=== PATIENT | female | born 1990 | race Caucasian/White ===

== ENCOUNTER 2020-09-14 06:03 | Emergency (ER) | payer OTHER, SELFPAY ==
[2020-09-14 07:29] VITALS: BP 128/70; PULSE 77; RESP 16; TEMP 37; O2SAT 98; BMI 32.9
[2020-09-14] MEDS: Lidocaine HCl 1 % MPF 5 ML VIAL 10 ML INFILTRATI (08:36)
[2020-09-14 08:41] VITALS: BP 114/69; PULSE 84; RESP 18
--- NOTE | 2020-09-14 09:07 | ED_ITS ---
HPI - General Adult General Chief complaint: General Medical Stated complaint: multiple complaints Time Seen by Provider: 09/14/20 08:13 Source: patient Mode of arrival: ambulatory Limitations: no limitations History of Present Illness HPI narrative: 30-year-old female who presents emergency department for evaluation of an abscess and cellulitis to her left lateral thigh. The patient states that she has a history of injection heroin use. She states she was sober for about 1 year. She states that her aunt about 1 month prior and this caused her to relapse. She states she has been injecting heroin daily. She states that she injected into her left thigh area 1 week prior. She states that several days after injecting in this area she developed redness and an abscess. She states that she was trying to drain the abscess at home with an insulin syringe. She states that she was able to withdraw 1 cc of pus for 5 times. She states however the abscess is gotten larger and the area of erythema has also increased. She denies systemic symptoms such as fever, chills, weakness, myalgias or arthralgias. The patient states that she is following up with a Suboxone clinic tomorrow. She does have intranasal Narcan at home. Related Data Previous Rx's Medication Instructions Recorded doxycycline hyclate 100 mg PO Q12H 7 Days #14 tab 09/14/20 furosemide 20 mg PO DAILY 14 Days #14 tab 09/14/20 metronidazole [Flagyl] 500 mg PO BID 10 Days #20 tab 09/14/20 Allergies Allergy/AdvReac Type Severity Reaction Status Date / Time acetaminophen [From TYLENOL] Allergy Mild ITCHY AND Verified 09/14/20 07:35 HIVES red dye [RED DYE] Allergy Mild ITCHY HIVES Verified 09/14/20 07:36 tioconazole Allergy Mild HIVES Verified 09/14/20 07:36 [From MONISTAT 1 (TIOCONAZOLE)] Review of Systems Review of Systems: Yes all other systems are reviewed and are negative PMFSH Past Medical History Medical History Anxiety Endocarditis Opiate addiction Social History Social History Alcohol intake: never Patient Tobacco Use Status: Current everyday Tobacco user Substance Use Type: Heroin Substance Use Frequency: Chronic Longstanding Last Used Substance: Hours (ago) Any prior treatment program specific to substance use: Yes Advance Directives: No Advance Directives Information Provided: No Patient : No Physical Exam Vital Signs: Vital Signs: Last Vital Signs Temp 98.6 F 09/14/20 07:29 Pulse 84 09/14/20 08:41 Resp 18 09/14/20 08:41 BP 114/69 09/14/20 08:41 Pulse Ox 98 09/14/20 07:29 Body Mass Index 32.9 Const: General: cooperative Nutritional Appearance: overweight Orientation/consciousness: oriented to person and oriented to place Limitations: no limitations HENMT: Head: Yes normal to inspection, Yes normocephalic and Yes atraumatic Ears: external ears normal General nose exam: Normal external nose present Face and sinus: Yes normal facial exam Mouth: Normal oral and palatal mucosa present Throat: Yes posterior oropharynx normal Eyes: Periorbital: periorbital findings normal Eyelids: Yes eyelids normal Conjunctivae: conjunctivae normal Sclerae: sclerae normal Corneas: corneas normal Pupils: Equal, round and reactive pupils present Direct Ophthalmoscopy: normal light reflex Neck: Neck: Yes full ROM, Yes no lymphadenopathy, Yes no meningeal signs, Yes trachea midline and Yes supple Chest: Chest palpation & inspection: normal inspection of the chest and normal palpation of entire chest wall Resp: Effort & Inspection: normal respiratory effort and able to speak in complete sentences Auscultation: clear to auscultation bilaterally Cardio: Rate: regular rate Rhythm: regular rhythm Heart sounds: S1 normal heart sound present, S2 normal heart sound present and no murmurs GI: Inspection: Yes normal to inspection Palpation (GI): Soft to palpation, nontender, no guarding, not rigid and No hepatosplenomegaly present : General: Yes no CVA tenderness Back/Spine/Pelvis: Back: no CVA tenderness Cervical Spine: normal cervical lordosis Thoracic/Lumbar Spine: thoracic and lumbar spine normal to inspection Skin: Lesions: no lesions Rashes: no rashes Wounds: no wounds Neuro: General: oriented to person, oriented to place and no meningeal signs Cranial nerves: Yes CN's II-XII intact bilaterally and Yes Equal, round and reactive pupils present Cognition (Neuro): normal cognition Motor exam (neuro): 5/5 motor strength present throughout Extrem: Other: Left lateral thigh: 2 x 2 central area flocculence with 11 x 13 cm area of erythema which is indurated. Erythema is warm to the touch and blanches with pressure. 1+ lower extremity edema, symmetric. General: Yes full ROM Psych: Appearance: well kempt Mental Status: mental status grossly normal Speech and movement: Normal speech and movement present Affect: normal affect Attitude: cooperative Thought process: Normal thought process present Thought content: Normal thought content present Course Course Course Narrative: 30-year-old female who presents emergency department for evaluation of abscess and cellulitis to the left lateral thigh after injecting heroin in this area 1 week prior. The patient does have a history of injection heroin use and uses daily. She states she is going to get into a Suboxone clinic tomorrow and does not want crisis counseling. She states that she has multiple doses of intranasal old Narcan at home and does carry a dose with her. The patient's abscess was incised and drained approximately 10 cc of purulent material was expressed from the incision. I did pack the wound with quarter- inch gauze. The patient will be discharged home with prescriptions for doxycycline 100 mg twice a day for 7 days and cephalexin 500 mg 4 times a day for 7 days. The patient also has peripheral edema and was started on Lasix 20 mg once a day for 2 weeks. Procedures Abscess I/D Site: lower extremity Side (if applicable): left Local Anesthetic: lidocaine 1% Amount of anesthesia used (mL): 10 Technique: incised with blade and other (Adhesions within the abscess cavity were broken up using a hemostat) Amount of fluid expressed (mL): 10 Sent for culture/gram staining?: Yes Irrigation: No Packing used?: iodoform (Quarter-inch) Discharge Plan Discharge Clinical Impression: Heroin use disorder, moderate, Abscess of left lower extremity, Encounter for incision and drainage procedure Patient Disposition: Home, Self-Care Instructions: Cellulitis (ED), Abscess Incision and Drainage (DC), Edema (ED) Additional Instructions: I incised and drained approximately 10 mL of pus out of your abscess. I put approximately 6 in packing in the wound. The packing needs to stay in for 4 days. After 4 days you can remove this packing by pulling on the and and removing it from the wound. Use a heating pad on low to moderate heat for 15-20 minutes 4 to 6 times a day. This will increase the blood flow to your skin and help the healing process. Take Keflex (cephalexin) 500 mg pills, 1 pill 4 times a day for 7 days. Also take doxycycline 100 mg pills, 1 pill twice a day for 7 days. These 2 antibiotic should help with the cellulitis. Take ibuprofen 200 mg pills, 3 pills every 6 hours as needed for pain. Take Tylenol (acetaminophen) 500 mg pills, 2 pills every 4 to 6 hours as needed for pain. For the swelling in your legs I am prescribing Lasix (furosemide) 20 mg, take 1 pill in the morning. This medication will make you pee frequently for approximately 6 hours. While you are taking furosemide you need to restrict the amount of fluid that you drink so that you can lose more fluid than you take in. Follow-up with your doctor in 2 days. Please return to the emergency department if your symptoms get worse or if you develop any symptoms that are concerning to you. Prescriptions: New metronidazole [Flagyl] 500 mg tablet 500 mg PO BID 10 Days Qty: 20 RF: 0 doxycycline hyclate 100 mg tablet 100 mg PO Q12H 7 Days Qty: 14 RF: 0 furosemide 20 mg tablet 20 mg PO DAILY 14 Days Qty: 14 RF: 0
== END 2020-09-14 09:39 | disposition home or self-care (01) ==
PROVIDERS: Emergency Provider Emergency Medicine Emergency Medical Services
DX: L02.416 Cutaneous abscess of left lower limb (principal); L03.116 Cellulitis of left lower limb; R60.0 Localized edema; F11.20 Opioid dependence, uncomplicated
CPT/HCPCS: 10060; 87071; 87077; 87186; 87205; 99284

== ENCOUNTER 2021-01-13 17:45 | Emergency (ER) | payer OTHER, SELFPAY ==
[2021-01-13 18:18] VITALS: BP 111/71; PULSE 99; RESP 18; TEMP 37.2; O2SAT 98; BMI 29.9
--- NOTE | 2021-01-13 20:29 | ED_ITS ---
HPI - Skin/Abscess/Foreign Bdy General Chief complaint: Skin/Abscess/Foreign Body Stated complaint: cellulitis Time Seen by Provider: 01/13/21 20:26 Source: patient Mode of arrival: ambulatory Limitations: no limitations History of Present Illness HPI narrative: 30-year-old IV heroin user presents for rash on her left and right lower extremities. Patient injects in her legs. Patient was seen at [facility] 3 days ago and prescribed doxycycline. Patient has been taking doxycycline for 3 days, states the pain in her left lower extremity is better but now she has a rash and pain in her right lower extremity. Denies fevers, chills, weakness, arthralgias, myalgias, dyspnea, chest pain. Patient has a past medical history of endocarditis, she has had endocarditis in 2016 and 2017. MD complaint: rash Onset (ago): day(s) (3) Tetanus up to date: unsure Location: LLE and RLE Severity: moderate Severity scale (1-10): 5 Quality: aching Pain Consistency: constant Relieving factors: medication Context: IVDA Associated symptoms: denies other symptoms Treatments prior to arrival: antibiotic Related Data Previous Rx's Medication Instructions Recorded doxycycline hyclate 100 mg tablet 100 mg PO Q12H 7 Days #14 tab 09/14/20 furosemide 20 mg tablet 20 mg PO DAILY 14 Days #14 tab 09/14/20 metronidazole 500 mg tablet 500 mg PO BID 10 Days #20 tab 09/14/20 (Flagyl) cephalexin 500 mg capsule 500 mg PO QID 10 Days #40 cap 01/13/21 doxycycline hyclate 100 mg tablet 100 mg PO DAILY 3 Days #3 tab 01/13/21 ibuprofen 800 mg tablet 800 mg PO Q8H 5 Days #15 tab 01/13/21 Allergies Allergy/AdvReac Type Severity Reaction Status Date / Time acetaminophen [From TYLENOL] Allergy Mild ITCHY AND Verified 09/14/20 07:35 HIVES red dye [RED DYE] Allergy Mild ITCHY HIVES Verified 09/14/20 07:36 tioconazole Allergy Mild HIVES Verified 09/14/20 07:36 [From MONISTAT 1 (TIOCONAZOLE)] Review of Systems Constitutional: Constitutional: Denies body ache(s), Denies chills, Denies fatigue, Denies fever(s), Denies headache(s), Denies malaise and Denies weakness Eyes: Eyes: Denies diplopia ENT: Denies vertigo, Denies dizziness, Denies otalgia, Denies headache(s), Denies mouth pain, Denies post nasal drip, Denies sinus pain, Denies sinus pressure, Denies sore throat and Denies throat swelling Cardiovascular: Cardiovascular: Denies chest pain, Denies syncope, Denies leg edema, Denies lightheadedness, Denies Loss of Consciousness, Denies palpitations and Denies dyspnea Respiratory: Respiratory: Denies chest congestion, Denies cough and Denies dyspnea Gastrointestinal: Gastrointestinal: Denies abdominal pain, Denies hematochezia, Denies constipation, Denies diarrhea and Denies vomiting Musculoskeletal: Musculoskeletal: Reports no additional musculoskeletal complaints Integumentary/Breasts: Skin/Breast: Reports new lesions, Reports erythema, Reports rash, Reports skin pain, Reports skin swelling, Reports skin ulcer and Reports sores Comments: warmth of LE Neurologic: Denies confusion, Denies vertigo, Denies dizziness, Denies syncope, Denies headache(s) and Denies weakness Psychiatric: Psychiatric: Reports anxiety, Denies confusion and Denies depression Endocrine: Endocrine: Denies fatigue and Denies palpitations Allergic/Immunologic: Allergic/Immunologic: Denies throat swelling PMFSH Past Medical History Medical History Anxiety Endocarditis Opiate addiction Social History Social History Alcohol intake: never Patient Tobacco Use Status: Current everyday Tobacco user Substance Use Type: Heroin Advance Directives: No Advance Directives Information Provided: Yes Patient : No Physical Exam Vital Signs: Vital Signs: Last Vital Signs Temp 98.8 F 01/13/21 22:00 Pulse 91 01/13/21 22:00 Resp 16 01/13/21 22:00 BP 116/86 01/13/21 22:00 Pulse Ox 98 01/13/21 22:00 Body Mass Index 29.9 Const: General: no acute distress, alert, awake and poor hygiene; No confusion Nutritional Appearance: well nourished Orientation/consciousness: patient oriented x3 and No confusion Limitations: no limitations Eyes: Conjunctivae: conjunctivae normal Pupils: Equal, round and reactive pupils present EOM: EOMs intact bilaterally Neck: Neck: Yes full ROM, Yes no lymphadenopathy and Yes supple Resp: Effort & Inspection: normal respiratory effort and able to speak in complete sentences Auscultation: clear to auscultation bilaterally, no crackles, no rales, no rhonchi and no wheezes Cardio: Rate: regular rate Rhythm: regular rhythm Heart sounds: S1 normal heart sound present and S2 normal heart sound present GI: Inspection: Yes normal to inspection Palpation (GI): Soft to palpation, nontender, no guarding and not rigid Percussion: Yes normal to percussion Auscultation: normal bowel sounds Skin: Other: local infection to bilateral lower extremity injection sites, now with spreading cellulitis. There are blisters over laying non-blanching red rash on left lower extremity, multiple ulcers with necrotic area. Petechiae on right lower extremity with sandip red, warm, skin swelling surrounding. Neuro: General: patient oriented x3 and No confusion Cranial nerves: Yes Equal, round and reactive pupils present Extrem: Right lower extremity: normal capillary refill, edema Details: non- pitting and lower leg Details: localized swelling, non-pitting edema and warmth Left lower extremity: normal capillary refill, edema Details: non-pitting and lower leg Details: non-pitting edema and warmth Psych: Appearance: disheveled Mental Status: mental status grossly normal Speech and movement: Clear speech present Affect: Sad affect present and Anxious affect present Attitude: cooperative Thought process: Normal thought process present Course Course Course Narrative: 30-year-old IV drug user presents with local infection to bilateral lower extremity injection sites, now with spreading cellulitis. There are blisters over laying non-blanching red rash on left lower extremity, multiple ulcers with necrotic area. Petechiae on right lower extremity with sandip red, warm, skin swelling surrounding. Will get blood cultures, labs, EKG, troponin, start IV antibiotics, expect admission Reevaluation(s) Reevaluation #1: Patient has no IV access. Dr. Ruba Mathis was able to get an IJ, however this site was lost shortly thereafter Patient is now stating that she will not stay in the hospital. 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 She is concerned that if she has to be hospitalized she will lose her apartment Extended doxycycline prescription so that it will be 10 days, prescribed 10 days of Keflex. Give strict return precautions of worsening rash, fever, nausea or vomiting, chest pain, shortness of breath. Patient left against medical advice. MDM - Skin/Abscess/Foreign Bdy ECG Data Interpretation: Sinus arrhythmia with a rate of 77. ME interval 172. QRS 94. QTC 475. Normal axis. No ST depressions or elevations. Discharge Plan Discharge Clinical Impression: Cellulitis Qualifiers: Site of cellulitis: extremity Site of cellulitis of extremity: lower extremity Laterality: unspecified laterality Qualified Code(s): L03.119 - Cellulitis of unspecified part of limb Patient Disposition: Left Against Medical Advice Instructions: Cellulitis (ED) Additional Instructions: Continue taking her doxycycline morning and night. I have prescribed 3 more days of doxycycline so your total course of this antibiotic will be 10 days. Please start taking cephalexin tonight. You must take it every 6 hours for the next 10 days. I have advised you to be admitted to the hospital today. You have left against medical advice. If you have fevers, worsening rash, chest pain, shortness of breath, or any other new or concerning symptoms you must return to the emergency room. Prescriptions: New doxycycline hyclate 100 mg tablet 100 mg PO DAILY 3 Days Qty: 3 RF: 0 cephalexin 500 mg capsule 500 mg PO QID 10 Days Qty: 40 RF: 0 ibuprofen 800 mg tablet 800 mg PO Q8H 5 Days Qty: 15 RF: 0 No Action metronidazole [Flagyl] 500 mg tablet 500 mg PO BID 10 Days Qty: 20 RF: 0 doxycycline hyclate 100 mg tablet 100 mg PO Q12H 7 Days Qty: 14 RF: 0 furosemide 20 mg tablet 20 mg PO DAILY 14 Days Qty: 14 RF: 0 Interventions: ED Discharge Assessment Last Done: 01/13/21 23:07 Discharge Date/Time: 01/13/21 23:08
--- NOTE | 2021-01-13 21:23 | ECG_ITS ---
Test Reason : ? ENDOCRITIS Blood Pressure : / mmHG Vent. Rate : 077 BPM Atrial Rate : 077 BPM P-R Int : 172 ms QRS Dur : 094 ms QT Int : 420 ms P-R-T Axes : 069 057 040 degrees QTc Int : 475 ms Normal sinus rhythm with sinus arrhythmia RSR' or QR pattern in V1 suggests right ventricular conduction delay T-wave inversion in Anterior leads Abnormal ECG When compared with ECG of 23-FEB-2017 12:21, No significant change was found Referred By: Ann Blair Electronically Signed By:MONTY AVINA MD
--- NOTE | 2021-01-13 21:39 | PC.NURSE ---
20g L internal jugular placed by Dr Mathis
--- NOTE | 2021-01-13 21:45 | PC.NURSE ---
Able to obtain first set of BC. IV no longer able to draw back, no additional blood able to be obtained. Dr Mathis is aware. Pt without IV access at this time. Pt reports she does not want to stay at hospital.
[2021-01-13 22:00] VITALS: BP 116/86; PULSE 91; RESP 16; TEMP 37.1; O2SAT 98
--- NOTE | 2021-01-13 23:00 | PC.NURSE ---
Pt was encouraged to be admitted to hospital for appropriate treatment of her presenting sx. 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 Pt repeatedly refusing recommendations by this RN for admission. Pt left AMA from [facility] provider. Pt ambulates with steady gait with cane.
== END 2021-01-13 23:08 | disposition left against medical advice (07) ==
PROVIDERS: Emergency Provider Emergency Medicine; PCP Internal Medicine
DX: L03.119 Cellulitis of unspecified part of limb (principal); F17.210 Nicotine dependence, cigarettes, uncomplicated; F11.10 Opioid abuse, uncomplicated; Z71.6 Tobacco abuse counseling; Z79.899 Other long term (current) drug therapy; Z71.51 Drug abuse counseling and surveillance of drug abuser
CPT/HCPCS: 87040; 93005; 99284

== ENCOUNTER 2021-02-18 01:54 | Emergency (ER) | payer OTHER, SELFPAY ==
[2021-02-18 02:08] VITALS: BP 124/84; PULSE 82; RESP 18; TEMP 36.6; O2SAT 99; BMI 28.3
--- NOTE | 2021-02-18 03:57 | ED_ITS ---
HPI - Wound/Laceration General Chief Complaint: Wound/Laceration Stated Complaint: Wound infection Time Seen by Provider: 02/18/21 02:45 Source: patient Mode of arrival: ambulatory History of Present Illness HPI narrative: 30-year-old female presents with request for rechecking the ulcerations on her right ankle and inner aspect of left lower extremity. She denies any fevers or chills and states that she thinks that the wounds are much improved but would like antibiotic coverage. Related Data Previous Rx's Medication Instructions Recorded doxycycline hyclate 100 mg tablet 100 mg PO Q12H 7 Days #14 tab 09/14/20 furosemide 20 mg tablet 20 mg PO DAILY 14 Days #14 tab 09/14/20 metronidazole 500 mg tablet 500 mg PO BID 10 Days #20 tab 09/14/20 (Flagyl) cephalexin 500 mg capsule 500 mg PO QID 10 Days #40 cap 01/13/21 doxycycline hyclate 100 mg tablet 100 mg PO DAILY 3 Days #3 tab 01/13/21 ibuprofen 800 mg tablet 800 mg PO Q8H 5 Days #15 tab 01/13/21 cephalexin 500 mg capsule 500 mg PO Q12H 5 Days #10 cap 02/18/21 doxycycline hyclate 100 mg tablet 100 mg PO BID 5 Days #10 tab 02/18/21 Allergies Allergy/AdvReac Type Severity Reaction Status Date / Time acetaminophen [From TYLENOL] Allergy Mild ITCHY AND Verified 09/14/20 07:35 HIVES red dye [RED DYE] Allergy Mild ITCHY HIVES Verified 09/14/20 07:36 tioconazole Allergy Mild HIVES Verified 09/14/20 07:36 [From MONISTAT 1 (TIOCONAZOLE)] Review of Systems Review of Systems: Pertinent positives and negatives as stated HPI 10 point review of systems is otherwise negative. [facility] Past Medical History Source: nursing notes reviewed Medical History Anxiety Endocarditis Opiate addiction Social History Social History Alcohol intake: never Patient Tobacco Use Status: Current everyday Tobacco user Substance Use Type: Heroin Advance Directives: No Patient : No Physical Exam Vital Signs: Vital Signs: Last Vital Signs Temp 97.8 F 02/18/21 02:08 Pulse 82 02/18/21 02:08 Resp 18 02/18/21 02:08 BP 124/84 02/18/21 02:08 Pulse Ox 99 02/18/21 02:08 Body Mass Index 28.3 VITAL SIGNS: Reviewed. GENERAL: Well developed, well nourished, in no acute distress. HEAD: Normocephalic/atraumatic EYES: PERRLA, EOMI OROPHARYNX: no oral lesions noted, posterior pharynx clear LUNGS: Normal breath sounds. No adventitious sounds or accessory muscle use. SpO2<99> CARDIOVASCULAR: Regular rate and rhythm without noted murmurs ABDOMEN: Soft, non-tender, non-distended with bowel sounds. RIGHT ANKLE: Obvious signs of healing with minimal surrounding erythema and no purulence drainage, this is in comparison to images that patient has on her phone. LEFT LOWER EXTREMITY: There are 2 well-circumscribed ulcerations to the medial aspect of the left lower extremity without purulence drainage and good granulation tissue. The ulceration at the superior aspect is noted to have a piece of necrotic tissue, however there is no significant crepitus/erythema surrounding this area and there is no foul odor. SKIN: Inspection of the skin reveals no rashes NEUROLOGIC: Alert and oriented x 4. Strength and sensation to light touch were grossly intact x 4. Course Course Course Narrative: This is a 30-year-old female with history and clinical presentation consistent with healing ulcerations to bilateral lower extremities, will provide a course of antibiotics and give her referral to see the wound care clinic here at [facility]. Discharge Plan Discharge Clinical Impression: Leg ulcer, left Patient Disposition: Home, Self-Care Instructions: Chronic Wounds (ED) Additional Instructions: 1. Use [id number] Tylenol/ibuprofen as needed for pain control. 2. Complete the entire course of antibiotics. 3. You have been provided with a wound care center referral below. 4. Please follow-up with your primary care provider on Friday morning to set up an appointment for re-evaluation. Return to the ER for acute worsening symptoms. Prescriptions: New cephalexin 500 mg capsule 500 mg PO Q12H 5 Days Qty: 10 RF: 0 doxycycline hyclate 100 mg tablet 100 mg PO BID 5 Days Qty: 10 RF: 0 No Action metronidazole [Flagyl] 500 mg tablet 500 mg PO BID 10 Days Qty: 20 RF: 0 doxycycline hyclate 100 mg tablet 100 mg PO Q12H 7 Days Qty: 14 RF: 0 furosemide 20 mg tablet 20 mg PO DAILY 14 Days Qty: 14 RF: 0 doxycycline hyclate 100 mg tablet 100 mg PO DAILY 3 Days Qty: 3 RF: 0 cephalexin 500 mg capsule 500 mg PO QID 10 Days Qty: 40 RF: 0 ibuprofen 800 mg tablet 800 mg PO Q8H 5 Days Qty: 15 RF: 0 Referrals: Wound Care [facility] [Outside] - 2 days
[2021-02-18] MEDS: cephALEXin 500 MG CAPSULE PO (04:10)
== END 2021-02-18 04:13 | disposition home or self-care (01) ==
PROVIDERS: Emergency Provider Student in an Organized Health Care Education/Training Program
DX: L97.929 Non-pressure chronic ulcer of unspecified part of left lower leg with unspecified severity (principal); L97.919 Non-pressure chronic ulcer of unspecified part of right lower leg with unspecified severity
CPT/HCPCS: 99283

== ENCOUNTER 2021-03-03 02:52 | Emergency (ER) | payer OTHER, SELFPAY ==
[2021-03-03 03:19] VITALS: BP 111/70; PULSE 87; RESP 18; TEMP 36.8; O2SAT 100; BMI 29.1
--- NOTE | 2021-03-03 03:34 | ED_ITS ---
HPI - General Adult General Chief complaint: General Medical Stated complaint: cellulitis Time Seen by Provider: 03/03/21 03:34 Source: patient Mode of arrival: ambulatory History of Present Illness HPI narrative: 30-year-old female known IVDA presents with erythema and warmth to the right lower extremity without any fever, chills, shortness of breath and upcoming appointment with the wound care clinic. Related Data Previous Rx's Medication Instructions Recorded doxycycline hyclate 100 mg tablet 100 mg PO Q12H 7 Days #14 tab 09/14/20 furosemide 20 mg tablet 20 mg PO DAILY 14 Days #14 tab 09/14/20 metronidazole 500 mg tablet 500 mg PO BID 10 Days #20 tab 09/14/20 (Flagyl) cephalexin 500 mg capsule 500 mg PO QID 10 Days #40 cap 01/13/21 doxycycline hyclate 100 mg tablet 100 mg PO DAILY 3 Days #3 tab 01/13/21 ibuprofen 800 mg tablet 800 mg PO Q8H 5 Days #15 tab 01/13/21 cephalexin 500 mg capsule 500 mg PO Q12H 5 Days #10 cap 02/18/21 doxycycline hyclate 100 mg tablet 100 mg PO BID 5 Days #10 tab 02/18/21 cephalexin 500 mg capsule 500 mg PO Q12H 7 Days #14 cap 03/03/21 doxycycline hyclate 100 mg tablet 100 mg PO BID 7 Days #14 tab 03/03/21 ibuprofen 800 mg tablet 800 mg PO Q8H PRN #30 tab 03/03/21 Allergies Allergy/AdvReac Type Severity Reaction Status Date / Time acetaminophen [From TYLENOL] Allergy Mild ITCHY AND Verified 09/14/20 07:35 HIVES red dye [RED DYE] Allergy Mild ITCHY HIVES Verified 09/14/20 07:36 tioconazole Allergy Mild HIVES Verified 09/14/20 07:36 [From MONISTAT 1 (TIOCONAZOLE)] Review of Systems Review of Systems: Pertinent positives and negatives as stated in HPI 10 point review of systems is otherwise negative. [facility] Past Medical History Source: nursing notes reviewed Medical History Anxiety Endocarditis Opiate addiction Social History Social History Alcohol intake: never Patient Tobacco Use Status: Current everyday Tobacco user Substance Use Type: Heroin Advance Directives: No Advance Directives Information Provided: Yes Physical Exam Vital Signs: Vital Signs: Last Vital Signs Temp 98.2 F 03/03/21 03:19 Pulse 87 03/03/21 03:19 Resp 18 03/03/21 03:19 BP 111/70 03/03/21 03:19 Pulse Ox 100 03/03/21 03:19 Body Mass Index 29.1 VITAL SIGNS: Reviewed. GENERAL: Well developed, well nourished, in no acute distress. HEAD: Normocephalic/atraumatic EYES: PERRLA, EOMI LUNGS: Normal breath sounds. No adventitious sounds or accessory muscle use. SpO2<100> CARDIOVASCULAR: Regular rate and rhythm without noted murmurs ABDOMEN: Soft, non-tender, non-distended with bowel sounds. RIGHT LOWER EXTREMITY: Some mild swelling with overlying warmth and erythema NEUROLOGIC: Alert and oriented x 4. Course Course Course Narrative: 30-year-old female with history and clinical presentation consistent with localized cellulitis secondary to obvious injection site. There are no systemic symptoms and patient has responded well to the combination of doxycycline and cephalexin previously. She will receive initial antibiotics here and then be discharged with remaining prescription. Discharge Plan Discharge Clinical Impression: Cellulitis Patient Disposition: Home, Self-Care Instructions: Cellulitis (ED) Additional Instructions: 1. Stop doing drugs 2. Complete the entire course of antibiotics. 3. Follow-up with your primary care provider and keep the scheduled appointment with the wound care clinic. Return to the ER for worsening symptoms. Prescriptions: New cephalexin 500 mg capsule 500 mg PO Q12H 7 Days Qty: 14 RF: 0 doxycycline hyclate 100 mg tablet 100 mg PO BID 7 Days Qty: 14 RF: 0 ibuprofen 800 mg tablet 800 mg PO Q8H PRN (Reason: pain) Qty: 30 RF: 0 No Action metronidazole [Flagyl] 500 mg tablet 500 mg PO BID 10 Days Qty: 20 RF: 0 doxycycline hyclate 100 mg tablet 100 mg PO Q12H 7 Days Qty: 14 RF: 0 furosemide 20 mg tablet 20 mg PO DAILY 14 Days Qty: 14 RF: 0 doxycycline hyclate 100 mg tablet 100 mg PO DAILY 3 Days Qty: 3 RF: 0 cephalexin 500 mg capsule 500 mg PO QID 10 Days Qty: 40 RF: 0 ibuprofen 800 mg tablet 800 mg PO Q8H 5 Days Qty: 15 RF: 0 cephalexin 500 mg capsule 500 mg PO Q12H 5 Days Qty: 10 RF: 0 doxycycline hyclate 100 mg tablet 100 mg PO BID 5 Days Qty: 10 RF: 0 Referrals: Ama Adams MD [Primary Care Provider] - 2 days
[2021-03-03] MEDS: cephALEXin 500 MG CAPSULE PO (03:53)
[2021-03-03] MEDS: Ibuprofen 800 MG TABLET PO (03:53)
--- NOTE | 2021-03-03 03:59 | PC.NURSE ---
Pt remains alert and oriented x4, calm and cooperative. Pt states right lower leg pain. Pt ambulating steady on her feet. Pt received PO meds and tolerated well. Vitals stable, no IV in place. Pt educated on dc and stated an understanding.
== END 2021-03-03 04:01 | disposition home or self-care (01) ==
PROVIDERS: Emergency Provider Student in an Organized Health Care Education/Training Program; PCP Internal Medicine
DX: L03.115 Cellulitis of right lower limb (principal); F11.20 Opioid dependence, uncomplicated
CPT/HCPCS: 99283; 99284

== ENCOUNTER 2021-03-06 08:18 | Outpatient (RCR) | payer OTHER, SELFPAY | END 2021-06-07 09:02 | disposition home or self-care (01) | LOC: HO.WCC 08:18 | PROVIDERS: PCP Internal Medicine; Visit Provider Physician Assistant | DX: I87.312 Chronic venous hypertension (idiopathic) with ulcer of left lower extremity (principal); L97.822 Non-pressure chronic ulcer of other part of left lower leg with fat layer exposed; L03.116 Cellulitis of left lower limb; F17.210 Nicotine dependence, cigarettes, uncomplicated; F11.20 Opioid dependence, uncomplicated | CPT/HCPCS: 11042; 87071; 87077; 87186; 87205; 97597 ==

== ENCOUNTER 2021-05-18 22:43 | Emergency (ER) | payer OTHER, SELFPAY ==
--- NOTE | ~2021-05-18 | XR_ITS ---
EXAMINATION: XR ABDOMEN KUB CLINICAL INDICATION: Constipation COMPARISON: CT 02/28/2014 TECHNIQUE: AP view of the abdomen. FINDINGS: The bowel gas pattern is nonobstructive. Large amount of stool is present. Calcifications in the lower pelvis are favored to reflect phleboliths when compared to prior CT. There is an additional calcification overlying the lateral right upper quadrant which could reflect bowel contents in the ascending colon or potentially a gallstone. No acute osseous findings are seen. XR/XR KUB IMPRESSION: Large volume of stool throughout the colon. Right upper quadrant calcification may lie within the colon or could potentially represent a gallstone.
[2021-05-18 23:33] VITALS: BP 141/86; PULSE 95; RESP 16; TEMP 37; O2SAT 100; BMI 29.9
--- NOTE | 2021-05-19 05:06 | PC.NURSE ---
PT TO ED WITH C/O LOWER ABD DISCOMFORT ABOUT BEING CONSTIPATED X 1 WEEK. PT USE AN ENEMA W/O RELIEF. PT CHG INTO GOWN AND AWAITING MD'S EVAL.
--- NOTE | 2021-05-19 05:14 | ED_ITS ---
HPI - Abdominal Pain General Chief Complaint: General Medical Stated Complaint: bowel obstruction Time Seen by Provider: 05/18/21 22:50 Source: patient Mode of arrival: ambulatory Limitations: no limitations History of Present Illness HPI narrative: tried stool softener, suppository, mineral oil enema - produced one small hard stool no n/v, + flatus MD elicited complaint: abdominal pain (constipation) Pertinent past history: constipation Onset (ago): week(s) (1 (had one small stool)) Location: none Severity: mild Quality: fullness Radiation: none Migration to: no migration Exacerbating factors: nothing Relieving factors: nothing Context: other (uses heroin has not had abdominal surgery ) Associated symptoms: denies other symptoms Related Data Previous Rx's Medication Instructions Recorded doxycycline hyclate 100 mg tablet 100 mg PO Q12H 7 Days #14 tab 09/14/20 furosemide 20 mg tablet 20 mg PO DAILY 14 Days #14 tab 09/14/20 metronidazole 500 mg tablet 500 mg PO BID 10 Days #20 tab 09/14/20 (Flagyl) cephalexin 500 mg capsule 500 mg PO QID 10 Days #40 cap 01/13/21 doxycycline hyclate 100 mg tablet 100 mg PO DAILY 3 Days #3 tab 01/13/21 ibuprofen 800 mg tablet 800 mg PO Q8H 5 Days #15 tab 01/13/21 cephalexin 500 mg capsule 500 mg PO Q12H 5 Days #10 cap 02/18/21 doxycycline hyclate 100 mg tablet 100 mg PO BID 5 Days #10 tab 02/18/21 cephalexin 500 mg capsule 500 mg PO Q12H 7 Days #14 cap 03/03/21 doxycycline hyclate 100 mg tablet 100 mg PO BID 7 Days #14 tab 03/03/21 ibuprofen 800 mg tablet 800 mg PO Q8H PRN #30 tab 03/03/21 lactulose 20 gram/30 mL oral 20 g (30 mL) PO DAILY PRN #1200 ml 05/19/21 solution sennosides 8.6 mg tablet (senna) 8.6 mg PO BEDTIME PRN #30 tab 05/19/21 Allergies Allergy/AdvReac Type Severity Reaction Status Date / Time acetaminophen [From TYLENOL] Allergy Mild ITCHY AND Verified 09/14/20 07:35 HIVES red dye [RED DYE] Allergy Mild ITCHY HIVES Verified 09/14/20 07:36 tioconazole Allergy Mild HIVES Verified 09/14/20 07:36 [From MONISTAT 1 (TIOCONAZOLE)] Review of Systems Review of Systems Constitutional : No Weight loss, No Fever, No Chills ENT/Mouth : No sore throat, No Rhinorrhea Eyes: No Swelling, No Redness Cardiovascular : No Chest Pain, No SOB, NoEdema Respiratory : No Cough, No Sputum, No Wheezing Gastrointestinal : no Nausea, noVomiting, noDiarrhea, no abdominal Pain, No Hematochezia, No Melena, pos constipation Genitourinary : No Dysuria, No Urinary Frequency, No Hematuria, No Urgency Musculoskeletal : No joint pain, No Myalgias, No Joint Swelling Skin : No Skin Lesions, No rash Neuro : No Weakness, No Numbness, No Dizziness, No Headache Psych : No Anxiety/Panic, No Depression Heme/Lymph: No Bruising, No Lymphadenopathy Endocrine : No Polyuria, No Polydipsia All other systems reviewed and are negative. Physical Exam Vital Signs: Vital Signs: Last Vital Signs Temp 98.6 F 05/18/21 23:33 Pulse 95 05/18/21 23:33 Resp 16 05/18/21 23:33 BP 141/86 H 05/18/21 23:33 Pulse Ox 100 05/18/21 23:33 BMI result Body Mass Index 29.9 Appearance: Alert. Oriented X3. No acute distress. Eyes: Pupils equal, round and reactive to light. ENT: Pharynx normal. Neck: Normal inspection. Neck supple. CVS: Normal heart rate and rhythm. Pulses normal. Respiratory: No respiratory distress. Breath sounds normal. Abdomen: Soft and nontender. Skin: Skin warm and dry. Normal skin color. Normal skin turgor. track kaur noted on UE Extremities: No lower extremity edema. No calf ttp Neuro: Oriented X 3. No motor deficit. No sensory deficit. Course Course Course Narrative: no SBO on xray MDM - Abdominal Pain MDM Narrative Medical decision making narrative: 30 yo female with hx of IV heroin abuse comes in with constipation - she has a benign abdominal exam no n/v she is passing gas and has had a small stool. No prior abdominal surgeries - doubt SBO - at this time will order KUB. She does not want medications here she wants to take them at home. Lab Data Labs: Lab Results 05/19/21 Range/Units 05:29 Urine Color YELLOW Urine Appearance CLOUDY Urine pH 5.5 (5.0-8.0) Ur Specific [place] >= 1.030 H (1.005-1.025) Urine Protein NEG (NEG-TRACE) MG/DL Urine Glucose (UA) NEG (NEG) MG/DL Urine Ketones NEG (NEG) MG/DL Urine Blood NEG (NEG) Urine Nitrite NEG (NEG) Ur Leukocyte Esterase NEG (NEG) Discharge Plan Discharge Clinical Impression: Constipation Qualifiers: Constipation type: unspecified constipation type Qualified Code(s): K59.00 - Constipation, unspecified Patient Disposition: Home, Self-Care Instructions: Constipation (ED) Additional Instructions: return to ED for any worsening symptoms or concerns take 1/2 of bottle if no BM achieved repeat in 2 hours - drink at least 64 ounces of fluid with medication Prescriptions: New lactulose 20 gram/30 mL solution 20 g PO DAILY PRN (Reason: constipation) Qty: 1200 0RF sennosides [senna] 8.6 mg tablet 8.6 mg PO BEDTIME PRN (Reason: constipation) Qty: 30 0RF No Action metronidazole [Flagyl] 500 mg tablet 500 mg PO BID 10 Days Qty: 20 0RF doxycycline hyclate 100 mg tablet 100 mg PO Q12H 7 Days Qty: 14 0RF furosemide 20 mg tablet 20 mg PO DAILY 14 Days Qty: 14 0RF cephalexin 500 mg capsule 500 mg PO Q12H 7 Days Qty: 14 0RF doxycycline hyclate 100 mg tablet 100 mg PO BID 7 Days Qty: 14 0RF ibuprofen 800 mg tablet 800 mg PO Q8H PRN (Reason: pain) Qty: 30 0RF doxycycline hyclate 100 mg tablet 100 mg PO DAILY 3 Days Qty: 3 0RF cephalexin 500 mg capsule 500 mg PO QID 10 Days Qty: 40 0RF ibuprofen 800 mg tablet 800 mg PO Q8H 5 Days Qty: 15 0RF cephalexin 500 mg capsule 500 mg PO Q12H 5 Days Qty: 10 0RF doxycycline hyclate 100 mg tablet 100 mg PO BID 5 Days Qty: 10 0RF PMFSH Past Medical History Attestation statement: The following information was validated with the patient. Medical History (Updated 05/19/21 @ 05:34 by Ruba Mathis DO) Anxiety Endocarditis Opiate addiction Surgical History (Updated 05/19/21 @ 05:32 by Ruba Mathis DO) No pertinent past surgical history Social History Social History Alcohol intake: never Patient Tobacco Use Status: Current everyday Tobacco user Substance Use Type: Heroin Advance Directives: No Advance Directives Information Provided: Yes Patient : No
[2021-05-19] MEDS: Magnesium Citrate 300 ML SOLUTION PO (05:32)
[2021-05-19 05:34] LABS: Appearance Urine CLOUDY; Color Urine YELLOW; Glucose Urine UA NEG (NEG); Leukocyte Esterase Urine NEG (NEG); Nitrite Urine NEG (NEG); PH 5.5 (5.0-8.0); Specific Gravity - Urine >= 1.030 (1.005-1.025); Urine Blood NEG (NEG); Urine Ketones NEG (NEG); Urine Protein NEG (NEG-TRACE)
== END 2021-05-19 05:47 | disposition home or self-care (01) ==
PROVIDERS: Emergency Provider Emergency Medicine
DX: K59.00 Constipation, unspecified (principal)
CPT/HCPCS: 74018; 81003; 99283

== ENCOUNTER 2021-09-17 14:46 | Outpatient (RCR) | payer OTHER, SELFPAY | END 2021-12-14 09:17 | disposition home or self-care (01) | LOC: HO.WCC 14:46 | PROVIDERS: Visit Provider Physician Assistant | DX: L97.822 Non-pressure chronic ulcer of other part of left lower leg with fat layer exposed (principal); F11.288 Opioid dependence with other opioid-induced disorder; F17.210 Nicotine dependence, cigarettes, uncomplicated; Z86.19 Personal history of other infectious and parasitic diseases | CPT/HCPCS: 11042; 11043; 11045; 11046 ==

== ENCOUNTER 2022-05-19 16:14 | Emergency (ER) | payer OTHER, SELFPAY ==
[2022-05-19 16:21] VITALS: BP 123/77; PULSE 112; RESP 18; TEMP 37.3; BMI 25.0
--- NOTE | 2022-05-19 16:34 | ED_ITS ---
HPI - Extremity Problem General Chief complaint: Extremity Injury, Upper Stated complaint: L shoulder pain Time Seen by Provider: 05/19/22 16:43 Source: patient Mode of arrival: ambulatory Limitations: no limitations History of Present Illness HPI Narrative: 31-year-old female with a past medical history of IV drug use who reports has a chronic wound to her left lower extremity was presenting to the ER with compl aints of left shoulder pain that started yesterday worse today. Reports that she might have slept wrong. Reports she last used IV drug use yesterday. Reports she was being followed by the wound clinic to her left lower extremity and does not want a show me the wound at this time. She reports she is only worried about her left shoulder. She denies any dizziness, chest pain or shortness of breath, paresthesias, extremity edema, recent falls or trauma, abdominal pain, lower extremity more calf tenderness or any fevers or chills or any other symptoms complaints or concerns at this time. MD Complaint: joint pain (Left shoulder pain) Onset (ago): day(s) (Since yesterday) Pain Consistency: constant Location: left and upper extremity (Shoulder) Quality: aching Radiation: none Relieving factors: nothing Exacerbating factors: range of motion and palpation Associated symptoms: denies other symptoms Context: other (History of IV drug use) Related Data Previous Rx's Medication Instructions Recorded doxycycline hyclate 100 mg tablet 100 mg PO Q12H 7 days #14 tabs 09/14/20 furosemide 20 mg tablet 20 mg PO DAILY 2 weeks #14 tabs 09/14/20 metronidazole 500 mg tablet 500 mg PO BID 10 days #20 tabs 09/14/20 (Flagyl) cephalexin 500 mg capsule 500 mg PO QID 10 days #40 caps 01/13/21 doxycycline hyclate 100 mg tablet 100 mg PO DAILY 3 days #3 tabs 01/13/21 ibuprofen 800 mg tablet 800 mg PO Q8H 5 days #15 tabs 01/13/21 cephalexin 500 mg capsule 500 mg PO Q12H 5 days #10 caps 02/18/21 doxycycline hyclate 100 mg tablet 100 mg PO BID 5 days #10 tabs 02/18/21 cephalexin 500 mg capsule 500 mg PO Q12H 7 days #14 caps 03/03/21 doxycycline hyclate 100 mg tablet 100 mg PO BID 7 days #14 tabs 03/03/21 ibuprofen 800 mg tablet 800 mg PO Q8H PRN pain #30 tabs 03/03/21 lactulose 20 gram/30 mL oral 20 g (30 mL) PO DAILY PRN 05/19/21 solution constipation #1,200 mL sennosides 8.6 mg tablet (senna) 8.6 mg PO BEDTIME PRN constipation 05/19/21 #30 tabs Allergies Allergy/AdvReac Type Severity Reaction Status Date / Time acetaminophen [From TYLENOL] Allergy Mild ITCHY AND Verified 09/14/20 07:35 HIVES red dye [RED DYE] Allergy Mild ITCHY HIVES Verified 09/14/20 07:36 tioconazole Allergy Mild HIVES Verified 09/14/20 07:36 [From MONISTAT 1 (TIOCONAZOLE)] Review of Systems Review of Systems: Constitutional : No Weight loss, No Fever, No Chills, No Night Sweats, No Fatigue, No Malaise ENT/Mouth : No Hearing loss, No Ear Pain, No Nasal Congestion, No Sinus Pain, No Hoarseness, No sore throat, No Rhinorrhea, No Swallowing Difficulty Eyes: No Eye Pain, No Swelling, No Redness, No Foreign Body, No Discharge, No Vision Changes Cardiovascular : No Chest Pain, No SOB, No Dyspnea on Exertion, No Orthopnea, No Edema, No Palpitations Respiratory : No Cough, No Sputum, No Wheezing, No Smoke Exposure, No Dyspnea Gastrointestinal : No Nausea, No Vomiting, No Diarrhea, No Constipation, No abdominal Pain, No Hematochezia, No Melena Genitourinary : no irregular bleeding, No Dysuria, No Urinary Frequency, No Hematuria, No Urinary Incontinence, No Urgency, No Flank Pain, No Urinary Flow Changes, No Hesitancy Musculoskeletal : + joint pain, No Myalgias, No Joint Swelling Skin : No Skin Lesions, No rash Neuro : No Weakness, No Numbness, No Paresthesias, No Loss of Consciousness, No Dizziness, No Headache Psych : No Anxiety/Panic, No Depression, No SI/HI/AH/VH, No Social Issues, Heme/Lymph: No Bruising, No Bleeding,No Lymphadenopathy Endocrine : No Polyuria, No Polydipsia, No Temperature Intolerance Yes all other systems are reviewed and are negative PMFSH Past Medical History Attestation statement: The following information was validated with the patient. Source: old records reviewed and nursing notes reviewed Medical History Anxiety Endocarditis Opiate addiction Surgical History No pertinent past surgical history Social History Social History Alcohol intake: never Patient Tobacco Use Status: Current everyday Tobacco user Substance Use Type: Heroin Physical Exam Vital Signs: Vital Signs: Last Vital Signs Temp 99.2 F 05/19/22 16:21 Pulse 112 H 05/19/22 16:21 Resp 18 05/19/22 16:21 BP 123/77 05/19/22 16:21 BMI result Body Mass Index 25.0 vital signs have been reviewed as normal and appeared to be correct. Blood pressure normal Heart rate normal. Respiration rate normal. Temperature normal. Oxygen saturation normal. Appearance: Alert. Oriented X3. No acute distress. Head: Normal external exam. Normocephalic. Atraumatic. Eyes: PERRLA. EOMI. Conjunctiva and sclera normal. Eyelids normal. ENT: Pharynx normal. Uvula midline. Moist mucous membranes. Neck: Normal inspection. Neck supple. FROM. CVS: Normal heart rate and rhythm. Respiratory: No respiratory distress. Painless inspiration. Skin: Skin warm and dry. Normal skin color. Normal skin turgor. No rashes/lesions/lacerations noted. Extremities: Patient has full range of motion of the left shoulder. No obvious ligamentous or tendon injury noted. No upper extremity edema noted. Otherwise all other extremities exhibit normal range of motion nontender. Neuro: Oriented X 3. No motor deficit. No sensory deficit. Reflexes normal. Normal steady gait. No focal neuro deficits noted. Vascular: + radial pulses/+ 2 distal pedal pulses/+2 dorsalis pedis b/l. Normal cap refill. No cyanosis noted to upper extremity nails and lower extremity toes nails. Course Course Course Narrative: I was going to order the patient an x-ray of her left shoulder and I did want a look at her left lower extremity wound although when walking to the exam room patient reports that she had to go outside to tell her ride that they can wait or go home and she never came back into the emergency department she eloped Discharge Plan Discharge Clinical Impression: Left shoulder strain, Leg wound, left Patient Disposition: Elopement Prescriptions: No Action metronidazole [Flagyl] 500 mg tablet 500 mg PO BID 10 Days Qty: 20 0RF doxycycline hyclate 100 mg tablet 100 mg PO Q12H 7 Days Qty: 14 0RF furosemide 20 mg tablet 20 mg PO DAILY 14 Days Qty: 14 0RF cephalexin 500 mg capsule 500 mg PO Q12H 7 Days Qty: 14 0RF doxycycline hyclate 100 mg tablet 100 mg PO BID 7 Days Qty: 14 0RF ibuprofen 800 mg tablet 800 mg PO Q8H PRN (Reason: pain) Qty: 30 0RF lactulose 20 gram/30 mL solution 20 g PO DAILY PRN (Reason: constipation) Qty: 1200 0RF sennosides [senna] 8.6 mg tablet 8.6 mg PO BEDTIME PRN (Reason: constipation) Qty: 30 0RF doxycycline hyclate 100 mg tablet 100 mg PO DAILY 3 Days Qty: 3 0RF cephalexin 500 mg capsule 500 mg PO QID 10 Days Qty: 40 0RF ibuprofen 800 mg tablet 800 mg PO Q8H 5 Days Qty: 15 0RF cephalexin 500 mg capsule 500 mg PO Q12H 5 Days Qty: 10 0RF doxycycline hyclate 100 mg tablet 100 mg PO BID 5 Days Qty: 10 0RF Interventions: ED Discharge Assessment Last Done: 05/19/22 16:44
== END 2022-05-19 16:50 | disposition left against medical advice (07) ==
LOC: HO.ED 16:49
PROVIDERS: Emergency Provider Emergency Medicine
DX: S46.912A Strain of unspecified muscle, fascia and tendon at shoulder and upper arm level, left arm, initial encounter (principal); M79.605 Pain in left leg; F17.200 Nicotine dependence, unspecified, uncomplicated; X58.XXXA Exposure to other specified factors, initial encounter; Y93.9 Activity, unspecified; Y92.89 Other specified places as the place of occurrence of the external cause; Y99.9 Unspecified external cause status; Z71.6 Tobacco abuse counseling
CPT/HCPCS: 99282

== ENCOUNTER 2022-08-28 02:10 | Emergency (ER) | payer OTHER, SELFPAY ==
[2022-08-28 02:17] VITALS: BP 110/61; PULSE 71; RESP 16; TEMP 36.8; O2SAT 100; BMI 20.8
--- NOTE | 2022-08-28 03:03 | PC.NURSE ---
Pt witnessed exiting the department approximately 30 minutes ago walking in the direction of the parking lot. Person who accompanied pt into the ED waiting area is still in the waiting area at the present time.
--- NOTE | 2022-08-28 05:03 | ED.GENADULT ---
HPI - General Adult General Chief complaint: Upper Respiratory Symptoms Stated complaint: Wheezing/cough/cold like symptoms Time Seen by Provider: 08/28/22 04:58 Source: patient Mode of arrival: ambulatory Limitations: no limitations History of Present Illness HPI narrative: 31-year-old female came in for evaluation of wheezing, coughing, shortness of breath. Patient admitted to smoking cigarettes, no fever, no chills, no sick contacts. Patient had a history of asthma as a child, patient get seasonal bronchitis at least once yearly. Related Data Previous Rx's Medication Instructions Recorded doxycycline hyclate 100 mg tablet 100 mg PO Q12H 7 days #14 tabs 09/14/20 furosemide 20 mg tablet 20 mg PO DAILY 2 weeks #14 tabs 09/14/20 metronidazole 500 mg tablet 500 mg PO BID 10 days #20 tabs 09/14/20 (Flagyl) cephalexin 500 mg capsule 500 mg PO QID 10 days #40 caps 01/13/21 doxycycline hyclate 100 mg tablet 100 mg PO DAILY 3 days #3 tabs 01/13/21 ibuprofen 800 mg tablet 800 mg PO Q8H 5 days #15 tabs 01/13/21 cephalexin 500 mg capsule 500 mg PO Q12H 5 days #10 caps 02/18/21 doxycycline hyclate 100 mg tablet 100 mg PO BID 5 days #10 tabs 02/18/21 cephalexin 500 mg capsule 500 mg PO Q12H 7 days #14 caps 03/03/21 doxycycline hyclate 100 mg tablet 100 mg PO BID 7 days #14 tabs 03/03/21 ibuprofen 800 mg tablet 800 mg PO Q8H PRN pain #30 tabs 03/03/21 lactulose 20 gram/30 mL oral 20 g (30 mL) PO DAILY PRN 05/19/21 solution constipation #1,200 mL sennosides 8.6 mg tablet (senna) 8.6 mg PO BEDTIME PRN constipation 05/19/21 #30 tabs Allergies Allergy/AdvReac Type Severity Reaction Status Date / Time acetaminophen [From TYLENOL] Allergy Mild ITCHY AND Verified 09/14/20 07:35 HIVES red dye [RED DYE] Allergy Mild ITCHY HIVES Verified 09/14/20 07:36 tioconazole Allergy Mild HIVES Verified 09/14/20 07:36 [From MONISTAT 1 (TIOCONAZOLE)] Review of Systems Review of Systems: All other systems are reviewed and are negative Constitutional: Reports as per HPI and Reports no additional constitutional complaints Eyes: Reports as per HPI and Reports no additional eye complaints Reports system reviewed and no additional complaints, except as documented Cardiovascular: Reports as per HPI and Reports no additional cardiovascular complaints Respiratory: Reports as per HPI and Reports no additional respiratory complaints Gastrointestinal: Reports as per HPI and Reports no additional gastrointestinal complaints Genitourinary: Reports no additional female genitourinary complaints Musculoskeletal: Reports no additional musculoskeletal complaints Skin/Breast: Reports system reviewed and no additional complaints, except as docu Psychiatric: Reports no additional psychiatric complaints Endocrine: Reports no additional endocrine complaints Hematologic/Lymphatic: Reports no additional hematologic/lymphatic complaints Allergic/Immunologic: Reports no additional allergic/immunologic complaints Reports system reviewed and no additional complaints, except as documented and Reports Abnormal speech present [facility] Past Medical History Medical History Anxiety Endocarditis Opiate addiction Surgical History No pertinent past surgical history Social History Social History Alcohol intake: former Patient Tobacco Use Status: Current everyday Tobacco user Smoked in Last 30 Days: Yes Use of substances other than those prescribed or required for medical reasons: Yes Substance Use Type: Crack/Cocaine, Heroin, IV Drugs and Opiates Substance Use Frequency: Chronic Longstanding Last Used Substance: Days (ago) Any prior treatment program specific to substance use: Yes Advance Directives: No Advance Directives Information Provided: Yes Physical Exam ED Vital Signs: Vital Signs - 24 hr 08/28/22 02:17 Temperature 98.2 F Pulse Rate 71 Respiratory Rate 16 Blood Pressure 110/61 Pulse Oximetry 100 Oxygen Delivery Method Room Air BMI result Body Mass Index 20.8 Vital signs have been reviewed as appeared to be correct. Blood pressure normal. Heart rate normal. Respiration rate normal. Temperature normal. Oxygen saturation normal. Appearance: Alert. Oriented X3. No acute distress. Head: Normal external exam. Normocephalic. Atraumatic. No Gomez signs noted. No raccoon eyes noted Eyes: PERRLA. EOMI. Conjunctiva and sclera normal. Eyelids normal. ENT: TM's Normal. Pharynx normal. Uvula midline. Moist mucous membranes. No trismus noted. No drooling noted. No muffled voice noted. Neck: Normal inspection. Neck supple. FROM. No adenopathy. Thyroid Normal. No meningeal signs. No neck mass noted. CVS: Normal heart rate and rhythm. Heart sound normal. No murmurs noted. Pulses normal throughout. Respiratory: No respiratory distress. Painless inspiration. Breath sounds normal. Diffuse expiratory wheezing with prolonged expiration.. Chest nontender. No accessory muscle usage noted or decreased air movement noted. Abdomen: Soft and nontender. Bowel sounds normal in all 4 quadrants. No distention noted. No organomegaly noted. No visible injury noted. Back: No CVA tenderness. Full range of motion noted. Skin: Skin warm and dry. Normal skin color. Normal skin turgor. No rashes/lesions/lacerations noted. Extremities: No lower extremity edema. Extremities exhibit normal range of motion. Extremities nontender. Neuro: Oriented X 3. Cranial nerve exam: II-XII are grossly intact No motor deficit. No sensory deficit. Reflexes normal. Course Course Course Narrative: Acute bronchitis will discharge with Z-Jian/prednisone/albuterol. Medical Decision Making Differential Diagnosis Differential Diagnoses: The differential diagnosis associated with the presentation includes (Asthma, bronchitis, pneumonia.) Lab Data MDM Lab Attestation statement: I reviewed the patient's lab results. Discharge Plan Discharge Clinical Impression: Bronchitis Patient Disposition: Home, Self-Care Instructions: Acute Bronchitis (ED) Prescriptions: No Action metronidazole [Flagyl] 500 mg tablet 500 mg PO BID 10 Days Qty: 20 0RF doxycycline hyclate 100 mg tablet 100 mg PO Q12H 7 Days Qty: 14 0RF furosemide 20 mg tablet 20 mg PO DAILY 14 Days Qty: 14 0RF cephalexin 500 mg capsule 500 mg PO Q12H 7 Days Qty: 14 0RF doxycycline hyclate 100 mg tablet 100 mg PO BID 7 Days Qty: 14 0RF ibuprofen 800 mg tablet 800 mg PO Q8H PRN (Reason: pain) Qty: 30 0RF lactulose 20 gram/30 mL solution 20 g PO DAILY PRN (Reason: constipation) Qty: 1200 0RF sennosides [senna] 8.6 mg tablet 8.6 mg PO BEDTIME PRN (Reason: constipation) Qty: 30 0RF doxycycline hyclate 100 mg tablet 100 mg PO DAILY 3 Days Qty: 3 0RF cephalexin 500 mg capsule 500 mg PO QID 10 Days Qty: 40 0RF ibuprofen 800 mg tablet 800 mg PO Q8H 5 Days Qty: 15 0RF cephalexin 500 mg capsule 500 mg PO Q12H 5 Days Qty: 10 0RF doxycycline hyclate 100 mg tablet 100 mg PO BID 5 Days Qty: 10 0RF
[2022-08-28] MEDS: Diphth,Pertus(ACell),Tet Adult 0.5 ML SYRINGE IM (05:11)
[2022-08-28 05:25] LABS: Appearance Urine Clear; Color Urine Yellow; Glucose Urine UA Negative (Negative); Leukocyte Esterase Urine Negative (Negative); Nitrite Urine Negative (Negative); PH 6.5 (5.0-9.0); Specific Gravity - Urine >= 1.030 (1.005-1.025); Urine Blood Negative (Negative); Urine Ketones Trace mg/dL (Negative); Urine Protein Trace mg/dL (Neg-Trace)
[2022-08-28 05:27] LABS: UPreg QC Valid YES; Urine Pregnancy NEGATIVE (NEGATIVE)
[2022-08-28 05:30] LABS: Bacteria Urine Trace (None Seen); Hyaline Casts Urine 0-2 /LPF (0-2); WBC Urine 0-5 /HPF (0-5)
[2022-08-28 06:00] LABS: Influenza A PCR NEGATIVE (Negative); Influenza B PCR NEGATIVE (Negative); Resp Syncy Virus RNA Qual PCR NEGATIVE (Negative); SARS COV2 PCR INHOUSE NEGATIVE (Negative)
[2022-08-28 06:54] LABS: CT PCR NOT DETECTED (Not Detect.); NG PCR NOT DETECTED (Not Detect.)
== END 2022-08-28 05:48 | disposition home or self-care (01) ==
PROVIDERS: Emergency Provider Emergency Medicine
DX: J40 Bronchitis, not specified as acute or chronic (principal); F17.200 Nicotine dependence, unspecified, uncomplicated; Z20.822 Contact with and (suspected) exposure to COVID-19; Z20.828 Contact with and (suspected) exposure to other viral communicable diseases; Z79.899 Other long term (current) drug therapy
CPT/HCPCS: 0241U; 0353U; 81001; 81025; 90471; 90715; 99284

== ENCOUNTER 2022-09-03 21:08 | Inpatient (IN) | payer OTHER, SELFPAY ==
--- NOTE | ~2022-09-03 | XR_ITS ---
EXAMINATION: XR TIBIA AND FIBULA, LEFT CLINICAL INFORMATION: Redness, evaluate for osteomyelitis COMPARISON: None available. TECHNIQUE: AP and lateral views of the left tibia and fibula were obtained. FINDINGS: Osseous alignment appears anatomic. No acute fracture is seen. There is soft tissue swelling anterior to the proximal to mid tibial shaft. No associated osseous abnormality in this region to suggest osteomyelitis. XR/XR tibia fibula LT 2V IMPRESSION: Soft tissue swelling anterior to the proximal to mid tibial shaft. No acute osseous findings.
[2022-09-03 21:17] VITALS: BP 142/90; PULSE 102; RESP 18; TEMP 36.6; O2SAT 100; BMI 16.1
[2022-09-03 21:53] LABS: Basophils Percent Auto 0.4 % (0-2); Eosinophils Absolute Auto 0.1 X10*3/uL (0.0-0.4); Eosinophils Percent Auto 1.6 % (0-4); Hematocrit 29.9 % (37.0-47.0); Hemoglobin 8.5 g/dl (12.0-16.0); Imm Gran Abs Auto 0.02 X10*3/uL (0.00-0.03); Imm Gran Pct Auto 0.4 % (0.0-0.4); Lymphocytes Absolute Auto 1.3 X10*3/uL (1.2-4.9); Lymphocytes Percent Auto 23.6 % (20-40); MANUAL DIFF FLAG NO; Mean Corpuscular HGB Conc 28.4 g/dl (31.0-35.0); Mean Corpuscular Hemoglobin 19.1 pg (27.0-33.0); Mean Platelet Volume 9.7 fL (9.4-12.3); Monocytes Absolute Auto 0.5 X10*3/uL (0.1-1.2); Monocytes Percent Auto 8.8 % (2-11); Neutrophils Absolute Auto 3.6 x10*3/uL (2.0-8.3); Neutrophils Percent Auto 65.2 % (45-73); Platelet Count 317 X10*3/uL (160-400); Red Blood Count 4.46 X10*6/uL (4.20-5.50); Red Cell Distribution Width 15.9 % (11.0-16.0); White Blood Count 5.5 X10*3/uL (4.8-10.8)
[2022-09-03 22:13] LABS: Anion Gap 13 (12-20); Blood Urea Nitrogen 17 mg/dL (9-16); Calcium 9.4 mg/dL (8.4-10.2); Carbon Dioxide 24 mmol/L (22-29); Chloride 105 mmol/L (96-108); Creatinine Clr Calc Pharmacy 82.2; Estimated Glomerular Filt Rate > 60; Glucose Random 104 mg/dL (60-115); Potassium 3.9 mmol/L (3.3-5.1); Sodium 138 mmol/L (135-145)
[2022-09-03 23:57] VITALS: BP 122/76; PULSE 85; RESP 14; O2SAT 100
[2022-09-04] VITALS (8 sets, daily range): BP systolic 91–107; BP diastolic 51–72; PULSE 59–77; RESP 8–16; TEMP 36.4; O2SAT 99–100
--- NOTE | 2022-09-04 | ECG_ITS ---
Test Reason : WEAK Blood Pressure : / mmHG Vent. Rate : 070 BPM Atrial Rate : 070 BPM P-R Int : 116 ms QRS Dur : 090 ms QT Int : 462 ms P-R-T Axes : 059 079 032 degrees QTc Int : 498 ms Normal sinus rhythm Nonspecific T wave abnormality Prolonged QT Abnormal ECG When compared with ECG of 13-JAN-2021 21:54, No significant change was found Referred By: Jennifer Mojica Electronically Signed By:DEREK CARSON MD
--- NOTE | 2022-09-04 00:38 | PC.NURSE ---
this rn assumed care of pt from waiting room weed cutter and this rn changed pt into hospital attire
[2022-09-04 00:53] LABS: Appearance Urine Cloudy; Color Urine Yellow; Glucose Urine UA Negative (Negative); Leukocyte Esterase Urine Negative (Negative); Nitrite Urine Negative (Negative); PH 6.5 (5.0-9.0); Specific Gravity - Urine 1.025 (1.005-1.025); Urine Blood Negative (Negative); Urine Ketones Negative (Negative); Urine Protein Trace mg/dL (Neg-Trace)
[2022-09-04 01:22] LABS: HCG Quantitative < 2 mIU/mL
[2022-09-04 01:58] LABS: Lactic Acid 1.3 mmol/L (0.5-2.0)
--- NOTE | 2022-09-04 02:29 | ED.SKABFB ---
HPI - Skin/Abscess/Foreign Bdy General Chief complaint: Skin/Abscess/Foreign Body Stated complaint: headache Time Seen by Provider: 09/04/22 00:01 Source: patient Mode of arrival: ambulatory History of Present Illness HPI narrative: 32-year-old female with complaints of left lower leg infection, she is a known IVDU and has a history of endocarditis and polysubstance use. I received records from [facility] dated 08/09 wherein she presented for the 2nd time for IV antibiotics, previously was admitted on 08/03 but left AMA. Related Data Previous Rx's Medication Instructions Recorded doxycycline hyclate 100 mg tablet 100 mg PO Q12H 7 days #14 tabs 09/14/20 furosemide 20 mg tablet 20 mg PO DAILY 2 weeks #14 tabs 09/14/20 metronidazole 500 mg tablet 500 mg PO BID 10 days #20 tabs 09/14/20 (Flagyl) cephalexin 500 mg capsule 500 mg PO QID 10 days #40 caps 01/13/21 doxycycline hyclate 100 mg tablet 100 mg PO DAILY 3 days #3 tabs 01/13/21 ibuprofen 800 mg tablet 800 mg PO Q8H 5 days #15 tabs 01/13/21 cephalexin 500 mg capsule 500 mg PO Q12H 5 days #10 caps 02/18/21 doxycycline hyclate 100 mg tablet 100 mg PO BID 5 days #10 tabs 02/18/21 cephalexin 500 mg capsule 500 mg PO Q12H 7 days #14 caps 03/03/21 doxycycline hyclate 100 mg tablet 100 mg PO BID 7 days #14 tabs 03/03/21 ibuprofen 800 mg tablet 800 mg PO Q8H PRN pain #30 tabs 03/03/21 lactulose 20 gram/30 mL oral 20 g (30 mL) PO DAILY PRN 05/19/21 solution constipation #1,200 mL sennosides 8.6 mg tablet (senna) 8.6 mg PO BEDTIME PRN constipation 05/19/21 #30 tabs albuterol sulfate 90 mcg/actuation 1 inh inhalation QID PRN shortness 08/28/22 aerosol inhaler (ProAir HFA) of breath or wheezing #6.7 grams azithromycin 250 mg tablet See Rx Instructions PO .COMPLEX #6 08/28/22 (Zithromax Z-Jian) tabs prednisone 20 mg tablet 20 mg PO BID #10 tabs 08/28/22 Allergies Allergy/AdvReac Type Severity Reaction Status Date / Time acetaminophen [From TYLENOL] Allergy Mild ITCHY AND Verified 09/14/20 07:35 HIVES red dye [RED DYE] Allergy Mild ITCHY HIVES Verified 09/14/20 07:36 tioconazole Allergy Mild HIVES Verified 09/14/20 07:36 [From MONISTAT 1 (TIOCONAZOLE)] Review of Systems Review of Systems: Pertinent positives and negatives as stated in [facility] Past Medical History Source: nursing notes reviewed Medical History Anxiety Endocarditis Opiate addiction Surgical History No pertinent past surgical history Social History Social History Alcohol intake: former Patient Tobacco Use Status: Current everyday Tobacco user Substance Use Type: Crack/Cocaine, Heroin, IV Drugs and Opiates Advance Directives: No Advance Directives Information Provided: No Physical Exam Vital Signs: Vital Signs: Last Vital Signs Temp 97.5 F 09/04/22 00:47 Pulse 85 09/03/22 23:57 Resp 14 09/03/22 23:57 BP 122/76 09/03/22 23:57 Pulse Ox 100 09/03/22 23:57 O2 Del Method Room Air 09/03/22 21:17 BMI result Body Mass Index 16.1 VITAL SIGNS: Reviewed. GENERAL: Well developed, well nourished, in no acute distress. HEAD: Normocephalic/atramatic, EYES: PERRLA, EOMI EARS: Ext canals without abnormality NOSE: Nares patent bilateral OROPHARYNX: no oral lesions noted, posterior pharynx clear NECK: Supple, no adenopathy LUNGS: Normal breath sounds. No adventitious sounds or accessory muscle use. SpO2<100> CARDIOVASCULAR: Regular rate and rhythm without noted murmurs ABDOMEN: Soft, non-tender, non-distended with bowel sounds. MUSCULOSKELETAL: No tenderness, deformities, or effusions noted on gross inspection. EXTREMITIES: No cyanosis, clubbing or edema; LLE: There is a large approximate 3.5 cm wound inferior to a cellulitic portion of the leg that has purulence drainage SKIN: Inspection of the skin reveals no rashes NEUROLOGIC: Alert and oriented x 4. Strength and sensation to light touch were grossly intact x 4. Medical Decision Making Medical Decision Making MDM Narrative: 32-year-old female who presents for treatment of her left lower extremity cellulitis. On route view of the [facility] records they had obtained a CT scan which was concerning for cellulitis/abscess/suspicion for osteomyelitis. She had been started on vancomycin at that time. On that same date she left against medical advice once again. I reviewed all investigations, patient received antibiotics, lactic acid, blood cultures, she does not meet criteria for sepsis fluids. 0231: I discussed this case with inpatient hospitalist who accepts admission. Differential Diagnosis Please see the discussion above Consult Healthcare Provider Management of the patient was discussed with: Hospitalist Please see the discussion above Lab Data Please see the discussion above 09/03/22 21:46 09/03/22 21:46 Labs: Lab Results 09/03/22 09/03/22 09/04/22 Range/Units 21:46 21:46 00:46 WBC 5.5 (4.8-10.8) X10*3/uL RBC 4.46 (4.20-5.50) X10*6/uL Hgb 8.5 L (12.0-16.0) g/dl Hct 29.9 L (37.0-47.0) % MCV 67.0 L (80.0-98.0) fL MCH 19.1 L (27.0-33.0) pg MCHC 28.4 L (31.0-35.0) g/dl RDW 15.9 (11.0-16.0) % Plt Count 317 (160-400) X10*3/uL MPV 9.7 (9.4-12.3) fL Immature Gran % (Auto) 0.4 (0.0-0.4) % Neut % (Auto) 65.2 (45-73) % Lymph % (Auto) 23.6 (20-40) % [place] % (Auto) 8.8 (2-11) % Eos % (Auto) 1.6 (0-4) % Baso % (Auto) 0.4 (0-2) % Lymph # (Auto) 1.3 (1.2-4.9) X10*3/uL [place] # (Auto) 0.5 (0.1-1.2) X10*3/uL Eos # (Auto) 0.1 (0.0-0.4) X10*3/uL Baso # (Auto) 0.0 (0.0-0.2) X10*3/uL Abs Immat Gran (auto) 0.02 (0.00-0.03) X10*3/uL Absolute Neuts (auto) 3.6 (2.0-8.3) x10*3/uL Absolute Nucleated RBC 0.000 (0.0-0.012) X10*3/uL Nucleated RBC % (auto) 0.0 (0.0-0.2) /100WBC Sodium 138 (135-145) mmol/L Potassium 3.9 (3.3-5.1) mmol/L Chloride 105 (96-108) mmol/L Carbon Dioxide 24 (22-29) mmol/L Anion Gap 13 (12-20) BUN 17 H (9-16) mg/dL Creatinine 0.71 (0.5-1.4) mg/dL Estim Creat Clear Calc 82.2 Estimated GFR > 60 Random Glucose 104 (60-115) mg/dL Lactic Acid (0.5-2.0) mmol/L Calcium 9.4 (8.4-10.2) mg/dL Beta HCG, Quant < 2 mIU/mL Urine Color Yellow Urine Appearance Cloudy Urine pH 6.5 (5.0-9.0) Ur Specific [place] 1.025 (1.005-1.025) Urine Protein Trace (Neg-Trace) mg/dL Urine Glucose (UA) Negative (Negative) mg/dL Urine Ketones Negative (Negative) mg/dL Urine Blood Negative (Negative) Urine Nitrite Negative (Negative) Ur Leukocyte Esterase Negative (Negative) 09/04/22 Range/Units 01:35 WBC (4.8-10.8) X10*3/uL RBC (4.20-5.50) X10*6/uL Hgb (12.0-16.0) g/dl Hct (37.0-47.0) % MCV (80.0-98.0) fL MCH (27.0-33.0) pg MCHC (31.0-35.0) g/dl RDW (11.0-16.0) % Plt Count (160-400) X10*3/uL MPV (9.4-12.3) fL Immature Gran % (Auto) (0.0-0.4) % Neut % (Auto) (45-73) % Lymph % (Auto) (20-40) % [place] % (Auto) (2-11) % Eos % (Auto) (0-4) % Baso % (Auto) (0-2) % Lymph # (Auto) (1.2-4.9) X10*3/uL [place] # (Auto) (0.1-1.2) X10*3/uL Eos # (Auto) (0.0-0.4) X10*3/uL Baso # (Auto) (0.0-0.2) X10*3/uL Abs Immat Gran (auto) (0.00-0.03) X10*3/uL Absolute Neuts (auto) (2.0-8.3) x10*3/uL Absolute Nucleated RBC (0.0-0.012) X10*3/uL Nucleated RBC % (auto) (0.0-0.2) /100WBC Sodium (135-145) mmol/L Potassium (3.3-5.1) mmol/L Chloride (96-108) mmol/L Carbon Dioxide (22-29) mmol/L Anion Gap (12-20) BUN (9-16) mg/dL Creatinine (0.5-1.4) mg/dL Estim Creat Clear Calc Estimated GFR Random Glucose (60-115) mg/dL Lactic Acid 1.3 (0.5-2.0) mmol/L Calcium (8.4-10.2) mg/dL Beta HCG, Quant mIU/mL Urine Color Urine Appearance Urine pH (5.0-9.0) Ur Specific [place] (1.005-1.025) Urine Protein (Neg-Trace) mg/dL Urine Glucose (UA) (Negative) mg/dL Urine Ketones (Negative) mg/dL Urine Blood (Negative) Urine Nitrite (Negative) Ur Leukocyte Esterase (Negative) External Record Review External record reviewed: Outside ED record Discharge Plan Discharge Clinical Impression: Leg wound, left, Cellulitis, Osteomyelitis Patient Disposition: Admitted As Inpatient Prescriptions: No Action metronidazole [Flagyl] 500 mg tablet 500 mg PO BID 10 Days Qty: 20 0RF doxycycline hyclate 100 mg tablet 100 mg PO Q12H 7 Days Qty: 14 0RF furosemide 20 mg tablet 20 mg PO DAILY 14 Days Qty: 14 0RF cephalexin 500 mg capsule 500 mg PO Q12H 7 Days Qty: 14 0RF doxycycline hyclate 100 mg tablet 100 mg PO BID 7 Days Qty: 14 0RF ibuprofen 800 mg tablet 800 mg PO Q8H PRN (Reason: pain) Qty: 30 0RF lactulose 20 gram/30 mL solution 20 g PO DAILY PRN (Reason: constipation) Qty: 1200 0RF sennosides [senna] 8.6 mg tablet 8.6 mg PO BEDTIME PRN (Reason: constipation) Qty: 30 0RF doxycycline hyclate 100 mg tablet 100 mg PO DAILY 3 Days Qty: 3 0RF cephalexin 500 mg capsule 500 mg PO QID 10 Days Qty: 40 0RF ibuprofen 800 mg tablet 800 mg PO Q8H 5 Days Qty: 15 0RF cephalexin 500 mg capsule 500 mg PO Q12H 5 Days Qty: 10 0RF doxycycline hyclate 100 mg tablet 100 mg PO BID 5 Days Qty: 10 0RF azithromycin [Zithromax Z-Jian] 250 mg tablet See Rx Instructions .ROUTE .COMPLEX Qty: 6 0RF Rx Instructions: For 250 mg dose pack: take 500 mg today (day 1), then 250 mg for 4 days (days 2-5) albuterol sulfate [ProAir HFA] 90 mcg/actuation HFA aerosol inhaler 1 inh inhalation QID PRN (Reason: shortness of breath or wheezing) Qty: 6.7 0RF prednisone 20 mg tablet 20 mg PO BID Qty: 10 0RF
[2022-09-04] MEDS: Piperacillin Sodium/Tazobactam 3.375 GM in 0.9 % Sodium Chloride 50 ML IV (02:33)
--- NOTE | 2022-09-04 02:50 | PC.NURSE ---
RR 7-10. when pt awake RR12 BP 99/56. this rn made dr mares and dr samaniego aware. dr franks placed order for narcan ivp. pt states i will leave if you give me narcan dr franks to bedside. states to this rn if pt unable to stay awake nad maintain o2 will need to give narcan.
[2022-09-04] MEDS: vancomycin HCL 1,000 MG in 0.9 % Sodium Chloride 250 ML 270 MG IV (02:56)
[2022-09-04] MEDS: 0.9 % Sodium Chloride 1,000 ML 999 ML IV (02:57)
--- NOTE | 2022-09-04 03:00 | PC.NURSE ---
late entry- this rn attempted twice to place iv with no success. this rn discussed with charge gang weigher attempt. this rn spoke with dr mares. per dr mares will place US guided iv. US guided iv placed. 20g L AC. pt medicated according to jun.
--- NOTE | 2022-09-04 03:14 | P.HPHOSP_ITS ---
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 Patient states that over the last 1 month her left lower extremity wound has been worsening and she has been having foul-smelling drainage from it. Denies fever, chills, nausea, vomiting. On review of records, patient was admitted at [place] [id number] over the last 1 month but left AMA. Her CT scan on 08/10 with cellulitis and possible microabscesses with tibial osteomyelitis. Patient admits to using IV drugs in lower extremity. She is agreeable to admission and states will not leave AMA. No chest discomfort, shortness of breath, palpitations, abdominal pain, changes in urinary or bowel habits. Review of Systems Constitutional: Constitutional: Reports no additional constitutional complaints Cardiovascular: Cardiovascular: Reports no additional cardiovascular complaints Respiratory: Respiratory: Reports no additional respiratory complaints Gastrointestinal: Gastrointestinal: Reports no additional gastrointestinal complaints Genitourinary: Genitourinary: Reports no additional female genitourinary complaints [facility] Medical History Anxiety Endocarditis Opiate addiction Pertinent family history: No family history of early CAD Surgical History No pertinent past surgical history Social History Alcohol intake: former Patient Tobacco Use Status: Current everyday Tobacco user Substance Use Type: Crack/Cocaine, Heroin, IV Drugs and Opiates Advance Directives: No Advance Directives Information Provided: No Meds Allergies Allergy/AdvReac Type Severity Reaction Status Date / Time acetaminophen [From TYLENOL] Allergy Mild ITCHY AND Verified 09/14/20 07:35 HIVES red dye [RED DYE] Allergy Mild ITCHY HIVES Verified 09/14/20 07:36 tioconazole Allergy Mild HIVES Verified 09/14/20 07:36 [From MONISTAT 1 (TIOCONAZOLE)] Active Medications: Current Medications Sodium Chloride (Ns) 1,000 mls @ 999 mls/hr IV .Q1H1M ONE Stop: 09/04/22 03:45 Last Admin: 09/04/22 02:57 Dose: 999 mls/hr Pharmacy Consult (Consult Rx Vancomycin Dosing) 1 each MISCELLANE DAILY PRN PRN Reason: Consult order Physical Exam Vital Signs and Narrative: Vital Signs: Last Vital Signs Temp 97.5 F 09/04/22 02:43 Pulse 62 09/04/22 02:43 Resp 10 L 09/04/22 02:43 BP 99/56 L 09/04/22 02:43 Pulse Ox 99 09/04/22 02:43 O2 Del Method Room Air 09/04/22 02:43 BMI result Body Mass Index 16.1 Middle-aged female lying in bed in no distress Neck supple, no JVD Regular rate and rhythm, S1-S2 heard Bradycardic with decreased breath sounds Abdomen soft nontender, no guarding, no rigidity Patient is awake, alert and oriented to self, place, time and person ; no focal motor deficit Extremity: Left lower extremity wound covered with dressing Psych: Normal mood No pedal edema Results Labs 09/03/22 21:46 09/03/22 21:46 Labs: Laboratory Results - last 24 hr 09/03/22 09/03/22 09/04/22 21:46 21:46 00:46 MCV 67.0 L MCH 19.1 L MCHC 28.4 L RDW 15.9 Plt Count 317 MPV 9.7 Immature Gran % (Auto) 0.4 Neut % (Auto) 65.2 Lymph % (Auto) 23.6 [place] % (Auto) 8.8 Eos % (Auto) 1.6 Baso % (Auto) 0.4 Lymph # (Auto) 1.3 [place] # (Auto) 0.5 Eos # (Auto) 0.1 Baso # (Auto) 0.0 Abs Immat Gran (auto) 0.02 Absolute Neuts (auto) 3.6 Absolute Nucleated RBC 0.000 Nucleated RBC % (auto) 0.0 Anion Gap 13 Estim Creat Clear Calc 82.2 Estimated GFR > 60 Random Glucose 104 Lactic Acid Calcium 9.4 Beta HCG, Quant < 2 Urine Color Yellow Urine Appearance Cloudy Urine pH 6.5 Ur Specific [place] 1.025 Urine Protein Trace Urine Glucose (UA) Negative Urine Ketones Negative Urine Blood Negative Urine Nitrite Negative Ur Leukocyte Esterase Negative 05/31/23 01:35 MCV MCH MCHC RDW Plt Count MPV Immature Gran % (Auto) Neut % (Auto) Lymph % (Auto) [place] % (Auto) Eos % (Auto) Baso % (Auto) Lymph # (Auto) [place] # (Auto) Eos # (Auto) Baso # (Auto) Abs Immat Gran (auto) Absolute Neuts (auto) Absolute Nucleated RBC Nucleated RBC % (auto) Anion Gap Estim Creat Clear Calc Estimated GFR Random Glucose Lactic Acid 1.3 Calcium Beta HCG, Quant Urine Color Urine Appearance Urine pH Ur Specific [place] Urine Protein Urine Glucose (UA) Urine Ketones Urine Blood Urine Nitrite Ur Leukocyte Esterase Assessment and Plan (1) Cellulitis: Status: Acute (2) Osteomyelitis: Status: Acute Plan This is a 32-year-old female with pertinent history of IV drug use (cocaine and heroin), chronic hepatitis-C, 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 #. Left lower extremity purulent cellulitis with osteomyelitis. Tibial osteomyelitis seen on recent CT scan from [facility]. Will initiate empiric IV antibiotics. Blood culture obtained and consulting Infectious Disease, appreciate assistance. Also consulting Wound Care #. Opioid and cocaine use disorder. Monitor for withdrawal. Consulting addiction team #. Microcytic anemia. Obtaining iron panel DVT prophylaxis: Lovenox Full code Regular diet Admit as inpatient and will require two night minimum hospital stay for IV antibiotics Time Spent With Patient Time: Total time managing care of this patient today ____ minutes. Quality Stroke Does the patient have a stroke diagnosis?: No VTE Prior VTE?: No VTE Risk Level:: Medical - moderate - high VTE Device Contraindication: Treatment Not Indicated VTE Drug Contraindication: N/A - Med Ordered
[2022-09-04] MEDS: diphenhydrAMINE HCL 50 MG/ML VIAL IVPUSH (03:31)
--- NOTE | 2022-09-04 04:36 | PC.NURSE ---
pt reports itching on feet and L leg at wound site. pt also reports to this rn chest tightness and change in voice. this rn called dr franks to bedside. spo2 maintained @ 100% RR 16. pt medicated according to jun. ekg obtained. pt awaiting bed assignment at this time
[2022-09-04 05:19] LABS: MANUAL DIFF FLAG NO
[2022-09-04 05:27] LABS: Basophils Percent Auto 0.6 % (0-2); Imm Gran Abs Auto 0.01 X10*3/uL (0.00-0.03); Imm Gran Pct Auto 0.3 % (0.0-0.4); Lymphocytes Absolute Auto 1.2 X10*3/uL (1.2-4.9)
[2022-09-04 05:28] LABS: Eosinophils Absolute Auto 0.1 X10*3/uL (0.0-0.4); Eosinophils Percent Auto 2.9 % (0-4); Hematocrit 28.6 % (37.0-47.0); Lymphocytes Percent Auto 34.7 % (20-40); Mean Corpuscular Volume 67.8 fL (80.0-98.0); Mean Platelet Volume 10.1 fL (9.4-12.3); Monocytes Absolute Auto 0.2 X10*3/uL (0.1-1.2); Neutrophils Absolute Auto 1.9 x10*3/uL (2.0-8.3); Neutrophils Percent Auto 54.5 % (45-73); Red Blood Count 4.22 X10*6/uL (4.20-5.50)
[2022-09-04 05:34] LABS: Platelet Count 207 X10*3/uL (160-400); White Blood Count 3.4 X10*3/uL (4.8-10.8)
[2022-09-04] MEDS: Enoxaparin Sodium 40 MG/0.4 ML SYRINGE SUBCUT (05:38)
[2022-09-04 05:39] LABS: Anion Gap 9 (12-20); Blood Urea Nitrogen 15 mg/dL (9-16); Calcium 8.2 mg/dL (8.4-10.2); Carbon Dioxide 24 mmol/L (22-29); Chloride 110 mmol/L (96-108); Creatinine Clr Calc Pharmacy 97.2; Estimated Glomerular Filt Rate > 60; Glucose Random 102 mg/dL (60-115); Potassium 3.5 mmol/L (3.3-5.1); Sodium 139 mmol/L (135-145)
[2022-09-04 05:41] LABS: Iron 12 mcg/dL (30-160); Percent Iron Saturation 4 % (15-50); Total Iron Binding Capacity 320 mcg/dL (228-428); Unsaturated Iron Binding 308 ug/dL
--- NOTE | 2022-09-04 05:41 | PC.NURSE ---
pt medicated according to jun. bp 91/58 hr 64 rr 8spo2 99% RA. dr franks made aware no new orders. pt partner at bedside
--- NOTE | 2022-09-04 06:03 | PC.NURSE ---
per charger operator helper pt does not need belongings secured. pt partner at bedside
--- NOTE | 2022-09-04 06:06 | PC.NURSE ---
this rn contacted lab to add drug screen to UA that had previously been sent down. per lab staff order amended and will be added
[2022-09-04 06:18] LABS: Amphetamine Screen Urine Not Detected (Not Detect); Barbiturates, Urine Not Detected (Not Detect); Benzodiazepines Screen Urine Not Detected (Not Detect); Cannabinoid Screen Urine Not Detected (Not Detect); Cocaine Screen Urine POSITIVE (Not Detect); Fentanyl, urine POSITIVE (Not Detect); Opiate Screen Urine POSITIVE (Not Detect); Phencyclidine Screen Urine Not Detected (Not Detect)
--- NOTE | 2022-09-04 06:24 | PHA.PROG ---
Admission Date/Time: September 04, 2022 03:12 Indication: skin Weight in k.359 kg Adjusted body weight in K.359 [place] body weight in K.3 Obesity Dosing Indication % IBW: Not obese Serum Creatinine - Last 168 Hours 09/03/22 09/04/22 21:46 05:08 Creatinine 0.71 0.60 Estimated CrCl and GFR - Last 168 Hours 09/03/22 09/04/22 21:46 05:08 Estim Creat Clear Calc 82.2 97.2 Estimated GFR > 60 > 60 Vancomycin Loading Dose: 1000 mg X1 (should have been 1250 mg) Current Vancomycin Dosing Regimen: 1000 mg Q12H Vancomycin Monitoring using AUC goal of 400 - 600 range with trough as surrogate marker: 520 Date and Time for next Vancomycin Level to be drawn: 09/05 @1200 Pharmacist Comments on Vancomycin Plan: Patients load was a underdosed. Chose to do Q12H dosing as patient is younger with good renal function. However, maintence dose is doses at 22 mg/kg as 750 mg Q12H was showing to be significantly under AUC and thus subtherapeutic by steady state. Will continue with 1000 mg for 3 doses and pull a level to assess efficacy vs safety Vancomycin dosing will take advantage of [employer] as a clinical decision support tool that uses Bayesian modeling to calculate individual patient's pharmacokinetic parameters and forecast the patient's drug concentration time course with the target goal AUC 24 range of 400 - 600 mg/L/hr.
[2022-09-04] MEDS: cefTRIAXone sodium 2 GM in 0.9 % Sodium Chloride 50 ML IV (06:32)
--- NOTE | 2022-09-04 09:19 | MHC.CM.PN ---
Attempted to meet with patient in regards to discharge planning. Patient currently sleeping. Will attempt to meet again. Copy of HCP obtained from [facility]. Continue to monitor for d/c needs.
--- NOTE | 2022-09-04 09:25 | PC.NURSE ---
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
[2022-09-04] MEDS: 0.9 % Sodium Chloride Flush 3 ML SYRINGE IVFLUSH (09:34)
--- NOTE | 2022-09-04 12:19 | MHC.RECOVRN ---
Addendum entered by Lavinia Interiano RN 09/04/22 15:04: ED RN alerted this RN that patient awake, alert. This technical report writer at 13:15 returned to bedside. Patient reported nausea, vomitting, diarrhea, goosebumps, body aches. Reviewed findings with Addiction SOCIAL SERVICE DIRECTOR Rahda Reyes, MTD ordered for withdrawal s/s. ED RN made aware that MTD ordered for patient. Original Note: This technical report writer went to meet with patient after receiving addiction consult. Patient was sleeping in bed with boyfriend, patient not able to wake at this time. Addiction/Recovery team to return later when patient more alert.
--- NOTE | 2022-09-04 13:34 | PC.NURSE ---
assumed care of pt, endorses opi wd sxs, cows 12. hospitalist & covering recovery providers notified.
--- NOTE | 2022-09-04 13:48 | PC.NURSE ---
pt made aware of new methadone dose, 5 minutes later she called for this rn back into the room. requesting to leave. reminded of the mtd dose, she stated it's not even gonna help me, it's not gonna be enough . MD Quiroz at bedside, discussed risks of worsening infection, not receiving tx. Discussed risks further upon signing of AMA paperwork. IV removed. pt instructed on abx. requesting [facility] for meds.
--- NOTE | 2022-09-04 15:07 | PM.DS ---
DS: Providers Provider Date of Service: 09/04/22 Date of admission: 09/04/22 03:12 Date of discharge: 09/04/22 Primary care physician: Unknown Physician Consults: 09/04/22 03:12 Addiction Medicine Routine Consulting Provider: Addiction Covering Reason for consultation: Cocaine and opioid use disorder Consult to Infectious Diseases Routine Consulting Provider: [facility] Infectious Disease Reason for consultation: Osteomyelitis Attending physician on discharge: Danilo Quiroz Discharging clinician: Danilo Quiroz DS: Diagnosis Discharge Diagnosis (1) Cellulitis: Status: Acute (2) Osteomyelitis: Status: Acute DS: Summary Hospital Course Hospital Course: 32-year-old female with pertinent history of IV drug use (cocaine and heroin), chronic hepatitis-C, 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 Left lower extremity cellulitis , possible osteomyelitis.? Tibial osteomyelitis seen on recent CT scan from [facility].? Will initiate empiric IV antibiotics.? Blood culture obtained and consulting Infectious Disease, appreciate assistance.? Hospital course: Patient came to the hospital because of possible cellulitis,possible osteomyelitis, has leg wound, IV drug user: Started on IV antibiotics, blood cultures sent: Subsequently patient decided to leave against medical advice, alert oriented x3, risk of leaving against medical advice including worsening of cellulitis systemic infection and including discussed in detail, she understands still wants to leave.staff was present during conversation. seen by addiction team also for opioid use -refused to take methadone . Patient was strongly advised to go to nearest emergency room and get treated. P.o. antibiotic also sent to her pharmacy Assessment and plan coordination time spent 50 minute. Time Spent with Patient Time attestation: Total time managing care of this patient today ____ minutes. Discharge coordination time: Greater than 30 minutes Quality: Safe Use of Opioids Does Pt have an Active Cancer Diagnosis on the Problem List?: No Quality: Stroke Does the patient have a stroke diagnosis?: No Physical Exam Vital Signs: Vital Signs: Last Vital Signs Temp 97.5 F 09/04/22 02:43 Pulse 64 09/04/22 12:50 Resp 16 09/04/22 12:50 BP 99/56 L 09/04/22 12:50 Pulse Ox 100 09/04/22 12:50 O2 Del Method Room Air 09/04/22 12:50 BMI result Body Mass Index 16.1 refused exam. DS: Data Data Completed and Pending Labs on day of discharge: Laboratory Results - last 24 hr 09/03/22 09/03/22 09/04/22 21:46 21:46 00:46 WBC 5.5 RBC 4.46 Hgb 8.5 L Hct 29.9 L MCV 67.0 L MCH 19.1 L MCHC 28.4 L RDW 15.9 Plt Count 317 MPV 9.7 Immature Gran % (Auto) 0.4 Neut % (Auto) 65.2 Lymph % (Auto) 23.6 Wheeler % (Auto) 8.8 Eos % (Auto) 1.6 Baso % (Auto) 0.4 Lymph # (Auto) 1.3 Wheeler # (Auto) 0.5 Eos # (Auto) 0.1 Baso # (Auto) 0.0 Abs Immat Gran (auto) 0.02 Absolute Neuts (auto) 3.6 Absolute Nucleated RBC 0.000 Nucleated RBC % (auto) 0.0 Sodium 138 Potassium 3.9 Chloride 105 Carbon Dioxide 24 Anion Gap 13 BUN 17 H Creatinine 0.71 Estim Creat Clear Calc 82.2 Estimated GFR > 60 Random Glucose 104 Lactic Acid Calcium 9.4 Iron TIBC % Saturation Unsat Iron Binding Beta HCG, Quant < 2 Urine Color Yellow Urine Appearance Cloudy Urine pH 6.5 Ur Specific [place] 1.025 Urine Protein Trace Urine Glucose (UA) Negative Urine Ketones Negative Urine Blood Negative Urine Nitrite Negative Ur Leukocyte Esterase Negative Urine Opiates Screen Urine Fentanyl Screen Ur Barbiturates Screen Ur Phencyclidine Scrn Ur Amphetamines Screen U Benzodiazepines Scrn Urine Cocaine Screen U Marijuana (THC) Screen 09/04/22 09/04/22 09/04/22 00:46 01:35 05:08 WBC 3.4 L RBC 4.22 Hgb 8.0 L Hct 28.6 L MCV 67.8 L MCH 19.0 L MCHC 28.0 L RDW 16.0 Plt Count 207 D MPV 10.1 Immature Gran % (Auto) 0.3 Neut % (Auto) 54.5 Lymph % (Auto) 34.7 Wheeler % (Auto) 7.0 Eos % (Auto) 2.9 Baso % (Auto) 0.6 Lymph # (Auto) 1.2 Wheeler # (Auto) 0.2 Eos # (Auto) 0.1 Baso # (Auto) 0.0 Abs Immat Gran (auto) 0.01 Absolute Neuts (auto) 1.9 L Absolute Nucleated RBC 0.000 Nucleated RBC % (auto) 0.0 Sodium Potassium Chloride Carbon Dioxide Anion Gap BUN Creatinine Estim Creat Clear Calc Estimated GFR Random Glucose Lactic Acid 1.3 Calcium Iron TIBC % Saturation Unsat Iron Binding Beta HCG, Quant Urine Color Urine Appearance Urine pH Ur Specific Mary[place] Urine Protein Urine Glucose (UA) Urine Ketones Urine Blood Urine Nitrite Ur Leukocyte Esterase Urine Opiates Screen POSITIVE H Urine Fentanyl Screen POSITIVE H Ur Barbiturates Screen Not Detected Ur Phencyclidine Scrn Not Detected Ur Amphetamines Screen Not Detected U Benzodiazepines Scrn Not Detected Urine Cocaine Screen POSITIVE H U Marijuana (THC) Screen Not Detected 09/04/22 09/04/22 05:08 05:08 WBC RBC Hgb Hct MCV MCH MCHC RDW Plt Count MPV Immature Gran % (Auto) Neut % (Auto) Lymph % (Auto) Wheeler % (Auto) Eos % (Auto) Baso % (Auto) Lymph # (Auto) Wheeler # (Auto) Eos # (Auto) Baso # (Auto) Abs Immat Gran (auto) Absolute Neuts (auto) Absolute Nucleated RBC Nucleated RBC % (auto) Sodium 139 Potassium 3.5 Chloride 110 H Carbon Dioxide 24 Anion Gap 9 L BUN 15 Creatinine 0.60 Estim Creat Clear Calc 97.2 Estimated GFR > 60 Random Glucose 102 Lactic Acid Calcium 8.2 L D Iron 12 L TIBC 320 % Saturation 4 L Unsat Iron Binding 308 Beta HCG, Quant Urine Color Urine Appearance Urine pH Ur Specific Mary[place] Urine Protein Urine Glucose (UA) Urine Ketones Urine Blood Urine Nitrite Ur Leukocyte Esterase Urine Opiates Screen Urine Fentanyl Screen Ur Barbiturates Screen Ur Phencyclidine Scrn Ur Amphetamines Screen U Benzodiazepines Scrn Urine Cocaine Screen U Marijuana (THC) Screen Imaging Chest x-ray: Radiologist's impression: ITS Impressions Tibia/Fibula X-Ray 09/04/22 02:07 IMPRESSION: Soft tissue swelling anterior to the proximal to mid tibial shaft. No acute osseous findings. Discharge Plan Discharge Patient Disposition: Left Against Medical Advice Discharge Diagnosis: tibial cellulitis ,opioid use. Referrals: Physician,Unknown J [Primary Care Provider] - 1 Week Discharge Medications: New amoxicillin-pot clavulanate 875-125 mg tablet 1 tab PO BID Qty: 20 0RF Continued albuterol sulfate [ProAir HFA] 90 mcg/actuation HFA aerosol inhaler 1 inh inhalation QID PRN (Reason: shortness of breath or wheezing) Qty: 6.7 0RF Discharge Orders: Discharge Order (Routine); Ordered 09/04/22 Ordered By: Danilo Quiroz Diet: Advance to usual diet Activity on Discharge: As tolerated Care Plan Goals: Patient came to the hospital because of possible cellulitis,possible osteomyelitis, has leg wound, IV drug user: Started on IV antibiotics, blood cultures sent: Subsequently patient decided to leave against medical advice, alert oriented x3, risk of leaving against medical advice including worsening of cellulitis systemic infection and including discussed in detail, she understands still wants to leave. Patient was strongly advised to go to nearest emergency room and get treated. P.o. antibiotic also sent to her pharmacy Assessment and plan coordination time spent 50 minute. Health Concerns: As above. Plan of Treatment: As above. Assessment: As above.
== END 2022-09-04 16:53 | disposition left against medical advice (07) | DRG 383 ==
LOC: HO.ED 09-04 02:42 → HO.EDOVER 09-04 03:17
PROVIDERS: Admitting Provider Student in an Organized Health Care Education/Training Program; Emergency Provider Student in an Organized Health Care Education/Training Program; Visit Provider Internal Medicine
DX: L03.116 Cellulitis of left lower limb (principal); M86.9 Osteomyelitis, unspecified; F41.9 Anxiety disorder, unspecified; F11.10 Opioid abuse, uncomplicated; F14.10 Cocaine abuse, uncomplicated; D50.9 Iron deficiency anemia, unspecified; Z86.19 Personal history of other infectious and parasitic diseases; Z86.14 Personal history of Methicillin resistant Staphylococcus aureus infection
CPT/HCPCS: 36415; 73590; 80048; 80307; 81003; 83540; 83605; 84702; 85025; 87040; 93005; 99285; J0696; J1200; J1650; J2543; J3370

== ENCOUNTER 2022-09-07 01:06 | Emergency (ER) | payer OTHER, SELFPAY ==
[2022-09-07 01:17] VITALS: BP 135/77; PULSE 83; RESP 16; O2SAT 98; BMI 18.9
--- NOTE | 2022-09-07 01:17 | ED_ITS ---
HPI - General Adult General Chief complaint: ETOH/Substance Use Stated complaint: SI/ substance use Time Seen by Provider: 09/07/22 01:08 Source: patient Mode of arrival: EMS Limitations: no limitations History of Present Illness HPI narrative: Patient comes to the emergency room via ambulance. EMS reports the patient walk into the police station. States that she used cocaine and does not feel the same as it usually does, concerned that it may have been spiked something else. Patient is unable to give much history, she is under the influence of drugs. Awake, very slow to respond, she does not know why she is here in the hospital. Of note, per patient's nose from her last visit, patient was admitted in [facility], she was going to start treatment for osteomyelitis but patient left AMA. Then, the patient was admitted on September 04 in this hospital for cellulitis and osteomyelitis, patient left against medical advice the same day, patient got a prescription for Augmentin but she did not tack picker her medication. Related Data Previous Rx's Medication Instructions Recorded albuterol sulfate 90 mcg/actuation 1 inh inhalation QID PRN shortness 08/28/22 aerosol inhaler (ProAir HFA) of breath or wheezing #6.7 grams Allergies Allergy/AdvReac Type Severity Reaction Status Date / Time acetaminophen [From TYLENOL] Allergy Mild ITCHY AND Verified 09/14/20 07:35 HIVES red dye [RED DYE] Allergy Mild ITCHY HIVES Verified 09/14/20 07:36 tioconazole Allergy Mild HIVES Verified 09/14/20 07:36 [From MONISTAT 1 (TIOCONAZOLE)] Review of Systems Review of Systems: Patient is not sure why she is here, patient is under the influence of drugs PMFSH Past Medical History Medical History (Updated 09/07/22 @ 01:41 by Jennie Zepeda MD) Anxiety Endocarditis Opiate addiction Osteomyelitis Surgical History No pertinent past surgical history Social History Social History Alcohol intake: former Patient Tobacco Use Status: Current everyday Tobacco user Use of substances other than those prescribed or required for medical reasons: Yes Substance Use Type: Crack/Cocaine and Heroin Substance Use Frequency: Daily Last Used Substance: Just Prior to Admission Any prior treatment program specific to substance use: No Advance Directives: Yes Advance Directives on File: Yes Advance Directives Date on File: 09/04/22 Physical Exam ED Vital Signs: Vital Signs - 24 hr 09/07/22 01:17 09/07/22 04:18 Temperature 97.7 F Pulse Rate 83 53 Respiratory Rate 16 18 Blood Pressure 135/77 98/57 L Pulse Oximetry 98 99 Oxygen Delivery Method Room Air Room Air BMI result Body Mass Index 18.9 Const Other: Appearance: Alert. Oriented X3. No acute distress. Patient is intoxicated/under the influence of drugs Eyes: Pupils equal, round and reactive to light. ENT: Pharynx normal. Neck: Normal inspection. Neck supple. No lymph nodes noted. No crepitus CVS: Normal heart rate and rhythm. Pulses normal. Normal S1 and S2 Respiratory: No respiratory distress. Breath sounds normal. No Wheezing. No rales Abdomen: Soft and nontender. No rigidity. No distention. Skin: Skin warm and dry. Normal skin color. Normal skin turgor. Extremities: Left lower extremity between the knee and the ankle there is ext ensive cellulitis, swelling Neuro: Oriented X 3. No motor deficit. No sensory deficit. Moving all extremities. No slurred speech. CN 2 through 12 grossly intact, slow to respond Psych: calm, cooperative, easily distracted, under influence of drugs Course Course Course Narrative: -patient is not sure why she is here, patient is intoxicated/ altered due to drugs, patient denies any falls or injury -all of patient's labs pending -I asked the patient that if she has admitted, if she will stay in the hospital, patient states that she does not know and the cleanout patient at this time -in the meantime, we will obtain labs, have a care team consult pending. One patient is a bit more sober she can decide if she would like to be admitted. Patient was discharged with a prescription of Augmentin, patient will IV antibiotics, Zosyn and vancomycin in the emergency room, at this time patient is sleeping. If the Patient decides to stay, she will need to continue IV medications. -patient denied suicidal or homicidal ideation, patient is not on a Section 12 -sign-out given to Dr. Rosenthal Reevaluation(s) Reevaluation #1: I re-evaluated the patient I asked if she would like to be admitted to treat her osteomyelitis. She does not wish to be seen at this time by me. She would like to be seen by another provider. There are no other providers the hospital this time. Since she does not wish to be seen here by me, patient could be discharged. She may choose to go to another facility which was discussed with her. She was also informed that she can return to the emergency department at this hospital any time for re-evaluation. Patient will leave against medical advice. She is aware that the infection or bone could spread and become septicemia and bacteremia. Patient did receive intravenous antibiotics during her hospitalization. Patient is not suicidal homicidal. Patient is not a section 12. She may be discharged against medical advice at this time. Time: 05:50 Medications Administered Discontinued Medications Generic Name Dose Route Start Last Admin Trade Name Freq PRN Reason Stop Dose Admin Vancomycin HCl 1,500 mg/ 500 mls @ 333.333 mls/hr 09/07/22 01:47 09/07/22 02:16 Sodium Chloride IV 09/07/22 03:16 Not Given ONCE ONE Piperacillin Sod/Tazobactam 50 mls @ 100 mls/hr 09/07/22 01:47 09/07/22 02:31 Sod 3.375 gm/ Sodium Chloride IV 09/07/22 02:16 Infused ONCE ONE Infusion Vancomycin HCl 1,250 mg/ 250 mls @ 166.667 mls/hr 09/07/22 02:15 09/07/22 03:56 Sodium Chloride IV 09/07/22 03:44 Infused ONCE ONE Infusion Medical Decision Making Lab Data 09/07/22 01:42 09/07/22 01:42 Labs: Lab Results 09/07/22 09/07/22 09/07/22 Range/Units 01:42 01:42 01:42 WBC 4.9 (4.8-10.8) X10*3/uL RBC 4.34 (4.20-5.50) X10*6/uL Hgb 8.2 L (12.0-16.0) g/dl Hct 28.9 L (37.0-47.0) % MCV 66.6 L (80.0-98.0) fL MCH 18.9 L (27.0-33.0) pg MCHC 28.4 L (31.0-35.0) g/dl RDW 16.1 H (11.0-16.0) % Plt Count 315 D (160-400) X10*3/uL MPV 9.5 (9.4-12.3) fL Immature Gran % (Auto) 0.2 (0.0-0.4) % Neut % (Auto) 61.4 (45-73) % Lymph % (Auto) 30.1 (20-40) % [place] % (Auto) 6.1 (2-11) % Eos % (Auto) 1.6 (0-4) % Baso % (Auto) 0.6 (0-2) % Lymph # (Auto) 1.5 (1.2-4.9) X10*3/uL [place] # (Auto) 0.3 (0.1-1.2) X10*3/uL Eos # (Auto) 0.1 (0.0-0.4) X10*3/uL Baso # (Auto) 0.0 (0.0-0.2) X10*3/uL Abs Immat Gran (auto) 0.01 (0.00-0.03) X10*3/uL Absolute Neuts (auto) 3.0 (2.0-8.3) x10*3/uL Absolute Nucleated RBC 0.000 (0.0-0.012) X10*3/uL Nucleated RBC % (auto) 0.0 (0.0-0.2) /100WBC ESR 42 H (0-20) MM/HR Sodium 138 (135-145) mmol/L Potassium 4.0 (3.3-5.1) mmol/L Chloride 104 (96-108) mmol/L Carbon Dioxide 26 (22-29) mmol/L Anion Gap 12 (12-20) BUN 21 H (9-16) mg/dL Creatinine 0.72 (0.5-1.4) mg/dL Estim Creat Clear Calc 92.1 Estimated GFR > 60 Random Glucose 87 (60-115) mg/dL Lactic Acid (0.5-2.0) mmol/L Calcium 9.2 D (8.4-10.2) mg/dL Magnesium 2.3 (1.6-2.6) mg/dL Total Bilirubin 0.5 (0.0-1.0) mg/dL Direct Bilirubin 0.2 (0.0-0.5) mg/dL AST 43 H (5-31) U/L ALT 32 H (0-31) U/L Alkaline Phosphatase 115 (39-117) U/L C-Reactive Protein 1.77 H (< or = 0.50) mg/dL Total Protein 8.2 H (6.5-8.0) g/dL Albumin 3.8 (3.5-5.0) g/dL Ethyl Alcohol < 10 mg/dL COVID-19 (JUAN) (Negative) COVID-19 Clin Com 09/07/22 09/07/22 Range/Units 01:42 01:43 WBC (4.8-10.8) X10*3/uL RBC (4.20-5.50) X10*6/uL Hgb (12.0-16.0) g/dl Hct (37.0-47.0) % MCV (80.0-98.0) fL MCH (27.0-33.0) pg MCHC (31.0-35.0) g/dl RDW (11.0-16.0) % Plt Count (160-400) X10*3/uL MPV (9.4-12.3) fL Immature Gran % (Auto) (0.0-0.4) % Neut % (Auto) (45-73) % Lymph % (Auto) (20-40) % [place] % (Auto) (2-11) % Eos % (Auto) (0-4) % Baso % (Auto) (0-2) % Lymph # (Auto) (1.2-4.9) X10*3/uL [place] # (Auto) (0.1-1.2) X10*3/uL Eos # (Auto) (0.0-0.4) X10*3/uL Baso # (Auto) (0.0-0.2) X10*3/uL Abs Immat Gran (auto) (0.00-0.03) X10*3/uL Absolute Neuts (auto) (2.0-8.3) x10*3/uL Absolute Nucleated RBC (0.0-0.012) X10*3/uL Nucleated RBC % (auto) (0.0-0.2) /100WBC ESR (0-20) MM/HR Sodium (135-145) mmol/L Potassium (3.3-5.1) mmol/L Chloride (96-108) mmol/L Carbon Dioxide (22-29) mmol/L Anion Gap (12-20) BUN (9-16) mg/dL Creatinine (0.5-1.4) mg/dL Estim Creat Clear Calc Estimated GFR Random Glucose (60-115) mg/dL Lactic Acid 0.5 (0.5-2.0) mmol/L Calcium (8.4-10.2) mg/dL Magnesium (1.6-2.6) mg/dL Total Bilirubin (0.0-1.0) mg/dL Direct Bilirubin (0.0-0.5) mg/dL AST (5-31) U/L ALT (0-31) U/L Alkaline Phosphatase (39-117) U/L C-Reactive Protein (< or = 0.50) mg/dL Total Protein (6.5-8.0) g/dL Albumin (3.5-5.0) g/dL Ethyl Alcohol mg/dL COVID-19 (JUAN) Negative (Negative) COVID-19 Clin Com See Note Discharge Plan Discharge Clinical Impression: Cellulitis, Osteomyelitis, Substance abuse Patient Disposition: Left Against Medical Advice Instructions: Cellulitis (ED), Osteomyelitis (ED), Polysubstance Abuse (ED) Prescriptions: No Action albuterol sulfate [ProAir HFA] 90 mcg/actuation HFA aerosol inhaler 1 inh inhalation QID PRN (Reason: shortness of breath or wheezing) Qty: 6.7 0RF Referrals: Wolf Yousif MD [Primary Care Provider] - 2 days Stand Alone Forms: Against Medical Advice
--- OUTSIDE RECORDS SUMMARY | 2022-09-07 01:39 | XMS_ITS | Continuity of Care Document ---
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 Name Role Phone Angie PERSAUD, Ama Primary Care Physician Encounter [facility] Date(s): 08/02/22 - 08/03/[address] [id number] Discharge Disposition: A-D/C AMA Attending Physician: Earline Thurston MD Admitting Physician: Callie PERSAUD, Sly Referring Physician: Not on Staff, Referring MD Allergies, Adverse Reactions, Alerts Substance Reaction Severity Status Tylenol Active Monistat-1 Active Red Dye Active Immunizations Given and Recorded Vaccine Date Status Refusal Reason Measles/Mumps/Rubella Virus Vaccine 1 12/02/13 Giv en tetanus/diphtheria/pertussis, acel(Tdap) 2 12/02/13 Given tetanus/diphtheria/pertussis, acel(Tdap) 3 10/22/11 Given Not Given Vaccine Date Status Refusal Reason pneumococcal 23-valent vaccine 04/06/17 Not Given Patient Refuses pneumococcal 23-valent vaccine 02/28/17 Not Given Patient Refuses pneumococcal 23-valent vaccine 07/22/16 Not Given Patient Refuses influenza virus vaccine, inactivated 04/06/17 Not Given Patient Refuses influenza virus vaccine, inactivated 02/28/17 Not Given Patient Refuses 1Admin Note: VIS given (07/26/2011) 2Admin Note: VIS given (08/13/2012) 3Admin Note: VIS dated 04/30/2011 Medications Methadone Tablet 20 mg, Tablet, By Mouth, Once, Routine, 08/03/22 6:00:00 EDT, Stop date 08/03/22 6:00:00 EDT Start Date: 08/03/22 Stop Date: 08/03/22 Status: Completed Problem List Condition Confirmation Course Effective Dates Status Health St atus Informant Childhood asthma Confirmed Active Opioid abuse, in remission Confirmed Active Paroxysmal SVT (supraventricular tachycardia) Confirmed Active Confirmed Active Results Orders for Microbiology Reports Name Date Blood Culture 08/02/22 Blood Culture #2 08/02/22 Microbiology Reports TEST:Blood Culture STATUS:Unauthenticated BODY SITE: SOURCE:Blood COLLECTED DATE/TIME:08/02/22 8:53 PM Blood Culture SPECIMEN DESCRIPTION : BLOOD NO SITE SPECIAL REQUESTS : NONE CULTURE : NO GROWTH AFTER 24 HOURS REPORT STATUS : PRELIMINARY REPORT TEST:Blood Culture, Second Order STATUS:Unauthenticated BODY SITE: SOURCE:Blood COLLECTED DATE/TIME:08/02/22 8:53 PM Blood Culture, Second Order SPECIMEN DESCRIPTION : BLOOD NO SITE SPECIAL REQUESTS : NONE CULTURE : NO GROWTH AFTER 24 HOURS REPORT STATUS : PRELIMINARY REPORT Radiology Reports * Exam Date Time Procedure Performing Provider Status 08/02/22 10:18 PM Tibia/Fibula 2 Views Left Sushma Sevilla; Auth (Verified) Notes: (Tibia/Fibula 2 Views Left) Reason For Exam: r/o osteo/gas;Other: RESULT: Tibia/Fibula 2 Views Left Tibia/Fibula 2 Views Left Hx of Present Illness: L Sequeira Wound, drug use, (?) infected.; Reason: Other:; r o osteo gas; Clinical Question(s): Osteomyelitis COMPARISON: None. FINDINGS: No fractures or bone lesions. Visualized joints are normal. Possible gas seen in the soft tissues in the medial lower leg. No erosions or findings to indicate osteomyelitis. IMPRESSION: Probable gas seen in the medial lower leg soft tissues extending from the mid shaft region towards the distal metaphysis. No evidence of osteomyelitis. WSN: [id number] Ordering Physician: Todd Parisi Dictated By: Andres Medeiros MD Dictated Date/Time: 08/02/22 10:24 p Reviewed By: Andres Medeiros MD Signed By: Andres Medeiros MD Signed Date/Time: 08/02/22 10:24 pm Transcribed By: JIMENA Transcribed Date/Time: 08/02/22 10:22 pm * Exam Date Time Procedure Performing Provider Status 08/02/22 10:10 PM US Doppler Ext Lower Venous Left McDo Luis Carlos gonzalez; Auth (Verified) Notes: (US Doppler Ext Lower Venous Left) Reason For Exam: r/o DVT;Other: RESULT: US Doppler Ext Lower Venous Left US Doppler Ext Lower Venous Left INDICATION: 31 years old Female with Hx of Present Illness: L Sequeira Wound, drug use, (?) infected.; Reason: Other:; r o DVT; Clinical Question(s): Thrombus. COMPARISON: None IMAGING TECHNIQUE: Ultrasound of the LEFT lower extremity deep venous system was performed using grayscale, color, and spectral Doppler ultrasound from the upper groin throughout the calf assessing for complete compressibility and good response to compression and augmentation. FINDINGS: INCIDENTAL FINDINGS: Enlarged left inguinal lymph node measures 1.8 x 3.3 x 2.5 cm and demonstratespreserved benign morphology. LEFT LOWER EXTREMITY: Common femoral vein: Patent. No thrombosis. Deep femoral vein: Patent. No thrombosis. Femoral vein: Patent. No thrombosis. Popliteal vein: Patent. No thrombosis. Calf veins: Patent. No thrombosis. IMPRESSION: 1. No ultrasound evidence of acute deep venous thrombosis in the LEFT lower extremity. 2. Left inguinal lymphadenopathy is most likely reactive. Thank you for allowing me to participate in the care of this patient. WSN: [id number] Ordering Physician: Todd Parisi Dictated By: Orion Colvin MD Dictated Date/Time: 08/02/22 10:18 p Reviewed By: Orion Colvin MD Signed By: Orion Colvin MD Signed Date/Time: 08/02/22 10:18 pm Transcribed By: JIMENA Transcribed Date/Time: 08/02/22 10:17 pm Vital Signs Most recent to oldest [Reference Range]: 1 2 3 Height 165 cm (08/03/22 4:46 AM) 165 cm (08/03/22 12:27 AM) Weight 59 kg (08/03/22 12:27 AM) Oxygen Saturation [94-100 %] 100 % (08/03/22 4:46 AM) 100 % (08/03/22 12:27 AM) 99 % (08/02/22 11:15 PM) Pulse Rate [55-90 bpm] 63 bpm (08/03/22 4:46 AM) 72 bpm (08/03/22 12:27 AM) 79 bpm (08/02/22 11:15 PM) Body Mass Index [18.5-24.99 kg/m2] 21.67 kg/m2 (08/03/22 12:27 AM) Blood Pressure [90-138/55-84 mm Hg] 127/84mm Hg (08/03/22 4:46 AM) 113/74mm Hg (08/03/22 12:27 AM) 130/86mm Hg (08/02/22 11:15 PM) Respiratory Rate [16-30 br/min] 18 br/min (08/03/22 6:29 AM) 16 br/min (08/03/22 4:46 AM) 18 br/min (08/03/22 12:27 AM) Temperature [96.8-100.4 DegF] 97.9 DegF (08/03/22 4:46 AM) 98.0 DegF (08/03/22 12:27 AM) 98.7 DegF (08/02/22 8:10 PM) Mode of Delivery (Oxygen) Room air (08/03/22 4:46 AM) Room air (08/02/22 11:15 PM) Room air (08/02/22 8:10 PM) Blood pressure sites Arm, right (08/03/22 4:46 AM) Arm, right (08/03/22 12:27 AM) Arm, right (08/02/22 11:15 PM) Temperature Route Oral (08/03/22 4:46 AM) Oral (08/03/22 12:27 AM) Oral (08/02/22 8:10 PM) Dry Weight 59 kg (08/03/22 12:27 AM) Weight Obtained Via Bed scale (08/03/22 12:27 AM) Dry Weight Obtained Via Bed scale (08/03/22 12:27 AM) Social History Social History Type Response Smoking Status Current every day leti jacqueline entered on: 04/05/17 Sex Admission evaluation note * Evelyn PERSAUD, Raymond A: MODIFY, PERFORM Event Display: Admission Note Authored Date: [id number] Patient: ??PEDRAZA, JOANNE ? Age:??31 Years?Sex:??Female?:??1990?? Chief Complaint/Reason for Consultation L Sequeira Wound, drug use, (?) infected. 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 Reported that she has been having??wound on the left sequeira??for the past couple years, was following??with the wound care and??the wound was completely healed??however she started??showed evaluated in the??same area,??wound started to be open again.?? She denies fever, chills,??will discharge??or any other associated symptoms. ??Upon presentation to the hospital, She was hemodynamically stable with blood pressure 123/82, afebrile,??maintaining saturation at 99% room air. Initial blood work??was notable for anemia with hemoglobin of 8.3 (baseline) otherwise unremarkable. ??X-ray of the tibia/fibula seen on the medial lower leg soft tissue extending from the midshaft region towards the distal metaphysis. ??Upon evaluation,??she was lying in bed without any signs of distress. Review of Systems Constitutional:?No weight loss, fever, chills, weakness or fatigue. Cardiovascular:No chest pain,pressure or discomfort. No palpitations or pedal edema. Respiratory:No shortness of breath, cough or sputum production. Gastrointestinal:?No anorexia, nausea, vomiting or diarrhea. No abdominal pain or blood in stool. Genitourinary: No burning micturition. No urinary frequency or incontinence. Neurologic: No headache, dizziness, syncope, unilateral weakness, ataxia, numbness or tingling in the extremities. No change in bowel or bladder control. Musculoskeletal: No muscle pain, back pain, joint pain or stiffness. Hematologic: No bleeding or bruising. Lymphatics: No enlarged lymph nodes. Psychiatric: No depression or anxiety. Endocrine: No reports of sweating. No cold or heat intolerance. No polyuria or polydipsia. All other systems were reviewed and are negative. Objective ? Vital Signs?? Temperature: 98.7 DegF (08/02/22 20:10:00) Temperature Route: Oral (08/02/22 20:10:00) Pulse Rate: 79 bpm (08/02/22 23:15:00) Respiratory Rate: 18 br/min (08/02/22 23:15:00) Systolic Blood Pressure: 130 mm Hg (08/02/22 23:15:00) Diastolic Blood Pressure:??86 mm Hg??High (08/02/22 23:15:00) Blood pressure sites: Arm, right (08/02/22 23:15:00) Mean Arterial Pressure: 96 mm Hg (08/02/22 20:10:00) Pulse Pressure: 44 mm Hg (08/02/22 23:15:00) Oxygen Saturation: 99 % (08/02/22 23:15:00) Mode of Delivery (Oxygen): Room air (08/02/22 23:15:00) Early Warning Score: 0 (08/02/22 23:22:37) ? Intake/Output? No Data Available ? Physical Exam ?? Constitutional: Alert, in no acute distress. ? Head: Normocephalic. ?? Eyes: Pupils are equal, round and reactive to light. Extraocular muscles intact. No pallor or scleral icterus ?? Ear, Nose and Throat: mucous membranes moist. Ears and nose - no obvious deformities. Trachea midline. ?? Neck: Supple, Full range of motion.No JVD or bruits. ?? Respiratory:??Clear to auscultation. No wheezing or rhonchi.??No use of accessory muscles. No tactile fremitus.? Cardiovascular:??PMI not visible. S1 S2 regular. No murmurs, rubs or gallops. ?? Gastrointestinal:??Abdomen soft, non-tender, non-distended. Normal bowel sounds. No pulsatile mass.No hepatosplenomegaly. ?? Genitourinary:??No costovertebral angle tenderness. ?? Extremities: No lower extremity pitting edema. No cyanosis or clubbing. ?? Neurologic:??AAOx3, Cranial nerves II-XII grossly intact. Speech normal, no facial droop. No focal neurological deficits. Moves all extremities spontaneously. Sensation intact bilaterally.??Flexor plantar response ?? Skin:??No rash.? Musculoskeletal:??Left sequeira wound??with overlying pink mucosa.?? With no associated??serosanguineous material. ?? Heme/Lymphatics:??Palpation of neck reveals no swelling or tenderness of neck nodes.? Psychiatric: Normal mood and affect. ?? 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 Open wound of the left sequeira-likely to drug injection Patient??presented for evaluation of recently??open??left sequeira wound??in the setting of chronic??IVdrug injection on the left sequeira. Wound does not look infected. ??We will hold off IV antibiotics. Wound care consultation. Counseling was provided to the patient about. ? IV drug use: We will give methadone 20 mg for now. Addiction consult in the morning. ? Quality metrics: CODE STATUS: Full resuscitation. DVT plexus: ? Histories Allergies Allergies ?(Active and Proposed Allergies Only) Red Dye? (Severity: Unknown severity, Onset: Unknown) Monistat-1? (Severity: Unknown severity, Onset: Unknown) Tylenol? (Severity: Unknown severity, Onset: Unknown) ? Past Medical History/Problem List Active Problems??(5) Childhood asthma Endocarditis Opioid abuse, in remission Paroxysmal SVT (supraventricular tachycardia) ? Past Surgical History No surgery history documented. ? Social History Substance Abuse Details:??Use: Current. ??Type: Cocaine, Heroin. ??Other: IVDU. Tobacco Details:??Current every day smoker ? Family History No family history recorded. ? Medications Home Medications No medications documented.? Results Recent Labs BLOOD COUNT & DIFF WBC 5.3 k/mm3 ()?? 08/02/2022 20:53 RBC 4.13 m/mm3 (Low)?? 08/02/2022 20:53 Hgb 8.3 Gm/dL (Low)?? 08/02/2022 20:53 Hct 29.3 % (Low)?? 08/02/2022 20:53 MCV 70.9 femtoliters (Low)?? 08/02/2022 20:53 MCH 20.1 pg (Low)?? 08/02/2022 20:53 MCHC 28.3 g/dL (Low)?? 08/02/2022 20:53 Platelet Count 331 k/mm3 ()?? 08/02/2022 20:53 RDW-SD 43.2 femtoliters ()?? 08/02/2022 20:53 MPV 10.7 femtoliters ()?? 08/02/2022 20:53 Nucleated RBC (Automated) 0.0 #/100 WBC'S ()?? 08/02/2022 20:53 Abs. NRBC 0.0 k/mm3 ()?? 08/02/2022 20:53 Abs. Neut 3.8 k/mm3 ()?? 08/02/2022 20:53 Abs. Lymph 1.1 k/mm3 ()?? 08/02/2022 20:53 Abs. Stark 0.2 k/mm3 (Low)?? 08/02/2022 20:53 Abs. Eo 0.1 k/mm3 ()?? 08/02/2022 20:53 Abs. Baso 0.0 k/mm3 ()?? 08/02/2022 20:53 Neut % 72.8 % ()?? 08/02/2022 20:53 Lymph % 21.1 % ()?? 08/02/2022 20:53 Stark % 3.8 % (Low)?? 08/02/2022 20:53 Eos % 1.7 % ()?? 08/02/2022 20:53 Baso % 0.4 % ()?? 08/02/2022 20:53 Imm Gran 0.2 % ()?? 08/02/2022 20:53 Abs. Imm Gran 0.0 k/mm3 ()?? 08/02/2022 20:53 ?? CHEM GENERAL Sodium 139 mmol/L ()?? 08/02/2022 20:53 Potassium 4.5 mmol/L ()?? 08/02/2022 20:53 Chloride 106 mmol/L ()?? 08/02/2022 20:53 Bicarbonate Level 27 mmol/L ()?? 08/02/2022 20:53 Anion Gap 6 ()?? 08/02/2022 20:53 Glucose Level 105 mg/dL (High)?? 08/02/2022 20:53 BUN 13 mg/dL ()?? 08/02/2022 20:53 Creatinine-Blood 0.7 mg/dL ()?? 08/02/2022 20:53 Estimated GFR Creatinine 122 ML/MIN/1.73 M2 ()?? 08/02/2022 20:53 Calcium 9.0 mg/dL ()?? 08/02/2022 20:53 Calcium, Ionized pH Corrected 1.24 mmol/L ()?? 08/02/2022 20:53 Magnesium 2.3 mg/dL ()?? 08/02/2022 20:53 Protein, Total 6.9 Gm/dL ()?? 08/02/2022 20:53 Albumin 3.4 Gm/dL ()?? 08/02/2022 20:53 AG Ratio 1.0 ()?? 08/02/2022 20:53 Alkaline Phosphatase 124 units/L (High)?? 08/02/2022 20:53 AST (SGOT) 22 units/L ()?? 08/02/2022 20:53 ALT (SGPT) 16 units/L ()?? 08/02/2022 20:53 Bilirubin, Total 0.2 mg/dL ()?? 08/02/2022 20:53 Lactate 0.8 mmol/L ()?? 08/02/2022 20:53 ?? COAG INR 1.1 ()?? 08/02/2022 22:32 Protime (PT) 11.4 seconds ()?? 08/02/2022 22:32 APTT 25.7 seconds ()?? 08/02/2022 22:32 ?? VIROLOGY COVID-19 by RT-PCR NEGATIVE ()?? 08/02/2022 20:34 ? Hospital Progress note * Ryder Farah: PERFORM, SIGN, VERIFY, SIGN, MODIFY, MODIFY, MODIFY Event Display: Progress Note Hospital Authored Date: Patient: JOANNE PEDRAZA Age: 31 years Sex: Female : 1990 Associated Diagnoses: None Author: Ryder Farah Findings Problem Related to Alteration in Integumentary : Alteration in Integumentary/new 08/03/2022 9:58 EDT Alteration in Integumentary Related to Cellulitis Goals & Outcomes, Integumentary Nutritional intake is adequate for metabolic needs, Pt will maintain adequate fluid & nutritional balance, Pt will maintain intact skin integrity, Wound will progress towards healing Interventions, Integumentary Cleanse all wounds with Normal Saline, Collaborate w/ provider for PT/OT consults, Encourage & assist pt to change position frequently, Encourage & assist with range of motion exercises, Encourage family participation in pt's care as they are able, Ensure reliefmodes are on mattress surface & utilized, Increase turning frequency if red or blanched areas appear, Interdisciplinary consults as appropriate, Keep bed as flat as tolerated to reduce shearing, Keep linen clean, dry and wrinkle free, Keep skin clean & dry, Maintain sterile technique with dressing changes, Minimize friction, shear and moisture, Monitor reddened areas for continued or increasing reddness, Record extent of impaired skin integrity, Relieve pressure off bony areas, Reposition pt off reddened areas, Teach Pt/caregiver s/s of infection, Teach Pt/S.O. risks of & measuresto prevent skin breakdown, Use barrier cream/ointment if pt's skin is frequently moist, Use heel & elbow protectors to relieve friction, Use pH balanced no rinse cleanser if incontinent, Use pressure dispersing devices as appropriate BH Goals/Interventions, Integumentary Yes Integumentary, Problem Start 08/03/2022 9:58 Reviewed plan with, Integumentary Patient Patient Progression, Integumentary Plan Initiation . Nursing Data Integumentary Data. : Integumentary Data. 08/03/2022 9:00 EDT Skin Abnormality Location Lower leg, left Skin Temperature Warm Sensory Perception No impairment Moisture Rarely moist Activity Walks occasionally Mobility No limitations Nutrition Adequate Friction and Shear No apparent problem Tito Score 21 Nursing Care Plan initiated/updated Yes Wound Type I Other wound type I Wound Location I Leg, left Wound I, Drainage Amount Minimum Wound I, Surrounding Skin Edema, Erythematous Integumentary WNL except . Vital Signs : VITAL SIGNS SECTION 08/03/2022 4:46 EDT Temperature 97.9 DegF Temperature Route Oral Pulse Rate 63 bpm Respiratory Rate 16 br/min Systolic Blood Pressure 127 mm Hg Diastolic Blood Pressure 84 mm Hg Blood pressure sites Arm, right Mean Arterial Pressure 98 mm Hg Pulse Pressure 43 mm Hg Oxygen Saturation 100 % Mode of Delivery (Oxygen) Room air . Evaluation Head: Normocephalic, atraumatic Eyes: Anicteric, vision grossly intact. Ears: no auricular pain, erythema or exudate observed. Nose: nares patent Throat: Trachea midline. no erythema or exudates observed. Tongue midline, anterioposterior pillarsrise symmetrically, Chest rise symmetrical. Breathing is non-labored. No use of accessory muscles or cyanosis observed.No clubbing observed. Pt lung sounds clear to auscultation, SpO2 100% on RA. Pt denies shortness ofbreath or difficulty breathing. Pt denies cough. Pt educated on cough/deep breathing and use of incentive spirometer. Pt denies chest pain or discomfort. Pt afebrile. S1,S2 heard, on auscultation. Peripheral pulses present and equal bilaterally. LLE edema observed, pt skin observed to be warm and dry, no JVD observed. Positive bowel sounds x4, pt denies n/v/d. Pt on regular diet tolerating well. Medications taken whole, no swallowing difficulty observed/reported by patient. Pt denies abdominal pain, no tenderness to palpation. Pt voiding independently. Pt denies dysuria, urgency, frequency, hesitancy or difficulty urinating,no bladder distension observed. Activity as tolerated. Positive movement and ROM in all 4 extremities. No joint tenderness or swelling observed. Pt has cellulitis to LLE, skin swollen, erythematous, wound serosanguinous drainage. 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 Pt repositions independently for decubitus prevention.CT scan ordered for question of osteomyelitis. Patient alert and oriented x3, speech clear. CN II-XII grossly intact. Pupils equal round and reactive to light, EOMI, no nystagmus observed. Positive motor function x4 extremities, motor function symmetrical. Sensation intact bilaterally. Pt denies pain Plan of care initiated, call morris within reach, will continue to monitor for comfort and safety. . * Ryder Farah: PERFORM Event Display: Progress Note Hospital Authored Date: [id number] Patient left AMA,MD notified, ambulated off unit. IV catheter removed with tip intact and pressure dressing applied. * Anneliese Hyman: MODIFY, SIGN, VERIFY, PERFORM Event Display: Progress Note Hospital Authored Date: Patient: JOANNE PEDRAZA Age: 31 years Sex: Female : 1990 Associated Diagnoses: None Author: Anneliese Hyman Findings Narrative/Incidental pt arrived from ED around 0025. pt ambulated independently to bed where admission and initial assessment were completed.pt restibg comfortably in bed. No significant overnight events. see cis and biophysical for more information. safety checks done, . Note * Ryder Farah: PERFORM Event Display: Discharge/Transfer Note Hospital Authored Date: [id number] Nursing Discharge Note Entered On: 08/03/2022 13:09 EDT Performed On: 08/03/2022 13:09 EDT by Ryder Farah Nursing Discharge Note 2 Discharge Time : 08/03/2022 13:09 EDT Discharge Level of Care at Discharge : Left Against Medical Advice AMA Form Signed : Yes Patient Left Unit Via : Ambulatory Patient Accompanied Off Unit with : Responsible adult DC Instructions Provided & Signed by Pt : No Patient Understands D/C Instructions : No Patient Instructions Discharge Signed : No Instructions for Discharge Comments : Pt left AMA Did Pt have Specialty Bed or Wound Vac : No Ryder Farah - 08/03/2022 13:09 EDT * Harry PERSAUD, Estefani: MODIFY, PERFORM Event Display: Discharge/Transfer Note Hospital Authored Date: [id number] Patient: ??JOANNE PEDRAZA ? Age:??31 Years?Sex:??Female?:??1990?? Patient Information Discharge Location: Primary Care Physician: Angie PERSAUD [facility] Admit Date/Time: 08/02/22 23:02 Discharge Disposition Discharge Disposition:??Against Medical??Advice?? Discharge Diagnosis Cellulitis left leg IV drug use Concerns of osteomyelitis?? _ Discharge Medications No medications documented.? Quality Measures Tobacco Use Treatment:? Medications Started None Medications Discontinued None Doses Changed None Hospital Course ??35-year-old female with history of??IV drug use complicated by endocarditis x2, recent admission on 07/12 to [facility] for osteomyelitis during which patient eloped from the hospital without receiving appropriate care/antibiotics who presented to [facility] on 08/02 for evaluation of left legwound, she was admitted for left sequeira cellulitis. ??X-ray done showed probable gas in the medial lower leg soft tissue, patient was not started on any antibiotics as she was vitally stable with no leukocytosis or fever. ??This morning I discussed with patient that due to her previous history of osteomyelitis that has not been treated we will consult orthopedic surgery and manage accordingly. ??I spoke to orthopedic surgery who recommended repeating CT lower extremity to assess for osteomyelitis. ??Unfortunately patient decided to leave hospital AGAINST MEDICAL ADVICE. ??Patient is afraid thatshe will be evicted from her apartment and she needs to go there as soon as possible to resolve theissue. ??Patient is aware that if her cellulitis is not worked up more she could develop life-threatening sepsis or infection of her heart valves. 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 ??We will not prescribe patient any antibiotics as it is unclear if she has true cellulitis/osteomyelitis or not. ??Advised patient to come back to the hospital if worsening pain, drainage, fever, chills or any other symptoms. Objective Left leg wound Left leg cellulitis/concerns of osteomyelitis X-ray showing??probable gas,??on exam she has??open wound??on left sequeira??with some drainage, no warmth, mild tenderness, no??crepitus. Not??started on antibiotics as no leukocytosis, fever, chills??or any concerns of sepsis Spoke to orthopedic surgery, they reviewed the x-ray??recommended CT??lower extremities ?? Patient decided to left AGAINST MEDICAL ADVICE ? History of IV drug use Currently active Received 20 mg of methadone while inpatient ?? Vital Signs?? Temperature: 97.9 DegF (08/03/22 04:46:00) Temperature Route: Oral (08/03/22 04:46:00) Pulse Rate: 63 bpm (08/03/22 04:46:00) Respiratory Rate: 18 br/min (08/03/22 06:29:00) Systolic Blood Pressure: 127 mm Hg (08/03/22 04:46:00) Diastolic Blood Pressure: 84 mm Hg (08/03/22 04:46:00) Blood pressure sites: Arm, right (08/03/22 04:46:00) Mean Arterial Pressure: 98 mm Hg (08/03/22 04:46:00) Pulse Pressure: 43 mm Hg (08/03/22 04:46:00) Oxygen Saturation: 100 % (08/03/22 04:46:00) Mode of Delivery (Oxygen): Room air (08/03/22 04:46:00) Early Warning Score: 5 (08/03/22 11:07:43) ? . Physical Exam General: Patient in no acute distress?? HEENT: normocephalic, atraumatic Respiratory: bilateral equal air entry, clear to auscultation with no wheezes or crackles. Adequaterespiratory rate and effort on room air.?? CVS: regular rate and rhythm, S1 and S2 present, no murmurs, rubs or gallops. No JVD.?? Abdomen: soft, non tender, non distended, bowel sounds present, no organomegaly.?? Extremities: Open left wound with some yellowish drainage. ulcer big toe present. right sequeira pustule present Neuro: alert and oriented x3. Cranial nerves II-XII grossly intact. Moving all extremities spontaneously. Normal tones, following simple commands.? Pending Results Blood Culture ordered on 08/02/2022 Blood Culture #2 ordered on 08/02/2022 CT Ext Lower W/ Contrast Left ordered on 08/03/2022 Hold Lavender Tube (BB) ordered on 08/02/2022 Follow-Up Appointments Added Follow Up ?Time Frame ?Comments Ama Adams MD?2 to 3 weeks Post Discharge Care Discharge ?Discharge AMA, ??08/03/22 13:01:00 EDT Home Health Face to Face ^HomeHealth[facility]F Results Discharge Labs BLOOD COUNT & DIFF WBC 3.7 k/mm3 (Low)?? 08/03/2022 10:33 RBC 4.08 m/mm3 (Low)?? 08/03/2022 10:33 Hgb 8.0 Gm/dL (Low)?? 08/03/2022 10:33 Hct 28.8 % (Low)?? 08/03/2022 10:33 MCV 70.6 femtoliters (Low)?? 08/03/2022 10:33 MCH 19.6 pg (Low)?? 08/03/2022 10:33 MCHC 27.8 g/dL (Low)?? 08/03/2022 10:33 Platelet Count 285 k/mm3 ()?? 08/03/2022 10:33 RDW-SD 43.2 femtoliters ()?? 08/03/2022 10:33 MPV 10.0 femtoliters ()?? 08/03/2022 10:33 Nucleated RBC (Automated) 0.0 #/100 WBC'S ()?? 08/03/2022 10:33 Abs. NRBC 0.0 k/mm3 ()?? 08/03/2022 10:33 Abs. Neut 3.8 k/mm3 ()?? 08/02/2022 20:53 Abs. Lymph 1.1 k/mm3 ()?? 08/02/2022 20:53 Abs. Stark 0.2 k/mm3 (Low)?? 08/02/2022 20:53 Abs. Eo 0.1 k/mm3 ()?? 08/02/2022 20:53 Abs. Baso 0.0 k/mm3 ()?? 08/02/2022 20:53 Neut % 72.8 % ()?? 08/02/2022 20:53 Lymph % 21.1 % ()?? 08/02/2022 20:53 Stark % 3.8 % (Low)?? 08/02/2022 20:53 Eos % 1.7 % ()?? 08/02/2022 20:53 Baso % 0.4 % ()?? 08/02/2022 20:53 Imm Gran 0.2 % ()?? 08/02/2022 20:53 Abs. Imm Gran 0.0 k/mm3 ()?? 08/02/2022 20:53 ?? CHEM GENERAL Sodium 137 mmol/L ()?? 08/03/2022 10:33 Potassium 4.4 mmol/L ()?? 08/03/2022 10:33 Chloride 103 mmol/L ()?? 08/03/2022 10:33 Bicarbonate Level 26 mmol/L ()?? 08/03/2022 10:33 Anion Gap 8 ()?? 08/03/2022 10:33 Glucose Level 83 mg/dL ()?? 08/03/2022 10:33 BUN 12 mg/dL ()?? 08/03/2022 10:33 Creatinine-Blood 0.6 mg/dL ()?? 08/03/2022 10:33 Estimated GFR Creatinine 125 ML/MIN/1.73 M2 ()?? 08/03/2022 10:33 Calcium 8.5 mg/dL (Low)?? 08/03/2022 10:33 Calcium, Ionized pH Corrected 1.24 mmol/L ()?? 08/02/2022 20:53 Magnesium 2.3 mg/dL ()?? 08/02/2022 20:53 Protein, Total 6.9 Gm/dL ()?? 08/02/2022 20:53 Albumin 3.8 Gm/dL ()?? 08/02/2022 20:53 AG Ratio 1.0 ()?? 08/02/2022 20:53 Alkaline Phosphatase 124 units/L (High)?? 08/02/2022 20:53 AST (SGOT) 22 units/L ()?? 08/02/2022 20:53 ALT (SGPT) 16 units/L ()?? 08/02/2022 20:53 Bilirubin, Total 0.2 mg/dL ()?? 08/02/2022 20:53 Lactate 0.8 mmol/L ()?? 08/02/2022 20:53 ?? COAG INR 1.1 ()?? 08/02/2022 22:32 Protime (PT) 11.4 seconds ()?? 08/02/2022 22:32 APTT 25.7 seconds ()?? 08/02/2022 22:32 ? URINE OTHER Est Creatinine Clearance 123.17 mL/min ()?? 08/03/2022 11:07 ? VIROLOGY COVID-19 by RT-PCR NEGATIVE ()?? 08/02/2022 20:34 ? Microbiology ?? COVID-19 (Novel Coronavirus), Rapid PCR?? Completed?? Source: Nasal Body Site: Nose Collected Dt/Tm: 08/02/2022 20:30 Last Updated Dt/Tm: 08/02/2022 22:31 ? 20??minutes spent on discharge * Bertrand PERSAUD, Earline: PERFORM Event Display: Discharge/Transfer Note Hospital Authored Date: Attending Attestation: I have seen and evaluated this patient. I have discussed the case and its management with the resident and agree with the findings and plan as documented in the resident???s note. ?? Discussed with Ms Pedraza the risks of leaving without treating her current leg infection as documentedbelow; in addition discussed possibility of loss of limb if left untreated. She verbalizes understanding but cannot stay. Offered social work assistance to help with housing issues which she declined. She has no family members or friends who can help. ?? -In addition to main left sequeira wound she does have a pustule on right sequeira; and a 5mm scabbed ulceron left great toe; no surrounding infection at either site -She has a linear healing cut on her left inner forearm: intentionally cut her arm a few weeks ago because I was being dramatic. Denies SI then or now. ?? If she does return: -will need repeat CT of left lower leg -I did hear a systolic murmur- consider echo -blood cultures done in ED are pending and should be checked -addiction consult/COWS scoring for withdrawal ?? * [facility] , CIS S: TRANSCRIBE Marii PERSAUD, Devrim: VERIFY Event Display: Result: Authored Date: US Doppler Ext Lower Venous Left INDICATION: 31 years old Female with Hx of Present Illness: L Sequeira Wound, drug use, (?) infected.; Reason: Other:; r o DVT; Clinical Question(s): Thrombus. COMPARISON: None IMAGING TECHNIQUE: Ultrasound of the LEFT lower extremity deep venous system was performed using grayscale, color, and spectral Doppler ultrasound from the upper groin throughout the calf assessing for complete compressibility and good response to compression and augmentation. FINDINGS: INCIDENTAL FINDINGS: Enlarged left inguinal lymph node measures 1.8 x 3.3 x 2.5 cm and demonstratespreserved benign morphology. LEFT LOWER EXTREMITY: Common femoral vein: Patent. No thrombosis. Deep femoral vein: Patent. No thrombosis. Femoral vein: Patent. No thrombosis. Popliteal vein: Patent. No thrombosis. Calf veins: Patent. No thrombosis. IMPRESSION: 1. No ultrasound evidence of acute deep venous thrombosis in the LEFT lower extremity. 2. Left inguinal lymphadenopathy is most likely reactive. Thank you for allowing me to participate in the care of this patient. WSN: [id number] Ordering Physician: Todd Parisi Dictated By: Orion Colvin MD Dictated Date/Time: 08/02/22 10:18 p Reviewed By: Orion Colvin MD Signed By: Orion Colvin MD Signed Date/Time: 08/02/22 10:18 pm Transcribed By: JIMENA Transcribed Date/Time: 08/02/22 10:17 pm XR Tibia and Fibula - left 2 Views * [facility] , CIS S: TRANSCRIBE Andres Medeiros MD: VERIFY Event Display: Result: Authored Date: [id number] Tibia/Fibula 2 Views Left Hx of Present Illness: L Sequeira Wound, drug use, (?) infected.; Reason: Other:; r o osteo gas; Clinical Question(s): Osteomyelitis COMPARISON: None. FINDINGS: No fractures or bone lesions. Visualized joints are normal. Possible gas seen in the soft tissues in the medial lower leg. No erosions or findings to indicate osteomyelitis. IMPRESSION: Probable gas seen in the medial lower leg soft tissues extending from the mid shaft region towards the distal metaphysis. No evidence of osteomyelitis. WSN: [id number] Ordering Physician: Todd Parisi Dictated By: Andres Medeiros MD Dictated Date/Time: 08/02/22 10:24 p Reviewed By: Andres Medeiros MD Signed By: Andres Medeiros MD Signed Date/Time: 08/02/22 10:24 pm Transcribed By: JIMENA Transcribed Date/Time: 08/02/22 10:22 pm Patient Care team information Care Team Personnel Name: Katerina Harris RN Position: [facility] RN Member Role: Primary Care Nurse Name: Celine Madrigal Position: [facility] Outreach Member Role: Primary Care Nurse Name: Blu Padgett RN Position: [facility] RN Member Role: Primary Care Nurse Name: Julio Burnette RN Position: [facility] RN Member Role: Primary Care Nurse Name: Ana Luisa Mayfield RN Position: [facility] RN Member Role: Primary Care Nurse Name: Becky Carias RN Position: [facility] RN Member Role: Primary Care Nurse Name: Ramy Johnson RN Position: [facility] SN RN Member Role: Primary Care Nurse Name: Rita Ramos RN Position: [facility] RN Member Role: Primary Care Nurse Name: Sheila Whitney RN Position: [facility] SN RN Member Role: Primary Care Nurse Name: Patricia Escamilla RN Position: [facility] RN Member Role: Primary Care Nurse Name: Brittni Johnson RN Position: [facility] RN Member Role: Primary Care Nurse Name: Jemma Wilson RN Position: [facility] Hospital Principal Cloud Architect Member Role: Primary Care Nurse Name: Renay Tarango RN Position: [facility] OB RN Member Role: Primary Care Nurse Name: James Simmons MD Position: [facility] Renal MD Member Role: Lifetime Consulting Physician Address: Address: [address] [place] [address] [facility] [address] Name: Gamaliel Fine RN Position: [facility] ED RN W/OE and Tasks Member Role: Primary Care Nurse Name: Emily OLIVAREZ Attending Position: [facility] ED Medicine Name: Woodrow Acosta Position: [facility] ED CODY TEIXEIRA Name: Keegan Hunt RN Position: [facility] ED RN W/OE and Tasks Member Role: Patient Care Provider Name: Todd Parisi MD Position: [facility] Resident Member Role: ED Resident Address: Address: [address] [place] [address] Care Team Related Persons Name: GAYATHRI CHAPARRO Address: home [address] [address] Name: CHRIS PEDRAZA Address: home [address] [place] [address]
--- OUTSIDE RECORDS SUMMARY | 2022-09-07 01:39 | XMS_ITS | Continuity of Care Document ---
Author Name Unknown Organization [facility] ter Address [address] [place] [id number]- Care Team Providers Care Cyber Reverse Engineer Name Role Phone Ama Adams MD Primary Care Physician [place] [facility] [place](s[place] 07/29/22 - 07/29/[address] [address]- Discharge Disposition: A-D/C Walkout Attending Physician: Not on Staff, Attending MD Admitting Physician: Not on Staff, Admitting MD Referring Physician: Not on Staff, Referring MD [...] given (08/13/2012) 3Admin Note: VIS dated 04/30/2011 Problem List Condition Confirmation Course Effective Dates Status Health St atus Informant Childhood asthma Confirmed Active Opioid abuse, in remission Confirmed Active Paroxysmal SVT (supraventricular tachycardia) Confirmed Active Confirmed Active Vital Signs Most recent to oldest [Reference Range]: 1 2 Oxygen Saturation [94-100 %] 100 % (07/29/22 6:31 PM) 100 % (07/29/22 6:22 PM) Pulse Rate [55-90 bpm] 90 bpm (07/29/22 6:31 PM) 100 bpm *H* (07/29/22 6:22 PM) Blood Pressure [90-138/55-84 mm Hg] 136/ 92mm Hg (07/29/22 6:31 PM) Respiratory Rate [16-30 br/min] 19 br/mi n (07/29/22 6:31 PM) Temperature [96.8-100.4 DegF] 98.4 DegF (07/29/22 6:31 PM) Mode of Delivery (Oxygen) Room air (07/29/22 6:31 PM) Room air (07/29/22 6:22 PM) Blood pressure sites Arm, right (07/29/22 6:31 PM) Temperature Route Oral (07/29/22 6:31 PM) Social History Social History Type Response Smoking Status Current every day leti phillips entered on: 04/05/17 Sex Patient Care team information Care Team Personnel Name: Katerina Harris RN Position: [facility] RN Member Role: Primary Care Nurse Name: Celine Madrigal Position: [facility] Outreach Member Role: Primary Care Nurse Name: Blu Padgett RN Position: [facility] RN Member Role: Primary Care Nurse Name: Julio Burnette RN Position: [facility] RN Member Role: Primary Care Nurse Name: Ana Luisa Mayfield RN Position: [facility] RN Member Role: Primary Care Nurse Name: Becky Carias RN Position: [facility] RN Member Role: Primary Care Nurse Name: Ramy Johnson RN Position: [facility] SN RN Member Role: Primary Care Nurse Name: Rita Ramos RN Position: [facility] RN Member Role: Primary Care Nurse Name: Sheila Whitney RN Position: [facility] SN RN Member Role: Primary Care Nurse Name: Patricia Escamilla RN Position: [facility] RN Member Role: Primary Care Nurse Name: Brittni Johnson RN Position: [facility] RN Member Role: Primary Care Nurse Name: Jemma Wilson RN Position: [facility] Hospital Services Rep Member Role: Primary Care Nurse Name: Renay Tarango RN Position: [facility] OB RN Member Role: Primary Care Nurse Name: James Simmons MD Position: [facility] Renal MD Member Role: Lifetime Consulting Physician Address: Address: [address] [place] [address] [facility] [place], [place] [address] Name: Gamaliel Fine RN Position: [facility] ED RN W/OE and Tasks Member Role: Primary Care Nurse Care Team Related Persons Name: GAYATHRI CHAPARRO Address: home [address] [place] [address] Name: CHRIS PEDARZA Address: home [address] [place] [address]
--- OUTSIDE RECORDS SUMMARY | 2022-09-07 01:39 | XMS_ITS | Continuity of Care Document ---
Author Name Unknown Organization [facility] ter Address [address] [place] [address]- Care Team Providers Care Collar Turner Name Role Phone Ama Adams MD Primary Care Physician [place] [facility] [place] - 07/13/[address] [address]- Discharge Disposition: A-D/C Walkout Attending Physician: Oscar PERSAUD, Johana Foster Admitting Physician: Oscar PERSAUD, Johana Foster Referring Physician: Not on Staff, Referring MD [...] Most recent to oldest [Reference Range]: 1 Oxygen Saturation [94-100 %] 100 % (07/12/22 9:22 PM) Pulse Rate [55-90 bpm] 76 bpm (07/12/22 9:22 PM) Blood Pressure [90-138/55-84 mm Hg] 134/ 99mm Hg (07/12/22 9:22 PM) Respiratory Rate [16-30 br/min] 16 br/mi n (07/12/22 9:22 PM) Temperature [96.8-100.4 DegF] 97.3 DegF (07/12/22 9:22 PM) Mode of Delivery (Oxygen) Room air (07/12/22 9:22 PM) Blood pressure sites Arm, right (07/12/22 9:22 PM) Temperature Route Oral (07/12/22 9:22 PM) Social History Social History Type Response Smoking Status Current every day leti jacqueline entered on: 04/05/17 Sex Patient Care team information Care Team Personnel Name: Katerina Harris RN Position: [facility] RN Member Role: Primary Care Nurse Name: Celine Madrigal Position: [facility] Outreach Member Role: Primary Care Nurse Name: Blu Padgett RN Position: [facility] RN Member Role: Primary Care Nurse Name: Julio Burnette RN Position: [facility] RN Member Role: Primary Care Nurse Name: Ana Luisa Mayfield RN Position: [facility] RN Member Role: Primary Care Nurse Name: Becky Carias RN Position: [facility] RN Member Role: Primary Care Nurse Name: Rita Ramos RN Position: [facility] RN Member Role: Primary Care Nurse Name: Sheila Whitney RN Position: [facility] SN RN Member Role: Primary Care Nurse Name: Patricia Escamilla RN Position: [facility] RN Member Role: Primary Care Nurse Name: Brittni Johnson RN Position: [facility] RN Member Role: Primary Care Nurse Name: Jemma Wilson RN Position: [facility] Hospital Powder Coat Painter Member Role: Primary Care Nurse Name: Renay Tarango RN Position: [facility] OB RN Member Role: Primary Care Nurse Name: James Simmons MD Position: [facility] Renal MD Member Role: Lifetime Consulting Physician Address: Address: [address] [place] [address] [facility] [address] Name: Gamaliel Fine RN Position: [facility] ED RN W/OE and Tasks Member Role: Primary Care Nurse Name: Jessica Lobo RN Position: [facility] ED RN W/OE and Tasks Member Role: Patient Care Provider Name: Lisa Mclaughlin NP Position: [facility] Associate Professional Member Role: ED Physician Top Dyeing Machine Loader Address: Address: [address] [place] [address]- Name: Johana Moore MD Position: [facility] ED Medicine MD Member Role: Admitting Physician Address: Address: [address] [place] [address] Name: Radha Brand Position: [facility] ED TA [facility] Member Role: Patient Care Provider Care Team Related Persons Name: GAYATHRI CHAPARRO Address: home [address] [place] [address] Name: CHRIS PEDRAZA Address: home [address] [place] [address]
--- OUTSIDE RECORDS SUMMARY | 2022-09-07 01:39 | XMS_ITS | Continuity of Care Document ---
Author Name Unknown Organization [facility] ter Address [address] [place] [id number] Care Team Providers [place] Agent Name Role Phone Angie PERSAUD, Ama Primary Care Physician Encounter [facility] Date(s): 07/12/22 - 07/12/[address] [address]- Encounter Diagnosis Osteomyelitis(Final) - 07/12/22 Discharge Disposition: A-D/C AMA Attending Physician: Elia Welch MD Admitting Physician: Socrates Tiwari MD Referring Physician: Not on Staff, Referring [...] (08/13/2012) 3Admin Note: VIS dated 04/30/2011 Medications No Known Medications Problem List Condition Confirmation Course Effective Dates Status Health St atus Informant Childhood asthma Confirmed Active Opioid abuse, in remission Confirmed Active Paroxysmal SVT (supraventricular tachycardia) Confirmed Active Confirmed Active Results Radiology Reports * Exam Date Time Procedure Performing Provider Status 07/12/22 1:[address] Ext Lower W/ Contrast Left Mynor Schrader en; Auth (Verified) Notes: (CT Ext Lower W/ Contrast Left) Reason For Exam: Infection RESULT: CT Ext Lower W/ Contrast Left CT Ext Lower W/ Contrast Left Hx of Present Illness: from [facility] for detox, wound on L calf worsening x1 month. facility states discharge and blackening A + O x3; Reason: Infection; Clinical Question(s): Tib Fib; Special Instructions: knee to distal toes for abscess; Order Comment: TECHNIQUE: Helical CT with contrast formatted in 3 planes. 75 cc of Omnipaque 300 was administered intravenously. Weight-based protocol using automatic tube modulation was used to optimize exposure parameters. CTDIvol Body: 21.30 mGy, DLP Body: 1115 mGy*cm. COMPARISONS: None FINDINGS: There is a 9.7 x 2.1 x 5.8 cm superficial, heterogeneous, irregular ulcerated wound intermixed withindurated skin and subcutaneous fat on the medial aspect of the calf (image 115 series 206, image 26 series 208). There are scattered locules of hypodense fluid within this wound measuring up to 1.6 cm (image 25 series 208). Deep to this abnormality at the medial cortical surface of the mid- distal tibia, there there is spiculated periosteal reaction of the bone (series 203 images 195-265). No evidence of soft tissue or intraosseous gas. Circumferential subcutaneous edema throughout the calf. No fracture or dislocation. Mild calcaneal spurring. IMPRESSION: 9.7 cm irregular ulcerated wound with underlying fluid containing locules in the subcutaneous tissue in the medial aspect of the left calf likely representing cellulitis and abscess. Spiculated periosteal reaction at adjacent medial surface of the mid-distal tibia highly suspicious for osteomyelitis. Results were relayed by telephone by Dr. Pacheco to Johana Moore MD on 07/12/2022 3:28 AM. I have personally reviewed the images and I agree with this report. WSN: [id number] Ordering Physician: Anneliese Clayton Dictated By: Pop Pacheco MD Dictated Date/Time: 07/12/22 8:06 am Reviewed By: Ranjit Espinal MD Signed By: Ranjit Espinal MD Signed Date/Time: 07/12/22 8:11 am Transcribed By: JIMENA Transcribed Date/Time: 07/12/22 7:53 am * Exam Date Time Procedure Performing Provider Status 07/11/22 11:33 PM Finger 4th Right Hand Yasmany Delgado; Auth (Verified) Notes: (Finger 4th Right Hand) Reason For Exam: with Pain;Trauma RESULT: Finger 4th Right Hand Finger 4th Right Hand, 3 views Hx of Present Illness: from [facility] for detox, wound on L calf worsening x1 month. facility states discharge and blackening A + O x3; Reason: Trauma; with Pain; Clinical Question(s): Fracture COMPARISON: None. FINDINGS: No fractures or bone lesions. No arthritic changes. Normal soft tissues. IMPRESSION: No acute abnormality identified. WSN: [id number] Ordering Physician: Anneliese Clayton Dictated By: Andres Medeiros MD Dictated Date/Time: 07/11/22 11:45 p Reviewed By: Andres Medeiros MD Signed By: Andres Medeiros MD Signed Date/Time: 07/11/22 11:45 pm Transcribed By: JIMENA Transcribed Date/Time: 07/11/22 11:44 pm Vital Signs Most recent to oldest [Reference Range]: 1 2 3 Oxygen Saturation [94-100 %] 99 % (07/12/22 10:53 AM) 98 % (07/12/22 8:06 AM) 100 % (07/12/22 8:06 AM) Pulse Rate [55-90 bpm] 62 bpm (07/12/22 10:53 AM) 64 bpm (07/12/22 8:06 AM) 63 bpm (07/12/22 8:06 AM) Blood Pressure [90-138/55-84 mm Hg] 118/64mm Hg (07/12/22 10:53 AM) 116/76mm Hg (07/12/22 8:06 AM) 111/63mm Hg (07/12/22 8:06 AM) Respiratory Rate [16-30 br/min] 18 br/min (07/12/22 10:53 AM) 16 br/min (07/12/22 8:06 AM) 20 br/min (07/12/22 8:06 AM) Temperature [96.8-100.4 DegF] 97.9 DegF (07/12/22 8:06 AM) 97.8 DegF (07/12/22 5:39 AM) 98 DegF (07/12/22 2:01 AM) Mode of Delivery (Oxygen) Room air (07/12/22 10:53 AM) Room air (07/12/22 8:06 AM) Room air (07/12/22 8:06 AM) Blood pressure sites Arm, right (07/12/22 10:53 AM) Arm, right (07/12/22 8:06 AM) Arm, right (07/12/22 8:06 AM) Temperature Route Oral (07/12/22 8:06 AM) Rectal (07/12/22 5:39 AM) Oral (07/12/22 2:01 AM) Social History Social History Type Response Smoking Status Current every day leti jacqueline entered on: 04/05/17 Sex Admission evaluation note * Ann Lambert DO: PERFORM Event Display: Admission Note Authored Date: Patient: ??PEDRAZA, JOANNE ? Age:??31 Years?Sex:??Female?:??1990?? Chief Complaint/Reason for Consultation from [facility] for detox, wound on L calf worsening x1 month. facility states discharge and blackening A + O x3. History of Present Illness Patient is a 31-year-old female with a history of IV drug use and [facility]ocarditis [facility].?? She has a wound on the left medial calfthat she was injecting into that has occasionally been draining.?? She also there is an area draining pus on her right hand and Pain right large great toe. ?? She reports she has had her??left leg wound for months. ??She was??seeing wound care for this woundand it was healing appropriately??until she began injecting near the site.?? Since then she has noticed it has become??worse, and about a week ago much worse??with foul smell and purulent drainage.??She denies fevers and chills, but does note??weight loss over the last 2 months and night sweats.??She is unable to quantify??her weight loss.?? She has not been on antibiotics??for the last severalmonths. ?? She is also complaining of dysuria, urinary urgency, urinary frequency, and foul-smelling urine.?? She denies any hematochezia??or coffee-ground emesis.?? She notes she has been??bleeding a little bit from her wound but has not had any recent injuries.?? She also notes headaches worsening in the last week.?? She denies any vision changes, dizziness,??weakness.?? She has not had any recent diarrhea. ?? She notes she has??been injecting both cocaine and heroin. ??She usually tries to get clean needlesbut she occasionally shares them with her partner. ??She does not lick the needles to clean them.??She has been trying to??stop??her IV drug use, but there has been a lot of??difficulties happening in her life??she did not specify. ?? She notes she currently feels like she is going through withdrawals, her stomach??is upset, she feels??shaky and weak,??she feels like??things are crawling on her skin. ?? She has previously grown Staph aureus in her blood that was resistant to penicillin and erythromycin.?? This was in February of 2017 when she was diagnosed with an MSSA Staph aureus tricuspid valve endocarditis.?? Hospital course was complicated by septic pulmonary emboli and right shoulder septic a rthritis with humeral osteomyelitis.?? Hospitalization briefly interrupted for a few days where shewas discharged on Levaquin and rifampin and she returned to the hospital continue her IV oxacillin course.?? She was discharged on oral regimen of Levaquin plus rifampin.?? 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 ?? ED work-up: On presentation temperature 99, pulse 75, respiration 18, blood pressure 137/68, oxygenating 99% on room air.?? Labs notable for hemoglobin of 7.4 sed rate was elevated at 62.?? CRP elevated 1.5.?? Negative test. CT in the right hand did not show any signs of osteomyelitis.?? CT scan of the lower extremity showed a 9.7 cm irregular ulcerated wound with underlying fluid containing locules and subcutaneous tissue in the medial aspect of the left calf likely representing cellulitis and abscess.?? Spiculated periosteal reaction at the adjacent medial surface of the mid distal tibia highly suspicious for osteomyelitis.??blood cultures x2 were obtained.?She was given??1 g of vancomycin??in the emergency room. Review of Systems A full review of systems was completed and is otherwise negative except as mentioned in history of present illness. Objective Vital Signs?? Temperature: 97.9 DegF (07/12/22 08:06:00) Temperature Route: Oral (07/12/22 08:06:00) Pulse Rate: 64 bpm (07/12/22 08:06:00) Pulse Rate: 63 bpm (07/12/22 08:06:00) Respiratory Rate: 16 br/min (07/12/22 08:06:00) Respiratory Rate: 20 br/min (07/12/22 08:06:00) Systolic Blood Pressure: 116 mm Hg (07/12/22 08:06:00) Systolic Blood Pressure: 111 mm Hg (07/12/22 08:06:00) Diastolic Blood Pressure: 76 mm Hg (07/12/22 08:06:00) Diastolic Blood Pressure: 63 mm Hg (07/12/22 08:06:00) Blood pressure sites: Arm, right (07/12/22 08:06:00) Blood pressure sites: Arm, right (07/12/22 08:06:00) Mean Arterial Pressure: 79 mm Hg (07/12/22 08:06:00) Pulse Pressure: 48 mm Hg (07/12/22 08:06:00) Oxygen Saturation: 98 % (07/12/22 08:06:00) Oxygen Saturation: 100 % (07/12/22 08:06:00) Mode of Delivery (Oxygen): Room air (07/12/22 08:06:00) Mode of Delivery (Oxygen): Room air (07/12/22 08:06:00) Early Warning Score: 2 (07/12/22 08:09:58) ?? Physical Exam General: Patient in no acute distress?? HEENT: normocephalic, atraumatic, EOMI Respiratory: bilateral equal air entry, clear to auscultation with no wheezes or crackles. Adequaterespiratory rate and effort on room air.?? CVS: regular rate and rhythm, S1 and S2 present, no murmurs, rubs or gallops. Abdomen: soft, non tender, non distended, bowel sounds present, no organomegaly.?? Extremities: Some swelling in the lower extremities bilaterally,??left leg wound appropriately bandaged.?? Wound on left toe??erythematous and warm, no??current drainage. Neuro: alert and oriented x3. Cranial nerves II-XII grossly intact. ??Reflexes 2+ out of 4 and brachial radialis and patellar tendon reflexes bilaterally.?? Muscle strength 5 out of 5 across the elbows and knees in flexion and extension. Psych: Patient was somewhat sleepy when he first began speaking. Assessment/Plan Patient is a 31-year-old female with a history of IV drug use (cocaine and heroin)??and staph OCHOA (MRSA and MSSA previously) endocarditis who presented to the emergency room??with concerns of??a lower left leg wound??and several other areas of cellulitis.?? Found to have osteomyelitis of the left lower extremity??and cellulitis of??the??right hand and left toe.? Left??Tibia osteomyelitis Left calf??cellulitis/abscess History of??Staph aureus??endocarditis (both MSSA and MRSA) Evidence of cellulitis,??abscess, osteomyelitis on CT scan of the lower extremity. Right hand without signs of osteomyelitis. No new??stigmata of endocarditis. ??Patient does report weight loss and night sweats, endocarditis still of concern. We will follow-up blood cultures. ?Continue vancomycin ??? Orthopedic consult for the left lower extremity ??? ID consult ??? Follow blood cultures ?? Opioid withdrawals Cocaine withdrawals Patient states she is going through withdrawals. She has been trying to??discontinue her IV drug use??at[facility] - addiction medicine consult ?? Dysuria Patient complaining of dysuria and foul smelling urine. - UA ?? Microcytic anemia Hemoglobin of 7.4 hematocrit of 26.5. Platelet count and white blood cell count are within normal limits. Possibly iron deficient, add on iron panel.?? Would not treat active infection at this time. ??? Transfuse below 7 ?? Hx IV drug use Patient has a borderline low leukocyte count, no neutrophil predominance on differential which would not be to the expected response with an active infection. She does share needles with her boyfriend. With concurrent anemia and risk factors present, concern for HIV. Verbal consent given for HIV test. ??? HIV ?? Quality measures: DVT: Lovenox Diet: Regular Code: Full ?? Patient discussed with attending physician, Dr. Yuri Lambert, DO Internal Medicine PGY1 ?? Histories Allergies Allergies ?(Active and Proposed Allergies Only) Red Dye? (Severity: Unknown severity, Onset: Unknown) Monistat-1? (Severity: Unknown severity, Onset: Unknown) Tylenol? (Severity: Unknown severity, Onset: Unknown) ? Past Medical History/Problem List Active Problems??(5) Childhood asthma Endocarditis Opioid abuse, in remission Paroxysmal SVT (supraventricular tachycardia) ?? Past Surgical History No surgery history documented. ? Social History Tobacco Details:??Current every day smoker ? Family History No family history recorded. Medications Home Medications Buprenorphine (buprenorphine 8 mg sublingual tablet, disintegrating)?1?tab(s)?8?Milligram?Sublingual?2 times a day Clonazepam (KlonoPIN 1 mg oral tablet)?1?Milligram?By Mouth?2 times a day Vancomycin (vancomycin 1.25 g/250 mL-D5% intravenous solution)?See Instructions?Every 12 hours for 27 days ? Inpatient Medications Medications (7) Active SCHEDULED: (1) NaCl 0.9% Flush 3ml (NaCL 0.9% Flush) ??3 mL, IV Push, Every 8 hours CONTINUOUS: (0) PRN: (6) Dextromethorphan-Guaifenesin 20 mg-200 mg/10 mL Liqu UD (Robitussin DM Liquid) ??10 mL, By Mouth, Every 4 hours Melatonin 3 mg Tablet (Melatonin Tablet) ??3 mg, By Mouth, Daily at bedtime NaCl 0.9% Flush 3ml (NaCL 0.9% Flush) ??3 mL, IV Push, Every 8 hours Polyethylene Glycol 17 Gm Powder (MiraLax Powder) ??17 Gm 1 pack/packet, By Mouth, Daily Senna 8.6 mg / Docusate 50 mg tablet (Docusate/Senna Tablet) ??1 tablet, By Mouth, 2 times a day Simethicone 80 mg Chewable Tablet (Simethicone Tablet) ??80 mg, Chew, 3 times a day ? Results Recent Labs BLOOD COUNT & DIFF WBC 4.7 k/mm3 ()?? 07/11/2022 22:36 RBC 3.66 m/mm3 (Low)?? 07/11/2022 22:36 Hgb 7.4 Gm/dL (Low)?? 07/11/2022 22:36 Hct 26.5 % (Low)?? 07/11/2022 22:36 MCV 72.4 femtoliters (Low)?? 07/11/2022 22:36 MCH 20.2 pg (Low)?? 07/11/2022 22:36 MCHC 27.9 g/dL (Low)?? 07/11/2022 22:36 Platelet Count 322 k/mm3 ()?? 07/11/2022 22:36 RDW-SD 48.8 femtoliters (High)?? 07/11/2022 22:36 MPV 10.1 femtoliters ()?? 07/11/2022 22:36 Nucleated RBC (Automated) 0.0 #/100 WBC'S ()?? 07/11/2022 22:36 Abs. NRBC 0.0 k/mm3 ()?? 07/11/2022 22:36 Abs. Neut 2.8 k/mm3 ()?? 07/11/2022 22:36 Abs. Lymph 1.4 k/mm3 ()?? 07/11/2022 22:36 Abs. [place] 0.3 k/mm3 (Low)?? 07/11/2022 22:36 Abs. Eo 0.1 k/mm3 ()?? 07/11/2022 22:36 Abs. Baso 0.0 k/mm3 ()?? 07/11/2022 22:36 Neut % 60.2 % ()?? 07/11/2022 22:36 Lymph % 30.2 % ()?? 07/11/2022 22:36 [place] % 6.4 % ()?? 07/11/2022 22:36 Eos % 2.1 % ()?? 07/11/2022 22:36 Baso % 0.9 % ()?? 07/11/2022 22:36 Imm Gran 0.2 % ()?? 07/11/2022 22:36 Abs. Imm Gran 0.0 k/mm3 ()?? 07/11/2022 22:36 ?? CARDIAC CK, Total 31 units/L ()?? 07/11/2022 22:36 ?? CHEM GENERAL Sodium 140 mmol/L ()?? 07/11/2022 22:36 Potassium 3.8 mmol/L ()?? 07/11/2022 22:36 Chloride 104 mmol/L ()?? 07/11/2022 22:36 Bicarbonate Level 29 mmol/L ()?? 07/11/2022 22:36 Anion Gap 7 ()?? 07/11/2022 22:36 Glucose Level 104 mg/dL (High)?? 07/11/2022 22:36 BUN 11 mg/dL ()?? 07/11/2022 22:36 Creatinine-Blood 0.6 mg/dL ()?? 07/11/2022 22:36 Estimated GFR Creatinine 122 ML/MIN/1.73 M2 ()?? 07/11/2022 22:36 Calcium 8.4 mg/dL (Low)?? 07/11/2022 22:36 Protein, Total 6.8 Gm/dL ()?? 07/11/2022 22:36 Albumin 3.1 Gm/dL (Low)?? 07/11/2022 22:36 AG Ratio 0.8 ()?? 07/11/2022 22:36 Alkaline Phosphatase 130 units/L (High)?? 07/11/2022 22:36 AST (SGOT) 25 units/L ()?? 07/11/2022 22:36 ALT (SGPT) 13 units/L ()?? 07/11/2022 22:36 Bilirubin, Total 0.2 mg/dL ()?? 07/11/2022 22:36 Lactate 1.7 mmol/L ()?? 07/11/2022 22:36 C-Reactive Protein 1.5 mg/dL (High)?? 07/11/2022 22:36 ?? ENDOCRINE/TUMOR MARKER Serum Qual NEGATIVE mIU/mL ()?? 07/11/2022 22:36 ?? HEME OTHER Sed Rate 62 mm/hr (High)?? 07/11/2022 22:36 Hold Blue Top SPECIMEN DISCARDED AFTER 4 HOURS. ()?? 07/11/2022 22:36 ?? MISC. CHEMISTRY Hold Green Top SPECIMEN DISCARDED AFTER 1 WEEK ()?? 07/11/2022 22:36 ?? VIROLOGY COVID-19 by RT-PCR NEGATIVE ()?? 07/11/2022 23:59 ? * Elia Welch MD: PERFORM Event Display: Admission Note Authored Date: Attending Attestation:??I saw and examined the patient with the resident team and reviewed the chart on the day of service. ??I have discussed the case and its management??with the resident as documented in the resident note on the day of service.??I agree with the resident's note and plan as documented. Hospital Progress note * Froilan Mccarthy DO: PERFORM, SIGN, VERIFY Event Display: Progress Note Hospital Authored Date: Patient: JOANNE PEDRAZA Age: 31 years Sex: Female : 1990 Associated Diagnoses: None Author: Froilan Mccarthy DO Addictions was consulted to meet with Ms. Pedraza today to discuss options for managing opiate and cocaine withdrawal while in the hospital. I attempted to see the patient in the ED; however, she has reportedly eloped at this time and her current location is unknown. ED staff are currently reaching [facility]. Should she return we would recommend starting methadone 20 mg daily for OUD and to help address ongoing withdrawals. Froilan Mccarthy DO Acid Remover PGY-4 Pager #[phone] Case discussed with ?? Molly Note * Ann Lambert DO: PERFORM Event Display: Discharge/Transfer Note Hospital Authored Date: Patient: ??JOANNE PEDRAZA ? Age:??31 Years?Sex:??Female?:??1990?? Patient Information [facility]charge [facility]: [facility] Primary Care Physician: Ama Adams MD Admit Date/Time: 07/12/22 03:53 Discharge Diagnosis Osteomyelitis (M86.9) of left tibia Left leg cellulitis/abscess Hx of endocarditis. _ Discharge Medications none Medications Started none Medications Discontinued none Doses Changed none Allergies Allergies ?(Active and Proposed Allergies Only) Red Dye? (Severity: Unknown severity, Onset: Unknown) Monistat-1? (Severity: Unknown severity, Onset: Unknown) Tylenol? (Severity: Unknown severity, Onset: Unknown) ? Hospital Course Patient with a history of IV drug use, endocarditis x2 presented to the hospital with a left lower extremity wound. Had a CT??that??had changes consistent with osteomyelitis. She was??admitted to [facility]??with a plan for IV antibiotics and possible surgical??debridement??but patient eloped before she could be transferred to the hospital floor.?? [place] and ongoing??PD??were notified as she looked with an active IV. ??Patient was??called via the number in her chart, although??answer reported itwas the wrong number.?? If she were to be present to the hospital, would recommend??continuing joshua outlined admission note. ?? Patient discussed with attending physician, Dr. Yuri Lambert, DO Internal Medicine PGY1 _??10 minutes spent on discharge XR Finger fourth - right Views * RAVINDRA Armenta S: TRANSCRINASRIN Medeiros MD, Andres S: VERIFY Event Display: Result: Authored Date: Finger 4th Right Hand, 3 views Hx of Present Illness: from [facility] for detox, wound on L calf worsening x1 month. facility states discharge and blackening A + O x3; Reason: Trauma; with Pain; Clinical Question(s): Fracture COMPARISON: None. FINDINGS: No fractures or bone lesions. No arthritic changes. Normal soft tissues. IMPRESSION: No acute abnormality identified. WSN: [id number] Ordering Physician: Anneliese Clayton Dictated By: Andres Medeiros MD Dictated Date/Time: 07/11/22 11:45 p Reviewed By: Andres Medeiros MD Signed By: Andres Medeiros MD Signed Date/Time: 07/11/22 11:45 pm Transcribed By: JIMENA Transcribed Date/Time: 07/11/22 11:[address] Lower extremity - left W contrast IV * BHSPowerscribe , CIS S: TRANSCRIBE Kylie PERSAUD, Ranjit Mccain: VERIFY Pop Pacheco MD T: SIGN Event Display: Result: Authored Date: CT Ext Lower W/ Contrast Left Hx of Present Illness: from [facility] for detox, wound on L calf worsening x1 month. facility states discharge and blackening A + O x3; Reason: Infection; Clinical Question(s): Tib Fib; Special Instructions: knee to distal toes for abscess; Order Comment: TECHNIQUE: Helical CT with contrast formatted in 3 planes. 75 cc of Omnipaque 300 was administered intravenously. Weight-based protocol using automatic tube modulation was used to optimize exposure parameters. CTDIvol Body: 21.30 mGy, DLP Body: 1115 mGy*cm. COMPARISONS: None FINDINGS: There is a 9.7 x 2.1 x 5.8 cm superficial, heterogeneous, irregular ulcerated wound intermixed withindurated skin and subcutaneous fat on the medial aspect of the calf (image 115 series 206, image 26 series 208). There are scattered locules of hypodense fluid within this wound measuring up to 1.6 cm (image 25 series 208). Deep to this abnormality at the medial cortical surface of the mid- distal tibia, there there is spiculated periosteal reaction of the bone (series 203 images 195-265). No evidence of soft tissue or intraosseous gas. Circumferential subcutaneous edema throughout the calf. No fracture or dislocation. Mild calcaneal spurring. IMPRESSION: 9.7 cm irregular ulcerated wound with underlying fluid containing locules in the subcutaneous tissue in the medial aspect of the left calf likely representing cellulitis and abscess. Spiculated periosteal reaction at adjacent medial surface of the mid-distal tibia highly suspicious for osteomyelitis. Results were relayed by telephone by Dr. Pacheco to Johana Moore MD on 07/12/2022 3:28 AM. I have personally reviewed the images and I agree with this report. WSN: [id number] Ordering Physician: Anneliese Clayton Dictated By: Pop Pacheco MD Dictated Date/Time: 07/12/22 8:06 am Reviewed By: Ranjit Espinal MD Signed By: Ranjit Espinal MD Signed Date/Time: 07/12/22 8:11 am Transcribed By: JIMENA Transcribed Date/Time: 07/12/22 7:53 am Patient Care team information Care Team Personnel Name: Katerina Harris RN Position: [facility] RN Member Role: Primary Care Nurse Name: Celine Madrigal Position: [facility] Outreach Member Role: Primary Care Nurse Name: Blu Padgett RN Position: [facility] RN Member Role: Primary Care Nurse Name: Julio Burnette RN Position: [facility] RN Member Role: Primary Care Nurse Name: Ana Luisa Mayfield RN Position: [facility] RN Member Role: Primary Care Nurse Name: Becky Carias RN Position: [facility] RN Member Role: Primary Care Nurse Name: Rita Ramos RN Position: [facility] RN Member Role: Primary Care Nurse Name: Sheila Whitney RN Position: [facility] SN RN Member Role: Primary Care Nurse Name: Patricia Escamilla RN Position: [facility] RN Member Role: Primary Care Nurse Name: Brittni Johnson RN Position: [facility] RN Member Role: Primary Care Nurse Name: Jemma Wilson RN Position: [facility] Hospital Grass Cutter Member Role: Primary Care Nurse Name: Renay Tarango RN Position: [facility] OB RN Member Role: Primary Care Nurse Name: James Simmons MD Position: [facility] Renal MD Member Role: Lifetime Consulting Physician Address: Address: [address] [place] [address] [facility] [address] Name: Gamaliel Fine RN Position: [facility] ED RN W/OE and Tasks Member Role: Primary Care Nurse Name: Emily OLIVAREZ Attending Position: [facility] ED Medicine MD Name: Celine Back Position: [facility] ED TA [facility] Member Role: Practice Office Associate Name: Ryder Sam LPN Position: [facility] ED RN W/OE and Tasks Member Role: Patient Care Provider Care Team Related Persons Name: KRYSTA GAYATHRI Address: home [address] [place] [id number] Name: MILO CHRIS Address: [address] [place] [address]
--- OUTSIDE RECORDS SUMMARY | 2022-09-07 01:39 | XMS_ITS | Continuity of Care Document ---
Author Name Unknown Organization [facility] ter Address [address] [place] [id number]- Care Team Providers Care Senior Label Specialist Name Role Phone Ama Adams MD Primary Care Physician Encounter [facility] Date(s): 08/09/22 - 08/10/[address] [address]- Encounter Diagnosis Osteomyelitis(Final) - 08/10/22 Discharge Disposition: A-D/C AMA Attending Physician: Nnamdi Bermudez MD Admitting Physician: Nnamdi Bermudez MD Referring Physician: Not on Staff, Referring [...] for Microbiology Reports Name Date Blood Culture 08/10/22 Blood Culture #2 08/10/22 Microbiology Reports TEST:Blood Culture STATUS:Unauthenticated BODY SITE: SOURCE:Blood COLLECTED DATE/TIME:08/10/22 5:10 AM Blood Culture SPECIMEN DESCRIPTION : BLOOD R FA SPECIAL REQUESTS : NONE REPORT STATUS : PRELIMINARY REPORT TEST:Blood Culture, Second Order STATUS:Unauthenticated BODY SITE: SOURCE:Blood COLLECTED DATE/TIME:08/10/22 5:10 AM Blood Culture, Second Order SPECIMEN DESCRIPTION : BLOOD L FA SPECIAL REQUESTS : NONE REPORT STATUS : PRELIMINARY REPORT Radiology Reports * Exam Date Time Procedure Performing Provider Status 08/10/22 6:[address] Ext Lower W/ Contrast Left Abhishek Dupont; Auth (Verified) Notes: (CT Ext Lower W/ Contrast Left) Reason For Exam: ? osteo;Infection RESULT: CT Ext Lower W/ Contrast Left CT Ext Lower W/ Contrast Left Hx of Present Illness: Patient reports open wound on left lower leg is getting worse since recent hospitalization for this cellulitis. Patient reports started using cocaine and heroin again; last used today.; Reason: Infection; ? osteo; Clinical Question(s): Tib Fib; Order Comment: TECHNIQUE: Helical CT with contrast formatted in 3 planes. 100 cc of Omnipaque 300 was administeredintravenously. Weight-based protocol using automatic tube modulation was used to optimize exposure parameters. CTDIvol Body: 12.60 mGy, DLP Body: 936 mGy*cm. COMPARISONS: None FINDINGS: Bones and joints: No fracture or dislocation is present. There is spiculated periosteal reaction along the anteromedial aspect of the tibial diaphysis over a segment measuring at least 6.3 cm in length, similar to the previous study. No other osseous erosion or periosteal reaction is present. Bone mineralization is otherwise normal. Joint spaces are intact. Soft Tissues: There is an ulcerated wound along the medial aspect of the calf measuring approximately 9.8 x 2.1 x 5.8 cm with edema. There are a few scattered tiny areas of decreased attenuation which may represent fluid. No subcutaneous gas is present nor is there any drainable fluid collection. No calcification is present. IMPRESSION: Redemonstrated 9.8 ulcerated wound with underlying fluid locules consistent with cellulitis and possible microabscesses. Stable appearance of osteomyelitis along the adjacent anteromedial surface of the tibial diaphysis. No acute fracture or subluxation. Findings were communicated by Cortext by Dr. Harry Bright to Hiram TREVINO on 08/10/2022t 6:35 AM . I have personally reviewed the images and I agree with this report. WSN: [id number] Ordering Physician: Hiram Henning Dictated By: Harry Bright DO Dictated Date/Time: 08/10/22 8:18 am Reviewed By: Buddy Benson MD Signed By: Buddy Benson MD Signed Date/Time: 08/10/22 8:23 am Transcribed By: JIMENA Transcribed Date/Time: 08/10/22 6:36 am Vital Signs Most recent to oldest [Reference Range]: 1 2 3 Weight 54.5 kg (08/09/22 11:03 PM) Oxygen Saturation [94-100 %] 97 % (08/10/22 6:08 AM) 95 % (08/10/22 4:36 AM) 100 % (08/09/22 11:03 PM) Pulse Rate [55-90 bpm] 72 bpm (08/10/22 6:08 AM) 67 bpm (08/10/22 4:36 AM) 98 bpm *H* (08/09/22 11:03 PM) Blood Pressure [90-138/55-84 mm Hg] 110/95mm Hg (08/10/22 6:08 AM) 110/67mm Hg (08/10/22 4:36 AM) 137/91mm Hg (08/09/22 11:03 PM) Respiratory Rate [16-30 br/min] 16 br/min (08/10/22 6:08 AM) 16 br/min (08/10/22 4:36 AM) 18 br/min (08/09/22 11:03 PM) Temperature [96.8-100.4 DegF] 97.5 DegF (08/10/22 4:36 AM) 98.7 DegF (08/09/22 11:03 PM) Mode of Delivery (Oxygen) Room air (08/10/22 6:08 AM) Room air (08/10/22 4:36 AM) Room air (08/09/22 11:03 PM) Blood pressure sites Arm, left (08/10/22 6:08 AM) Arm, left (08/10/22 4:36 AM) Arm, left (08/09/22 11:03 PM) Temperature Route Oral (08/10/22 4:36 AM) Oral (08/09/22 11:03 PM) Dry Weight 54.5 kg (08/09/22 11:03 PM) Social History Social History Type Response Smoking Status Current every day leti phillips entered on: 04/05/[address] Lower extremity - left W contrast IV * [facility] , CIS S: TRANSCRIBE Harry Bright DO: Buddy Valente MD: VERIFY Event Display: Result: Authored Date: CT Ext Lower W/ Contrast Left Hx of Present Illness: Patient reports open wound on left lower leg is getting worse since recent hospitalization for this cellulitis. Patient reports started using cocaine and heroin again; last used today.; Reason: Infection; ? osteo; Clinical Question(s): Tib Fib; Order Comment: TECHNIQUE: Helical CT with contrast formatted in 3 planes. 100 cc of Omnipaque 300 was administeredintravenously. Weight-based protocol using automatic tube modulation was used to optimize exposure parameters. CTDIvol Body: 12.60 mGy, DLP Body: 936 mGy*cm. COMPARISONS: None FINDINGS: Bones and joints: No fracture or dislocation is present. There is spiculated periosteal reaction along the anteromedial aspect of the tibial diaphysis over a segment measuring at least 6.3 cm in length, similar to the previous study. No other osseous erosion or periosteal reaction is present. Bone mineralization is otherwise normal. Joint spaces are intact. Soft Tissues: There is an ulcerated wound along the medial aspect of the calf measuring approximately 9.8 x 2.1 x 5.8 cm with edema. There are a few scattered tiny areas of decreased attenuation which may represent fluid. No subcutaneous gas is present nor is there any drainable fluid collection. No calcification is present. IMPRESSION: Redemonstrated 9.8 ulcerated wound with underlying fluid locules consistent with cellulitis and possible microabscesses. Stable appearance of osteomyelitis along the adjacent anteromedial surface of the tibial diaphysis. No acute fracture or subluxation. Findings were communicated by Cortext by Dr. Harry Bright to Hiram TREVINO on 08/10/2022 6:35 AM . I have personally reviewed the images and I agree with this report. WSN: [id number] Ordering Physician: Hiram Henning Dictated By: Harry Bright DO Dictated Date/Time: 08/10/22 8:18 am Reviewed By: Buddy Benson MD Signed By: Buddy Benson MD Signed Date/Time: 08/10/22 8:23 am Transcribed By: JIMENA Transcribed Date/Time: 08/10/22 6:36 am Patient Care team information Care Team Personnel Name: Katerina Harris RN Position: [facility] RN Member Role: Primary Care Nurse Name: Celine Madrigal Position: [facility] Outreach Member Role: Primary Care Nurse Name: Blu Padgett RN Position: [facility] RN Member Role: Primary Care Nurse Name: Julio Burnette RN Position: [facility] RN Member Role: Primary Care Nurse Name: Ana Luisa Mayfield RN Position: [facility] RN Member Role: Primary Care Nurse Name: Becky Carias RN Position: [facility] RN Member Role: Primary Care Nurse Name: Ramy Johnson RN Position: [facility] SN RN Member Role: Primary Care Nurse Name: Rita Ramos RN Position: [facility] RN Member Role: Primary Care Nurse Name: Sheila Whitney RN Position: [facility] SN RN Member Role: Primary Care Nurse Name: Patricia Escamilla RN Position: [facility] RN Member Role: Primary Care Nurse Name: Brittni Johnson RN Position: [facility] RN Member Role: Primary Care Nurse Name: Jemma Wilson RN Position: [facility] Hospital Felt Cementer Member Role: Primary Care Nurse Name: Renay Tarango RN Position: [facility] OB RN Member Role: Primary Care Nurse Name: James Simmons MD Position: [facility] Renal MD Member Role: Lifetime Consulting Physician Address: Address: [address] [place] [address] [facility] [address] Name: Gamaliel Fine RN Position: [facility] ED RN W/OE and Tasks Member Role: Primary Care Nurse Name: Hiram Greer Position: [facility] Associate Professional Member Role: ED Physician Press Manager Address: Address: [address] [place] [id number]- Name: Kevin Moore MD Position: [facility] ED Medicine Address: Address: [address] [place] [id number]- Care Team Related Persons Name: GAYATHRI CHAPARRO Address: home [address] [place] [id number] Name: CHRIS PEDRAZA Address: home [address] [place] [address]
[2022-09-07 01:50] LABS: MANUAL DIFF FLAG NO
[2022-09-07 01:51] LABS: Basophils Percent Auto 0.6 % (0-2); Eosinophils Absolute Auto 0.1 X10*3/uL (0.0-0.4); Eosinophils Percent Auto 1.6 % (0-4); Hematocrit 28.9 % (37.0-47.0); Hemoglobin 8.2 g/dl (12.0-16.0); Imm Gran Abs Auto 0.01 X10*3/uL (0.00-0.03); Imm Gran Pct Auto 0.2 % (0.0-0.4); Lymphocytes Absolute Auto 1.5 X10*3/uL (1.2-4.9); Lymphocytes Percent Auto 30.1 % (20-40); Mean Corpuscular HGB Conc 28.4 g/dl (31.0-35.0); Mean Corpuscular Hemoglobin 18.9 pg (27.0-33.0); Mean Corpuscular Volume 66.6 fL (80.0-98.0); Mean Platelet Volume 9.5 fL (9.4-12.3); Monocytes Absolute Auto 0.3 X10*3/uL (0.1-1.2); Monocytes Percent Auto 6.1 % (2-11); Neutrophils Percent Auto 61.4 % (45-73); Platelet Count 315 X10*3/uL (160-400); Red Blood Count 4.34 X10*6/uL (4.20-5.50); Red Cell Distribution Width 16.1 % (11.0-16.0); White Blood Count 4.9 X10*3/uL (4.8-10.8)
[2022-09-07 02:03] LABS: Lactic Acid 0.5 mmol/L (0.5-2.0)
[2022-09-07 02:03] LABS: COVID-19 Test Negative (Negative); IDNOW Serial# 6674DD1D
[2022-09-07] MEDS: Piperacillin Sodium/Tazobactam 3.375 GM in 0.9 % Sodium Chloride 50 ML IV (02:03)
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
[2022-09-07 02:11] LABS: Alanine Aminotransferase 32 U/L (0-31); Albumin Level 3.8 g/dL (3.5-5.0); Alkaline Phosphatase 115 U/L (39-117); Anion Gap 12 (12-20); Aspartate Amino Transferase 43 U/L (5-31); Bilirubin Direct 0.2 mg/dL (0.0-0.5); Bilirubin Total 0.5 mg/dL (0.0-1.0); Blood Urea Nitrogen 21 mg/dL (9-16); C Reactive Protein 1.77 mg/dL (< or = 0.50); Calcium 9.2 mg/dL (8.4-10.2); Carbon Dioxide 26 mmol/L (22-29); Chloride 104 mmol/L (96-108); Creatinine Clr Calc Pharmacy 92.1; Estimated Glomerular Filt Rate > 60; Ethanol < 10 mg/dL; Glucose Random 87 mg/dL (60-115); Magnesium 2.3 mg/dL (1.6-2.6); Sodium 138 mmol/L (135-145); Total Protein 8.2 g/dL (6.5-8.0)
[2022-09-07] MEDS: vancomycin HCL 1,250 MG in 0.9 % Sodium Chloride 250 ML 166.67 MG IV (02:24)
[2022-09-07 02:34] LABS: Erythrocyte Sedimentation Rate 42 MM/HR (0-20)
[2022-09-07 04:18] VITALS: BP 98/57; PULSE 53; RESP 18; TEMP 36.5; O2SAT 99
--- NOTE | 2022-09-07 06:29 | PC.NURSE ---
pt asleep comfortably on stretcher. respirations even and unlabored. pt to be admitted to hospital for further management of LLE osteomyelitis. pt not at full capacity to be discharged. responds to verbal stimuli but pt very sleepy and lethargic. will CTM closely.
[2022-09-07 06:40] VITALS: PULSE 58; RESP 12; O2SAT 100
--- NOTE | 2022-09-07 09:48 | MHC.RECOVRN ---
This underwriter at bedside x's 2 to assess opiate withdrawal. Patient resting comfortably. This underwriter attempted to wake patient up, patient woke up to verbal command, fell back asleep and unable to answer this writers questions. Will continue to monitor and reassess when pt is more awake and alert.
== END 2022-09-07 13:00 | disposition left against medical advice (07) ==
PROVIDERS: Emergency Provider Emergency Medicine; PCP Internal Medicine
DX: L03.116 Cellulitis of left lower limb (principal); M86.9 Osteomyelitis, unspecified; F19.10 Other psychoactive substance abuse, uncomplicated; F11.20 Opioid dependence, uncomplicated; F17.200 Nicotine dependence, unspecified, uncomplicated; Z20.822 Contact with and (suspected) exposure to COVID-19
CPT/HCPCS: 36415; 80048; 80076; 80307; 83605; 83735; 85025; 85652; 86140; 87040; 87635; 96365; 96367; 99284; J2543; J3371

== ENCOUNTER 2022-09-08 14:48 | Emergency (ER) | payer OTHER, SELFPAY ==
[2022-09-08 14:55] VITALS: BP 123/78; PULSE 100; PULSE 112; RESP 17; TEMP 37.2; O2SAT 98; O2SAT 99
--- NOTE | 2022-09-08 15:29 | PC.NURSE ---
Pt pacing, denies SI, HI, reports having drug induced AVH at times. She is cooperative. Claims she was seen here for a left leg infection Vicente night. Pt says her atb. are at pharmacy. Mother called. Pt does not want us to talk to her.
[2022-09-08 15:57] LABS: MANUAL DIFF FLAG NO
--- NOTE | 2022-09-08 15:57 | PC.NURSE ---
notified about LL wound.
[2022-09-08 16:04] LABS: Basophils Percent Auto 0.4 % (0-2); Eosinophils Absolute Auto 0.1 X10*3/uL (0.0-0.4); Eosinophils Percent Auto 1.9 % (0-4); Hematocrit 30.8 % (37.0-47.0); Hemoglobin 8.8 g/dl (12.0-16.0); Imm Gran Abs Auto 0.02 X10*3/uL (0.00-0.03); Imm Gran Pct Auto 0.3 % (0.0-0.4); Lymphocytes Absolute Auto 1.9 X10*3/uL (1.2-4.9); Lymphocytes Percent Auto 27.2 % (20-40); Mean Corpuscular HGB Conc 28.6 g/dl (31.0-35.0); Mean Corpuscular Hemoglobin 19.2 pg (27.0-33.0); Mean Corpuscular Volume 67.2 fL (80.0-98.0); Mean Platelet Volume 9.5 fL (9.4-12.3); Monocytes Absolute Auto 0.3 X10*3/uL (0.1-1.2); Monocytes Percent Auto 4.9 % (2-11); Neutrophils Absolute Auto 4.4 x10*3/uL (2.0-8.3); Neutrophils Percent Auto 65.3 % (45-73); Platelet Count 354 X10*3/uL (160-400); Red Blood Count 4.58 X10*6/uL (4.20-5.50); Red Cell Distribution Width 16.2 % (11.0-16.0); White Blood Count 6.8 X10*3/uL (4.8-10.8)
[2022-09-08 16:20] LABS: COVID-19 Test Negative (Negative); IDNOW Serial# BCCEAD1C
[2022-09-08 16:23] LABS: Ethanol < 10 mg/dL
[2022-09-08 16:27] LABS: Alanine Aminotransferase 40 U/L (0-31); Albumin Level 4.3 g/dL (3.5-5.0); Alkaline Phosphatase 148 U/L (39-117); Anion Gap 17 (12-20); Aspartate Amino Transferase 53 U/L (5-31); Bilirubin Total 0.4 mg/dL (0.0-1.0); Blood Urea Nitrogen 25 mg/dL (9-16); Calcium 9.3 mg/dL (8.4-10.2); Carbon Dioxide 25 mmol/L (22-29); Chloride 103 mmol/L (96-108); Creatinine Clr Calc Pharmacy 93.3; Estimated Glomerular Filt Rate > 60; Glucose Random 59 mg/dL (60-115); Sodium 141 mmol/L (135-145); Total Protein 9.3 g/dL (6.5-8.0)
[2022-09-08 16:49] LABS: Amphetamine Screen Urine Not Detected (Not Detect); Barbiturates, Urine Not Detected (Not Detect); Benzodiazepines Screen Urine Not Detected (Not Detect); Cannabinoid Screen Urine Not Detected (Not Detect); Cocaine Screen Urine POSITIVE (Not Detect); Fentanyl, urine POSITIVE (Not Detect); Opiate Screen Urine POSITIVE (Not Detect); Phencyclidine Screen Urine Not Detected (Not Detect)
--- NOTE | 2022-09-08 16:55 | PC.NURSE ---
PA in to eval and tx
[2022-09-08 16:58] LABS: Appearance Urine Clear; Color Urine Yellow; Glucose Urine UA Negative (Negative); Leukocyte Esterase Urine Negative (Negative); Nitrite Urine Negative (Negative); PH 5.5 (5.0-9.0); Specific Gravity - Urine >= 1.030 (1.005-1.025); Urine Blood Negative (Negative); Urine Ketones Trace mg/dL (Negative); Urine Protein Trace mg/dL (Neg-Trace)
[2022-09-08 16:59] LABS: UPreg QC Valid YES; Urine Pregnancy NEGATIVE (NEGATIVE)
[2022-09-08 17:03] LABS: Bacteria Urine None Seen (None Seen); RBC Urine 0-2 /HPF (0-2); WBC Urine 0-5 /HPF (0-5)
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
== END 2022-09-08 17:46 | disposition left against medical advice (07) ==
PROVIDERS: Internal Medicine; Emergency Provider Emergency Medicine; PCP Internal Medicine
DX: S81.802A Unspecified open wound, left lower leg, initial encounter (principal); L03.116 Cellulitis of left lower limb; M86.662 Other chronic osteomyelitis, left tibia and fibula; F11.10 Opioid abuse, uncomplicated; F14.10 Cocaine abuse, uncomplicated; F17.210 Nicotine dependence, cigarettes, uncomplicated; Z71.6 Tobacco abuse counseling; Z20.822 Contact with and (suspected) exposure to COVID-19; Z20.828 Contact with and (suspected) exposure to other viral communicable diseases; Z79.899 Other long term (current) drug therapy
CPT/HCPCS: 36415; 80053; 80307; 81001; 81025; 85025; 87635; 99284

== ENCOUNTER 2023-02-25 21:08 | Inpatient (IN) | payer OTHER, SELFPAY ==
--- NOTE | ~2023-02-25 | CT_ITS ---
EXAMINATION: CT LEFT LEG WITHOUT CONTRAST CLINICAL INFORMATION: Question of osteomyelitis COMPARISON: Radiographs 09/04/2022 TECHNIQUE: Multidetector volumetric imaging was performed from the left knee through the ankle without intravenous contrast. Sagittal and coronal reformatted images were obtained on the technologist's workstation. This CT examination was performed using dose optimization techniques as appropriate, variously including the following: *Automated exposure control *Adjustment of mA and/or kV according to patient size (this includes techniques or standardized protocols for targeted exams where dose is matched to indication/reason for exam; i.e. extremities or head) *Use of iterative reconstruction technique DLP: 274 mGy-cm FINDINGS: Articular alignment at the knee and ankle is anatomic. Joint spaces are relatively well-preserved. There is periosteal reaction along much of the anteromedial aspect of the tibial shaft. No suspicious cortical erosion identified. There is overlying soft tissue and subcutaneous edema along with skin thickening throughout the anterior lower leg, as well as diffuse anasarca. There may be associated skin erosion without tracking soft tissue gas. CT/CT lower leg LT wo IV con IMPRESSION: 1. Periosteal reaction along much of the anteromedial aspect of the tibial shaft. This could be due to chronic venous insufficiency, though chronic sequelae of osteomyelitis could potentially have a similar appearance, and further evaluation with MRI may be helpful. No suspicious cortical erosions identified. 2. Overlying soft tissue and subcutaneous edema in the anterior/medial leg along with skin thickening and diffuse anasarca. There may be associated skin erosion, without tracking soft tissue gas.
--- NOTE | ~2023-02-25 | MR_ITS ---
EXAMINATION: MRI LOWER LEG WITHOUT AND WITH CONTRAST, LEFT CLINICAL INFORMATION: Question of osteomyelitis. COMPARISON: CT 02/26/2023, x-ray 09/04/2022. TECHNIQUE: MRI in a 1.5 Melissa magnet without and with contrast. 6.5 mL of Gadavist. FINDINGS: BONES: There is a periosteal reaction along the anteromedial aspect of the femoral diaphysis, with T2 signal in the periosteum, and mild enhancement. There is apparent mild edema in some of the underlying bony cortex, with questionable mild enhancement. There is a mild T2 bright signal in the medullary cavity of the mid tibial diaphysis; T1 signal, with faint enhancement. The imaging findings are equivocal. These findings could represent sequela of osteomyelitis. Differential consideration includes periostitis related chronic processes, such as chronic venous insufficiency, with reactive edema in the underlying bone. No peripherally-enhancing fluid collection is identified. SOFT TISSUES: There is circumferential soft tissue swelling and extensive subcutaneous increased T2 signal from edema or cellulitis. There is a focal undulation of the skin in the anteromedial aspect of the mid femur, image 7:24, clinically correlating for possible skin ulceration in this region. No focal fluid collection in the subcutaneous tissues. MUSCLES: Mild nonspecific edema in the medial aspect of the soleus muscle, perhaps muscle strain. No measurable tear. Achilles tendon is intact. No abscess is seen. MR/MR lower leg LT wo/w con IMPRESSION: 1. Periostitis along the anteromedial aspect of the femoral diaphysis, with mild edema and enhancement. Mild signal changes in the medullary cavity of the mid femoral diaphysis. Imaging findings are equivocal. Differential consideration includes early or evolving osteomyelitis; periostitis related to chronic processes, such as chronic venous insufficiency, with reactive edema in the underlying bone can have this appearance. WBC bone scan may be helpful for further evaluation. Follow-up imaging for reassessment, as clinically indicated. 2. Circumferential soft tissue swelling and subcutaneous edema/cellulitis. Focal undulation of the skin in the anteromedial tibia, clinically correlate for possible skin ulceration. 3. Mild nonspecific edema in the medial aspect of the soleus muscle.
[2023-02-25 21:13] VITALS: BP 118/70; PULSE 89; O2SAT 98
[2023-02-25 21:17] VITALS: BMI 23.2
--- NOTE | 2023-02-25 21:29 | ED.WOUNDLAC ---
HPI - Wound/Laceration General Chief Complaint: Wound/Laceration Stated Complaint: LARGE INFECTED WOUND L LEG, COMING FROM PD Related Data Previous Rx's Medication Instructions Recorded albuterol sulfate 90 mcg/actuation 1 inh inhalation QID PRN shortness 08/28/22 aerosol inhaler (ProAir HFA) of breath or wheezing #6.7 grams Allergies Allergy/AdvReac Type Severity Reaction Status Date / Time acetaminophen [From TYLENOL] Allergy Mild ITCHY AND Verified 09/08/22 15:55 HIVES tioconazole Allergy Mild HIVES Verified 09/08/22 15:55 [From MONISTAT 1 (TIOCONAZOLE)] PMFSH Past Medical History Medical History (Updated 02/25/23 @ 23:23 by Saniya Junior MD) Osteomyelitis Anxiety Endocarditis Opiate addiction Surgical History No pertinent past surgical history Social History Alcohol intake: current Alcohol intake frequency: holidays/special occasions only Alcohol type: wine Patient Tobacco Use Status: Current everyday Tobacco user Substance Use Type: Crack/Cocaine and Heroin Advance Directives: Yes Advance Directives on File: Yes Advance Directives Date on File: 09/04/22 Physical Exam Vital Signs: Vital Signs: Last Vital Signs Temp 98.5 F 02/25/23 21:50 Pulse 80 02/25/23 21:50 Resp 16 02/25/23 21:50 BP 104/49 L 02/25/23 21:50 Pulse Ox 95 02/25/23 21:50 O2 Del Method Room Air 02/25/23 21:50 BMI result Body Mass Index 23.2 Medications Administered Generic Name Dose Route Start Last Admin Trade Name Freq PRN Reason Stop Dose Admin Vancomycin HCl 1,500 mg/ 500 mls @ 333.333 mls/hr 02/25/23 22:15 02/25/23 23:03 Sodium Chloride IV 02/25/23 23:44 333.33 mls/hr ONCE ONE Administration Discontinued Medications Generic Name Dose Route Start Last Admin Trade Name Freq PRN Reason Stop Dose Admin Piperacillin Sod/Tazobactam 100 mls @ 200 mls/hr 02/25/23 21:29 02/25/23 23:03 Sod 4.5 gm/ Sodium Chloride IV 02/25/23 21:58 Infused ONCE ONE Infusion Medical Decision Making Medical Decision Making [facility] Narrative: Patient 32-year-old presents today with having a wound to the left leg. It appears chronic in nature. Patient's lactate is normal. Cultures obtained. Previous history of MRSA. Started patient on vancomycin based on weight also started patient on Zosyn. Case discussed with the hospitalist team. Will we get a CT of the leg. Positive drop in hemoglobin will get a rectal exam done. Patient to be admitted. Currently in stable condition. Differential Diagnosis Differential Diagnoses: The differential diagnosis associated with the presentation includes Cellulitis, osteomyelitis Admission/Observation Consideration of admission/observation: Escalation of care including admission/observation considered Needs to be admitted due to patient's condition Consult Healthcare Provider Management of the patient was discussed with: Hospitalist Lab Data [facility] Lab Attestation statement: I reviewed the patient's lab results. 02/25/23 21:58 02/25/23 21:58 Labs: Lab Results 02/25/23 Range/Units 21:58 WBC 4.5 L (4.8-10.8) X10*3/uL RBC 3.63 L D (4.20-5.50) X10*6/uL Hgb 6.1 L* D (12.0-16.0) g/dl Hct 22.8 L D (37.0-47.0) % MCV 62.8 L (80.0-98.0) fL MCH 16.8 L (27.0-33.0) pg MCHC 26.8 L (31.0-35.0) g/dl RDW 18.0 H (11.0-16.0) % Plt Count 317 (160-400) X10*3/uL MPV 9.0 L (9.4-12.3) fL Immature Gran % (Auto) 0.2 (0.0-0.4) % Neut % (Auto) 58.8 (45-73) % Lymph % (Auto) 31.2 (20-40) % Bracken % (Auto) 6.5 (2-11) % Eos % (Auto) 3.1 (0-4) % Baso % (Auto) 0.2 (0-2) % Lymph # (Auto) 1.4 (1.2-4.9) X10*3/uL Bracken # (Auto) 0.3 (0.1-1.2) X10*3/uL Eos # (Auto) 0.1 (0.0-0.4) X10*3/uL Baso # (Auto) 0.0 (0.0-0.2) X10*3/uL Abs Immat Gran (auto) 0.01 (0.00-0.03) X10*3/uL Absolute Neuts (auto) 2.6 (2.0-8.3) x10*3/uL Absolute Nucleated RBC 0.000 (0.0-0.012) X10*3/uL Nucleated RBC % (auto) 0.0 (0.0-0.2) /100WBC Sodium 138 (135-145) mmol/L Potassium 3.4 (3.3-5.1) mmol/L Chloride 106 (96-108) mmol/L Carbon Dioxide 27 (22-29) mmol/L Anion Gap 8 L (12-20) BUN 9 (9-16) mg/dL Creatinine 0.66 (0.5-1.4) mg/dL Estim Creat Clear Calc 111.1 Estimated GFR > 60 Random Glucose 100 (60-115) mg/dL Lactic Acid 0.8 (0.5-2.0) mmol/L Calcium 8.6 D (8.4-10.2) mg/dL Total Bilirubin 0.3 (0.0-1.0) mg/dL Direct Bilirubin 0.1 (0.0-0.5) mg/dL AST 25 (5-31) U/L ALT 17 (0-31) U/L Alkaline Phosphatase 89 (39-117) U/L Total Protein 8.2 H (6.5-8.0) g/dL Albumin 3.4 L (3.5-5.0) g/dL Beta HCG, Quant < 2 mIU/mL Discharge Plan Discharge Clinical Impression: Cellulitis Patient Disposition: Admitted As Inpatient Prescriptions: No Action albuterol sulfate [ProAir HFA] 90 mcg/actuation HFA aerosol inhaler 1 inh inhalation QID PRN (Reason: shortness of breath or wheezing) Qty: 6.7 0RF
--- NOTE | 2023-02-25 21:49 | PC.NURSE ---
Addendum entered by Caitlyn Huff 02/26/23 06:14: pt refused for this RN and Dr. Junior to look at bilat feet. wound to L. lower leg assessed by Dr. Junior. dressings removed and open to air per Dr. Junior at this time. Original Note: unable to obtain iv access. nerupa pct at bedside to attempt blood draw. Dr. Junior aware. vss. afebrile. hpd at bedside.
[2023-02-25 21:50] VITALS: BP 104/49; PULSE 80; RESP 16; TEMP 36.9; O2SAT 95
--- NOTE | 2023-02-25 22:04 | MHC.EDTECH ---
Patient was biba ,vitals taken and blood drawn including both sets of blood culture and lactic acid ,all sent to lab ,Patient was given sandwiches and cee filiberto for snack .
[2023-02-25 22:05] LABS: MANUAL DIFF FLAG NO
[2023-02-25 22:06] LABS: Basophils Percent Auto 0.2 % (0-2); Eosinophils Absolute Auto 0.1 X10*3/uL (0.0-0.4); Eosinophils Percent Auto 3.1 % (0-4); Hematocrit 22.8 % (37.0-47.0); Imm Gran Abs Auto 0.01 X10*3/uL (0.00-0.03); Imm Gran Pct Auto 0.2 % (0.0-0.4); Lymphocytes Absolute Auto 1.4 X10*3/uL (1.2-4.9); Lymphocytes Percent Auto 31.2 % (20-40); Mean Corpuscular HGB Conc 26.8 g/dl (31.0-35.0); Mean Corpuscular Hemoglobin 16.8 pg (27.0-33.0); Monocytes Absolute Auto 0.3 X10*3/uL (0.1-1.2); Monocytes Percent Auto 6.5 % (2-11); Neutrophils Absolute Auto 2.6 x10*3/uL (2.0-8.3); Neutrophils Percent Auto 58.8 % (45-73); Platelet Count 317 X10*3/uL (160-400); Red Blood Count 3.63 X10*6/uL (4.20-5.50); White Blood Count 4.5 X10*3/uL (4.8-10.8)
[2023-02-25] MEDS: Piperacillin Sodium/Tazobactam 4.5 GM in 0.9 % Sodium Chloride 100 ML IV (22:10)
--- NOTE | 2023-02-25 22:12 | PC.NURSE ---
[facility].
[2023-02-25 22:17] LABS: Lactic Acid 0.8 mmol/L (0.5-2.0)
[2023-02-25 22:19] LABS: Hemoglobin 6.1 g/dl (12.0-16.0); Mean Corpuscular Volume 62.8 fL (80.0-98.0)
[2023-02-25 22:30] LABS: Alanine Aminotransferase 17 U/L (0-31); Albumin Level 3.4 g/dL (3.5-5.0); Alkaline Phosphatase 89 U/L (39-117); Anion Gap 8 (12-20); Aspartate Amino Transferase 25 U/L (5-31); Bilirubin Direct 0.1 mg/dL (0.0-0.5); Bilirubin Total 0.3 mg/dL (0.0-1.0); Blood Urea Nitrogen 9 mg/dL (9-16); Calcium 8.6 mg/dL (8.4-10.2); Carbon Dioxide 27 mmol/L (22-29); Chloride 106 mmol/L (96-108); Creatinine Clr Calc Pharmacy 111.1; Estimated Glomerular Filt Rate > 60; Glucose Random 100 mg/dL (60-115); HCG Quantitative < 2 mIU/mL; Potassium 3.4 mmol/L (3.3-5.1); Sodium 138 mmol/L (135-145); Total Protein 8.2 g/dL (6.5-8.0)
[2023-02-25] MEDS: vancomycin HCL 1,500 MG in 0.9 % Sodium Chloride 500 ML 333.33 MG IV (23:03)
--- NOTE | 2023-02-25 23:12 | PC.NURSE ---
Addendum entered by Caitlyn Huff 02/26/23 00:52: cough resolved. Original Note: late entry pt reported cough after approx 10 min of infusing vanco. infusion stopped. lung sounds cta. no hives/rash noted. Dr. Mojica to bedside for eval. per Dr. Mojica verbal order infusion started at half the rate.
--- NOTE | 2023-02-25 23:23 | P.HPHOSP_ITS ---
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 Of note, patient was seen at [facility] in August for a similar wound but left AMA. Patient presents today for worsening of the wound, swelling of left lower extremity, redness, purulent drainage. Patient states it has been ongoing for a few days. No fever or chills. No chest discomfort, palpitations, shortness of breath, nausea, vomiting, abdominal pain, changes in urinary or bowel habits. In the emergency department, hemoglobin found to be 6.1. Review of Systems 2 Constitutional: Constitutional: Reports no additional constitutional complaints Cardiovascular: Cardiovascular: Reports no additional cardiovascular complaints Respiratory: Respiratory: Reports no additional respiratory complaints Gastrointestinal: Gastrointestinal: Reports no additional gastrointestinal complaints Genitourinary: Genitourinary: Reports no additional female genitourinary complaints [facility] Medical History Osteomyelitis Anxiety Endocarditis Opiate addiction Pertinent family history: No family history of early CAD Surgical History No pertinent past surgical history Alcohol intake: current Alcohol intake frequency: holidays/special occasions only Alcohol type: wine Patient Tobacco Use Status: Current everyday Tobacco user Substance Use Type: Crack/Cocaine and Heroin Advance Directives: Yes Advance Directives on File: Yes Advance Directives Date on File: 09/04/22 Meds Allergies Allergy/AdvReac Type Severity Reaction Status Date / Time acetaminophen [From TYLENOL] Allergy Mild ITCHY AND Verified 09/08/22 15:55 HIVES tioconazole Allergy Mild HIVES Verified 09/08/22 15:55 [From MONISTAT 1 (TIOCONAZOLE)] Active Medications: Current Medications Vancomycin HCl 1,500 mg/ (Sodium Chloride) 500 mls @ 333.333 mls/hr IV ONCE ONE Stop: 02/25/23 23:44 Last Admin: 02/25/23 23:03 Dose: 333.33 mls/hr Physical Exam 2 Vital Signs and Narrative: Vital Signs: Last Vital Signs Temp 98.5 F 02/25/23 21:50 Pulse 80 02/25/23 21:50 Resp 16 02/25/23 21:50 BP 104/49 L 02/25/23 21:50 Pulse Ox 95 02/25/23 21:50 O2 Del Method Room Air 02/25/23 21:50 BMI result Body Mass Index 23.2 Middle-aged female lying in bed in no distress Neck supple, no JVD Regular rate and rhythm, S1-S2 heard Regular breath sounds bilaterally, no wheezing or crackles appreciated Abdomen soft nontender, no guarding, no rigidity Patient is awake, alert and oriented to self, place, time and person ; no focal motor deficit Musculoskeletal: Left lower extremity extensive wound with serosanguineous purulent drainage ; bilateral IV track kaur Psych: Normal mood No pedal edema Results Labs 02/25/23 21:58 02/25/23 21:58 Labs: Laboratory Results - last 24 hr 02/25/23 21:58 MCV 62.8 L MCH 16.8 L MCHC 26.8 L RDW 18.0 H Plt Count 317 MPV 9.0 L Immature Gran % (Auto) 0.2 Neut % (Auto) 58.8 Lymph % (Auto) 31.2 Crisp % (Auto) 6.5 Eos % (Auto) 3.1 Baso % (Auto) 0.2 Lymph # (Auto) 1.4 Crisp # (Auto) 0.3 Eos # (Auto) 0.1 Baso # (Auto) 0.0 Abs Immat Gran (auto) 0.01 Absolute Neuts (auto) 2.6 Absolute Nucleated RBC 0.000 Nucleated RBC % (auto) 0.0 Anion Gap 8 L Estim Creat Clear Calc 111.1 Estimated GFR > 60 Random Glucose 100 Lactic Acid 0.8 Calcium 8.6 D Total Bilirubin 0.3 Direct Bilirubin 0.1 AST 25 ALT 17 Alkaline Phosphatase 89 Total Protein 8.2 H Albumin 3.4 L Beta HCG, Quant < 2 Assessment and Plan (1) Cellulitis: Status: Acute (2) Leg wound, left: Status: Acute Plan This is a 32-year-old female with pertinent history of IV drug use (cocaine and heroin) disorder, chronic hepatitis-C, 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 #. Left lower extremity purulent cellulitis with infected wound: Will admit patient and initiate empiric IV antibiotics for extensive cellulitis. Consulting general surgery for wound debridement. Previous imaging in August at [facility] with osteomyelitis. CT scan lower left extremity ordered in the ER pending. #. Opioid and cocaine use disorder. Monitor for withdrawal. Consulting addiction team #. Microcytic anemia, likely blood loss from lower extremity wound: 1 unit PRBC ordered in the ER. Monitor H&H. #. Tobacco use disorder: Counseled regarding cessation. Offered nicotine patch #. Hepatitis-C: Outpatient follow-up and treatment DVT prophylaxis: Mechanical Full code Admit as inpatient and will require two night minimum hospital stay for IV antibiotics (as above), which is not possible in a lesser acute setting. Quality Stroke Does the patient have a stroke diagnosis?: No VTE Prior VTE?: No VTE Risk Level:: Medical - moderate - high VTE Device Contraindication: N/A - Device Ordered VTE Drug Contraindication: Treatment Not Indicated
[2023-02-26] VITALS (8 sets, daily range): BP systolic 93–129; BP diastolic 50–80; PULSE 66–82; RESP 14–18; TEMP 36.2–37; O2SAT 96–99; BMI 23.2
--- NOTE | 2023-02-26 01:25 | PC.NURSE ---
pt ambulated to bathroom with pd assist. pt reports felt too much pressure to urinate and was unable to provide sample as she was rushing to sit on toilet. provider aware.
--- NOTE | 2023-02-26 01:26 | PC.NURSE ---
blood infusing per mar pt afebrile nsr on monitor.
--- NOTE | 2023-02-26 01:28 | PC.NURSE ---
Addendum entered by Caitlyn Huff 02/26/23 06:13: Dr. Mojica aware Original Note: vanco infusion stopped to infuse blood. pt difficult stick unable to obtain 2nd iv. will resume abx upon establishing 2nd iv.
--- NOTE | 2023-02-26 01:41 | PC.NURSE ---
pt refused nicotine patch.
[2023-02-26 03:17] LABS: Appearance Urine Cloudy; Color Urine Yellow; Glucose Urine UA Negative (Negative); Leukocyte Esterase Urine Moderate (2+) (Negative); Nitrite Urine Negative (Negative); Specific Gravity - Urine >= 1.030 (1.005-1.025); UMIC TRIGGER UACC YES; Urine Blood Negative (Negative); Urine Ketones Trace mg/dL (Negative); Urine Protein Trace mg/dL (Neg-Trace)
[2023-02-26 03:19] LABS: Bacteria Urine 2+ (None Seen); Hyaline Casts Urine 0-2 /LPF (0-2); RBC Urine 0-2 /HPF (0-2); UACC Culture Trigger YES; WBC Urine 21-50 /HPF (0-5)
[2023-02-26 03:24] LABS: Amphetamine Screen Urine Not Detected (Not Detect); Barbiturates, Urine Not Detected (Not Detect); Benzodiazepines Screen Urine Not Detected (Not Detect); Cannabinoid Screen Urine Not Detected (Not Detect); Cocaine Screen Urine POSITIVE (Not Detect); Fentanyl, urine POSITIVE (Not Detect); Opiate Screen Urine POSITIVE (Not Detect); Phencyclidine Screen Urine Not Detected (Not Detect)
--- NOTE | 2023-02-26 07:19 | P.CONGS_ITS ---
History of Present Illness Consult details Consult date: 02/26/23 Narrative: The patient is a 32-year-old woman who is an IVDA who notes a chronic left lower extremity open infection from shooting drugs that is been present for months. She was evaluated in the emergency department and I was asked to render an opinion regarding the open wound. The patient has facial tissues stuck to her wound at this time. I have asked the nurse to dress the wound with saline wet to dry gauze in the meantime. Patient was brought to the emergency department by the police. Review of Systems 2 Review of Systems: Yes all other systems are reviewed and are negative Constitutional: Constitutional: Reports as per [facility] Past Medical History Medical History Osteomyelitis Anxiety Endocarditis Opiate addiction Surgical History Surgical History No pertinent past surgical history Social History Alcohol intake: current Alcohol intake frequency: holidays/special occasions only Alcohol type: wine Patient Tobacco Use Status: Current everyday Tobacco user Smoked in Last 30 Days: Yes Use of substances other than those prescribed or required for medical reasons: Yes Substance Use Type: Crack/Cocaine and Heroin Last Used Substance: Hours (ago) Advance Directives: Yes Advance Directives on File: Yes Advance Directives Date on File: 09/04/22 Nutrition Risks: No Nutritional Risk Meds Allergies Allergy/AdvReac Type Severity Reaction Status Date / Time acetaminophen [From TYLENOL] Allergy Mild ITCHY AND Verified 09/08/22 15:55 HIVES tioconazole Allergy Mild HIVES Verified 09/08/22 15:55 [From MONISTAT 1 (TIOCONAZOLE)] Active Medications: Current Medications Piperacillin Sod/Tazobactam (Sod 4.5 gm/ Sodium Chloride) 100 mls @ 200 mls/hr IV Q6H SHIVA Lactated Ringer's (Lr) 1,000 mls @ 125 mls/hr IVCONT .Q8H ONE Stop: 02/26/23 14:35 Ibuprofen (Ibuprofen 200 Mg Tablet) 400 mg PO Q8H PRN PRN Reason: Pain, Mild (Pain Scale 1-3) Melatonin (Melatonin 3 Mg Tablet) 6 mg PO BEDTIME PRN PRN Reason: Insomnia Nicotine (Nicotine 14 Mg Patch.Td24) 14 mg TRANSDERMA DAILY [facility] Last Admin: 02/26/23 01:41 Dose: Not Given Ondansetron HCl (Ondansetron Hcl 4 Mg/2 Ml Vial) 4 mg IVPUSH Q8H PRN PRN Reason: Nausea and Vomiting Pharmacy Consult (Consult Rx Vancomycin Dosing) 1 each MISCELLANE DAILY PRN PRN Reason: Consult order Sodium Chloride (0.9 % Sodium Chloride Flush 3 Ml Syringe) 3 ml IVFLUSH QSHIFT [facility] Last Admin: 02/26/23 01:29 Dose: Not Given Physical Exam 2 Vital Signs: Vital Signs: Last Vital Signs Temp 98.2 F 02/26/23 04:35 Pulse 82 02/26/23 07:14 Resp 18 02/26/23 07:14 BP 129/70 02/26/23 07:14 Pulse Ox 96 02/26/23 07:14 O2 Del Method Room Air 02/26/23 07:14 BMI result Body Mass Index 23.2 On exam, the patient is in no acute distress She is anicteric She is having no respiratory difficulty On the patient's left lower extremity anteriorly/anteromedially, a large, raw, granulating full-thickness into the subcutaneous wound measuring approximately 15 by 8 cm. There is no necrosis that requires operative debridement. Results Labs 02/25/23 21:58 02/25/23 21:58 Labs: Abnormal lab results 02/25/23 02/25/23 02/26/23 Range/Units 21:58 23:38 03:11 WBC 4.5 L (4.8-10.8) X10*3/uL RBC 3.63 L D (4.20-5.50) X10*6/uL Hgb 6.1 L* D (12.0-16.0) g/dl Hct 22.8 L D (37.0-47.0) % MCV 62.8 L (80.0-98.0) fL MCH 16.8 L (27.0-33.0) pg MCHC 26.8 L (31.0-35.0) g/dl RDW 18.0 H (11.0-16.0) % MPV 9.0 L (9.4-12.3) fL Anion Gap 8 L (12-20) Total Protein 8.2 H (6.5-8.0) g/dL Albumin 3.4 L (3.5-5.0) g/dL Ur Specific Mclean >= 1.030 H (1.005-1.025) Ur Leukocyte Esterase Moderate (2+) H (Negative) Urine WBC 21-50 H (0-5) /HPF Urine Opiates Screen POSITIVE H (Not Detect) Urine Fentanyl Screen POSITIVE H (Not Detect) Urine Cocaine Screen POSITIVE H (Not Detect) Crossmatch See Detail Short CBC 02/25/23 Range/Units 21:58 WBC 4.5 L (4.8-10.8) X10*3/uL Hgb 6.1 L* D (12.0-16.0) g/dl Hct 22.8 L D (37.0-47.0) % Plt Count 317 (160-400) X10*3/uL BMP 02/25/23 21:58 Sodium 138 Potassium 3.4 Chloride 106 Carbon Dioxide 27 BUN 9 Creatinine 0.66 Calcium 8.6 D Liver Function 02/25/23 Range/Units 21:58 Total Bilirubin 0.3 (0.0-1.0) mg/dL Direct Bilirubin 0.1 (0.0-0.5) mg/dL AST 25 (5-31) U/L ALT 17 (0-31) U/L Alkaline Phosphatase 89 (39-117) U/L Albumin 3.4 L (3.5-5.0) g/dL Urine 02/26/23 02/26/23 02/26/23 Range/Units 03:11 03:11 03:11 Urine Color Yellow Cancelled Urine Appearance Cloudy Cancelled Urine pH 7.0 (5.0-9.0) Ur Specific Mclean (1.005-1.025) Urine Protein (Neg-Trace) mg/dL Urine Glucose (UA) (Negative) mg/dL 02/26/23 02/26/23 02/26/23 Range/Units 03:11 03:11 03:11 Urine Color Urine Appearance Urine pH Cancelled (5.0-9.0) Ur Specific Mclean >= 1.030 H Cancelled (1.005-1.025) Urine Protein Trace Cancelled (Neg-Trace) mg/dL Urine Glucose (UA) Negative (Negative) mg/dL 02/26/23 Range/Units 03:11 Urine Color Urine Appearance Urine pH (5.0-9.0) Ur Specific Mclean (1.005-1.025) Urine Protein (Neg-Trace) mg/dL Urine Glucose (UA) Cancelled (Negative) mg/dL All other labs normal. Imaging Additional studies: CT of the left lower extremity report reviewed. There is no evidence of deep infection, however periosteal reaction is noted Assessment and Plan (1) Leg wound, left: Status: Acute (2) Cellulitis: Status: Acute (3) Osteomyelitis: Status: Acute Plan Grossly, there is no necrotic tissue in the in bed that requires debridement. Input from the wound care management team is recommended. CT report does not identify deeper infection, but periosteal inflammation is noted. If concern regarding osteomyelitis of the tibia, consider orthopedic consultation. Anemia to be addressed by primary service. I will be out of the area affective 14:00 today and will be covered by the on-call gentle surgeon. Procedures Date of Service Date of Service: 02/26/23
--- NOTE | 2023-02-26 07:27 | PC.NURSE ---
MRI screening form completed and faxed to MRI
[2023-02-26] MEDS: Nicotine 14 MG PATCH.TD24 TRANSDERMA (08:18)
[2023-02-26] MEDS: HYDROmorphone HCl 1 MG/ML SYRINGE IVPUSH (08:19)
[2023-02-26] MEDS: Piperacillin Sodium/Tazobactam 4.5 GM in 0.9 % Sodium Chloride 100 ML IV ×2 (08:21→14:29)
[2023-02-26 08:23] LABS: Iron 8 mcg/dL (30-160); Percent Iron Saturation 2 % (15-50); Total Iron Binding Capacity 363 mcg/dL (228-428); Unsaturated Iron Binding 355 ug/dL
--- NOTE | 2023-02-26 08:24 | PC.NURSE ---
Dressing changed on left lower leg, wet to dry dressing applied. Wound with mod amount of yellow drainage. Remains in police custody, handcuff switched to left hand so patient could eat breakfast. Ambulated to bathroom, gait steady.
[2023-02-26 08:35] LABS: Ferritin 20 ng/mL (10-122)
--- NOTE | 2023-02-26 08:35 | P.PNIM_ITS ---
Subjective Subjective Date of Service: 02/26/23 Interval History: lle pain Physical Exam 2 Vital Signs: Vital Signs: Last Vital Signs Temp 98.2 F 02/26/23 04:35 Pulse 82 02/26/23 07:14 Resp 18 02/26/23 07:14 BP 129/70 02/26/23 07:14 Pulse Ox 96 02/26/23 07:14 O2 Del Method Room Air 02/26/23 07:14 BMI result Body Mass Index 23.2 On exam, the patient is in no acute distress She is anicteric She is having no respiratory difficulty On the patient's left lower extremity anteriorly/anteromedially, a large, raw, granulating full-thickness into the subcutaneous wound measuring approximately 15 by 8 cm. There is no necrosis that requires operative debridement. Objective Data Active Medications Piperacillin Sod/Tazobactam (Sod 4.5 gm/ Sodium Chloride) 100 mls @ 200 mls/hr IV Q6H [facility] Last Admin: 02/26/23 08:21 Dose: 200 mls/hr Documented By: MARY Lactated Ringer's (Lr) 1,000 mls @ 125 mls/hr IVCONT .Q8H ONE Stop: 02/26/23 14:35 Ibuprofen (Ibuprofen 200 Mg Tablet) 400 mg PO Q8H PRN PRN Reason: Pain, Mild (Pain Scale 1-3) Melatonin (Melatonin 3 Mg Tablet) 6 mg PO BEDTIME PRN PRN Reason: Insomnia Nicotine (Nicotine 14 Mg Patch.Td24) 14 mg TRANSDERMA DAILY [facility] Last Admin: 02/26/23 08:18 Dose: 14 mg Documented By: MARY Ondansetron HCl (Ondansetron Hcl 4 Mg/2 Ml Vial) 4 mg IVPUSH Q8H PRN PRN Reason: Nausea and Vomiting Pharmacy Consult (Consult Rx Vancomycin Dosing) 1 each MISCELLANE DAILY PRN PRN Reason: Consult order Sodium Chloride (0.9 % Sodium Chloride Flush 3 Ml Syringe) 3 ml IVFLUSH QSHIFT [facility] Last Admin: 02/26/23 08:21 Dose: Not Given Documented By: MARY Non-Admin Reason: IV Running Labs 02/25/23 21:58 02/25/23 21:58 Labs: Laboratory Results - last 24 hr 02/25/23 02/25/23 02/26/23 21:58 23:38 03:11 MCV 62.8 L MCH 16.8 L MCHC 26.8 L RDW 18.0 H Plt Count 317 MPV 9.0 L Immature Gran % (Auto) 0.2 Neut % (Auto) 58.8 Lymph % (Auto) 31.2 Green % (Auto) 6.5 Eos % (Auto) 3.1 Baso % (Auto) 0.2 Lymph # (Auto) 1.4 Green # (Auto) 0.3 Eos # (Auto) 0.1 Baso # (Auto) 0.0 Abs Immat Gran (auto) 0.01 Absolute Neuts (auto) 2.6 Absolute Nucleated RBC 0.000 Nucleated RBC % (auto) 0.0 Anion Gap 8 L Estim Creat Clear Calc 111.1 Estimated GFR > 60 Random Glucose 100 Lactic Acid 0.8 Calcium 8.6 D Iron 8 L TIBC 363 % Saturation 2 L Unsat Iron Binding 355 Total Bilirubin 0.3 Direct Bilirubin 0.1 AST 25 ALT 17 Alkaline Phosphatase 89 Total Protein 8.2 H Albumin 3.4 L Beta HCG, Quant < 2 Urine Color Yellow Urine Appearance Urine pH Ur Specific [place] Urine Protein Urine Glucose (UA) Urine Ketones Urine Blood Urine Nitrite Ur Leukocyte Esterase Urine RBC Urine WBC Urine WBC Clumps Ur Squamous Epith Cells Ur Transition Epith Cell Ur Renal Epithelial Cell Calcium Oxalate Crystal Leucine Crystals Cystine Crystals Tyrosine Crystals Other Crystals Urine Bacteria Urine Parasites Bilirubin Casts Epithelial Casts Fatty Casts Hyaline Casts Granular Casts Waxy Casts Broad Casts RBC Casts WBC Casts Other Casts Urine Trichomonas Urine Yeast Urine Opiates Screen Urine Fentanyl Screen Ur Barbiturates Screen Ur Phencyclidine Scrn Ur Amphetamines Screen U Benzodiazepines Scrn Urine Cocaine Screen U Marijuana (THC) Screen Blood Type O Positive Antibody Screen NEGATIVE Crossmatch See Detail 02/26/23 02/26/23 02/26/23 03:11 03:11 03:11 MCV MCH MCHC RDW Plt Count MPV Immature Gran % (Auto) Neut % (Auto) Lymph % (Auto) Green % (Auto) Eos % (Auto) Baso % (Auto) Lymph # (Auto) Green # (Auto) Eos # (Auto) Baso # (Auto) Abs Immat Gran (auto) Absolute Neuts (auto) Absolute Nucleated RBC Nucleated RBC % (auto) Anion Gap Estim Creat Clear Calc Estimated GFR Random Glucose Lactic Acid Calcium Iron TIBC % Saturation Unsat Iron Binding Total Bilirubin Direct Bilirubin AST ALT Alkaline Phosphatase Total Protein Albumin Beta HCG, Quant Urine Color Cancelled Urine Appearance Cloudy Cancelled Urine pH 7.0 Cancelled Ur Specific [place] >= 1.030 H Urine Protein Urine Glucose (UA) Urine Ketones Urine Blood Urine Nitrite Ur Leukocyte Esterase Urine RBC Urine WBC Urine WBC Clumps Ur Squamous Epith Cells Ur Transition Epith Cell Ur Renal Epithelial Cell Calcium Oxalate Crystal Leucine Crystals Cystine Crystals Tyrosine Crystals Other Crystals Urine Bacteria Urine Parasites Bilirubin Casts Epithelial Casts Fatty Casts Hyaline Casts Granular Casts Waxy Casts Broad Casts RBC Casts WBC Casts Other Casts Urine Trichomonas Urine Yeast Urine Opiates Screen Urine Fentanyl Screen Ur Barbiturates Screen Ur Phencyclidine Scrn Ur Amphetamines Screen U Benzodiazepines Scrn Urine Cocaine Screen U Marijuana (THC) Screen Blood Type Antibody Screen Crossmatch 02/26/23 02/26/23 02/26/23 03:11 03:11 03:11 MCV MCH MCHC RDW Plt Count MPV Immature Gran % (Auto) Neut % (Auto) Lymph % (Auto) Green % (Auto) Eos % (Auto) Baso % (Auto) Lymph # (Auto) Green # (Auto) Eos # (Auto) Baso # (Auto) Abs Immat Gran (auto) Absolute Neuts (auto) Absolute Nucleated RBC Nucleated RBC % (auto) Anion Gap Estim Creat Clear Calc Estimated GFR Random Glucose Lactic Acid Calcium Iron TIBC % Saturation Unsat Iron Binding Total Bilirubin Direct Bilirubin AST ALT Alkaline Phosphatase Total Protein Albumin Beta HCG, Quant Urine Color Urine Appearance Urine pH Ur Specific [place] Cancelled Urine Protein Trace Cancelled Urine Glucose (UA) Negative Cancelled Urine Ketones Trace Urine Blood Urine Nitrite Ur Leukocyte Esterase Urine RBC Urine WBC Urine WBC Clumps Ur Squamous Epith Cells Ur Transition Epith Cell Ur Renal Epithelial Cell Calcium Oxalate Crystal Leucine Crystals Cystine Crystals Tyrosine Crystals Other Crystals Urine Bacteria Urine Parasites Bilirubin Casts Epithelial Casts Fatty Casts Hyaline Casts Granular Casts Waxy Casts Broad Casts RBC Casts WBC Casts Other Casts Urine Trichomonas Urine Yeast Urine Opiates Screen Urine Fentanyl Screen Ur Barbiturates Screen Ur Phencyclidine Scrn Ur Amphetamines Screen U Benzodiazepines Scrn Urine Cocaine Screen U Marijuana (THC) Screen Blood Type Antibody Screen Crossmatch 02/26/23 02/26/23 02/26/23 03:11 03:11 03:11 MCV MCH MCHC RDW Plt Count MPV Immature Gran % (Auto) Neut % (Auto) Lymph % (Auto) Green % (Auto) Eos % (Auto) Baso % (Auto) Lymph # (Auto) Green # (Auto) Eos # (Auto) Baso # (Auto) Abs Immat Gran (auto) Absolute Neuts (auto) Absolute Nucleated RBC Nucleated RBC % (auto) Anion Gap Estim Creat Clear Calc Estimated GFR Random Glucose Lactic Acid Calcium Iron TIBC % Saturation Unsat Iron Binding Total Bilirubin Direct Bilirubin AST ALT Alkaline Phosphatase Total Protein Albumin Beta HCG, Quant Urine Color Urine Appearance Urine pH Ur Specific [place] Urine Protein Urine Glucose (UA) Urine Ketones Cancelled Urine Blood Negative Cancelled Urine Nitrite Negative Cancelled Ur Leukocyte Esterase Moderate (2+) H Urine RBC Urine WBC Urine WBC Clumps Ur Squamous Epith Cells Ur Transition Epith Cell Ur Renal Epithelial Cell Calcium Oxalate Crystal Leucine Crystals Cystine Crystals Tyrosine Crystals Other Crystals Urine Bacteria Urine Parasites Bilirubin Casts Epithelial Casts Fatty Casts Hyaline Casts Granular Casts Waxy Casts Broad Casts RBC Casts WBC Casts Other Casts Urine Trichomonas Urine Yeast Urine Opiates Screen Urine Fentanyl Screen Ur Barbiturates Screen Ur Phencyclidine Scrn Ur Amphetamines Screen U Benzodiazepines Scrn Urine Cocaine Screen U Marijuana (THC) Screen Blood Type Antibody Screen Crossmatch 02/26/23 02/26/23 02/26/23 03:11 03:11 03:11 MCV MCH MCHC RDW Plt Count MPV Immature Gran % (Auto) Neut % (Auto) Lymph % (Auto) Green % (Auto) Eos % (Auto) Baso % (Auto) Lymph # (Auto) Green # (Auto) Eos # (Auto) Baso # (Auto) Abs Immat Gran (auto) Absolute Neuts (auto) Absolute Nucleated RBC Nucleated RBC % (auto) Anion Gap Estim Creat Clear Calc Estimated GFR Random Glucose Lactic Acid Calcium Iron TIBC % Saturation Unsat Iron Binding Total Bilirubin Direct Bilirubin AST ALT Alkaline Phosphatase Total Protein Albumin Beta HCG, Quant Urine Color Urine Appearance Urine pH Ur Specific [place] Urine Protein Urine Glucose (UA) Urine Ketones Urine Blood Urine Nitrite Ur Leukocyte Esterase Cancelled Urine RBC 0-2 Cancelled Urine WBC 21-50 H Cancelled Urine WBC Clumps Cancelled Ur Squamous Epith Cells 6-10 Ur Transition Epith Cell Ur Renal Epithelial Cell Calcium Oxalate Crystal Leucine Crystals Cystine Crystals Tyrosine Crystals Other Crystals Urine Bacteria Urine Parasites Bilirubin Casts Epithelial Casts Fatty Casts Hyaline Casts Granular Casts Waxy Casts Broad Casts RBC Casts WBC Casts Other Casts Urine Trichomonas Urine Yeast Urine Opiates Screen Urine Fentanyl Screen Ur Barbiturates Screen Ur Phencyclidine Scrn Ur Amphetamines Screen U Benzodiazepines Scrn Urine Cocaine Screen U Marijuana (THC) Screen Blood Type Antibody Screen Crossmatch 02/26/23 02/26/23 02/26/23 03:11 03:11 03:11 MCV MCH MCHC RDW Plt Count MPV Immature Gran % (Auto) Neut % (Auto) Lymph % (Auto) Green % (Auto) Eos % (Auto) Baso % (Auto) Lymph # (Auto) Green # (Auto) Eos # (Auto) Baso # (Auto) Abs Immat Gran (auto) Absolute Neuts (auto) Absolute Nucleated RBC Nucleated RBC % (auto) Anion Gap Estim Creat Clear Calc Estimated GFR Random Glucose Lactic Acid Calcium Iron TIBC % Saturation Unsat Iron Binding Total Bilirubin Direct Bilirubin AST ALT Alkaline Phosphatase Total Protein Albumin Beta HCG, Quant Urine Color Urine Appearance Urine pH Ur Specific [place] Urine Protein Urine Glucose (UA) Urine Ketones Urine Blood Urine Nitrite Ur Leukocyte Esterase Urine RBC Urine WBC Urine WBC Clumps Ur Squamous Epith Cells Cancelled Ur Transition Epith Cell Cancelled Ur Renal Epithelial Cell Cancelled Calcium Oxalate Crystal Cancelled Leucine Crystals Cancelled Cystine Crystals Cancelled Tyrosine Crystals Cancelled Other Crystals Cancelled Urine Bacteria 2+ Cancelled Urine Parasites Cancelled Bilirubin Casts Cancelled Epithelial Casts Cancelled Fatty Casts Cancelled Hyaline Casts 0-2 Cancelled Granular Casts Cancelled Waxy Casts Cancelled Broad Casts Cancelled RBC Casts Cancelled WBC Casts Cancelled Other Casts Cancelled Urine Trichomonas Cancelled Urine Yeast Cancelled Urine Opiates Screen POSITIVE H Urine Fentanyl Screen POSITIVE H Ur Barbiturates Screen Not Detected Ur Phencyclidine Scrn Not Detected Ur Amphetamines Screen Not Detected U Benzodiazepines Scrn Not Detected Urine Cocaine Screen POSITIVE H U Marijuana (THC) Screen Not Detected Blood Type Antibody Screen Crossmatch Assessment and Plan (1) Leg wound, left: Status: Acute Plan 32F PMH HCV, polysubstance dependence, history of mrsa endocarditis, chronic LLE ulcer. presented with worsening of LLE ulcer LLE cellulitis, ulcer ,likely chronic OM, due to IVDA gen surgery appreciated - no need for debridement wound care id eval mri vanc, zosyn cutlures acute on chronic iron deficiency anemia (likely chronic blood loss) transfused 1unit prbc, monitor denies menses reports heavy bleeding from ulcer site - opiate dependnce with withdrawal addiction team eval hcv outpatient follow up dvt prophylaxis - mechanical due to blood loss anemia full code reason for continued hospitalization:awaiting cultures in ivda Quality Stroke Does the patient have a stroke diagnosis?: No VTE Prior VTE?: No VTE Risk Level:: Medical - moderate - high VTE Device Contraindication: N/A - Device Ordered VTE Drug Contraindication: Treatment Not Indicated
--- NOTE | 2023-02-26 09:04 | PHA.MEDREC ---
Pharmacy Consult ? Medication Reconciliation Pharmacy has completed the medication reconciliation.
--- NOTE | 2023-02-26 09:11 | PC.NURSE ---
Patient declined maintenance fluids stating they will make her more dope sick
--- NOTE | 2023-02-26 09:46 | PC.NURSE ---
Call placed to pharmacy to verify patients medications
[2023-02-26] MEDS: cloNIDine HCL 0.1 MG TABLET PO ×2 (10:09→14:28)
[2023-02-26] MEDS: methADONE HCl 20 MG/2 ML ORAL.CONC 30 MG PO (10:09)
--- NOTE | 2023-02-26 10:36 | PC.NURSE ---
Patient verbally abusive to phelbotomy staff, declining for labs to be drawn in right arm, allowed for finger stick to be obtained. Pharmacy unable to verify vanco dose until creat is obtained, provider aware.
[2023-02-26 10:42] LABS: Creatinine Clr Calc Pharmacy 109.4; Estimated Glomerular Filt Rate > 60
--- NOTE | 2023-02-26 10:58 | PHA.PROG ---
Admission Date/Time: February 25, 2023 23:21 Indication: SKIN Weight in k.3 kg Adjusted body weight in K.52 [place] body weight in K Obesity Dosing Indication % IBW: no Serum Creatinine - Last 168 Hours 02/25/23 02/26/23 21:58 10:15 Creatinine 0.66 0.67 Estimated CrCl and GFR - Last 168 Hours 02/25/23 02/26/23 21:58 10:15 Estim Creat Clear Calc 111.1 109.4 Estimated GFR > 60 > 60 Vancomycin Loading Dose: 1500 Current Vancomycin Dosing Regimen: 1000 MG q12h Vancomycin Monitoring using AUC goal of 400 - 600 range with trough as surrogate marker: 439 Date and Time for next Vancomycin Level to be drawn: 02/27 @2100 Pharmacist Comments on Vancomycin Plan: Vancomycin dosing will take advantage of [employer] as a clinical decision support tool that uses Bayesian modeling to calculate individual patient's pharmacokinetic parameters and forecast the patient's drug concentration time course with the target goal AUC 24 range of 400 - 600 mg/L/hr.
[2023-02-26] MEDS: vancomycin HCL 1,000 MG in 0.9 % Sodium Chloride 250 ML 270 MG IV (11:11)
--- NOTE | 2023-02-26 11:40 | PC.NURSE ---
Report given to accepting unit, transport to bring patient to MRI than to room 350
--- NOTE | 2023-02-26 11:42 | PC.NURSE ---
BP 123/73, rr20, hHR 84.
--- NOTE | 2023-02-26 12:40 | PM.EVENT ---
Event Note Date of Service: 02/26/23 Event Note: Addiction consult placed for patient with OUD currently medically admitted Patient early in AM in main ED --patient moaning, crying, reporting pain and hurt all over, I am so sick Reports using 5 bundles daily. Remainder of interview deferred hunter to patients level of discomfort and need for sx relief Plan: -methadone 30mg X1 -Clonidine 0.1mg TID Followed up with RN 1 hour post medication administration and RN reported positive effect from methadone as patient was sleeping comfortably. Will follow up on medical floor to obtain additional history and ongoing treatment plan regarding [facility] Time Spent With Patient Time: Total time managing care of this patient today ____ minutes.
[2023-02-26] MEDS: gadobutroL 7.5 ML VIAL IVPUSH (12:49)
--- NOTE | 2023-02-26 13:22 | MHC.CM.PN ---
[employer] ON SITE DUE TO PT HAVING A WARRANT. PT WILL NOT REMAIN IN POLICE CUSTODY, LETTER PROVIDED STATING PT HAS BEEN ADMITTED.
--- NOTE | 2023-02-26 14:32 | MHC.CM.PN ---
CM ATTEMPTED TO MEET W/PT HOWEVER RECOVERY PROVIDER AND RN IN ROOM W/PT.
--- NOTE | 2023-02-26 14:49 | HO.WOUND ---
Wound Consult: Initial 32yr old female admitted to [facility]25/23 23:21? - See progress notes and H&P for detailed history. Pt reports she has had the left leg wound for several months - she reports she has followed with outpt wound clinic in the past but not recently. She reports she stopped going to [facility] when she was able to manage the wound herself. She reports it was almost closed but not fully at the time she stopped going to the clinic. She reports she is homeless at this time and she does inject IV Drugs into the tissue. She was educated on the concerns and further tissue necrosis with injecting into the wound - she reports understanding but reports she find she still uses this site due to easy and success. Left Anterior Leg Etiology: Ulceration - secondary to IVDU injection site Measurements: 17cm x 9cm x 0.3cm Wound Bed: poale pink moist tissue with areas of scattered yellow slough - pt not able to tolerate cleansing at this time. Drainage / Odor: Moderate amount of yellow drainage - no odor Edges: ? epibole and irregular Sri wound: ? Scar tissue noted and evidence of resurfaced injury. No Induration, Fluctuance, Erythema, or Warmth noted Pain: pt reports pain Goals of Treatment: ? Moisture management with Dur[employer]iber [employer] Recommendations: 1. Provide adequate and supplemental nutrition. 2. Left Lower Leg - Elevate lower leg with use of pillow - Cleanse with NS, pat dry. Apply Triad to the periwound, cover wound bed with Durafiber AG, dry gauze, ABD Pads, and gauze wrap. Change Daily. Re-consult wound care Nurse for wound deterioration or wound changes.
--- NOTE | 2023-02-26 15:05 | MHC.CM.PN ---
Addendum entered by Abbie Schuster RN 02/26/23 15:10: CM CONTACTED MARVEL JIMENEZ PER PREVIOUS CM PT CAME IN UNDER ARREST W/MARVEL JIMENEZ, PER [employer] THEY WERE ON LINE W/ANOTHER STAFF MEMBER FROM [facility] [place]. Original Note: CM ATTEMPTED TO MEET W/PT AGAIN HOWEVER PT DECLINES AND STATES, I'M LEAVING AMA AND DEMANDING TO TAKE HER IV OUT.
--- NOTE | 2023-02-26 15:18 | PC.NURSE ---
Assumed care of patient at 1500. Patient requesting to leave AMA. notified and spoke with patient. IV removed.
--- NOTE | 2023-02-26 15:19 | P.DS_ITS ---
DS: Providers Provider Date of Service: 02/26/23 Date of admission: 02/25/23 23:21 Primary care physician: None Physician Consults: 02/25/23 23:29 Addiction Medicine Routine Consulting Provider: Addiction Covering Reason for consultation: IV heroin and cocaine use disorder Consult to General Surgery Routine Consulting Provider: [facility] [place] [facility] [place] Reason for consultation: left lower extremity wound 02/26/23 07:50 Consult to Infectious Diseases Routine Consulting Provider: [facility] [place] [facility] [place] Infectious Disease Reason for consultation: ?osteo Consult to Wound Care Routine Reason for consultation: LLE wound DS: Diagnosis Discharge Diagnosis (1) Leg wound, left: Status: Acute (2) Cellulitis: Status: Acute (3) Osteomyelitis: Status: Acute DS: Summary Hospital Course Hospital Course: from initial hpi: 32-year-old female with pertinent history of IV drug use (cocaine and heroin) disorder, chronic hepatitis-C, 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 Of note, patient was seen at [facility] in August for a similar wound but left AMA. Patient presents today for worsening of the wound, swelling of left lower extremity, redness, purulent drainage. Patient states it has been ongoing for a few days. No fever or chills. No chest discomfort, palpitations, shortness of breath, nausea, vomiting, abdominal pain, changes in urinary or bowel habits. In the emergency department, hemoglobin found to be 6.1. hospital course: Patient was admitted for left lower extremity cellulitis and ulcer likely chronic osteomyelitis due to IV drug use. She was treated with vancomycin and Zosyn, MRI was performed but results are still pending. Cultures are still pending. She was seen by surgery who felt patient did not need debridement, infectious disease evaluation was pending. For acute on chronic iron deficiency anemia likely due to chronic blood loss from ulcer she received 1 unit PRBC. Pre opiate dependence with withdrawal she was given opiate replacement therapy and seen by [facility] team. For hepatitis-C she should follow up outpatient. Patient still required IV antibiotics and was awaiting cultures, however, patient decided to leave against medical advice. She was able to demonstrate understanding of the risks of doing so including . Time Attestation Discharge coordination time: Greater than 30 minutes Quality: Safe Use of Opioids Does Pt have an Active Cancer Diagnosis on the Problem List?: No Quality: Stroke Does the patient have a stroke diagnosis?: No Physical Exam Vital Signs: Vital Signs: Last Vital Signs Temp 97.2 F 02/26/23 13:42 Pulse 66 02/26/23 13:42 Resp 18 02/26/23 13:42 BP 117/80 02/26/23 13:42 Pulse Ox 99 02/26/23 13:42 O2 Del Method Room Air 02/26/23 13:42 BMI result Body Mass Index 23.2 On exam, the patient is in no acute distress She is anicteric She is having no respiratory difficulty On the patient's left lower extremity anteriorly/anteromedially, a large, raw, granulating full-thickness into the subcutaneous wound measuring approximately 15 by 8 cm. There is no necrosis that requires operative debridement. DS: Data Data Completed and Pending Labs on day of discharge: Laboratory Results - last 24 hr 02/25/23 02/25/23 02/26/23 21:58 23:38 03:11 WBC 4.5 L RBC 3.63 L D Hgb 6.1 L* D Hct 22.8 L D MCV 62.8 L MCH 16.8 L MCHC 26.8 L RDW 18.0 H Plt Count 317 MPV 9.0 L Immature Gran % (Auto) 0.2 Neut % (Auto) 58.8 Lymph % (Auto) 31.2 [place] % (Auto) 6.5 Eos % (Auto) 3.1 Baso % (Auto) 0.2 Lymph # (Auto) 1.4 [place] # (Auto) 0.3 Eos # (Auto) 0.1 Baso # (Auto) 0.0 Abs Immat Gran (auto) 0.01 Absolute Neuts (auto) 2.6 Absolute Nucleated RBC 0.000 Nucleated RBC % (auto) 0.0 Sodium 138 Potassium 3.4 Chloride 106 Carbon Dioxide 27 Anion Gap 8 L BUN 9 Creatinine 0.66 Estim Creat Clear Calc 111.1 Estimated GFR > 60 Random Glucose 100 Lactic Acid 0.8 Calcium 8.6 D Iron 8 L TIBC 363 % Saturation 2 L Unsat Iron Binding 355 Ferritin 20 Total Bilirubin 0.3 Direct Bilirubin 0.1 AST 25 ALT 17 Alkaline Phosphatase 89 Total Protein 8.2 H Albumin 3.4 L Beta HCG, Quant < 2 Urine Color Yellow Urine Appearance Urine pH Ur Specific [place] Urine Protein Urine Glucose (UA) Urine Ketones Urine Blood Urine Nitrite Ur Leukocyte Esterase Urine RBC Urine WBC Urine WBC Clumps Ur Squamous Epith Cells Ur Transition Epith Cell Ur Renal Epithelial Cell Calcium Oxalate Crystal Leucine Crystals Cystine Crystals Tyrosine Crystals Other Crystals Urine Bacteria Urine Parasites Bilirubin Casts Epithelial Casts Fatty Casts Hyaline Casts Granular Casts Waxy Casts Broad Casts RBC Casts WBC Casts Other Casts Urine Trichomonas Urine Yeast Urine Opiates Screen Urine Fentanyl Screen Ur Barbiturates Screen Ur Phencyclidine Scrn Ur Amphetamines Screen U Benzodiazepines Scrn Urine Cocaine Screen U Marijuana (THC) Screen Blood Type O Positive Antibody Screen NEGATIVE Crossmatch See Detail 02/26/23 02/26/23 02/26/23 03:11 03:11 03:11 WBC RBC Hgb Hct MCV MCH MCHC RDW Plt Count MPV Immature Gran % (Auto) Neut % (Auto) Lymph % (Auto) [place] % (Auto) Eos % (Auto) Baso % (Auto) Lymph # (Auto) [place] # (Auto) Eos # (Auto) Baso # (Auto) Abs Immat Gran (auto) Absolute Neuts (auto) Absolute Nucleated RBC Nucleated RBC % (auto) Sodium Potassium Chloride Carbon Dioxide Anion Gap BUN Creatinine Estim Creat Clear Calc Estimated GFR Random Glucose Lactic Acid Calcium Iron TIBC % Saturation Unsat Iron Binding Ferritin Total Bilirubin Direct Bilirubin AST ALT Alkaline Phosphatase Total Protein Albumin Beta HCG, Quant Urine Color Cancelled Urine Appearance Cloudy Cancelled Urine pH 7.0 Cancelled Ur Specific [place] >= 1.030 H Urine Protein Urine Glucose (UA) Urine Ketones Urine Blood Urine Nitrite Ur Leukocyte Esterase Urine RBC Urine WBC Urine WBC Clumps Ur Squamous Epith Cells Ur Transition Epith Cell Ur Renal Epithelial Cell Calcium Oxalate Crystal Leucine Crystals Cystine Crystals Tyrosine Crystals Other Crystals Urine Bacteria Urine Parasites Bilirubin Casts Epithelial Casts Fatty Casts Hyaline Casts Granular Casts Waxy Casts Broad Casts RBC Casts WBC Casts Other Casts Urine Trichomonas Urine Yeast Urine Opiates Screen Urine Fentanyl Screen Ur Barbiturates Screen Ur Phencyclidine Scrn Ur Amphetamines Screen U Benzodiazepines Scrn Urine Cocaine Screen U Marijuana (THC) Screen Blood Type Antibody Screen Crossmatch 02/26/23 02/26/23 02/26/23 03:11 03:11 03:11 WBC RBC Hgb Hct MCV MCH MCHC RDW Plt Count MPV Immature Gran % (Auto) Neut % (Auto) Lymph % (Auto) [place] % (Auto) Eos % (Auto) Baso % (Auto) Lymph # (Auto) [place] # (Auto) Eos # (Auto) Baso # (Auto) Abs Immat Gran (auto) Absolute Neuts (auto) Absolute Nucleated RBC Nucleated RBC % (auto) Sodium Potassium Chloride Carbon Dioxide Anion Gap BUN Creatinine Estim Creat Clear Calc Estimated GFR Random Glucose Lactic Acid Calcium Iron TIBC % Saturation Unsat Iron Binding Ferritin Total Bilirubin Direct Bilirubin AST ALT Alkaline Phosphatase Total Protein Albumin Beta HCG, Quant Urine Color Urine Appearance Urine pH Ur Specific [place] Cancelled Urine Protein Trace Cancelled Urine Glucose (UA) Negative Cancelled Urine Ketones Trace Urine Blood Urine Nitrite Ur Leukocyte Esterase Urine RBC Urine WBC Urine WBC Clumps Ur Squamous Epith Cells Ur Transition Epith Cell Ur Renal Epithelial Cell Calcium Oxalate Crystal Leucine Crystals Cystine Crystals Tyrosine Crystals Other Crystals Urine Bacteria Urine Parasites Bilirubin Casts Epithelial Casts Fatty Casts Hyaline Casts Granular Casts Waxy Casts Broad Casts RBC Casts WBC Casts Other Casts Urine Trichomonas Urine Yeast Urine Opiates Screen Urine Fentanyl Screen Ur Barbiturates Screen Ur Phencyclidine Scrn Ur Amphetamines Screen U Benzodiazepines Scrn Urine Cocaine Screen U Marijuana (THC) Screen Blood Type Antibody Screen Crossmatch 02/26/23 02/26/23 02/26/23 03:11 03:11 03:11 WBC RBC Hgb Hct MCV MCH MCHC RDW Plt Count MPV Immature Gran % (Auto) Neut % (Auto) Lymph % (Auto) [place] % (Auto) Eos % (Auto) Baso % (Auto) Lymph # (Auto) [place] # (Auto) Eos # (Auto) Baso # (Auto) Abs Immat Gran (auto) Absolute Neuts (auto) Absolute Nucleated RBC Nucleated RBC % (auto) Sodium Potassium Chloride Carbon Dioxide Anion Gap BUN Creatinine Estim Creat Clear Calc Estimated GFR Random Glucose Lactic Acid Calcium Iron TIBC % Saturation Unsat Iron Binding Ferritin Total Bilirubin Direct Bilirubin AST ALT Alkaline Phosphatase Total Protein Albumin Beta HCG, Quant Urine Color Urine Appearance Urine pH Ur Specific [place] Urine Protein Urine Glucose (UA) Urine Ketones Cancelled Urine Blood Negative Cancelled Urine Nitrite Negative Cancelled Ur Leukocyte Esterase Moderate (2+) H Urine RBC Urine WBC Urine WBC Clumps Ur Squamous Epith Cells Ur Transition Epith Cell Ur Renal Epithelial Cell Calcium Oxalate Crystal Leucine Crystals Cystine Crystals Tyrosine Crystals Other Crystals Urine Bacteria Urine Parasites Bilirubin Casts Epithelial Casts Fatty Casts Hyaline Casts Granular Casts Waxy Casts Broad Casts RBC Casts WBC Casts Other Casts Urine Trichomonas Urine Yeast Urine Opiates Screen Urine Fentanyl Screen Ur Barbiturates Screen Ur Phencyclidine Scrn Ur Amphetamines Screen U Benzodiazepines Scrn Urine Cocaine Screen U Marijuana (THC) Screen Blood Type Antibody Screen Crossmatch 02/26/23 02/26/23 02/26/23 03:11 03:11 03:11 WBC RBC Hgb Hct MCV MCH MCHC RDW Plt Count MPV Immature Gran % (Auto) Neut % (Auto) Lymph % (Auto) [place] % (Auto) Eos % (Auto) Baso % (Auto) Lymph # (Auto) [place] # (Auto) Eos # (Auto) Baso # (Auto) Abs Immat Gran (auto) Absolute Neuts (auto) Absolute Nucleated RBC Nucleated RBC % (auto) Sodium Potassium Chloride Carbon Dioxide Anion Gap BUN Creatinine Estim Creat Clear Calc Estimated GFR Random Glucose Lactic Acid Calcium Iron TIBC % Saturation Unsat Iron Binding Ferritin Total Bilirubin Direct Bilirubin AST ALT Alkaline Phosphatase Total Protein Albumin Beta HCG, Quant Urine Color Urine Appearance Urine pH Ur Specific [place] Urine Protein Urine Glucose (UA) Urine Ketones Urine Blood Urine Nitrite Ur Leukocyte Esterase Cancelled Urine RBC 0-2 Cancelled Urine WBC 21-50 H Cancelled Urine WBC Clumps Cancelled Ur Squamous Epith Cells 6-10 Ur Transition Epith Cell Ur Renal Epithelial Cell Calcium Oxalate Crystal Leucine Crystals Cystine Crystals Tyrosine Crystals Other Crystals Urine Bacteria Urine Parasites Bilirubin Casts Epithelial Casts Fatty Casts Hyaline Casts Granular Casts Waxy Casts Broad Casts RBC Casts WBC Casts Other Casts Urine Trichomonas Urine Yeast Urine Opiates Screen Urine Fentanyl Screen Ur Barbiturates Screen Ur Phencyclidine Scrn Ur Amphetamines Screen U Benzodiazepines Scrn Urine Cocaine Screen U Marijuana (THC) Screen Blood Type Antibody Screen Crossmatch 02/26/23 02/26/23 02/26/23 03:11 03:11 03:11 WBC RBC Hgb Hct MCV MCH MCHC RDW Plt Count MPV Immature Gran % (Auto) Neut % (Auto) Lymph % (Auto) [place] % (Auto) Eos % (Auto) Baso % (Auto) Lymph # (Auto) [place] # (Auto) Eos # (Auto) Baso # (Auto) Abs Immat Gran (auto) Absolute Neuts (auto) Absolute Nucleated RBC Nucleated RBC % (auto) Sodium Potassium Chloride Carbon Dioxide Anion Gap BUN Creatinine Estim Creat Clear Calc Estimated GFR Random Glucose Lactic Acid Calcium Iron TIBC % Saturation Unsat Iron Binding Ferritin Total Bilirubin Direct Bilirubin AST ALT Alkaline Phosphatase Total Protein Albumin Beta HCG, Quant Urine Color Urine Appearance Urine pH Ur Specific [place] Urine Protein Urine Glucose (UA) Urine Ketones Urine Blood Urine Nitrite Ur Leukocyte Esterase Urine RBC Urine WBC Urine WBC Clumps Ur Squamous Epith Cells Cancelled Ur Transition Epith Cell Cancelled Ur Renal Epithelial Cell Cancelled Calcium Oxalate Crystal Cancelled Leucine Crystals Cancelled Cystine Crystals Cancelled Tyrosine Crystals Cancelled Other Crystals Cancelled Urine Bacteria 2+ Cancelled Urine Parasites Cancelled Bilirubin Casts Cancelled Epithelial Casts Cancelled Fatty Casts Cancelled Hyaline Casts 0-2 Cancelled Granular Casts Cancelled Waxy Casts Cancelled Broad Casts Cancelled RBC Casts Cancelled WBC Casts Cancelled Other Casts Cancelled Urine Trichomonas Cancelled Urine Yeast Cancelled Urine Opiates Screen POSITIVE H Urine Fentanyl Screen POSITIVE H Ur Barbiturates Screen Not Detected Ur Phencyclidine Scrn Not Detected Ur Amphetamines Screen Not Detected U Benzodiazepines Scrn Not Detected Urine Cocaine Screen POSITIVE H U Marijuana (THC) Screen Not Detected Blood Type Antibody Screen Crossmatch 02/26/23 10:15 WBC RBC Hgb Hct MCV MCH MCHC RDW Plt Count MPV Immature Gran % (Auto) Neut % (Auto) Lymph % (Auto) [place] % (Auto) Eos % (Auto) Baso % (Auto) Lymph # (Auto) [place] # (Auto) Eos # (Auto) Baso # (Auto) Abs Immat Gran (auto) Absolute Neuts (auto) Absolute Nucleated RBC Nucleated RBC % (auto) Sodium Potassium Chloride Carbon Dioxide Anion Gap BUN Creatinine 0.67 Estim Creat Clear Calc 109.4 Estimated GFR > 60 Random Glucose Lactic Acid Calcium Iron TIBC % Saturation Unsat Iron Binding Ferritin Total Bilirubin Direct Bilirubin AST ALT Alkaline Phosphatase Total Protein Albumin Beta HCG, Quant Urine Color Urine Appearance Urine pH Ur Specific [place] Urine Protein Urine Glucose (UA) Urine Ketones Urine Blood Urine Nitrite Ur Leukocyte Esterase Urine RBC Urine WBC Urine WBC Clumps Ur Squamous Epith Cells Ur Transition Epith Cell Ur Renal Epithelial Cell Calcium Oxalate Crystal Leucine Crystals Cystine Crystals Tyrosine Crystals Other Crystals Urine Bacteria Urine Parasites Bilirubin Casts Epithelial Casts Fatty Casts Hyaline Casts Granular Casts Waxy Casts Broad Casts RBC Casts WBC Casts Other Casts Urine Trichomonas Urine Yeast Urine Opiates Screen Urine Fentanyl Screen Ur Barbiturates Screen Ur Phencyclidine Scrn Ur Amphetamines Screen U Benzodiazepines Scrn Urine Cocaine Screen U Marijuana (THC) Screen Blood Type Antibody Screen Crossmatch Discharge Plan Discharge Anticipated Discharge Date/Time: 02/26/23 15:17 Patient Disposition: Left Against Medical Advice Discharge Diagnosis: cellulitis Referrals: Physician,None [Primary Care Provider] - 1 Week Discharge Medications: Continued albuterol sulfate [ProAir HFA] 90 mcg/actuation HFA aerosol inhaler 1 inh inhalation QID PRN (Reason: shortness of breath or wheezing) Qty: 6.7 0RF Discharge Orders: Discharge Order (Routine); Ordered 02/26/23 Ordered By: Augie Walker Diet: Advance to usual diet Activity on Discharge: As tolerated Activity Restrictions/Additional Instructions: Wound Care Recommendations: Left Lower Leg - Elevate lower leg with use of pillow - Cleanse with NS, pat dry. Apply Triad to the periwound, cover wound bed with Durafiber AG, dry gauze, ABD Pads, and gauze wrap. Change Daily. Follow up with Outpatient [facility]ound [facility] Care Plan Goals: recovery Health Concerns: left le wound, anemia Plan of Treatment: cannot treat properly out of hospital Assessment: see above
== END 2023-02-26 15:39 | disposition left against medical advice (07) | DRG 383 ==
LOC: HO.ED 23:23 → HO.EDOVER 02-26 02:30 → HO.S3 02-26 11:00
PROVIDERS: Admitting Provider Student in an Organized Health Care Education/Training Program; Emergency Provider Emergency Medicine Emergency Medical Services; Visit Provider Internal Medicine
DX: L03.116 Cellulitis of left lower limb (principal); L97.829 Non-pressure chronic ulcer of other part of left lower leg with unspecified severity; M86.662 Other chronic osteomyelitis, left tibia and fibula; D50.0 Iron deficiency anemia secondary to blood loss (chronic); F17.210 Nicotine dependence, cigarettes, uncomplicated; B18.2 Chronic viral hepatitis C; F11.23 Opioid dependence with withdrawal; Z71.6 Tobacco abuse counseling; Z86.14 Personal history of Methicillin resistant Staphylococcus aureus infection
CPT/HCPCS: 36415; 73700; 73720; 80048; 80076; 80307; 81001; 82565; 82728; 83540; 83605; 84702; 85025; 86850; 86900; 86901; 86923; 87040; 87086; 99285; A9585; J1170; J2543; J3370; J3371; P9016

== ENCOUNTER → 2023-02-25 21:19 | Outpatient (BNV) | payer OTHER, SELFPAY | PROVIDERS: Emergency Provider Emergency Medicine Emergency Medical Services; Visit Provider Student in an Organized Health Care Education/Training Program | DX: S81.802A Unspecified open wound, left lower leg, initial encounter (principal); L03.116 Cellulitis of left lower limb; M86.9 Osteomyelitis, unspecified; Z53.29 Procedure and treatment not carried out because of patient's decision for other reasons | CPT/HCPCS: 99222; 99239 ==

== ENCOUNTER → 2023-02-25 23:21 | Outpatient (BNV) | payer OTHER, SELFPAY | PROVIDERS: Admitting Provider Student in an Organized Health Care Education/Training Program; Emergency Provider Emergency Medicine Emergency Medical Services; Visit Provider Surgery | DX: S81.802A Unspecified open wound, left lower leg, initial encounter (principal); L03.90 Cellulitis, unspecified; M86.9 Osteomyelitis, unspecified | CPT/HCPCS: 99221 ==

== ENCOUNTER 2024-04-23 18:16 | Emergency (ER) | payer OTHER, SELFPAY ==
[2024-04-23 18:35] VITALS: BP 102/56; PULSE 78; RESP 18; TEMP 36.9; BMI 20.1
[2024-04-23 19:22] LABS: MANUAL DIFF FLAG NO
[2024-04-23 19:22] LABS: Appearance Urine Turbid; Color Urine Dark Yellow; Glucose Urine UA Negative (Negative); Leukocyte Esterase Urine Small (1+) (Negative); Nitrite Urine Positive (Negative); Specific Gravity - Urine >= 1.030 (1.005-1.025); UMIC TRIGGER UACC YES; Urine Blood Negative (Negative); Urine Ketones Negative (Negative); Urine Protein 30 (1+) mg/dL (Neg-Trace)
[2024-04-23] MEDS: Piperacillin Sodium/Tazobactam 3.375 GM in 0.9 % Sodium Chloride 50 ML IV (19:27)
[2024-04-23] MEDS: HYDROmorphone HCl 1 MG/ML SYRINGE IVPUSH (19:27)
[2024-04-23 19:30] LABS: Basophils Percent Auto 0.5 % (0-2); Eosinophils Absolute Auto 0.1 X10*3/uL (0.0-0.4); Eosinophils Percent Auto 2.6 % (0-4); Hemoglobin 7.9 g/dl (12.0-16.0); Imm Gran Abs Auto 0.01 X10*3/uL (0.00-0.03); Imm Gran Pct Auto 0.2 % (0.0-0.4); Lymphocytes Percent Auto 24.3 % (20-40); Mean Corpuscular HGB Conc 28.2 g/dl (31.0-35.0); Mean Platelet Volume 9.7 fL (9.4-12.3); Monocytes Absolute Auto 0.3 X10*3/uL (0.1-1.2); Neutrophils Absolute Auto 2.7 x10*3/uL (2.0-8.3); Neutrophils Percent Auto 64.4 % (45-73); Platelet Count 274 X10*3/uL (160-400); Red Blood Count 4.39 X10*6/uL (4.20-5.50); White Blood Count 4.2 X10*3/uL (4.8-10.8)
--- NOTE | 2024-04-23 19:39 | ED_ITS ---
HPI - Wound/Laceration General Chief Complaint: Wound/Laceration Stated Complaint: leg pain Time Seen by Provider: 04/23/24 18:34 Source: patient Limitations: no limitations History of Present Illness ED Provider: Ragini Treadwell PA-C HPI narrative: 33-year-old female with a history of polysubstance abuse, alcohol abuse, osteomyelitis, recent hospital admission at [facility] 10 days ago for osteomyelitis of the left lower extremity, who left against medical advice after 2 days of therapy, presents in police custody with left lower extremity infection/pain. Denies fever. Patient last used cocaine and heroin this morning. She has not drank alcohol today, however she does drink daily and has had alcohol withdrawal in the past, with seizure activity. Related Data Home Medications ?Medication ?Instructions ?Recorded ?Confirmed No Known Home Meds 04/23/24 04/23/24 Allergies Allergy/AdvReac Type Severity Reaction Status Date / Time acetaminophen [From TYLENOL] Allergy Mild ITCHY AND Verified 04/23/24 18:40 HIVES tioconazole Allergy Mild HIVES Verified 04/23/24 18:40 [From MONISTAT 1 (TIOCONAZOLE)] vancomycin Allergy Anaphylaxis Verified 04/23/24 19:31 Review of Systems 2 Review of Systems: Yes all other systems are reviewed and are negative Constitutional: Constitutional: Denies fatigue and Denies fever(s) Cardiovascular: Cardiovascular: Denies chest pain and Denies dyspnea Respiratory: Respiratory: Denies dyspnea Gastrointestinal: Gastrointestinal: Denies abdominal pain, Denies diarrhea, Denies nausea and Denies vomiting Integumentary/Breasts: Skin/Breast: Reports erythema, Reports skin ulcer and Reports wounds Endocrine: Endocrine: Denies fatigue PMFSH Past Medical History Attestation statement: The following information was validated with the patient. Medical History Osteomyelitis Anxiety Endocarditis Opiate addiction Surgical History No pertinent past surgical history Social History Social History Household Members: None Do you presently have visiting nurse or other home services: No Alcohol intake: current Alcohol intake frequency: 3 or more drinks per day Alcohol type: wine Patient Tobacco Use Status: Current everyday Tobacco user Tobacco use type: Cigarette Cigarette Packs Per Day: 1 Cigarettes Per Day: 20.0 Smoked in Last 30 Days: Yes Use of substances other than those prescribed or required for medical reasons: Yes Substance Use Type: Crack/Cocaine and Heroin Advance Directives: Yes Advance Directives on File: Yes Advance Directives Date on File: 09/04/22 Physical Exam 2 Vital Signs: Vital Signs: Last Vital Signs Temp 98.5 F 04/23/24 20:45 Pulse 80 04/23/24 20:45 Resp 18 04/23/24 20:45 BP 140/72 H 04/23/24 20:45 Pulse Ox 100 04/23/24 20:45 O2 Del Method Room Air 04/23/24 20:45 BMI result Body Mass Index 20.1 Const: Other: Alert, appears older than stated age Orientation/consciousness: patient oriented x3 Resp: Effort & Inspection: normal respiratory effort Cardio: Other: Normal peripheral perfusion Skin: Other: Warm dry no rash Neuro: General: patient oriented x3, no focal motor deficits and CN's II-XI intact bilaterally Extrem: Other: Large erythematous ulceration noted over the length of the left anterior sequeira, no active purulence noted, is foul smelling Psych: Other: Cooperative Medications Administered Discontinued Medications Generic Name Dose Route Start Last Admin Trade Name Freq PRN Reason Stop Dose Admin Hydromorphone HCl 1 mg 04/23/24 19:17 04/23/24 19:27 Hydromorphone Hcl 1 Mg/Ml Syringe IVPUSH 04/23/24 19:18 1 mg ONCE ONE Administration Protocol Piperacillin Sod/Tazobactam 50 mls @ 100 mls/hr 04/23/24 18:45 04/23/24 20:00 Sod 3.375 gm/ Sodium Chloride IV 04/23/24 19:14 Infused ONCE ONE Infusion Thiamine HCl 100 mg/ Sodium 101 mls @ 202 mls/hr 04/23/24 19:54 04/23/24 20:21 Chloride IV 04/23/24 20:23 202 mls/hr ONCE ONE Administration Lactated Ringer's 1,000 mls @ 999 mls/hr 04/23/24 20:00 04/23/24 20:26 Lr IV 04/23/24 21:00 Not Given .Q1H1M SHIVA Medical Decision Making Medical Decision Making MDM Narrative: 33-year-old female with a history of polysubstance abuse, alcohol abuse, osteomyelitis, recent hospital admission at [facility] 10 days ago for osteomyelitis of the left lower extremity, who left against medical advice after 2 days of therapy, presents in police custody with left lower extremity infection/pain. Denies fever. Patient last used cocaine and heroin this morning. She has not drank alcohol today, however she does drink daily and has had alcohol withdrawal in the past, with seizure activity. Problem: Polysubstance abuse, alcohol abuse, osteomyelitis History: Per patient I have considered the following differential diagnoses: Osteomyelitis, necrotizing fasciitis, cellulitis, purulent cellulitis, chronic wound Plan: Patient will likely be admitted, we are obtaining records from [facility] to verify her story. We will be screening basic labs, blood culture and lactic acid. Obtaining a CT scan. We will start empiric Zosyn, giving pain medication. To note, she has an allergy to vancomycin, she developed symptoms of anaphylaxis. We will have to monitor for alcohol withdrawal, she is not exhibiting symptoms at this time. I have independently reviewed the following tests: Labs: No leukocytosis, anemic, but not to the point of transfusion, no electrolyte abnormality, urine infected, she has already been treated with antibiotics, ethanol negative, toxicology positive for opiates, fentanyl and cocaine., she is not CT left lower extremity: Lab Data 04/23/24 19:14 04/23/24 19:14 Labs: Lab Results 04/23/24 04/23/24 Range/Units 19:07 19:14 WBC 4.2 L (4.8-10.8) X10*3/uL RBC 4.39 D (4.20-5.50) X10*6/uL Hgb 7.9 L D (12.0-16.0) g/dl Hct 28.0 L D (37.0-47.0) % MCV 63.8 L (80.0-98.0) fL MCH 18.0 L (27.0-33.0) pg MCHC 28.2 L (31.0-35.0) g/dl RDW 18.0 H (11.0-16.0) % Plt Count 274 (160-400) X10*3/uL MPV 9.7 (9.4-12.3) fL Immature Gran % (Auto) 0.2 (0.0-0.4) % Neut % (Auto) 64.4 (45-73) % Lymph % (Auto) 24.3 (20-40) % [place] % (Auto) 8.0 (2-11) % Eos % (Auto) 2.6 (0-4) % Baso % (Auto) 0.5 (0-2) % Lymph # (Auto) 1.0 L (1.2-4.9) X10*3/uL [place] # (Auto) 0.3 (0.1-1.2) X10*3/uL Eos # (Auto) 0.1 (0.0-0.4) X10*3/uL Baso # (Auto) 0.0 (0.0-0.2) X10*3/uL Abs Immat Gran (auto) 0.01 (0.00-0.03) X10*3/uL Absolute Neuts (auto) 2.7 (2.0-8.3) x10*3/uL Absolute Nucleated RBC 0.000 (0.0-0.012) X10*3/uL Nucleated RBC % (auto) 0.0 (0.0-0.2) /100WBC ESR 39 H (0-20) MM/HR Hold Purple Top SEE NOTE PT 13.5 H (10.9-12.4) SEC INR 1.2 H (0.9-1.1) Sodium 136 (135-145) mmol/L Potassium 4.3 (3.3-5.1) mmol/L Chloride 107 (96-108) mmol/L Carbon Dioxide 26 (22-29) mmol/L Anion Gap 7 L (12-20) BUN 11 (9-16) mg/dL Creatinine 0.65 (0.5-1.4) mg/dL Estim Creat Clear Calc 107.6 Estimated GFR > 60 Random Glucose 99 (60-115) mg/dL Lactic Acid 0.9 (0.5-2.0) mmol/L Calcium 8.0 L D (8.4-10.2) mg/dL Magnesium 2.2 (1.6-2.6) mg/dL C-Reactive Protein 1.88 H (< or = 0.50) mg/dL Beta HCG, Quant < 2 mIU/mL Urine Color Dark Yellow Urine Appearance Turbid Urine pH 7.0 (5.0-9.0) Ur Specific [place] >= 1.030 H (1.005-1.025) Urine Protein 30 (1+) H (Neg-Trace) mg/dL Urine Glucose (UA) Negative (Negative) mg/dL Urine Ketones Negative (Negative) mg/dL Urine Blood Negative (Negative) Urine Nitrite Positive H (Negative) Ur Leukocyte Esterase Small (1+) H (Negative) Urine RBC 6-10 H (0-2) /HPF Urine WBC 11-20 H (0-5) /HPF Ur Squamous Epith Cells >20 (0-2) /HPF Urine Bacteria 4+ (None Seen) Hyaline Casts 0-2 (0-2) /LPF Urine Opiates Screen POSITIVE H (Not Detect) Ur Buprenorphine Scrn Not Detected (Not Detect) ng/mL Ur Oxycodone Screen Not Detected (Not Detect) ng/mL Urine Methadone Screen Not Detected (Not Detect) ng/mL Urine Fentanyl Screen POSITIVE H (Not Detect) Ur Barbiturates Screen Not Detected (Not Detect) Ur Phencyclidine Scrn Not Detected (Not Detect) Ur Amphetamines Screen Not Detected (Not Detect) U Benzodiazepines Scrn Not Detected (Not Detect) Urine Cocaine Screen POSITIVE H (Not Detect) U Marijuana (THC) Screen Not Detected (Not Detect) Procedures Procedure Narrative Procedure Narrative: Bilateral upper extremity ultrasound-guided IVs 18 gauge 1-3/4 inch IVs placed in both the left and right upper extremity, both without adequate blood return both flushed well both secured with Tegaderm Discharge Plan Discharge Clinical Impression: Osteomyelitis, Leg wound, left, Cellulitis, Polysubstance abuse, Alcohol abuse Patient Disposition: Admitted As Inpatient
[2024-04-23 19:41] LABS: Amphetamine Screen Urine Not Detected (Not Detect); Barbiturates, Urine Not Detected (Not Detect); Benzodiazepines Screen Urine Not Detected (Not Detect); Buprenorphine Scr Not Detected (Not Detect); Cannabinoid Screen Urine Not Detected (Not Detect); Cocaine Screen Urine POSITIVE (Not Detect); Fentanyl, urine POSITIVE (Not Detect); Methadone Screen, Urine Not Detected (Not Detect); Opiate Screen Urine POSITIVE (Not Detect); Oxycodone Screen Urine Not Detected (Not Detect); Phencyclidine Screen Urine Not Detected (Not Detect)
[2024-04-23 19:46] LABS: Lactic Acid 0.9 mmol/L (0.5-2.0)
[2024-04-23 19:46] LABS: Bacteria Urine 4+ (None Seen); Hyaline Casts Urine 0-2 /LPF (0-2); Squamous Epithelial Cell Urine >20 /HPF (0-2); UACC Culture Trigger YES
[2024-04-23 19:52] LABS: Anion Gap 7 (12-20); Blood Urea Nitrogen 11 mg/dL (9-16); Carbon Dioxide 26 mmol/L (22-29); Chloride 107 mmol/L (96-108); Creatinine Clr Calc Pharmacy 107.6; Estimated Glomerular Filt Rate > 60; Glucose Random 99 mg/dL (60-115); INTERNATIONAL NORM RATIO 1.2 (0.9-1.1); Magnesium 2.2 mg/dL (1.6-2.6); Potassium 4.3 mmol/L (3.3-5.1); Prothrombin Time 13.5 SEC (10.9-12.4); Sodium 136 mmol/L (135-145)
[2024-04-23 19:53] LABS: HCG Quantitative < 2 mIU/mL
[2024-04-23 19:56] LABS: Mean Corpuscular Volume 63.8 fL (80.0-98.0)
--- NOTE | 2024-04-23 20:14 | P.HPHOSP_ITS ---
History of Present Illness Date of Service: 04/23/24 <BELINDA Reynoso - Last Filed: 04/23/24 22:21> Attending physician on admission: Anne Mojica <BELINDA Reynoso - Last Filed: 04/23/24 22:21> Chief Complaint: Left leg pain <BELINDA Reynoso - Last Filed: 04/23/24 22:21> Addendum: As soon as pt was released from court and police custody she elected to leave AMA from the ED before being fully admitted into the hospital. AMA discharge summary will be completed by the ED. 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 Pt had similar presentation to [facility] 14 days where she was also in police custody coming from longterm. Was treated for potential withdrawl and chronic osteomyelitis. Was evaluated by ID who suggested treating with Augmentin and doxycycline, as well as by General surgery suggested AKA for definitive treatment as pt injects in her open wound. Pt then left AMA after 2 days of treatment. Pt apparently has been partially treated multiple times for chronic osteomyelitis but never completed a full course of antibiotics. Has a hx of leaving AMA. Reports has had left leg chronic wound for at least the one year. Initially closed but then reopened around 9 months ago and has since then been slowly growing larger. Apparently follows wound care and keeps wound covered with clean dressing. Has noticed some yellowish, [id number] discharge from the area. Chronic pain centered around wound radiating to her ankle. Reports uses around 5 bundles plus some cocaine a day with last use at 05:00 this morning. Drinks 5+ nips daily. Denies fever, chills, nausea, vomiting, abdominal pain. No chest pain/pressure, palpitations. Denies shortness or breath or difficulty breathing. No auditory or visual hallucinations. Denies increased anxiety. No diaphoresis. In the ED pt was slightly soft BP of 102/56, vitals otherwise stable and WNL. Labs were significant for leukopenia of 4.2, microcytic anemia of 7.9/28.0 with MCV 63.8, ESR 39, and CRP 1.88. Significant electrolyte abnormalities. Renal function WNL. UA concerning for UTI, though likely contaminated. Tox screen positive for opiates, fentanyl, and cocaine. Pt was treated with Zosyn and hydromorphone. Pt will be admitted to the hospital for treatment and further evaluation of impending opiate and alcohol withdrawal as well as for chronic osteomyelitis. <BELINDA Reynoso - Last Filed: 04/23/24 22:21> THIS IS A CONSULTATION NOTE Addendum: As soon as pt was released from court and police custody she elected to leave AMA from the ED before being fully admitted into the hospital. AMA discharge summary will be completed by the ED. 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 Pt had similar presentation to [facility] 14 days where she was also in police custody coming from longterm. Was treated for potential withdrawl and chronic osteomyelitis. Was evaluated by ID who suggested treating with Augmentin and doxycycline, as well as by General surgery suggested AKA for definitive treatment as pt injects in her open wound. Pt then left AMA after 2 days of treatment. Pt apparently has been partially treated multiple times for chronic osteomyelitis but never completed a full course of antibiotics. Has a hx of leaving AMA. Reports has had left leg chronic wound for at least the one year. Initially closed but then reopened around 9 months ago and has since then been slowly growing larger. Apparently follows wound care and keeps wound covered with clean dressing. Has noticed some yellowish, [id number]-[id number] discharge from the area. Chronic pain centered around wound radiating to her ankle. Reports uses around 5 bundles plus some cocaine a day with last use at 05:00 this morning. Drinks 5+ nips daily. Denies fever, chills, nausea, vomiting, abdominal pain. No chest pain/pressure, palpitations. Denies shortness or breath or difficulty breathing. No auditory or visual hallucinations. Denies increased anxiety. No diaphoresis. In the ED pt was slightly soft BP of 102/56, vitals otherwise stable and WNL. Labs were significant for leukopenia of 4.2, microcytic anemia of 7.9/28.0 with MCV 63.8, ESR 39, and CRP 1.88. Significant electrolyte abnormalities. Renal function WNL. UA concerning for UTI, though likely contaminated. Tox screen positive for opiates, fentanyl, and cocaine. Pt was treated with Zosyn and hydromorphone. Pt will be admitted to the hospital for treatment and further evaluation of impending opiate and alcohol withdrawal as well as for chronic osteomyelitis. <Anne Mojica MD - Last Filed: 04/23/24 22:53> Review of Systems 2 Review of Systems: Negative except for that which is stated in the HPI <BELINDA Reynoso - Last Filed: 04/23/24 22:21> [facility] Medical History: Medical History Osteomyelitis Anxiety Endocarditis Opiate addiction <BELINDA Reynoso - Last Filed: 04/23/24 22:21> Surgical History: Surgical History No pertinent past surgical history <BELINDA Reynoso - Last Filed: 04/23/24 22:21> Social History: Social History Household Members: None Do you presently have visiting nurse or other home services: No Alcohol intake: current Alcohol intake frequency: 3 or more drinks per day Alcohol type: wine Patient Tobacco Use Status: Tobacco use Unknown Tobacco use type: Cigarette Cigarette Packs Per Day: 1 Cigarettes Per Day: 20.0 Smoked in Last 30 Days: Yes Use of substances other than those prescribed or required for medical reasons: Yes Substance Use Type: Crack/Cocaine and Heroin Advance Directives: Yes Advance Directives on File: Yes Advance Directives Date on File: 09/04/22 Nutrition Risks: No Nutritional Risk <BELINDA Reynoso Last Filed: 04/23/24 22:21> Meds Allergies/Adverse reactions: Allergies Allergy/AdvReac Type Severity Reaction Status Date / Time acetaminophen [From TYLENOL] Allergy Mild ITCHY AND Verified 04/23/24 18:40 HIVES tioconazole Allergy Mild HIVES Verified 04/23/24 18:40 [From MONISTAT 1 (TIOCONAZOLE)] vancomycin Allergy Anaphylaxis Verified 04/23/24 19:31 <BELINDA Reynoso Last Filed: 04/23/24 22:21> Active Medications: Current Medications Thiamine HCl 100 mg/ Sodium (Chloride) 101 mls @ 202 mls/hr IV ONCE ONE Stop: 04/23/24 20:23 Lactated Ringer's (Lr) 1,000 mls @ 999 mls/hr IV .Q1H1M SHIVA Stop: 04/23/24 21:00 Thiamine HCl (Thiamine Hcl 100 Mg Tablet) 100 mg PO DAILY SHIVA <BELINDA Reynoso Last Filed: 04/23/24 22:21> Home medications: Home Medications ?Medication ?Instructions ?Recorded ?Confirmed ?Last Taken ?Type No Known Home Meds 04/23/24 04/23/24 Unknown History <BELINDA Reynoso Last Filed: 04/23/24 22:21> Physical Exam 2 Vital Signs and Narrative: Vital Signs: Last Vital Signs Temp 98.4 F 04/23/24 18:35 Pulse 78 04/23/24 18:35 Resp 18 04/23/24 18:35 BP 102/56 L 04/23/24 18:35 BMI result Body Mass Index 20.1 <BELINDA Reynoso Last Filed: 04/23/24 22:21> General: AOx3, no acute distress Resp: CTA bilaterally CVS: S1, S2, RRR GI: +BS, NT, no distention Skin: Warm, dry Neuro: Cranial nerves II-XII grossly intact bilaterally. Motor grossly intact bilaterally Extremities: Large chronic wound to right lower extremity with clean margins. No observed purulent or foul-smelling discharge. As pictured below. Psych: Appropriate affect <BELINDA Reynoso Last Filed: 04/23/24 22:21> Results Labs CBC and Chem 7: 04/23/24 19:14 04/23/24 19:14 <BELINDA Reynoso - Last Filed: 04/23/24 22:21> Labs: Laboratory Results - last 24 hr 04/23/24 04/23/24 19:07 19:14 MCV 63.8 L MCH 18.0 L MCHC 28.2 L RDW 18.0 H Plt Count 274 MPV 9.7 Immature Gran % (Auto) 0.2 Neut % (Auto) 64.4 Lymph % (Auto) 24.3 [place] % (Auto) 8.0 Eos % (Auto) 2.6 Baso % (Auto) 0.5 Lymph # (Auto) 1.0 L [place] # (Auto) 0.3 Eos # (Auto) 0.1 Baso # (Auto) 0.0 Abs Immat Gran (auto) 0.01 Absolute Neuts (auto) 2.7 Absolute Nucleated RBC 0.000 Nucleated RBC % (auto) 0.0 Hold Purple Top SEE NOTE PT 13.5 H INR 1.2 H Anion Gap 7 L Estim Creat Clear Calc 107.6 Estimated GFR > 60 Random Glucose 99 Lactic Acid 0.9 Calcium 8.0 L D Magnesium 2.2 Beta HCG, Quant < 2 Urine Color Dark Yellow Urine Appearance Turbid Urine pH 7.0 Ur Specific [place] >= 1.030 H Urine Protein 30 (1+) H Urine Glucose (UA) Negative Urine Ketones Negative Urine Blood Negative Urine Nitrite Positive H Ur Leukocyte Esterase Small (1+) H Urine RBC 6-10 H Urine WBC 11-20 H Ur Squamous Epith Cells >20 Urine Bacteria 4+ Hyaline Casts 0-2 Urine Opiates Screen POSITIVE H Ur Buprenorphine Scrn Not Detected Ur Oxycodone Screen Not Detected Urine Methadone Screen Not Detected Urine Fentanyl Screen POSITIVE H Ur Barbiturates Screen Not Detected Ur Phencyclidine Scrn Not Detected Ur Amphetamines Screen Not Detected U Benzodiazepines Scrn Not Detected Urine Cocaine Screen POSITIVE H U Marijuana (THC) Screen Not Detected <BELINDA Reynoso - Last Filed: 04/23/24 22:21> Assessment and Plan (1) Osteomyelitis: Status: Acute <BELINDA Reynoso - Last Filed: 04/23/24 22:21> (2) Polysubstance abuse: Status: Acute <BELINDA Reynoso - Last Filed: 04/23/24 22:21> Pt is a 33-year-old female with a PMH significant for?polysubstance use disorder with IVDU, 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 Pt will be admitted to the hospital for treatment and further evaluation of impending opiate and alcohol withdrawal as well as for chronic osteomyelitis. Chronic left lower extremity wound with chronic osteomyelitis Secondary to IVDU and xylozine wound x1 year Pt apparently has been injecting into open wound Recently treated with antibiotics at [facility] 14 days ago but pt left AMA after 2 days of treatment Has not yet completed full course of antibiotics for osteomyelitis No sepsis: No tachycardia, tachypnea, or fever Will treat with daptomycin IV and Zosyn CT imaging pending ID consult Wound care consult Polysubstance use disorder Injects cocaine and heroin, last used earlier this morning Will treat with methadone 50 mg p.o. x1 dose Addiction Medicine consultation Monitor for withdrawal symptoms Alcohol use disorder Drinks 5+ nips daily Thiamine Monitor on CIWA Full Code Attending:?Dr. Mojica DVT Prophylaxis: Lovenox Pt will require a hospitalization of at least two nights for treatment of?chronic lower extremity wound with chronic osteomyelitis as well as to monitor for impending opiate and alcohol withdrawal. 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 Pt will be admitted to the hospital for treatment and further evaluation of impending opiate and alcohol withdrawal as well as for chronic osteomyelitis. Chronic left lower extremity wound with chronic osteomyelitis Secondary to IVDU and xylozine wound x1 year Pt apparently has been injecting into open wound Recently treated with antibiotics at [facility] 14 days ago but pt left AMA after 2 days of treatment Has not yet completed full course of antibiotics for osteomyelitis No sepsis: No tachycardia, tachypnea, or fever Will treat with daptomycin IV and Zosyn CT imaging pending ID consult Wound care consult Polysubstance use disorder Injects cocaine and heroin, last used earlier this morning Will treat with methadone 50 mg p.o. x1 dose Addiction Medicine consultation Monitor for withdrawal symptoms Alcohol use disorder Drinks 5+ nips daily Thiamine Monitor on CIWA Full Code Attending:?Dr. Mojica DVT Prophylaxis: Lovenox Pt left AMA from the ER. <Anne Mojica MD - Last Filed: 04/23/24 22:53> Quality Stroke Does the patient have a stroke diagnosis?: No <BELINDA Reynoso - Last Filed: 04/23/24 22:21> VTE Prior VTE?: No <BELINDA Reynoso - Last Filed: 04/23/24 22:21> VTE Risk Level:: Medical - moderate - high <BELINDA Reynoso - Last Filed: 04/23/24 22:21> VTE Device Contraindication: Treatment Not Indicated <BELINDA Reynoso - Last Filed: 04/23/24 22:21> VTE Drug Contraindication: N/A - Med Ordered <BELINDA Reynoso - Last Filed: 04/23/24 22:21>
[2024-04-23] MEDS: Thiamine HCL 100 MG in 0.9 % Sodium Chloride 100 ML 202 MG IV (20:21)
--- NOTE | 2024-04-23 20:26 | PC.NURSE ---
Pt refused IV fluids, states fluids will flush me out . Provider Kiki Treadwell made aware.
[2024-04-23 20:33] LABS: C Reactive Protein 1.88 mg/dL (< or = 0.50)
[2024-04-23 20:45] VITALS: BP 140/72; PULSE 80; RESP 18; TEMP 36.9; O2SAT 100
[2024-04-23 21:14] LABS: Erythrocyte Sedimentation Rate 39 MM/HR (0-20)
--- NOTE | 2024-04-23 21:29 | PHA.MEDREC ---
Addendum entered by Roxanne Pressley peg 04/23/24 21:31: reviewed Original Note: Pharmacy Consult ? Medication Reconciliation Pharmacy has completed the medication reconciliation. Spoke with patient and she confirmed he is not taking any medications at this time.
--- NOTE | 2024-04-23 22:01 | PC.NURSE ---
Pt refusing IV ABX, provider Kiki Treadwell aware and at bedside.
[2024-04-23 22:21] VITALS: BP 00/00; PULSE 0; RESP 0; TEMP -17.7; TEMP 0
== END 2024-04-23 22:23 | disposition left against medical advice (07) ==
LOC: HO.ED 19:51 → HO.EDOVER 21:29
PROVIDERS: Physician Assistant Medical; Student in an Organized Health Care Education/Training Program; Emergency Provider Emergency Medicine
DX: M86.9 Osteomyelitis, unspecified (principal); N39.0 Urinary tract infection, site not specified; B96.20 Unspecified Escherichia coli [E. coli] as the cause of diseases classified elsewhere; L03.116 Cellulitis of left lower limb; M79.662 Pain in left lower leg; F19.10 Other psychoactive substance abuse, uncomplicated; F10.10 Alcohol abuse, uncomplicated; Y90.9 Presence of alcohol in blood, level not specified
CPT/HCPCS: 36410; 36415; 36573; 80048; 80307; 81001; 83605; 83735; 84702; 85025; 85610; 85652; 86140; 87040; 87086; 87088; 87186; 96365; 96375; 99284; J1171; J2543; J3411

== ENCOUNTER → 2024-04-23 19:49 | Outpatient (BNV) | payer OTHER, SELFPAY | PROVIDERS: Emergency Provider Emergency Medicine; Visit Provider Student in an Organized Health Care Education/Training Program | DX: M86.9 Osteomyelitis, unspecified (principal); F19.10 Other psychoactive substance abuse, uncomplicated; Z53.29 Procedure and treatment not carried out because of patient's decision for other reasons | CPT/HCPCS: 99282 ==

== ENCOUNTER 2024-05-02 18:24 | Inpatient (IN) | payer MEDICAID, SELFPAY ==
[2024-05-02] VITALS (12 sets, daily range): BP systolic 90–109; BP diastolic 39–73; PULSE 75–96; RESP 13–20; TEMP 36.9–39.4; O2SAT 93–98; BMI 20.8
--- NOTE | ~2024-05-02 | XR_ITS ---
CLINICAL HISTORY: sepsis 1 view chest x-ray Comparison: CT/OR/SR - CHEST WITHOUT CONTRAST [id number] - 02/23/17 12:51 EST Findings: Increased opacity in the medial right lung base, likely within the right middle lobe. Mild cardiomegaly. No acute fracture. IMPRESSION: 1. Right middle lobe opacity concerning for aspiration or pneumonia. 2. Mild cardiomegaly. This document has been electronically signed by: Guero Marie MD on 05/02/2024 20:54:12
--- NOTE | 2024-05-02 18:52 | ED_ITS ---
HPI - General Adult General Chief complaint: General Medical Stated complaint: SOB/headache/cough Time Seen by Provider: 05/02/24 19:03 Source: patient, RN notes reviewed and old records reviewed Mode of arrival: EMS Limitations: no limitations History of Present Illness ED Provider: Nancy WOODARD narrative: 33-year-old female with past medical history significant for alcohol abuse, polysubstance abuse, chronic osteomyelitis of the left lower extremity presents for evaluation of multiple complaints including shortness of breath, cough, headache, nausea. She denies any fevers but was found to be febrile to 102.9 on arrival The patient was seen here on 04/23/2024 and was to be admitted for cellulitis and chronic osteomyelitis of the left lower extremity. She has a wound related to his allergy use. The patient ultimately left against medical advice prior to being admitted. At that time she was also found to have a UTI and follow up staff was unable to get until told the patient The patient reports that she has had a cough for the last 2 days She has a long history of leaving against medical advice Related Data Previous Rx's ?Medication ?Instructions ?Recorded cefuroxime axetil 250 mg tablet 250 mg PO BID 7 days #14 tabs 04/28/24 Allergies Allergy/AdvReac Type Severity Reaction Status Date / Time acetaminophen [From TYLENOL] Allergy Mild ITCHY AND Verified 05/02/24 18:54 HIVES tioconazole Allergy Mild HIVES Verified 05/02/24 18:54 [From MONISTAT 1 (TIOCONAZOLE)] vancomycin Allergy Anaphylaxis Verified 05/02/24 18:54 Review of Systems 2 Constitutional: Constitutional: Reports body ache(s), Denies chills, Reports fever(s), Reports malaise and Reports weakness Eyes: Eyes: Denies blurry vision ENT: Denies vertigo Cardiovascular: Cardiovascular: Reports chest pain and Reports dyspnea Respiratory: Respiratory: Reports cough and Reports dyspnea Gastrointestinal: Gastrointestinal: Denies abdominal pain, Reports nausea and Denies vomiting Musculoskeletal: Musculoskeletal: Denies back pain Integumentary/Breasts: Skin/Breast: Reports erythema, Denies rash and Reports wounds Neurologic: Denies vertigo and Reports weakness PMFSH Past Medical History Medical History Osteomyelitis Anxiety Endocarditis Opiate addiction Surgical History No pertinent past surgical history Social History Social History Household Members: None Do you presently have visiting nurse or other home services: No Alcohol intake: current Alcohol intake frequency: 3 or more drinks per day Alcohol type: hard liquor Patient Tobacco Use Status: Tobacco use Unknown Tobacco use type: Cigarette Cigarette Packs Per Day: 1 Cigarettes Per Day: 20.0 Smoked in Last 30 Days: Yes Use of substances other than those prescribed or required for medical reasons: Yes Substance Use Type: Crack/Cocaine and Heroin Substance Use Frequency: Daily Last Used Substance: Hours (ago) Any prior treatment program specific to substance use: Yes Advance Directives: Yes Advance Directives on File: Yes Advance Directives Date on File: 09/04/22 Do you have a plan to hurt others: No Plan Patient : No Physical Exam ED Vital Signs: Vital Signs - 24 hr 05/02/24 18:52 05/02/24 20:20 05/02/24 20:25 Temperature 102.9 F H 100.4 F Pulse Rate 92 85 84 Respiratory Rate 18 20 16 Blood Pressure 100/45 L 90/45 L 91/39 L Pulse Oximetry 96 95 94 Oxygen Delivery Method Room Air Room Air Room Air 05/02/24 20:36 05/02/24 20:47 05/02/24 21:45 Temperature Pulse Rate 82 82 81 Respiratory Rate 20 16 15 Blood Pressure 94/45 L 91/43 L 93/49 L Pulse Oximetry 94 94 94 Oxygen Delivery Method Room Air Room Air Room Air 05/02/24 22:01 05/02/24 22:36 05/02/24 22:47 Temperature 99.9 F Pulse Rate 87 87 87 Respiratory Rate 15 14 14 Blood Pressure 95/44 L 99/46 L 99/53 L Pulse Oximetry 94 95 98 Oxygen Delivery Method Room Air Room Air Room Air 05/02/24 22:57 05/02/24 23:30 Temperature 98.5 F 98.9 F Pulse Rate 75 Respiratory Rate 13 Blood Pressure 97/50 L Pulse Oximetry 93 Oxygen Delivery Method Room Air BMI result Body Mass Index 20.8 Const General: cooperative, alert and ill appearing; No awake (The patient is sleepy but arousable) Nutritional Appearance: well nourished Orientation/consciousness: patient oriented x3 HENMT Head: Yes normocephalic and Yes atraumatic Throat: Yes posterior oropharynx normal Eyes Eyelids: Yes eyelids normal Conjunctivae: conjunctivae normal Sclerae: sclerae normal Corneas: corneas normal Pupils: Equal, round and reactive pupils present EOM: EOMs intact bilaterally Neck Neck: Yes full ROM Resp Effort & Inspection: normal respiratory effort, able to speak in complete sentences, no audible wheezes and not labored Auscultation: clear to auscultation bilaterally Cardio Rate: regular rate Rhythm: regular rhythm GI Inspection: No distended Palpation (GI): Soft to palpation, not firm, nontender, no guarding and not rigid Skin General skin exam: elasticity normal Neuro General: patient oriented x3 Cranial nerves: Yes CN's II-XII intact bilaterally, Yes Equal, round and reactive pupils present and Yes Bilaterally intact EOM present Cognition (Neuro): normal cognition Extrem Other: Patient has a very large chronic appearing nonhealing wound to the left anterior sequeira. There is minimal purulent drainage, no surrounding erythema Course Course Course Narrative: RME performed by Darshana Colon PA-C. Patient is a 33 year old assigned female at presenting to the emergency department with shortness of breath, chest pain, and worsening leg wound. Detailed physical exam and review of systems are deferred to the crisis clinician. EKG, labs, and swabs ordered. Patient placed back in the waiting room pending room availability and results. Reevaluation(s) Reevaluation #1: Sepsis focused exam performed Time: 20:08 Reevaluation #2: Patient's chest x-ray appears to show a right middle lobe pneumonia, I added azithromycin to a current antibiotic regimen. Time: 20:45 Reevaluation #3: Patient appears well, she was awake, alert and oriented, however she is still hypotensive, this may be a sympathetic reaction to her fever being treated. Who ordered 1/3 L of IV fluids and will continue to follow up. Time: 22:06 Medications Administered Discontinued Medications Generic Name Dose Route Start Last Admin Trade Name Freq PRN Reason Stop Dose Admin Ceftriaxone Sodium 1 gm 05/02/24 19:34 05/02/24 19:59 Ceftriaxone Sodium 1 Gm Vial IVPUSH 05/02/24 19:35 1 gm ONCE ONE Administration Sodium Chloride 1,700.97 mls @ 1,700.97 mls/hr 05/02/24 19:34 05/02/24 21:25 Ns 30 ml/kg infuse over 1 hr (1700.97 ml) 05/02/24 20:33 Infused IV Infusion .Q1H STA Clindamycin Phosphate 600 mg in 50 mls @ 100 mls/hr 05/02/24 19:43 05/02/24 20:35 Cleocin IV 05/02/24 20:12 Infused ONCE ONE Infusion Sodium Chloride 1,000 mls @ 999 mls/hr 05/02/24 20:45 05/02/24 23:10 Ns IV 05/02/24 21:45 Infused .Q1H1M SHIVA Infusion Azithromycin 500 mg/ Sodium 250 mls @ 125 mls/hr 05/02/24 20:44 05/02/24 23:49 Chloride IV 05/02/24 22:43 Infused ONCE ONE Infusion Sodium Chloride 1,000 mls @ 999 mls/hr 05/02/24 22:15 05/02/24 23:25 Ns IV 05/02/24 23:15 999 mls/hr .Q1H1M SHIVA Administration Ibuprofen 600 mg 05/02/24 19:35 05/02/24 20:04 Ibuprofen 600 Mg Tablet PO 05/02/24 19:36 600 mg ONCE ONE Administration Oseltamivir Phosphate 75 mg 05/02/24 20:40 05/02/24 20:49 Oseltamivir Phosphate 75 Mg Capsule PO 05/02/24 20:41 75 mg ONCE ONE Administration Procedures Procedure Narrative Procedure Narrative: I was asked to assist with IV access. I was able to place a 20 gauge 2.5 in IV in the left upper extremity using ultrasound guidance. The line flushed well with good blood return. There were no complications Medical Decision Making Medical Decision Making MDM Narrative: 33-year-old female presents for evaluation of multiple complaints including cough, she was febrile on arrival and hypotensive. A sepsis alert was called. She has several sources of potential infection including in the left lower extremity wound, UTI but she also has respiratory symptoms. I ordered ceftriaxone and clindamycin as the leg wound is the most likely source of infection. Her most recent urine culture was sensitive to ceftriaxone. Heart rate IV fluids. Workup is pending at this time. Differential Diagnosis Differential Diagnoses: The differential diagnosis associated with the presentation includes Sepsis Bacteremia Endocarditis Septic emboli Pneumonia UTI Osteomyelitis Admission/Observation Consideration of admission/observation: Escalation of care including admission/observation considered Lab Data MDM Lab Attestation statement: I reviewed the patient's lab results. Leukocytosis to 14.2 K which is significantly higher than it was when she was here a week ago. She has a chronic microcytic anemia. Patient's chemistries are significant for a mild hyponatremia 132 a slightly elevated BUN to 22 with a creatinine of 1.07, this may reflect some degree of JANES as the patient's creatinine baseline is 0.6. No other significant electrolyte abnormalities. 05/02/24 19:42 05/02/24 19:42 Labs: Lab Results 05/02/24 05/02/24 05/02/24 Range/Units 19:42 22:18 23:28 WBC 14.2 H (4.8-10.8) X10*3/uL RBC 4.14 L (4.20-5.50) X10*6/uL Hgb 7.7 L (12.0-16.0) g/dl Hct 25.7 L (37.0-47.0) % MCV 62.1 L (80.0-98.0) fL MCH 18.6 L (27.0-33.0) pg MCHC 30.0 L (31.0-35.0) g/dl RDW 18.8 H (11.0-16.0) % Plt Count 266 (160-400) X10*3/uL MPV 9.1 L (9.4-12.3) fL Immature Gran % (Auto) Cancelled Neut % (Auto) Cancelled Lymph % (Auto) Cancelled [place] % (Auto) Cancelled Eos % (Auto) Cancelled Baso % (Auto) Cancelled Lymph # (Auto) Cancelled [place] # (Auto) Cancelled Eos # (Auto) Cancelled Baso # (Auto) Cancelled Abs Immat Gran (auto) Cancelled Absolute Neuts (auto) Cancelled Absolute Nucleated RBC 0.000 (0.0-0.012) X10*3/uL Nucleated RBC % (auto) 0.0 (0.0-0.2) /100WBC Neutrophils % (Manual) 69 (45-73) % Band Neutrophils % 22 H (3-5) % Lymphocytes % (Manual) 8 L (20-40) % Monocytes % (Manual) 1 L (2-11) % Abs Neuts (Manual) 12.9 H (2.0-8.3) X10*3/uL Lymphocytes # (Manual) 1.1 L (1.2-4.9) X10*3/uL Monocytes # (Manual) 0.1 (0.1-1.2) X10*3/uL Toxic Vacuolation PRESENT Platelet Estimate NORMAL (NORMAL) Plt Morphology Comment NORMAL RBC Morphology NOTED Microcytosis 1+ (5-14) /OIF Ovalocytes 1+ (5-14) /OIF Sodium 132 L (135-145) mmol/L Potassium 4.5 (3.3-5.1) mmol/L Chloride 101 (96-108) mmol/L Carbon Dioxide 22 (22-29) mmol/L Anion Gap 14 (12-20) BUN 22 H (9-16) mg/dL Creatinine 1.07 (0.5-1.4) mg/dL Estim Creat Clear Calc 67.5 Estimated GFR 59 Random Glucose 97 (60-115) mg/dL Lactic Acid 2.7 H* (0.5-2.0) mmol/L Lactic Acid F/U @ 2Hr 1.6 (0.5-2.0) mmol/L Calcium 8.1 L (8.4-10.2) mg/dL Magnesium 1.7 (1.6-2.6) mg/dL Total Bilirubin 0.5 (0.0-1.0) mg/dL AST 32 H (5-31) U/L ALT 14 (0-31) U/L Alkaline Phosphatase 95 (39-117) U/L Troponin I High Sens 3.1 (<3.5-17.0) ng/L Total Protein 8.1 H (6.5-8.0) g/dL Albumin 3.4 L (3.5-5.0) g/dL Urine Color Yellow Urine Appearance Cloudy Urine pH 5.5 (5.0-9.0) Ur Specific [place] 1.010 (1.005-1.025) Urine Protein Trace (Neg-Trace) mg/dL Urine Glucose (UA) Negative (Negative) mg/dL Urine Ketones Negative (Negative) mg/dL Urine Blood Trace H (Negative) Urine Nitrite Negative (Negative) Ur Leukocyte Esterase Large (3+) H (Negative) Urine RBC 3-5 H (0-2) /HPF Urine WBC >50 H (0-5) /HPF Ur Squamous Epith Cells 11-20 (0-2) /HPF Urine Bacteria 1+ (None Seen) Hyaline Casts 3-5 (0-2) /LPF Influenza Type A (PCR) POSITIVE A (Negative) Influenza Type B (PCR) NEGATIVE (Negative) RSV RNA Qual (PCR) NEGATIVE (Negative) SARS-CoV-2 RNA (RT-PCR) NEGATIVE (Negative) Critical Care Time Critical Care Time Critical Care Time: Yes Total Critical Care Time: 60 Attestation: 33-year-old female presents for evaluation of sepsis, she was treated with clindamycin and ceftriaxone for a possible skin infection due to her chronic leg wound and chronic osteomyelitis. She has an allergy to vancomycin. I did not use Zosyn as her last UTI was resistant to ampicillin. This is also a possible sources of infection, however the patient then ended up having pneumonia concerning for aspiration pneumonia I added azithromycin in between that and clindamycin that she would be covered. The patient required multiple re- evaluations due to hypotension. She was see 3 L of IV fluids. She was eventually admitted to the medical service Discharge Plan Discharge Clinical Impression: Sepsis, Polysubstance abuse, Chronic osteomyelitis, Urinary tract infection Patient Disposition: Admitted As Inpatient
--- NOTE | 2024-05-02 18:53 | ECG_ITS ---
Test Reason : cp Blood Pressure : */* mmHG Vent. Rate : 92 BPM Atrial Rate : 92 BPM P-R Int : 124 ms QRS Dur : 86 ms QT Int : 406 ms P-R-T Axes : 39 58 32 degrees QTcB Int : 502 ms Normal sinus rhythm Prolonged QT Abnormal ECG When compared with ECG of 04-Sep-2022 03:30, Nonspecific T wave abnormality no longer evident in Anterolateral leads Referred By: Darshana Colon Electronically Signed By: LUCÍA CUBA
--- NOTE | 2024-05-02 19:04 | PC.NURSE ---
Charge nurse notified of pt, brought to [facility] for treatment.
--- OUTSIDE RECORDS SUMMARY | 2024-05-02 19:47 | XMS_ITS | Encounter Summary ---
Author Organization [facility] Address [address] [place] [phone] Phone Care Team Providers Care Gluing Machine Feeder Name Role Phone Unavailable Primary Care Provider Unavailabl e Encounter Details Date Type Department Care Team (Late st Contact Info) Description 08/24/2017 Conversion Encounter [facility] [address] [id number] Social History Tobacco Use Types Packs/Day Years Used Date Smoking Tobacco: Never Assessed Comments Unknown Sex and Gender Information Value Date Recorded Sex Assigned at Not on file Legal Sex Female 6:12 PM EDT Gender Identity Not on file Sexual Orientation Not on file documented as of this encounter Plan of Treatment Not on file documented as of this encounter Visit Diagnoses Not on filedocumented in this encounter
--- OUTSIDE RECORDS SUMMARY | 2024-05-02 19:47 | XMS_ITS | Continuity of Care Document ---
Author Organization [facility] Address [address] [place] [address]- Support Name Relationship Address Phone MEGAN PEDRAZAEN Personal Relationship Unknown Unavai lable PEDRAZA, CHRIS mother Unknown Unavailable PEDRAZA, BOOGIE Personal Relationship Unknown Unavai lable PEDRAZA, BOOGIE Personal Relationship Unknown Unavai lable PEDRAZA, BOOGIE Personal Relationship Unknown Unavai lable KRYSTA, GAYATHRI Other Unknown Unavailable PEDRAZA, BOOGIE Personal Relationship Unknown Unavai lable PEDRAZA, BOOGIE Personal Relationship Unknown Unavai lable PEDRAZA, BOOGIE Personal Relationship Unknown Unavai lable PEDRAZA, BOOGIE Personal Relationship Unknown Unavai lable PEDRAZA, BOOGIE Personal Relationship Unknown Unavai lable PEDRAZA, BOOGIE Personal Relationship Unknown Unavai lable PEDRAZA, BOOGIE Personal Relationship Unknown Unavai lable PEDRAZA, BOOGIE father Unknown Unavailable PEDRAZA, BOOGIE Personal Relationship Unknown Unavai lable PEDRAZA, BOOGIE Personal Relationship Unknown Unavai lable PEDRAZA, BOOGIE Personal Relationship Unknown Unavai lable PEDRAZA, BOOGIE Personal Relationship Unknown Unavai lable PEDRAZA, BOOGIE Personal Relationship Unknown Unavai lable PEDRAZA, BOOGIE Personal Relationship Unknown Unavai lable PEDRAZA VIELKA Personal Relationship Unknown Unav ailable PEDRAZA, BOOGIE Personal Relationship Unknown Unavai lable PEDRAZA, BOOGIE Personal Relationship Unknown Unavai lable PEDRAZA, BOOGIE Personal Relationship Unknown Unavai lable PEDRAZA, CHRIS Personal Relationship Unknown Unavai lable PEDRAZA, BOOGIE Personal Relationship Unknown Unavai lable PEDRAZA, BOOGIE Personal Relationship Unknown Unavai lable PEDRAZA, BOOGIE Personal Relationship Unknown Unavai lable PEDRAZA, BOOGIE Personal Relationship Unknown Unavai lable PEDRAZA, BOOGIE Personal Relationship Unknown Unavai lable PEDRAZA, BOOGIE Personal Relationship Unknown Unavai lable PEDRAZA, BOOGIE Personal Relationship Unknown Unavai lable Care Team Providers Care Training And Development Project Leader Name Role Phone Not on Staff, PCP Primary Care Physician Unavail able Encounter [facility] Date(s): 04/10/24 - 04/12/[address] [id number] Discharge Disposition: A-D/C AMA Attending Physician: Maite Henderson MD Admitting Physician: Nazia PERSAUD, Amanda Joseph Referring Physician: Not on Staff, Referring MD Encounter Type: Disch IP Allergies, Adverse Reactions, Alerts Substance Criticality Severity Reaction Reaction Severity Status vancomycin perioral edema hives swelling Active Tylenol Active QUEtiapine Active Monistat-1 Active Red Dye Active Immunizations Given and Recorded Vaccine Date Status Refusal Reason Measles/Mumps/Rubella Virus Vaccine 1 12/02/13 Giv en tetanus/diphtheria/pertussis, acel(Tdap) 2 12/02/13 Given tetanus/diphtheria/pertussis, acel(Tdap) 3 10/22/11 Given 1Admin Note: VIS given (07/26/2011) 2Admin Note: VIS given (08/13/2012) 3Admin Note: VIS dated 04/30/2011 Medications Methadone = 60 mg, By Mouth, Daily, 0 Refills, Maintenance, 04/10/24 9:44:00 AM EST, Partial fill upon patient request if the prescription is for a schedule II opioid drug. Start Date: 04/10/24 Status: Ordered Repeat number: 1 Methadone Tablet 5 mg, Tablet, By Mouth, Once, Routine, 04/11/24 3:00:00 PM EST, Stop date 04/11/24 3:06:20 PM EST Start Date: 04/11/24 Stop Date: 04/11/24 Status: Completed Repeat number: 1 Methadone Tablet 55 mg, Tablet, By Mouth, 04/12/24 9:00:00 AM EST Start Date: 04/12/24 Stop Date: 04/12/24 Status: Completed Repeat number: 1 multivitamin Lipotropic with Multivitamins oral tablet 2 tablet, By Mouth, Daily, # 30 tablet, 0 Refills, Maintenance, 04/10/24 9:45:00 AM EST, Tablet, Partial fill upon patient request if the prescription is for a schedule II opioid drug. Start Date: 04/10/24 Status: Ordered Quantity: 30.0 Unit: tablet Repeat number: 1 thiamine 100 mg oral tablet 100 mg, 1, tablet, By Mouth, Daily, Refills 0, Maintenance, 04/10/24 9:45:00 AM EST, Partial fill upon patient request if the prescription is for a schedule II opioid drug. Start Date: 04/10/24 Status: Ordered Repeat number: 1 Problem List Condition Confirmation Course Effective Dates Status Health St atus Informant Childhood asthma Confirmed Active Opioid abuse, in remission Confirmed Active Paroxysmal SVT (supraventricular tachycardia) Confirmed Active Confirmed Active Results Radiology Reports * Exam Date Time Procedure Performing Provider Status 04/10/24 6:50 AM Tibia/Fibula 2 Views Left Eliud Mojica umn; Auth (Verified) Notes: (Tibia/Fibula 2 Views Left) Reason For Exam: Infection RESULT: Tibia/Fibula 2 Views Left Tibia/Fibula 2 Views Left INDICATION: Nonhealing open wound lower extremity with concern of osteomyelitis. History of IV drug abuse. Prior treatment for chronic osteomyelitis. TECHNIQUE: AP and lateral views. COMPARISON: None. FINDINGS: There is no fracture.. Extensive periosteal reaction along much of the tibia. It was present previously and is roughly similar injury. Less pronounced periosteal reaction mid fibular shaft also unchanged. Soft tissue wound noted anteriorly mid sequeira. No opaque foreign body. No gas in soft tissues. IMPRESSION: 1. No fracture.. 2. Known open wound anteriorly in the sequeira. 3. Prominent periosteal reaction tibial shaft and mild periosteal reaction fibular shaft. These findings are unchanged and are felt to represent the patient's chronic osteomyelitis. 4. No lateral patent foreign body in soft tissues. WSN: [id number] Ordering Physician: Katerina Davis Dictated By: Baldo Germain MD Dictated Date/Time: 04/10/24 7:31 am Reviewed By: Baldo Germain MD Signed By: Baldo Germain MD Signed Date/Time: 04/10/24 7:31 am Transcribed By: JIMENA Transcribed Date/Time: 04/10/24 7:28 am Vital Signs Most recent to oldest [Reference Range]: 1 2 3 Height 165 cm (04/12/24 6:00 AM) 165 cm (04/11/24 3:16 PM) 165 cm (04/11/24 6:52 AM) Weight 59 kg (04/10/24 1:25 PM) Oxygen Saturation [94-100 %] 100 % (04/12/24 6:00 AM) 97 % (04/11/24 3:16 PM) 100 % (04/11/24 6:52 AM) Pulse Rate [55-90 bpm] 79 bpm (04/12/24 6:00 AM) 103 bpm *H* (04/11/24 3:16 PM) 62 bpm (04/11/24 6:52 AM) Body Mass Index [18.5-24.99 kg/m2] 21.67 kg/m2 (04/10/24 1:25 PM) Blood Pressure [90-138/55-84 mm Hg] 136/80mm Hg (04/12/24 6:00 AM) 118/80mm Hg (04/11/24 3:16 PM) 142/73mm Hg *H* (04/11/24 6:52 AM) Respiratory Rate [16-30 br/min] 18 br/min (04/12/24 6:19 AM) 18 br/min (04/12/24 6:00 AM) 17 br/min (04/11/24 4:05 PM) Temperature [96.8-100.4 DegF] 97.9 DegF (04/12/24 6:00 AM) 98.7 DegF (04/11/24 3:16 PM) 97.7 DegF (04/11/24 6:52 AM) Mode of Delivery (Oxygen) Room air (04/12/24 6:00 AM) Room air (04/11/24 3:16 PM) Room air (04/11/24 6:52 AM) Blood pressure sites Arm, left (04/12/24 6:00 AM) Arm, right (04/11/24 3:16 PM) Arm, right (04/11/24 6:52 AM) Temperature Route Oral (04/12/24 6:00 AM) Oral (04/11/24 3:16 PM) Oral (04/11/24 6:52 AM) Dry Weight 59 kg (04/10/24 1:25 PM) Weight Obtained Via Bed scale (04/10/24 1:25 PM) Dry Weight Obtained Via Bed scale (04/10/24 1:25 PM) Social History Social History Type Response Smoking Status Current every day leti phillips entered on: 04/05/17 Sex Sex Representation Female (finding) Admission evaluation note * Ryder Arana DO: PERFORM Event Display: Admission Note Authored Date: [id number] Patient: ??PEDRAZA, VIELKA ? Age:??33 Years?Sex:??Female?:??1990?? History of Present Illness Vielka is a 33-year-old woman with a past medical history significant for polysubstance abuse, chronic anemia, hepatitis C and chronic lower extremity wound who presented from alf due to ongoing lower extremity wound that is not healing as well as concern for opioid and alcohol withdrawal.?? Patient has had a long history of chronic nonhealing wound and left lower extremity which is apparently been present for the last 2 years secondary to use of substance with xylazine.?? Has been seen previously in the hospital and it appears in reading previous note from surgery there was considerationfor amputation but patient to pursue this at this time.?? Ultimately her bigger concern is for opioid and alcohol withdrawal at this time stating that she is having symptoms of anxiety and restlessness. ?? On presentation to the emergency department patient was found to be hemodynamically stable and saturating appropriately on room air.?? Initial laboratories to include a CBC and CMP was remarkable only for an anemia which is chronic and mildly elevated alkaline phosphatase which also appears to be ch ronic.?? Additionally a CRP and ESR were obtained which were both noted to be elevated.?? Due to concern of chronic ongoing wound imaging with an x-ray was performed of the left lower extremity whichdemonstrated known open wound on the anterior sequeira as well as prominent periosteal reaction which were unchanged from previous and found to be likely secondary to chronic osteomyelitis. ?? At time of evaluation patient is resting in bed.?? Patient is quite restless in bed and stating that she is having symptoms of withdrawal and states that she last had a drink as well as used cocaine and heroin Friday morning before being picked up for the [place] [facility].?? She endorses that she does have a history of alcohol withdrawal and withdrawal seizure previously but never required intubation orICU hospitalization secondary to alcohol withdrawal.?? Additionally she notes that she is on methadone and apparently is to be dosed at [facility] with a plan to start at 50 mg and uptitrate but appears as though she only showed up 1 time and got a dose of 50 mg on 04/08/2023.?? At this point patientwill be admitted to the hospital for monitoring of withdrawal from opioids as well as alcohol and for further evaluation of chronic osteomyelitis. ?? Review of Systems CONSTITUTIONAL: ??Denies any fever, chills EYES:??Denies any changes to vision. HEENT: Denies any MOORE CV:??Denies any CP, palpitations. PULM: Denies any SOB. ABD: Denies any abdominal pain. : Denies any changes to frequency.? MS: Admits leg pain NEURO: Denies any change??in??weakness, numbness SKIN: Admits??to LE wound ? A full review of systems was completed and is otherwise negative except as mentioned in history of present illness. Objective Vital Signs?? Temperature: 98.2 DegF (04/10/24 14:39:00) Temperature Route: Oral (04/10/24 14:39:00) Pulse Rate: 57 bpm (04/10/24 14:39:00) Respiratory Rate: 17 br/min (04/10/24 15:56:00) Systolic Blood Pressure:??140 mm Hg??High (04/10/24 14:39:00) Diastolic Blood Pressure: 77 mm Hg (04/10/24 14:39:00) Blood pressure sites: Arm, right (04/10/24 14:39:00) Mean Arterial Pressure: 98 mm Hg (04/10/24 14:39:00) Pulse Pressure: 63 mm Hg (04/10/24 14:39:00) Oxygen Saturation: 100 % (04/10/24 14:39:00) Mode of Delivery (Oxygen): Room air (04/10/24 14:39:00) Early Warning Score: 3 (04/10/24 15:57:17) ? Physical Exam General Appearance: NAD. Restless Eyes:??No scleral icterus. ENT: ??MM moist. Cardiovascular: RRR S1 and S2?? Respiratory: ??Breath sounds clear GI: Soft. Nontender and nondistended. MS: ??No edema or erythema in the lower extremities. Skin:??Large LLE wound as seen in media? Neuro: ??No slurred speech. Moving upper and lower extremities spontaneously. Assessment/Plan Assessment:??Vielka is a 33-year-old woman with a past medical history significant for polysubstance abuse, chronic anemia, hepatitis C and chronic lower extremity wound who presented from alf due to ongoing lower extremity wound that is not healing as well as concern for opioid and alcohol with drawal.??Will continue to manage patient for withdrawal symptoms and also have placed infectious disease consult for further evaluation of chronic osteomyelitis. ?? Open wound of left lower extremity (S81.802A) Chronic osteomyelitis (M86.60) Patient has had ongoing lower extremity wound for apparently several years.??Initial wound was related to her IV drug use and using a substance that was laced with xylazine and she developed slightlyvasculitis.??Unfortunately she has had previous hospitalizations with recommendation to complete antibiotic course for chronic osteomyelitis but patient does not think that she has ever completed a course.??Additionally during last hospitalization it appears as though surgery team had recommended AKA but patient is resistant to this as she does not want to pursue amputation.??Ultimately we will involve infectious disease for further assistance as they have previously been in involved to help determine next steps and disposition. ??? Doxycycline resumed as this was previously prescribed ??? Infectious disease consult ??? Will hold off on surgery consultation until seen by infectious ease as patient not interested in surgical options at this time ??? Wound care consult placed ??? Monitor ESR and CRP ?? Alcohol use disorder (F10.90):?? Patient with a significant history of alcohol use.??She states that she drinks at least 8 nips a day and her last drink was 04/09/2024 morning before being brought into alf.??She states that she is having symptoms of withdrawal right now and has previously had seizures but no ICU hospitalization.??Additionally she states that she responds better to benzodiazepines for treatment and is placed on CIWA protocol with Ativan. ??? Continue CIWA protocol ??? Ativan according to scores ??? Monitor for need for further adjuvant medications ??? Multivitamins ordered ??? Addiction consult ?? Polysubstance abuse (F19.10):?? Patient with history of IV drug use as above this is led to chronic wound.??She does endorse using opioids as well as recently was started on methadone via the IV step.??In review of records it appears that there was a plan to start on 50 mg on 04/08/2024 which patient did receive and then to uptitrate to 70 mg on 04/10 however patient did not show up for dose on 04/09.??Ultimately will resume dosing of 50 mg and involve addiction medicine team. ??? Methadone 50 mg ??? Addiction medicine consult ??? Monitor for withdrawal symptoms ?? Anemia (D64.9):??Chronic, no signs of bleeding, monitor ?? VTE Prophylaxis:??Lovenox Code Status:??Full Histories Allergies Allergies ?(Active and Proposed Allergies Only) QUEtiapine? (Severity: Unknown severity, Onset: Unknown) vancomycin? (Severity: Unknown severity, Onset: Unknown) ?Reactions: swelling, hives, perioral edema Red Dye? (Severity: Unknown severity, Onset: Unknown) Monistat-1? (Severity: Unknown severity, Onset: Unknown) Tylenol? (Severity: Unknown severity, Onset: Unknown) ? Past Medical History/Problem List Active Problems(5) Childhood asthma Endocarditis Opioid abuse, in remission Paroxysmal SVT (supraventricular tachycardia) ? Social History Alcohol Details:??Use: Current. ??Frequency: Several times per day. ??Type: Liquor. ??Alcohol use in household: Yes. Substance Abuse Details:??Use: Current. ??Type: Cocaine, Heroin. ??Other: IVDU. Tobacco Details:??Current every day smoker ? Family History Daughter with Wilms Tumor ? Medications Home Medications Methadone?60?Milligram?By Mouth?Daily Multivitamin (multivitamin Lipotropic with Multivitamins oral tablet)?2?tab(s)?By Mouth?Daily Thiamine (thiamine 100 mg oral tablet)?100?Milligram?1?tablet?By Mouth?Daily ? Results Recent Labs BLOOD COUNT & DIFF WBC 3.7 k/mm3 (Low)?? 04/09/2024 22:38 RBC 4.60 m/mm3 ()?? 04/09/2024 22:38 Hgb 8.3 Gm/dL (Low)?? 04/09/2024 22:38 Hct 29.7 % (Low)?? 04/09/2024 22:38 MCV 64.6 femtoliters (Low)?? 04/09/2024 22:38 MCH 18.0 pg (Low)?? 04/09/2024 22:38 MCHC 27.9 Gm/dL (Low)?? 04/09/2024 22:38 Platelet Count 332 k/mm3 ()?? 04/09/2024 22:38 RDW-SD 40.9 femtoliters ()?? 04/09/2024 22:38 MPV 9.3 femtoliters (Low)?? 04/09/2024 22:38 Nucleated RBC (Automated) 0.0 #/100 WBC'S ()?? 04/09/2024 22:38 Abs. NRBC 0.0 k/mm3 ()?? 04/09/2024 22:38 Abs. Neut 1.9 k/mm3 ()?? 04/09/2024 22:38 Abs. Lymph 1.5 k/mm3 ()?? 04/09/2024 22:38 Abs. Swain 0.2 k/mm3 (Low)?? 04/09/2024 22:38 Abs. Eo 0.0 k/mm3 ()?? 04/09/2024 22:38 Abs. Baso 0.0 k/mm3 ()?? 04/09/2024 22:38 Neut % 51.0 % ()?? 04/09/2024 22:38 Lymph % 40.5 % ()?? 04/09/2024 22:38 Swain % 6.6 % ()?? 04/09/2024 22:38 Eos % 0.8 % ()?? 04/09/2024 22:38 Baso % 0.8 % ()?? 04/09/2024 22:38 Imm Gran 0.3 % ()?? 04/09/2024 22:38 Abs. Imm Gran 0.0 k/mm3 ()?? 04/09/2024 22:38 ?? CHEM GENERAL Sodium 138 mmol/L ()?? 04/09/2024 22:38 Potassium 4.1 mmol/L ()?? 04/09/2024 22:38 Chloride 105 mmol/L ()?? 04/09/2024 22:38 Bicarbonate Level 24 mmol/L ()?? 04/09/2024 22:38 Anion Gap 9 ()?? 04/09/2024 22:38 Glucose Level 90 mg/dL ()?? 04/09/2024 22:38 BUN 17 mg/dL ()?? 04/09/2024 22:38 Creatinine-Blood 0.52 mg/dL ()?? 04/09/2024 22:38 Estimated GFR Creatinine 127 ML/MIN/1.73 M2 ()?? 04/09/2024 22:38 Calcium 8.5 mg/dL (Low)?? 04/09/2024 22:38 Protein, Total 7.8 Gm/dL ()?? 04/09/2024 22:38 Albumin 3.5 Gm/dL ()?? 04/09/2024 22:38 AG Ratio 0.8 ()?? 04/09/2024 22:38 Alkaline Phosphatase 155 units/L (High)?? 04/09/2024 22:38 AST (SGOT) 34 units/L (High)?? 04/09/2024 22:38 ALT (SGPT) 33 units/L ()?? 04/09/2024 22:38 Bilirubin, Total 0.3 mg/dL ()?? 04/09/2024 22:38 C-Reactive Protein 2.5 mg/dL (High)?? 04/09/2024 22:38 ?? ENDOCRINE/TUMOR MARKER Blood <1 mIU/mL ()?? 04/09/2024 22:38 ?? HEME OTHER Sed Rate 82 mm/hr (High)?? 04/09/2024 22:38 Hold Blue Top SPECIMEN DISCARDED AFTER 4 HOURS. ()?? 04/09/2024 22:38 ? EKG study * Event Display: ECG 12-Lead Authored Date: Please click on pdf link to open report * Event Display: ECG 12-Lead Authored Date: Ventricular Rate: 77 BPM Atrial Rate: 77 BPM P-R Interval: 132 ms QRS Duration: 94 ms Q-T Interval: 424 ms QTC Calculation(Bazett): 479 ms P [place]: 44 degrees R [place]: 84 degrees T [place]: 59 degrees Normal sinus rhythm Septal infarct , age undetermined Abnormal ECG When compared with ECG of 24-Dec-2023 00:29, No significant change was found Confirmed by Froilan Lim ([id number]) on 04/12/2024 9:19:48 AM [facility]: Froilan Lim [facility] Progress note * Asuncion King RN: SIGN, MODIFY, PERFORM, SIGN, VERIFY, MODIFY, SIGN Event Display: Progress Note [facility] Authored Date: Patient: VIELKA PEDRAZA Age: 33 years Sex: Female : 1990 Associated Diagnoses: None Author: Asuncion iKng RN Findings Problem Related to Alteration in Integumentary : Alteration in Integumentary/new 04/12/2024 9:00 EST Alteration in Integumentary Related to Cellulitis Goals & Outcomes, Integumentary Nutritional intake is adequate for metabolic needs, Pt will maintain adequate fluid & nutritional balance, Pt will maintain intact skin integrity, Wound will progress towards healing Interventions, Integumentary Consult Wound Care as needed for further interventions, Encourage & assist pt to change position frequently, Interdisciplinary consults as appropriate, Keep bed as flat as tolerated to reduce shearing, Keep linen clean, dry and wrinkle free, Keep skin clean & dry, Maintain sterile technique with dressing changes, Monitor reddened areas for continued or increasing reddness, Reposition pt off reddened areas BH Goals/Interventions, Integumentary Yes Integumentary, Problem Start 04/10/2024 18:02 Reviewed plan with, Integumentary Patient Patient Progression, Integumentary Pt progressing according to plan . Narrative/Incidental Pt A&Ox4. Guard at bedside. Pt is very anxious, PRN Ativan given w/ good effect. No cardiac/respiratory distress. OOB w/ standby assistance. Pt ambulated to shower this morning. Wound care completed per orders. Awaiting IR for possible bone biopsy of LLE. Safety precautions in place, call morris in reach. Care ongoing.. * Asuncion King RN: PERFORM Event Display: Progress Note Hospital Authored Date: Pt was just released from being incarcerated. Pt stated she is now leaving AMA. AMA form signed andpt was educated. made aware. Pt ambulatory and left unit on her own. * Maite Henderson MD: PERFORM Event Display: Progress Note Hospital Authored Date: Patient: ??PEDRAZA, VIELKA ? Age:??33 Years?Sex:??Female?:??1990?? Subjective No acute events overnight. Morning labs reviewed. Patient reported feeling anxious and restless andwish to increase methadone again and add low dose Ativan to help with anxiety. Discussed with addiction medicine will give extra 10 mg this afternoon and increase to 65 mg tomorrow then again midweekas needed. Await IR consult to determine the feasibility of bone biopsy.?? Review of Systems ?? Cardiovascular:??no chest pain Respiratory:??No shortness of breath, cough or sputum production. Gastrointestinal:??No anorexia, nausea, vomiting or diarrhea. No abdominal pain or blood in stool. Genitourinary:??No burning micturition. No urinary frequency or incontinence. Psychiatric:??Anxiety.?? Objective Measurements?? Height: 165 cm (04/12/24) Weight: 59 kg (04/10/24) Dry Weight: 59 kg (04/10/24) Body Mass Index: 21.67 kg/m2 (04/10/24) ? Vital Signs?? Temperature: 97.9 DegF (04/12/24 06:00:00) Temperature Route: Oral (04/12/24 06:00:00) Pulse Rate: 79 bpm (04/12/24 06:00:00) Respiratory Rate: 18 br/min (04/12/24 06:19:00) Systolic Blood Pressure: 136 mm Hg (04/12/24 06:00:00) Diastolic Blood Pressure: 80 mm Hg (04/12/24 06:00:00) Blood pressure sites: Arm, left (04/12/24 06:00:00) Mean Arterial Pressure: 99 mm Hg (04/12/24 06:00:00) Pulse Pressure: 56 mm Hg (04/12/24 06:00:00) Oxygen Saturation: 100 % (04/12/24 06:00:00) Mode of Delivery (Oxygen): Room air (04/12/24 06:00:00) Early Warning Score: 2 (04/12/24 06:40:34) ? Pain Scores?? No qualifying data available. ?? Intake/Output? No Data Available ?? Precautions Seizure Precautions ? Physical Exam Constitutional: Alert, in no acute distress. Head EENT: Extraocular muscle movement intact.??Moist mucous membranes.?? Respiratory: Clear to auscultation. No wheezing or crackles. No use of accessory muscles. Cardiovascular: S1S2 regular. No murmurs, rubs or gallops. Gastrointestinal: Abdomen soft, non-tender, non-distended. Normal bowel sounds. Extremities: No lower extremity pitting??edema. No cyanosis or clubbing. Neurologic: AAOx3, Speech normal. No focal neurological deficits. Skin: L anterior sequeira wound dressing in place.?? Psychiatric: Anxious.?? _ Inpatient Medications Medications (20) Active SCHEDULED: (10) Enoxaparin 40 mg Inj (Enoxaparin Inj) ??40 mg 0.4 mL, Subcutaneous Injection, Daily Folic Acid 1 mg Tablet (Folic Acid Tablet) ??1 mg, By Mouth, Daily Methadone 10 mg Tablet (Methadone Tablet) ??65 mg, By Mouth, Daily Methadone 10 mg Tablet (Methadone Tablet) ??10 mg, By Mouth, Once Multivitamin Tablet ??1 tablet, By Mouth, Daily NaCl 0.9% Flush 3ml (NaCL 0.9% Flush) ??3 mL, IV Push, Every 8 hours Polyethylene Glycol 17 Gm Powder (MiraLax Powder) ??17 Gm 1 pack/packet, By Mouth, Daily Senna Tablet ??17.2 mg 2 tablet, By Mouth, Daily at bedtime Thiamine 100 mg Tablet (Thiamine Tablet) ??100 mg, By Mouth, Daily Vashe Wound Care Emollient/Cleanser (Vashe Topical Solution) ??475 mL, Topically, Daily CONTINUOUS: (0) PRN: (10) Clonidine 0.1 mg Tablet (cloNIDine 0.1 mg oral tablet) ??0.1 mg, By Mouth, Every 8 hours Dextromethorphan-Guaifenesin 20 mg-200 mg/10 mL Liqu UD (Robitussin DM Liquid) ??10 mL, By Mouth, Every 4 hours Docusate Sodium 100 mg Capsule (Docusate Sodium Capsule) ??100 mg 1 capsule, By Mouth, 2 times a day HydrOXYzine Pamoate 25mg Capsule (Vistaril Capsule) ??25 mg, By Mouth, Every 4 hours Lorazepam 2 mg Tablet (Ativan 2 mg oral tablet) ??2 mg, By Mouth, 3 times a day Melatonin 3 mg Tablet (Melatonin Tablet) ??3 mg, By Mouth, Daily at bedtime NaCl 0.9% Flush 3ml (NaCL 0.9% Flush) ??3 mL, IV Push, Every 8 hours nalOXONE ??400mcg/mL Inj (nalOXONE Inj) ??0.2 mg 0.5 mL, IV Push, Every 5 minutes Nicotine 2 mg Gum (Nicotine Gum) ??2 mg, Chew, Every hour Simethicone 80 mg Chewable Tablet (Simethicone Tablet) ??80 mg, Chew, 3 times a day ? 72 Hour Antibiotic History Stopped Antibiotics Stop Date/Time Last Administered First Administered Doxycycline??100 mg, By Mouth, Every 12 hours 04/11/2024 07:14 04/10/2024 20:58 04/10/2024 08:28 ? Results Recent Labs COAG INR 1.1 ()?? 04/12/2024 07:15 Protime (PT) 11.7 seconds (High)?? 04/12/2024 07:15 ?? VIROLOGY HIV STAT Screen Result NEGATIVE ()?? 04/12/2024 07:15 ? Assessment/Plan ? Diagnoses 1. ??Opioid use disorder, severe, dependence ??(F11.20) 2. ??Alcohol use disorder, severe, dependence ??(F10.20) 3. ??Chronic osteomyelitis of left tibia ??(M86.662) 4. ??Wound of left leg ??(S81.802A) 5. ??Iron deficiency anemia ??(D50.9) ?? Assessment:??Vielka is a 33-year-old woman with a past medical history significant for polysubstance abuse, chronic anemia, hepatitis C and chronic lower extremity wound who presented from alf due to ongoing lower extremity wound that is not healing as well as concern for opioid and alcohol with drawal.??Will continue to manage patient for withdrawal symptoms and also have placed infectious disease consult for further evaluation of chronic osteomyelitis. ?? Chronic osteomyelitis of left tibia (M86.662):??-ID consult??appreciated, no evidence of sepsis stop abx and??consult IR for bone biopsy, if this is deemed too risky to cause pathological fracture then treat with 10 days of PO abx??for cellulitis? Opioid use disorder, severe, dependence (F11.20):??-addiction medicine consult appreciated will increase to 65 mg daily and then 75 mg mid week as needed? -HIV negative ?? Alcohol use disorder, severe, dependence (F10.20):??-no evidence of withdrawal last drink 4 days ago, anxiety related to situational as well as opioid use disorder CIWA stopped? -thiamine/folic acid/MW ?? Wound of left leg (S81.802A):??-apply Xerofrom while??await official wound consult? Iron deficiency anemia (D50.9):??-stable monitor? Discussed with RN/CM/addictione medicine. ?? VTE Prophylaxis:??Lovenox?VTE Prophylaxis Assessment:??VTE Prophylaxis Ordered ?? Tobacco Use Treatment:??NRT ordered?Tobacco Use Treatment Provided:??Cessation Medication Ordered ?? Discharge Planning:??Back to correctional facility? Ongoing Medical Necessity:??Workup for chronic osteomyelitis? Code Status:??Full ?Order Code Status:??Code Status Ordered ? Order Date/Time Order Action Order Name Order Detail 04/12/2024 10:25 Modify Methadone 10 mg Tablet (Methadone Tablet) 65 mg, By Mouth, Daily 04/12/2024 10:22 Order Methadone 10 mg Tablet (Methadone Tablet) 10 mg, By Mouth, Once 04/12/2024 10:22 Discontinue Methadone 10 mg Tablet (Methadone Tablet) 55 mg, By Mouth, Daily 04/12/2024 10:22 Order Methadone 10 mg Tablet (Methadone Tablet) 65 mg, By Mouth, Daily 04/12/2024 08:38 Modify Lorazepam 2 mg Tablet (Ativan 2 mg oral tablet) 2 mg, By Mouth, 3 times a day, PRN: Anxiety 04/12/2024 08:17 Order Lorazepam 2 mg Tablet (Ativan 2 mg oral tablet) 2 mg, By Mouth, 3 times a day, PRN: Anxiety 04/12/2024 07:15 Modify HIV STAT Screen With Reflex to Quant TA, 04/12/24 7:15:00 EST, C 04/12/2024 07:15 Modify INR TA, 04/12/24 7:15:00 EST, H ? Estimated Discharge Date ? * Asuncion King RN: PERFORM, SIGN, VERIFY Event Display: Progress Note Hospital Authored Date: Patient: VIELKA PEDRAZA Age: 33 years Sex: Female : 1990 Associated Diagnoses: None Author: Asuncion King RN Findings Problem Related to Alteration in Integumentary : Alteration in Integumentary/new 04/11/2024 11:00 EST Alteration in Integumentary Related to Cellulitis Goals & Outcomes, Integumentary Nutritional intake is adequate for metabolic needs, Pt will maintain adequate fluid & nutritional balance, Pt will maintain intact skin integrity, Wound will progress towards healing Interventions, Integumentary Cleanse all wounds with Normal Saline, Consult Wound Care as needed for further interventions, Encourage & assist pt to change position frequently, Interdisciplinaryconsults as appropriate, Keep bed as flat as tolerated to reduce shearing, Keep linen clean, dry and wrinkle free, Keep skin clean & dry, Maintain sterile technique with dressing changes, Monitor reddened areas for continued or increasing reddness BH Goals/Interventions, Integumentary Yes Integumentary, Problem Start 04/10/2024 18:02 Reviewed plan with, Integumentary Patient Patient Progression, Integumentary Pt progressing according to plan . Nursing Data Vital Signs : VITAL SIGNS SECTION 04/11/2024 15:16 EST Early Warning Score 4.00 04/11/2024 15:16 EST Temperature 98.7 DegF Temperature Route Oral Pulse Rate 103 bpm H Respiratory Rate 20 br/min Systolic Blood Pressure 118 mm Hg Diastolic Blood Pressure 80 mm Hg Blood pressure sites Arm, right Mean Arterial Pressure 93 mm Hg Pulse Pressure 38 mm Hg Oxygen Saturation 97 % Mode of Delivery (Oxygen) Room air . Narrative/Incidental Pt A&Ox4. Guard at bedside. Pt anxious throughout day. CIWA protocol followed, seizure precautions in place. ID consult complete. Awaiting bone biopsy. Pt ambulated to shower w/ standby assistance. LLE wound cleaned and ABD pad utilized covered with Petra wrap. Safety precautions in place, callbell in reach. Care ongoing.. Consult note * Karissa TREVINO, Annette Mcdonough: PERFORM Event Display: Consultation Note Authored Date: [id number] Patient: ??VIELKA PEDRAZA ? Age:??33 Years?Sex:??Female?:??1990?? Reason for Consultation Addiction Med Consult - ETOH use, methadone dosing Requested by??Dr Arana History of Present Illness Vielka Pedraza is a 33 yo female with a PMHx of polysubstance use, chronic anemia, HCV, chronic LE wounds. She was admitted here 04/10, presenting from alf due to ongoing LE wound, as well as??opioid/ETOH withdrawal. Wound apparently developed in the last 2 years or so,??likely 2/2 use of substances c ontaminated/laced with xylazine.??There??had been previous discussion about possibility of an amputation at some point.??Imaging of the area with prominent periosteal reaction, likely consistent withchronic osteomyelitis. Pt reporting last drink and opioid/heroin use was on Friday. Pt also endorsed being on methadone already, and supposed to be going to [facility] with plan to continue uptitration from 50mg. Addictionmed consulted. Pt has gotten methadone here - received 55mg total yesterday, and 50mg on Friday. ?? Met with pt this morning. Pt with officer at bedside, shackled to bed. Pt reporting that she has only been incarcerated since Friday of last week. She had gotten started at a methadone clinic that , and had plans to titrate up fairly quickly to around 80mg daily, then slow down from there. She would still like to have the dose increasedperiodically, still not at a comfortable dose yet. Pt endorsing she had been using 5 bundles of heroin a day lately, and using IV. Pt is aware of area needle exchange services and utilizes those when she can. Pt also endorsing cocaine and ETOH use regularly lately. She has experienced some psychosis, hallucinations with cocaine use in the past. Drinking 6-7 nips a day usually. Not interested in any medication for ETOH cravings at this time. Not endorsing any regular use of any other substances lately. Review of Systems Reporting generalized withdrawal - headache, sweats/chills, anxiety, restlessness, etc. Physical Exam Vitals & Measurements T:??97.9?F?? TMIN:??97.9?F?? TMAX:??98.7?F?? HR:??79??(Peripheral)?? RR:??18?? BP:??136/80?? SpO2:??100%?? General:??well developed, well nourished,??appears to be stated age.??Breathing is??even and unlabored.??In no acute distress,??no diaphoresis. Mental Status Exam: Appearance:??casual?? Attitude:??cooperative? Eye contact:??normal Motor activity:??calm, no aberrant movements? Mood:??euthymic? Affect:??congruent? Speech:??fluent, unimpaired? Judgment:??appears intact? Insight:??appears intact? Thought process:??linear? Reliability:??likely reliable source? Fund of knowledge:??intact Assessment/Plan Opioid use disorder, severe, dependence (F11.20):??.?? Pt??with active opioid use prior to incarceration. She had recently gotten herself set up with a methadone clinic and was working on titration.?? Pt received methadone 55mg this morning and yesterday. Could consider doing another 10mg x1 later today and starting pt on methadone 65mg PO daily tomorrow. If pt tolerates this well, she could increase further to 75mg PO daily mid week. ?? Possible that since pt was just recently connected with a clinic, alf may consider continuing uponreturn. However there is the risk she may have to wait to see medical staff once back at the alf before methadone is signed off on. ?? Can consider addition of some PRNs to help with withdrawal on a symptomatic basis: Clonidine 0.1mg PO q 8 hrs PRN restlessness (so long as vitals are stable) Vistaril 25mg PO q 4/6 hrs PRN anxiety Flexeril 10mg PO TID PRN body aches Imodium 2mg q 2/4/6 hrs PRN diarrhea, max of 16mg/day ?? Alcohol use disorder, severe, dependence (F10.20):??.?? 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 ?? Pt not interested in any medication to help with ETOH cravings. Uncertain if??this would be something the alf would consider continuing anyways. ?? Pt is on ativan 2mg TID PRN for anxiety, should help to cover for any ETOH withdrawal symptoms. Would continue to monitor for signs/symptoms of withdrawal. If needed could consider starting an ativan CIWA. If pts last drink was on Friday AM, she would be out of the acute withdrawal period by Friday. ?? Cocaine use disorder (F14.10):??.?? Patient counseled on risks of cocaine use, including seizures, psychosis, vascular complications such as heart attack and stroke. Also discussed risk of contamination in the cocaine supply with othersubstances such as fentanyl or heroin, which can lead to overdose. At this time, there are no viable medication options specific to cocaine use disorder. Other options may include motivational interviewing, cognitive behavioral therapy, as well as contingency management plans. Pt??receptive.? Sent update via??Simtrol to Dr Beatriz Ann??Service will??follow up periodically for ongoing titration. Thank you for allowing us to participate in the care of this patient. Please contact me with any questions or concerns. Problem List/Past Medical History Ongoing Childhood asthma Endocarditis Opioid abuse, in remission Paroxysmal SVT (supraventricular tachycardia) Medications Inpatient Ativan 2 mg oral tablet, 2 mg, By Mouth, 3 times a day, PRN cloNIDine 0.1 mg oral tablet, 0.1 mg, By Mouth, Every 8 hours, PRN Docusate Sodium Capsule, 100 mg= 1 capsule, By Mouth, 2 times a day, PRN Enoxaparin Inj, 40 mg= 0.4 mL, Subcutaneous Injection, Daily Folic Acid Tablet, 1 mg, By Mouth, Daily Melatonin Tablet, 3 mg, By Mouth, Daily at bedtime, PRN Methadone Tablet, 65 mg, By Mouth, Daily Methadone Tablet, 10 mg, By Mouth, Once MiraLax Powder, 17 Gm= 1 pack/packet, By Mouth, Daily Multivitamin Tablet, 1 tablet, By Mouth, Daily NaCL 0.9% Flush, 3 mL, IV Push, Every 8 hours NaCL 0.9% Flush, 3 mL, IV Push, Every 8 hours, PRN nalOXONE Inj, 0.2 mg= 0.5 mL, IV Push, Every 5 minutes, PRN Nicotine Gum, 2 mg, Chew, Every hour, PRN Robitussin DM Liquid, 10 mL, By Mouth, Every 4 hours, PRN Senna Tablet, 17.2 mg= 2 tablet, By Mouth, Daily at bedtime Simethicone Tablet, 80 mg, Chew, 3 times a day, PRN Thiamine Tablet, 100 mg, By Mouth, Daily Vashe Topical Solution, 475 mL, Topically, Daily Vistaril Capsule, 25 mg, By Mouth, Every 4 hours, PRN Home Methadone, 60 mg, By Mouth, Daily multivitamin Lipotropic with Multivitamins oral tablet, 2 tablet, By Mouth, Daily thiamine 100 mg oral tablet, 100 mg= 1 tablet, By Mouth, Daily Allergies Monistat-1 QUEtiapine Red Dye Tylenol vancomycin??(perioral edema, hives, swelling) Social History Alcohol Use: Current. Frequency: Several times per day. Type: Liquor. Alcohol use in household: Yes. Substance Abuse Use: Current. Type: Cocaine, Heroin. Other: IVDU. Tobacco Current every day smoker Immunizations Vaccine Date Status pneumococcal 23-valent vaccine - Not Given Comments : Patient Refuses influenza virus vaccine, inactivated - Not Given Comments : Patient Refuses pneumococcal 23-valent vaccine - Not Given Comments : Patient Refuses influenza virus vaccine, inactivated - Not Given Comments : Patient Refuses pneumococcal 23-valent vaccine - Not Given Comments : Patient Refuses Measles/Mumps/Rubella Virus Vaccine 12/02/2013 Given Comments : VIS given (07/26/2011) tetanus/diphtheria/pertussis, acel(Tdap) 12/02/2013 Given Comments : VIS given (08/13/2012) tetanus/diphtheria/pertussis, acel(Tdap) 10/22/2011 Given Comments : VIS dated 04/30/2011 * Slime Alarcon: PERFORM, MODIFY Event Display: Consultation Note Authored Date: [id number] Patient: ??PEDRAZA, VIELKA ? Age:??33 Years?Sex:??Female?:??1990?? Subjective Infectious Diseases Attending: Dr. Bearden ?? Requesting Attending/Provider: Dr. Arana ?? Reason for Consult: Chronic osteomyelitis ?? Source of Information: CIS, patient unable to provide any information ?? 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 It seems she has been admitted many times for this, though left AMA each time before completing diagnostics or antibiotics as recommend. She has also reportdly continued to inject into the wound and has not been compliant with any sort of wound care.?? Her last admission was in 12/2013 - surgery recommended an above-knee amputation and ID recommended a course of doxycycline, though the patient once again left AMA.?? She is currently incarcerated and was brought to the emergency department on 04/10 due to withdrawal symptoms and this ongoing wound. ?? She was found to be afebrile and hemodynamically stable.?? Lab work revealed a WBC count of 3.7 without left shift, ESR 82 (from 90 07/19/23), CRP 2.5 (from 8.9 07/19/23), and creatinine 0.5.?? An x-ray of the left tibia/fibula revealed the known open wound over the anterior sequeira with a likely chronic osteomyelitis.?? The patient was initially given 2 doses of doxycycline, though antibiotics have since been discontinued.?? ID has been consulted to further assist in management. ?? Past Medical and Surgical History: ??? Polysubstance abuse with injection drug use ??? Alcohol use disorder ??? Hepatitis C ??? MSSA tricuspid valve endocarditis in 02/2017?? with septic pulmonary emboli and possible R shoulder septic arthritis with humeral osteomyelitis ??? Tricuspid valve endocarditis due to MRSA in 07/2016 ??? Adnoidectomy 04/2004 ?? Recent Antimicrobials: ??? Doxycycline 100 mg by mouth every 12 hours x 2 doses 04/10 ?? Medications: Reviewed ?? Antimicrobial Allergies: Reported hives with vancomycin. ?? Family History: No relevant history of infectious issues in first degree relatives. ?? Social History and Infectious Diseases Exposure History: Currently incarcerated.?? Reportedly has ahistory of significant alcohol use and injection drug use. ?? Review of systems unable to be obtained. Objective Vitals & Measurements Vital Signs?? Temperature: 97.7 DegF (04/11/24 06:52:00) Temperature Route: Oral (04/11/24 06:52:00) Pulse Rate: 62 bpm (04/11/24 06:52:00) Respiratory Rate: 17 br/min (04/11/24 10:03:00) Systolic Blood Pressure:??142 mm Hg??High (04/11/24 06:52:00) Diastolic Blood Pressure: 73 mm Hg (04/11/24 06:52:00) Blood pressure sites: Arm, right (04/11/24 06:52:00) Mean Arterial Pressure: 96 mm Hg (04/11/24 06:52:00) Pulse Pressure: 69 mm Hg (04/11/24 06:52:00) Oxygen Saturation: 100 % (04/11/24 06:52:00) Mode of Delivery (Oxygen): Room air (04/11/24 06:52:00) Early Warning Score: 5 (04/11/24 10:51:24) Physical Exam GENERAL: Appears chronically ill though nontoxic, handcuffed to the bed, snoring and difficult to arouse HEENT: Eyes closed CARDIOVASCULAR: Regular rate RESPIRATORY: Lungs clear to auscultation anteriorly GASTROINTESTINAL: Non-distended, normoactive bowel sounds, does not grimace to palpation MUSCULOSKELETAL: Left lateral calf with large wound with overlying eschar, pin point seropurulent fluid expressed on palpation, no surrounding erythema or induration SKIN:?? No diffuse rash present NEUROLOGICAL/PSYCH: Sleeping -??briefly woke up to voice, did not speak, then went back to sleep LINES:??Peripheral IV ?? 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 She is now incarcerated, and was brought to the ED due to withdrawal symptoms and her chronic wound.? Chronic??osteomyelitis of left tibia/fibula: It is unlikely that antibiotics alone will cure this patient's chronic osteomyelitis, especially as the patient has been (per notes) injecting into the wound, has been noncompliant with wound care, and has left the hospital AMA multiple times prior to completing recommended diagnostic work-ups or antibiotic regimens. It seems amputation may be the mostrealistic solution, however she has refused in the past. The patient would not speak with me today,though if she were really interested in aggressively treating this wound would see if IR could perform bone biopsy for culture and path while off of antibiotics. If this is not the case, or if IR cannot??perform the biopsy, would just treat with shorter course of empiric antibiotics for a possible associated soft tissue infection, understanding that we are unlikely to cure her chronic osteomyelitis.? Recommendations:?? -As above, if the patient wishes to pursue aggressive treatment for her chronic osteomyelitis and if IR is willing, would try to obtain bone biopsy for culture and pathology while off of antibiotics (please inform ID of results of this is done) -Otherwise, would start Augmentin + doxycycline x10 days in case of an associated soft tissue infection?? -Needs wound care -For completeness sake, would test for HIV if not done recently (please inform ID if positive) ? Thank you for the consultation. ID will sign-off at this time, please call if any questions arise.? TC sent to covering provider regarding recommendations.? Slime Tyler PA-C Infectious Diseases? Discussed with Dr. Bearden? Time-based billing: I spent a total of 60 minutes today reviewing the chart/medical records, evaluating the patient, formulating and discussing the treatment plan, and documenting the findings and encounter. ? Note * Beatriz PERSAUD, Maite: PERFORM Event Display: Discharge/Transfer Note Hospital Authored Date: [id number] Patient: ??PEDRAZA, VIELKA ? Age:??33 Years?Sex:??Female?:??1990?? Patient Information Discharge Location: 4 Primary Care Physician: Not on Staff, PCP Admit Date/Time: 04/10/2024 07:05 Discharge Disposition Discharge Disposition:??Left against medical advice Discharge Diagnosis Chronic osteomyelitis of left tibia (M86.662) Opioid use disorder, severe, dependence (F11.20) Alcohol use disorder, severe, dependence (F10.20) Wound of left leg (S81.802A) Iron deficiency anemia (D50.9) Cocaine use disorder (F14.10) Patient Care team information Care Team Personnel Name: Katerina Harris RN Position: [facility] RN Member Role: Primary Care Nurse Name: Brooklynn Madrigal RN Position: [facility] AMB Nurse Member Role: Primary Care Nurse Name: Celine Madrigal Position: [facility] Outreach Member Role: Primary Care Nurse Name: Julio Burnette RN Position: [facility] RN Member Role: Primary Care Nurse Name: Ana Luisa Mayfield RN Position: [facility] RN Member Role: Primary Care Nurse Name: Becky Carias RN Position: [facility] AMB Nurse Member Role: Primary Care Nurse Name: Ramy Johnson RN Position: [facility] SN RN Member Role: Primary Care Nurse Name: Rita Ramos RN Position: [facility] RN Member Role: Primary Care Nurse Name: Sheila Whitney RN Position: [facility] ED RN W/OE and Tasks Member Role: Primary Care Nurse Name: Patricia Escamilla RN Position: [facility] RN Member Role: Primary Care Nurse Name: Raul Vora RN Position: [facility] RN Member Role: Primary Care Nurse Name: Not on Staff, PCP Position: [facility] Physician (General Medicine) Member Role: PCP Name: Brittni Johnson RN Position: [facility] RN Member Role: Primary Care Nurse Name: Jemma Wilson RN Position: [facility] Stamp Redemption Clerk Member Role: Primary Care Nurse Name: James Simmons MD Position: [facility] Renal MD Member Role: [employer] Consulting Physician Address: [address] [place] [address] [address] [facility] [address] Telecom: Name: Gamaliel Fine RN Position: [facility] RN Member Role: Primary Care Nurse Care Team Related Persons Name: GAYATHRI CHAPARRO Name: CHRIS PEDRAZA Insurance Providers Guarantor name: NA Health Plan Information #: 2 Payer: [employer] Member Number: [id number] Policy Number: NA Group Number: NA Health Plan Information #: 1 Payer: [employer] Member Number: [id number] Policy Number: NA Group Number: [facility] Health Plan Information #: 3 Payer: [employer] Member Number: [id number] Policy Number: NA Group Number: [facility]
--- OUTSIDE RECORDS SUMMARY | 2024-05-02 19:47 | XMS_ITS | Encounter Summary ---
Author Organization [facility] Address [address] [place] [address] Care Team Providers Care Voltage Tester Name Role Phone Ama Adams MD Primary Care Provider Unavailable Encounter Details Date Type Department Care Team Description 08/08/2016 [facility] Medical Records [address] [place] [id number] Abstract, Provider Social History Tobacco Use Types Packs/Day Years Used Date Smoking Tobacco: Every Day Cigarettes 1 Comments:started at 15 years of age Alcohol Use Standard Drinks/Week Comments No 0 (1 standard drink = 0.6 oz pur e alcohol) Sex Assigned at Date Recorded Not on file documented as of this encounter Plan of Treatment Not on file documented as of this encounter Visit Diagnoses Not on filedocumented in this encounter Care Teams Voltage Tester Relationship Specialty Start Date End Date Ama Adams MD PCP - General Internal Medicine 08/26/16 documented as of this encounter
--- OUTSIDE RECORDS SUMMARY | 2024-05-02 19:47 | XMS_ITS | Encounter Summary ---
Author Organization [facility] Address [address] [place] [id number] Phone Care Team Providers Care Renewable Energy Broker Name Role Phone Unavailable Primary Care Provider Unavailabl e Encounter Details Date Type Department Care Team (Late st Contact Info) Description 04/29/2009 Documentation [facility] Family Medicine [address] [place], [place] [id number] Family Medicine, Physician [facility] [place] [address] Social History Tobacco Use Types Packs/Day Years [...]
--- OUTSIDE RECORDS SUMMARY | 2024-05-02 19:47 | XMS_ITS | Encounter Summary ---
Author Organization [facility] Address [address] [place] [address] Care Team Providers Care Office 365 Consultant Name Role Phone Ama Adams MD Primary Care Provider Unavailable Encounter Details Date Type Department Care Team Description 09/04/2016 [facility] Medical Records [address] [place] [address] Abstract, Provider Social History Tobacco Use Types [...] on filedocumented in this encounter Care Teams Office [employer] Consultant Relationship Specialty Start Date End Date Ama Adams MD PCP - General Internal Medicine 08/26/16 documented as of this encounter
--- OUTSIDE RECORDS SUMMARY | 2024-05-02 19:47 | XMS_ITS | Clinical Summary ---
Author Organization [facility] Address [address] [place] [id number] Phone Care Team Providers Care Collection Systems Foreman Name Role Phone Unavailable Primary Care Provider Unavailabl e Immunizations Name Administration Dates Next Due DTaP 1996, 4,02/24/1992,12/29,1991 HPV, Quadrivalent 03/27/2007,10/17/2006,08/17/19 07 Hep B, ped/adol 06/01/1992,1991,1991 Hib (PRP-T) 12/05/1992, 2,1991,11/04 IPV 1996, 4,1991,11/04 MMR 08/05/1996,02/02/1993 Meningococcal Conj (Menactra) MCV4P 08/22/2006 Td (adult) (Tenivac), 5 Lf t etanus toxoid, PF, adsorbed 10/23/2001 Tdap 10/19/2007 Varicella 10/19/2007,10/21/1997 Family History Relation Name Status Comments Father Alive hypertension ag e: 52 Father's Sister Alive Graves disea se Maternal Grandfather kidney disease Maternal Grandmother Kenzie ons Mother Alive hypertension, d epression age: 48 Other Alive Siblings: broth er anusha 1986 with tourettes. brother nanci 1989 healthy. Paternal Grandfather cancer Paternal Grandmother Alive hyperte nsion, CHF, DM, Social History Tobacco Use Types Packs/Day Years Used Date Smoking Tobacco: Never Assessed Comments Unknown Sex and Gender Information Value Date Recorded Sex Assigned at Not on file Legal Sex Female 6:12 PM EDT Gender Identity Not on file Sexual Orientation Not on file Last Filed Vital Signs Vital Sign Reading Time Taken Comments Blood Pressure 102/64 08/21/2010 12:00 AM EDT Pulse 88 05/02/2010 12:00 AM EST Temperature 37.1 ??C (98.8 ??F) 08/21/2010 12:00 AM E DT Respiratory Rate - - Oxygen Saturation 98% 05/02/2010 12:00 AM EST Inhaled Oxygen Concentration - - Weight 62.1 kg (137 lb) 08/21/2010 12:00 AM EDT Height - - Body Mass Index - - Plan of Treatment Health Maintenance Due Date Last Done Comments Consider Men B Vaccine (1 of 2 - Bexsero 2-dose series) 2007 DTaP,Tdap,and Td Vaccines (7 - Td or Tdap) 10/18/2017 10/19/2007, 10/23/2001, 1996, Additional history exists Influenza Vaccines (#1) 2023 COVID-19 Vaccine ( - 2023- season) 2023 Hepatitis B Vaccines Completed 06/01/1992, 1991, 1991 HIB Vaccines Completed 12/05/1992, 02/05, 1991, Additional history exists MMR Vaccines Completed 08/05/1996, 02/02/1993 IPV Vaccines Completed 1996, 07/06, 1991, Additional history exists Meningococcal Vaccine Aged Out 08/22/2006 No domingo benigno eligible based on patient's age to complete this topic HPV Vaccines Completed 03/27/2007, 10/05, 08/16/2006 Varicella Vaccines Completed 10/19/2007, 10/21/1997 Hepatitis A Vaccines Aged Out No long er eligible based on patient's age to complete this topic Men B Vaccine Aged Out No longer elig ible based on patient's age to complete this topic Pneumococcal Vaccine Aged Out No long er eligible based on patient's age to complete this topic
--- OUTSIDE RECORDS SUMMARY | 2024-05-02 19:47 | XMS_ITS | Encounter Summary ---
Author Organization [facility] Address [address] [place] [address] Care Team Providers Care Spectral Scientist Name Role Phone Ama Adams MD Primary Care Provider Unavailable Encounter Details Date Type Department Care Team Description 09/09/2016 Release of Information Medical Records [address] [place] [id number] Abstract, Provider Social History Tobacco Use Types [...] on filedocumented in this encounter Care Teams Spectral Scientist Relationship Specialty Start Date End Date Ama Adams MD PCP - General Internal Medicine 08/26/16 documented as of this encounter
--- OUTSIDE RECORDS SUMMARY | 2024-05-02 19:47 | XMS_ITS | Encounter Summary ---
Author Organization [facility] Address [address] [place] [address] Care Team Providers Care Lacrosse Coach Name Role Phone Ama Adams MD Primary Care Provider Unavailable Reason for Visit * Reason Onset Date Comments hospital follow up 07/24/2017 Encounter Details Date Type Department Care Team Description 07/24/2017 Telephone Adult Medicine - [address] [id number] Ama Adams MD hospital follow up Social History Tobacco Use Types Packs/Day Years Used Date Smoking Tobacco: Every Day Cigarettes 1 Comments:started at 15 years of age Alcohol Use Standard Drinks/Week Comments No 0 (1 standard drink = 0.6 oz pur e alcohol) Sex Assigned at Date Recorded Not on file documented as of this encounter Miscellaneous Notes * Telephone Encounter - Armin Whitney LPN - 07/28/2017 2:48 PM EDT Appointment scheduled with Dr Garcia on 07/30/17 pt was seen at [facility] , please obtain records * Telephone Encounter - Brandy Whipple - 07/28/2017 2:40 PM EDT Canceled appt for hospital f.u due to Ama Adams Being out please reschedule appt * Telephone Encounter - Armin Whitney LPN - 07/24/2017 3:39 PM EDT Appointment scheduled with Dr Angel on 07/30/17 pt was seen at [facility] , please obtain records * Telephone Encounter - Helene Mike - 07/24/2017 1:23 PM EDT Hospital follow up appointment needed Hospital patient was treated at: [facility] Was this only an ER visit or was the patient admitted to the hospital? Admitted to hospital Date of visit if ER visit only: N/A If patient was admitted what was the date of discharge? 04/09/2017 Reason/diagnosis for visit or stay: Endocarditis When was the patient told to follow up? Was visit or stay related to an injury? NO If yes, what was the date of injury (DOI)? N/A If yes, was the injury due to N/A documented in this encounter Plan of Treatment Not on file documented as of this encounter Visit Diagnoses Not on filedocumented in this encounter Care Teams Lacrosse Coach Relationship Specialty Start Date End Date Ama Adams MD PCP - General Internal Medicine 08/26/16 documented as of this encounter
[2024-05-02 19:52] LABS: Hematocrit 25.7 % (37.0-47.0); Hemoglobin 7.7 g/dl (12.0-16.0); Mean Corpuscular Hemoglobin 18.6 pg (27.0-33.0); Mean Platelet Volume 9.1 fL (9.4-12.3); Platelet Count 266 X10*3/uL (160-400); Red Blood Count 4.14 X10*6/uL (4.20-5.50); Red Cell Distribution Width 18.8 % (11.0-16.0); White Blood Count 14.2 X10*3/uL (4.8-10.8)
[2024-05-02 19:53] LABS: Mean Corpuscular Volume 62.1 fL (80.0-98.0)
[2024-05-02] MEDS: cefTRIAXone sodium 1 GM VIAL IVPUSH (19:59)
[2024-05-02] MEDS: 0.9 % Sodium Chloride 1,700.97 ML 1700.97 ML IV (20:01)
[2024-05-02] MEDS: Ibuprofen 600 MG TABLET PO (20:04)
[2024-05-02] MEDS: Clindamycin Phosphate/D5W 600 MG/50 ML PIGGYBACK 100 MG IV (20:05)
[2024-05-02 20:06] LABS: Alanine Aminotransferase 14 U/L (0-31); Albumin Level 3.4 g/dL (3.5-5.0); Alkaline Phosphatase 95 U/L (39-117); Anion Gap 14 (12-20); Aspartate Amino Transferase 32 U/L (5-31); Bilirubin Total 0.5 mg/dL (0.0-1.0); Blood Urea Nitrogen 22 mg/dL (9-16); Calcium 8.1 mg/dL (8.4-10.2); Carbon Dioxide 22 mmol/L (22-29); Chloride 101 mmol/L (96-108); Creatinine Clr Calc Pharmacy 67.5; Estimated Glomerular Filt Rate 59; Glucose Random 97 mg/dL (60-115); Magnesium 1.7 mg/dL (1.6-2.6); Potassium 4.5 mmol/L (3.3-5.1); Sodium 132 mmol/L (135-145); Total Protein 8.1 g/dL (6.5-8.0)
--- NOTE | 2024-05-02 20:10 | PC.NURSE ---
Olegario, ED provider informed of BP's 80/39, P 85. Septic fluids running, per MD continue to monitor BP's at this time.
[2024-05-02 20:11] LABS: Lactic Acid 2.7 mmol/L (0.5-2.0)
[2024-05-02 20:14] LABS: Neutrophils Percent Manual 69 % (45-73); Troponin-I High Sensitivity 3.1 ng/L (<3.5-17.0)
[2024-05-02 20:15] LABS: Band Neutrophils Percent 22 % (3-5); Lymphocytes Absolute Manual 1.1 X10*3/uL (1.2-4.9); Lymphocytes Percent Manual 8 % (20-40); Monocytes Absolute Manual 0.1 X10*3/uL (0.1-1.2); Monocytes Percent Manual 1 % (2-11); Neutrophils Absolute Manual 12.9 X10*3/uL (2.0-8.3); RBC Morphology NOTED
[2024-05-02 20:16] LABS: Microcytosis 1+ (5-14) /OIF; Ovalocytes 1+ (5-14) /OIF; Toxic Vacuolation PRESENT
[2024-05-02 20:17] LABS: Platelet Estimate NORMAL (NORMAL); Platelet Morphology Comment NORMAL
[2024-05-02 20:31] LABS: Influenza A PCR POSITIVE (Negative); Influenza B PCR NEGATIVE (Negative); Resp Syncy Virus RNA Qual PCR NEGATIVE (Negative); SARS COV2 PCR INHOUSE NEGATIVE (Negative)
[2024-05-02] MEDS: Oseltamivir Phosphate 75 MG CAPSULE PO (20:49)
[2024-05-02] MEDS: 0.9 % Sodium Chloride 1,000 ML 999 ML IV ×2 (21:38→23:25)
[2024-05-02] MEDS: Azithromycin 500 MG in 0.9 % Sodium Chloride 250 ML 125 MG IV (21:41)
[2024-05-02 21:50] LABS: Reflex Lactate? Lactic Acid Added
[2024-05-02 22:35] LABS: ~Lactic Acid-LAB USE ONLY 1.6 mmol/L (0.5-2.0)
[2024-05-02 23:38] LABS: Appearance Urine Cloudy; Color Urine Yellow; Glucose Urine UA Negative (Negative); Leukocyte Esterase Urine Large (3+) (Negative); Nitrite Urine Negative (Negative); PH 5.5 (5.0-9.0); UMIC TRIGGER UACC YES; Urine Blood Trace (Negative); Urine Ketones Negative (Negative); Urine Protein Trace mg/dL (Neg-Trace)
[2024-05-02 23:52] LABS: Bacteria Urine 1+ (None Seen); UACC Culture Trigger YES; WBC Urine >50 /HPF (0-5)
[2024-05-03] VITALS (13 sets, daily range): BP systolic 89–110; BP diastolic 33–63; PULSE 62–80; RESP 12–20; TEMP 36.3–37.5; O2SAT 94–98
--- NOTE | 2024-05-03 01:14 | P.HPHOSP_ITS ---
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 She is a very difficult historian and has a hard time staying awake for the history. She complains of a dry cough and fever but denies any abdominal symptoms including pain, diarrhea, nausea vomiting or constipation. She has chronic osteomyelitis and reports that she has had some increased pain but no drainage or erythema. Recently when she was here on 04/23/2024 she was supposed to be admitted but left AMA. She had presented to [facility] 2 weeks prior to then where she was treated for potential withdrawal and chronic osteomyelitis. She was evaluated by ID who suggested treating with Augmentin and doxycycline as well as General surgery suggested AKA for definitive treatment as patient injects in her open wound. She lived 2 days after starting her treatment AMA. She has a history of leaving multiple times during treatment and has never completed a full course of antibiotics for her chronic osteomyelitis. She also does have some urinary symptoms secondary to her urinary tract infection which was recently diagnosed in the ED however she left AMA and was not treated for this. Review of Systems 2 Review of Systems: Difficult to obtain due to drowsiness ? Recent drug use Constitutional: Constitutional: Reports body ache(s), Denies chills, Reports fatigue and Reports fever(s) Eyes: Eyes: Denies change in vision ENT: Denies nasal congestion, Denies nasal discharge and Denies sore throat Cardiovascular: Cardiovascular: Denies chest pain, Denies rapid heart rate, Denies lightheadedness and Reports dyspnea Respiratory: Respiratory: Reports cough, Reports dyspnea and Denies wheezing Gastrointestinal: Gastrointestinal: Denies melena, Denies hematochezia, Denies diarrhea, Denies nausea and Denies vomiting Genitourinary: Genitourinary: Reports dysuria and Reports urinary urgency Musculoskeletal: Musculoskeletal: Reports myalgias Integumentary/Breasts: Skin/Breast: Reports as per HPI Neurologic: Denies confusion and Denies seizure-like activity Psychiatric: Psychiatric: Denies confusion Endocrine: Endocrine: Reports fatigue Hematologic/Lymphatic: Hematologic/Lymphatic: Denies easy bleeding and Denies easy bruising Allergic/Immunologic: Allergic/Immunologic: Denies wheezing [facility] Medical History Osteomyelitis Anxiety Endocarditis Opiate addiction Functional capacity: independent ambulation Surgical History No pertinent past surgical history Social History Household Members: None Do you presently have visiting nurse or other home services: No Alcohol intake: current Alcohol intake frequency: 3 or more drinks per day Alcohol type: hard liquor Patient Tobacco Use Status: Tobacco use Unknown Tobacco use type: Cigarette Cigarette Packs Per Day: 1 Cigarettes Per Day: 20.0 Smoked in Last 30 Days: Yes Use of substances other than those prescribed or required for medical reasons: Yes Substance Use Type: Crack/Cocaine and Heroin Substance Use Frequency: Daily Last Used Substance: Hours (ago) Any prior treatment program specific to substance use: Yes Advance Directives: Yes Advance Directives on File: Yes Advance Directives Date on File: 09/04/22 Do you have a plan to hurt others: No Plan Patient : No Narrative: Injects heroin about 5 bundles daily with additional cocaine daily, 5+ nips per day, smokes 1 pack a day Meds Allergies Allergy/AdvReac Type Severity Reaction Status Date / Time acetaminophen [From TYLENOL] Allergy Mild ITCHY AND Verified 05/02/24 18:54 HIVES tioconazole Allergy Mild HIVES Verified 05/02/24 18:54 [From MONISTAT 1 (TIOCONAZOLE)] vancomycin Allergy Anaphylaxis Verified 05/02/24 18:54 Physical Exam 2 Vital Signs and Narrative: Vital Signs: Last Vital Signs Temp 98.9 F 05/02/24 23:30 Pulse 75 05/02/24 23:30 Resp 13 05/02/24 23:30 BP 97/50 L 05/02/24 23:30 Pulse Ox 93 05/02/24 23:30 O2 Del Method Room Air 05/02/24 23:30 BMI result Body Mass Index 20.8 General: not alert but can be aroused for history breifly before falling back asleep, no acute distress, oriented to person, place and time Resp: CTA bilaterally CVS: RRR GI: +BS, NT, no distention Skin: Warm, dry. clean dry bandage in place LLE. no erythema, mild purulent drainage. Extremities: No LE edema Psych: Appropriate affect Const: General: No confusion Orientation/consciousness: No confusion Neuro: General: No confusion Results Labs 05/02/24 19:42 05/02/24 19:42 Labs: Laboratory Results - last 24 hr 05/02/24 05/02/24 05/02/24 19:42 22:18 23:28 MCV 62.1 L MCH 18.6 L MCHC 30.0 L RDW 18.8 H Plt Count 266 MPV 9.1 L Immature Gran % (Auto) Cancelled Neut % (Auto) Cancelled Lymph % (Auto) Cancelled Sanders % (Auto) Cancelled Eos % (Auto) Cancelled Baso % (Auto) Cancelled Lymph # (Auto) Cancelled Sanders # (Auto) Cancelled Eos # (Auto) Cancelled Baso # (Auto) Cancelled Abs Immat Gran (auto) Cancelled Absolute Neuts (auto) Cancelled Absolute Nucleated RBC 0.000 Nucleated RBC % (auto) 0.0 Neutrophils % (Manual) 69 Band Neutrophils % 22 H Lymphocytes % (Manual) 8 L Monocytes % (Manual) 1 L Abs Neuts (Manual) 12.9 H Lymphocytes # (Manual) 1.1 L Monocytes # (Manual) 0.1 Toxic Vacuolation PRESENT Platelet Estimate NORMAL Plt Morphology Comment NORMAL RBC Morphology NOTED Microcytosis 1+ (5-14) Ovalocytes 1+ (5-14) Anion Gap 14 Estim Creat Clear Calc 67.5 Estimated GFR 59 Random Glucose 97 Lactic Acid 2.7 H* Lactic Acid F/U @ 2Hr 1.6 Calcium 8.1 L Magnesium 1.7 Total Bilirubin 0.5 AST 32 H ALT 14 Alkaline Phosphatase 95 Troponin I High Sens 3.1 Total Protein 8.1 H Albumin 3.4 L Urine Color Yellow Urine Appearance Cloudy Urine pH 5.5 Ur Specific [place] 1.010 Urine Protein Trace Urine Glucose (UA) Negative Urine Ketones Negative Urine Blood Trace H Urine Nitrite Negative Ur Leukocyte Esterase Large (3+) H Urine RBC 3-5 H Urine WBC >50 H Ur Squamous Epith Cells 11-20 Urine Bacteria 1+ Hyaline Casts 3-5 Influenza Type A (PCR) POSITIVE A Influenza Type B (PCR) NEGATIVE RSV RNA Qual (PCR) NEGATIVE SARS-CoV-2 RNA (RT-PCR) NEGATIVE Assessment and Plan (1) Sepsis: Status: Acute (2) Aspiration pneumonia: Status: Acute (3) Flu: Status: Acute (4) Chronic osteomyelitis: Status: Acute (5) Urinary tract infection: Status: Acute (6) Leg wound, left: Status: Acute (7) JANES (acute kidney injury): Status: Acute (8) Polysubstance abuse: Status: Acute (9) Alcohol abuse: Status: Acute (10) Tobacco use: Status: Acute Plan Patient is a 33-year-old female with a past medical history significant for alcohol abuse with history of alcohol withdrawal seizures, 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 Sepsis likely multifactorial secondary to aspiration pneumonia, UTI, chronic osteomyelitis - WBC 14.7, lactic acid 2.7, 1.6 on repeat (likely elevated due to dehydration), bands 22%, blood cultures x2 pending, not severe sepsis - recently left AMA and was found to have UTI in a patient was unable to be contacted for treatment, culture susceptible to ceftriaxone, cefepime and cefazolin - chest x-ray with right middle lobe pneumonia, likely aspiration - chronic osteomyelitis with mild purulent drainage from open wound left lower extremity - flu A positive - started on ceftriaxone for UTI, clindamycin for MRSA coverage due to chronic osteomyelitis and IV drug use, azithromycin for pneumonia, switch to cefepime and doxycycline - given fluid bolus NS in ED for sepsis - wound care consult - monitor CBC and BMP JANES - likely secondary to drug use as well as dehydration - fluids as above - monitor BMP Hyponatremia - secondary to dehydration - fluids as above - monitor BMP Polysubstance abuse/etoh abuse, hx withdrawal seizures - last use of heroin/cocaine unclear from patient - last drink yesterday - CIWA - seizure precautions - phenobarb protocol - IV thiamine x1 dose - folic acid, multivitamin, thiamine PO QD - addiction med consult Flu A - contact precautions - tamiflu BID - supportive care Tobacco use - nicotine patch - smoking cessation encouraged Chronic microcytic anemia - hemoglobin 7.7 hematocrit 25.7, near baseline - no obvious bleeding sources - no need for blood transfusion at this time - monitor CBC Full code VTE prophylaxis: Lovenox Patient with sepsis with multifactorial source including aspiration pneumonia, chronic osteomyelitis and UTI, requiring admission for at least 2 midnights stay for IV antibiotics and monitoring. Quality Stroke Does the patient have a stroke diagnosis?: No VTE Prior VTE?: No VTE Risk Level:: Medical - moderate - high VTE Device Contraindication: Treatment Not Indicated VTE Drug Contraindication: N/A - Med Ordered
[2024-05-03] MEDS: PHENobarbitaL sodium 130 MG/ML IM ONCE 227 MG IM (02:54)
[2024-05-03] MEDS: Thiamine HCL 100 MG in 0.9 % Sodium Chloride 100 ML 204 MG IV (02:54)
[2024-05-03] MEDS: cefEPime HCl/D5W 2 GM/50 ML PIGGYBACK IV ×3 (03:59→19:35)
[2024-05-03] MEDS: Doxycycline Hyclate 100 MG in 0.9 % Sodium Chloride 250 ML 166.67 MG IV ×2 (05:17→20:15)
[2024-05-03] MEDS: PHENobarbitaL sodium 130 MG/ML VIAL IM Q3Hx2 170 MG IM ×2 (05:18→08:48)
--- NOTE | 2024-05-03 08:36 | PHA.MEDREC ---
Addendum entered by Bibi Garcia RPh 05/03/24 09:04: reviewed by [facility]. Original Note: Pharmacy Consult ? Medication Reconciliation Pharmacy has completed the medication reconciliation. Spoke with patient and she claims she is not taking any medications at this time. I noticed Cefuroxime Axetil 250mg tabs were added on 04/28/2024 and after speaking with the patient she states she is not using any antibiotics at this time. I called patients preferred pharmacy [facility] and they state they have that medication at their facility but the patient has not come to pick it up.
[2024-05-03] MEDS: Folic Acid 1 MG TABLET PO (08:48)
[2024-05-03] MEDS: Multivitamin TABLET 1 TAB PO (08:48)
[2024-05-03] MEDS: Thiamine HCL 100 MG TABLET PO (08:48)
[2024-05-03] MEDS: Oseltamivir Phosphate 75 MG CAPSULE PO ×2 (08:48→20:15)
[2024-05-03 08:50] LABS: Hematocrit 23.3 % (37.0-47.0); Mean Corpuscular HGB Conc 29.2 g/dl (31.0-35.0); Mean Corpuscular Hemoglobin 18.7 pg (27.0-33.0); Mean Platelet Volume 9.7 fL (9.4-12.3); NRBC Pct Auto 0.1 /100WBC (0.0-0.2); Platelet Count 190 X10*3/uL (160-400); Red Blood Count 3.63 X10*6/uL (4.20-5.50); Red Cell Distribution Width 19.4 % (11.0-16.0); White Blood Count 13.6 X10*3/uL (4.8-10.8)
[2024-05-03] MEDS: 0.9 % Sodium Chloride Flush 3 ML SYRINGE IVFLUSH ×2 (08:50→19:35)
[2024-05-03 08:51] LABS: Mean Corpuscular Volume 64.2 fL (80.0-98.0)
[2024-05-03] MEDS: Pantoprazole Sodium 40 MG/10 ML VIAL IVPUSH ×2 (08:54→20:15)
[2024-05-03 08:56] LABS: Hemoglobin 6.8 g/dl (12.0-16.0)
[2024-05-03 09:24] LABS: Band Neutrophils Percent 7 % (3-5); Lymphocytes Absolute Manual 1.4 X10*3/uL (1.2-4.9); Lymphocytes Percent Manual 10 % (20-40); Monocytes Absolute Manual 0.3 X10*3/uL (0.1-1.2); Monocytes Percent Manual 2 % (2-11); Neutrophils Percent Manual 81 % (45-73)
[2024-05-03 09:25] LABS: Toxic Vacuolation PRESENT
[2024-05-03 09:32] LABS: Burr Cells 1+ (0-2) /OIF; Microcytosis 1+ (5-14) /OIF; Ovalocytes 1+ (5-14) /OIF; RBC Morphology NOTED
[2024-05-03 09:33] LABS: Hypochromasia 1+ (5-14) /OIF; Platelet Estimate NORMAL (NORMAL); Platelet Morphology Comment NORMAL
--- NOTE | 2024-05-03 10:19 | MHC.RECOVRN ---
Met with pt in ED1 after consult placed to Addiction Medicine for etoh, IVDU, heroin and cocaine. Pt currently admitted for sepsis with multifactorial source including aspiration pneumonia, chronic osteomyelitis and UTI. Pt sitting in bed, awake, alert, easily engages in conversation. Friend Aldo at the bedside, present for conversation with pts permission. Pt reports she has been in and out of hospitals as well as in and out of police custody for the past two weeks. Pt reports she is currently using heroin/fentanyl, 4 bundles daily, IV; 1/2 gram cocaine daily, IV; 6 nips liquor daily. Reports last use of all substances yesterday morning. Pt reports she last received methadone at [facility] [place] [place] on 04/23/24. Per MAR, it appears as if 50 mg was ordered but not administered on that day. Pt currently reporting withdrawal symptoms including restlessness, feeling hot/cold, upset stomach, and rhinorrhea. Pt reports the reason for past self directed discharges has been experiencing opioid withdrawal. Pt requesting methadone to address symptoms. Denies other questions or concerns for t/w. Discussed with Khushbu Denis APRN.
--- NOTE | 2024-05-03 11:29 | PC.NURSE ---
Phlebotomy called multiple times for uncollected labs, reported they have tried X2 with no success and are sending a third person to try, pt hard stick. Provider updated
[2024-05-03] MEDS: methADONE HCl 20 MG/2 ML ORAL.CONC 30 MG PO (11:35)
--- NOTE | 2024-05-03 11:46 | PC.NURSE ---
Pt aware that we need urine sample. Alert and oriented, sleepy. Breathing even and unlabored. BP has been soft where it has been. Reporting leg pain
--- NOTE | 2024-05-03 12:50 | MHC.CM.PN ---
pt on droplet precautions t/m message left omn pts phome requesting a call back it is expected that pt will be seen by care team
--- NOTE | 2024-05-03 13:52 | PC.NURSE ---
Multiple issues with blood draw, supervisor orchard is aware. Pt very hard stick. Provider aware of situation
--- NOTE | 2024-05-03 14:22 | PC.NURSE ---
Pt requested phone and sweatshirt back from belongings, this RN gave them to her. Pt is not SI or HI. Belongings were secured and searched last night on arrival.
[2024-05-03 14:30] LABS: Anion Gap 10 (12-20); Blood Urea Nitrogen 20 mg/dL (9-16); Calcium 8.1 mg/dL (8.4-10.2); Carbon Dioxide 19 mmol/L (22-29); Chloride 111 mmol/L (96-108); Creatinine Clr Calc Pharmacy 100.4; Estimated Glomerular Filt Rate > 60; Glucose Random 76 mg/dL (60-115); Sodium 136 mmol/L (135-145)
[2024-05-03 14:47] LABS: Procalcitonin 19.66 ng/mL
--- NOTE | 2024-05-03 15:24 | P.EN_ITS ---
Event Note Date of Service: 05/03/24 Event Note: Day hospitalist update S: somnolent but arousable febrile to 102.9 overnight c/o dry cough, dyspnea; not hypoxic consents for transfusion O: Temp Pulse Resp BP Pulse Ox O2 Del Method 98.4 F 80 18 101/53 L 96 Room Air 05/03/24 15:21 05/03/24 15:21 05/03/24 15:21 05/03/24 15:21 05/03/24 15:21 05/03/24 15:21 Gen: ill-appearing HEENT: sclera anicteric, moist mucus membranes Neck: supple Lungs: clear to auscultation bilaterally Heart: regular rate and rhythm, no murmurs Abd: soft, non-tender, non-distended Ext: no edema Skin: warm/well-perfused, L sequeira wound with purulent drainage Neuro: alert and oriented x3, no focal findings Psych: appropriate affect Labs: Laboratory Results - last 24 hr 05/02/24 05/02/24 05/02/24 19:42 22:18 23:28 WBC 14.2 H RBC 4.14 L Hgb 7.7 L Hct 25.7 L MCV 62.1 L MCH 18.6 L MCHC 30.0 L RDW 18.8 H Plt Count 266 MPV 9.1 L Immature Gran % (Auto) Cancelled Neut % (Auto) Cancelled Lymph % (Auto) Cancelled Dale % (Auto) Cancelled Eos % (Auto) Cancelled Baso % (Auto) Cancelled Lymph # (Auto) Cancelled Dale # (Auto) Cancelled Eos # (Auto) Cancelled Baso # (Auto) Cancelled Abs Immat Gran (auto) Cancelled Absolute Neuts (auto) Cancelled Absolute Nucleated RBC 0.000 Nucleated RBC % (auto) 0.0 Neutrophils % (Manual) 69 Band Neutrophils % 22 H Lymphocytes % (Manual) 8 L Monocytes % (Manual) 1 L Abs Neuts (Manual) 12.9 H Lymphocytes # (Manual) 1.1 L Monocytes # (Manual) 0.1 Toxic Vacuolation PRESENT Platelet Estimate NORMAL Plt Morphology Comment NORMAL RBC Morphology NOTED Hypochromasia Microcytosis 1+ (5-14) Ovalocytes 1+ (5-14) Carol Cells Sodium 132 L Potassium 4.5 Chloride 101 Carbon Dioxide 22 Anion Gap 14 BUN 22 H Creatinine 1.07 Estim Creat Clear Calc 67.5 Estimated GFR 59 Random Glucose 97 Lactic Acid 2.7 H* Lactic Acid F/U @ 2Hr 1.6 Calcium 8.1 L Magnesium 1.7 Total Bilirubin 0.5 AST 32 H ALT 14 Alkaline Phosphatase 95 Troponin I High Sens 3.1 Total Protein 8.1 H Albumin 3.4 L Procalcitonin Urine Color Yellow Urine Appearance Cloudy Urine pH 5.5 Ur Specific [employer] 1.010 Urine Protein Trace Urine Glucose (UA) Negative Urine Ketones Negative Urine Blood Trace H Urine Nitrite Negative Ur Leukocyte Esterase Large (3+) H Urine RBC 3-5 H Urine WBC >50 H Ur Squamous Epith Cells 11-20 Urine Bacteria 1+ Hyaline Casts 3-5 Influenza Type A (PCR) POSITIVE A Influenza Type B (PCR) NEGATIVE RSV RNA Qual (PCR) NEGATIVE SARS-CoV-2 RNA (RT-PCR) NEGATIVE Blood Type Antibody Screen 05/03/24 05/03/24 05/03/24 08:37 14:01 14:39 WBC 13.6 H RBC 3.63 L Hgb 6.8 L* Hct 23.3 L MCV 64.2 L MCH 18.7 L MCHC 29.2 L RDW 19.4 H Plt Count 190 D MPV 9.7 Immature Gran % (Auto) Cancelled Neut % (Auto) Cancelled Lymph % (Auto) Cancelled Dale % (Auto) Cancelled Eos % (Auto) Cancelled Baso % (Auto) Cancelled Lymph # (Auto) Cancelled Dale # (Auto) Cancelled Eos # (Auto) Cancelled Baso # (Auto) Cancelled Abs Immat Gran (auto) Cancelled Absolute Neuts (auto) Cancelled Absolute Nucleated RBC 0.020 H Nucleated RBC % (auto) 0.1 Neutrophils % (Manual) 81 H Band Neutrophils % 7 H Lymphocytes % (Manual) 10 L Monocytes % (Manual) 2 Abs Neuts (Manual) 12.0 H Lymphocytes # (Manual) 1.4 Monocytes # (Manual) 0.3 Toxic Vacuolation PRESENT Platelet Estimate NORMAL Plt Morphology Comment NORMAL RBC Morphology NOTED Hypochromasia 1+ (5-14) Microcytosis 1+ (5-14) Ovalocytes 1+ (5-14) Carol Cells 1+ (0-2) Sodium 136 Potassium 4.0 Chloride 111 H Carbon Dioxide 19 L Anion Gap 10 L BUN 20 H Creatinine 0.72 Estim Creat Clear Calc 100.4 Estimated GFR > 60 Random Glucose 76 Lactic Acid Lactic Acid F/U @ 2Hr Calcium 8.1 L Magnesium Total Bilirubin AST ALT Alkaline Phosphatase Troponin I High Sens Total Protein Albumin Procalcitonin 19.66 Urine Color Urine Appearance Urine pH Ur Specific [employer] Urine Protein Urine Glucose (UA) Urine Ketones Urine Blood Urine Nitrite Ur Leukocyte Esterase Urine RBC Urine WBC Ur Squamous Epith Cells Urine Bacteria Hyaline Casts Influenza Type A (PCR) Influenza Type B (PCR) RSV RNA Qual (PCR) SARS-CoV-2 RNA (RT-PCR) Blood Type O Positive Antibody Screen NEGATIVE A/P: d1 for 33yo F with hx MRSA tricuspid valve endocarditis, injection drug use, AUD with hx withdrawal seizures, untreated HCV, and chronic osteomyelitis of LLE presenting with fatigue and dyspnea x2d, signed out AMA from here and [facility] recently sepsis due to pneumonia, also recent UTI, chronic osteomyelitis, and influenza - 05/02- piperacillin-tazobactam + doxycycline, trend PCT, follow BCx - 04/23 UCx with E. coli R to ampicillin + TMP/SMX, I to ciprofloxacin; should be covered by piperacillin-tazobactam - chronic osteomyelitis with mild purulent drainage from open wound left lower extremity: ID consultation - oseltamivir 05/03-05/07/24 - Wound Care consultation iron deficiency anemia - transfuse 1u pRBCs, recheck CBC in AM hypoNa, mild JANES, mild - resolved with IV fluid resuscitation AUD with hx withdrawal seizures - phenobarbital taper, Addiction Medicine, folic acid + multivitamin + thiamine opioid use disorder - Addiction Medicine tobacco abuse - nicotine patch dispo - TBD In my clinical judgment, the patient requires continued hospitalization for the following reasons: Time Spent With Patient Time: Total time managing care of this patient today ____ minutes.
--- NOTE | 2024-05-03 16:42 | HO.SKINPHOTO ---
Location: Left Lower Leg Category: Chronic Wound
[2024-05-03] MEDS: methADONE HCl 20 MG/2 ML ORAL.CONC 15 MG PO (17:50)
--- NOTE | 2024-05-03 17:54 | PC.NURSE ---
Patient due for PO phenobarbital at 1700. Systolic BP's running soft. Dr. Alonso aware. Plan to continue monitoring BP and administer when BP improves. Patient agreeable with this plan of care.
[2024-05-03] MEDS: PHENobarbitaL 15 MG TABLET 45 MG PO (18:17)
[2024-05-04] MEDS: cefEPime HCl/D5W 2 GM/50 ML PIGGYBACK IV ×3 (02:39→18:03)
[2024-05-04 03:28] VITALS: BP 122/74; PULSE 76; RESP 16; TEMP 36.4; O2SAT 98
[2024-05-04] MEDS: ondansetron HCL 4 MG/2 ML VIAL IVPUSH (07:18)
[2024-05-04] MEDS: Doxycycline Hyclate 100 MG in 0.9 % Sodium Chloride 250 ML 166.67 MG IV ×2 (07:20→19:48)
[2024-05-04] MEDS: methADONE HCl 20 MG/2 ML ORAL.CONC 50 MG PO (07:40)
[2024-05-04 08:00] VITALS: BP 115/67; PULSE 68; RESP 16; TEMP 36.3; O2SAT 99
[2024-05-04 08:35] LABS: HBS Num1 0.05 mIU/mL (0-7.99); HBc Num1 0.27 S/CO (0.00-0.79); HBsAGNum1 0.38 S/CO (0.00-0.99); HIV AB/AG Nonreactive (Nonreactive); HIV Num 1 0.11 S/CO (0.00-0.99); Hepatitis B Core Antibody Nonreactive (Nonreactive); Hepatitis B Surface Antigen Negative (Negative); ~HepC Num1 15.32 S/CO (0.00-0.79); ~Hepatitis B Surface Antibody NONREACTIVE (Nonreactive); ~Hepatitis C Antibody Reactive (Nonreactive)
[2024-05-04 09:15] VITALS: BP 121/81; PULSE 75
[2024-05-04] MEDS: Multivitamin TABLET 1 TAB PO (09:27)
[2024-05-04] MEDS: Oseltamivir Phosphate 75 MG CAPSULE PO ×2 (09:27→19:44)
[2024-05-04] MEDS: PHENobarbitaL 15 MG TABLET 45 MG PO ×2 (09:27→19:45)
[2024-05-04] MEDS: Folic Acid 1 MG TABLET PO (09:27)
[2024-05-04] MEDS: Thiamine HCL 100 MG TABLET PO (09:27)
--- NOTE | 2024-05-04 10:24 | P.PNADD_ITS ---
Subjective Subjective Date of Service: 05/04/24 Reason For Visit: sepsis, aspiration PNA, UTI, chronic osteo Interim History: Patient seen in room 377 for OUD and AUD treatment follow up Medically admitted with sepsis and pneumonia Seen by supervisor compressed yeast x2 and history obtained and updated Methadone initiated while in ED yesterday (05/03) to address opiate withdrawal sx Currently on phenobarbital protocol to address alcohol withdrawal sx She is awake, alert, pleasant and engaged in interview She reports feeling lousy overall, and listing several opiate withdrawal sx No observed sx of withdrawal noted during evaluation Received methadone 50mg this morning. Discussed plans for ongoing MOUD She states she was previously being seen at [facility], but has not been there in some time due to frequent hospitalizations or incarceration. Would like to have ongoing OUD care at [facility], as she has been spending more time at [facility] Pt also had positive screen for unhealthy alcohol use on admission, brief intervention as noted below Pt reports 6-7 nips daily with last drink the morning prior to admission Discussed?how alcohol use has impacted health, including negative impact on overall health and wound healing (chronic wound on lower leg) Withdrawal History: numerous presentations to ED for ETOH withdrawal Treatment History: several in different settings--including while incarcerated Supports:?Recently started attending [facility] Discussed risk reduction strategies including drinking below the recommended limit. At this time, patient is undecided in terms of aftercare, aside from OUD treatment Encouraged to discuss alcohol use with OTP should she decide she want to reduce or abstain from alcohol use. Review of Systems Constitutional: Reports as per HPI, Reports body ache(s), Reports chills, Reports difficulty sleeping, Reports lethargy and Reports malaise Gastrointestinal: Reports nausea Psychiatric: Reports anxiety Mental Status Exam Mental Status Exam Patient Appearance: Appropriate Patient Orientation: Person, Place, Time and Situation Level of Consciousness: Awake, Appropriate and Alert Patient Behavior: Appropriate and Talkative Mood Description: Calm Affect Description: Calm Speech Pattern: Clear Hallucinations: None Thought Process: Intact Thought Content: positive for Intact Judgement: Good Diagnostics Vital Signs (24Hr): Vital Signs - 24 hr 05/03/24 11:41 05/03/24 15:21 05/03/24 16:00 Temperature 97.8 F 98.4 F 99.1 F Pulse Rate 70 80 80 Respiratory Rate 19 18 18 Blood Pressure 90/50 L 101/53 L 107/63 Pulse Oximetry 95 96 94 Oxygen Delivery Method Room Air Room Air Room Air 05/03/24 16:56 05/03/24 17:22 05/03/24 18:14 Temperature 98.9 F 99 F Pulse Rate 76 76 76 Respiratory Rate 20 20 20 Blood Pressure 97/52 L 91/52 L 109/58 L Pulse Oximetry Oxygen Delivery Method 05/03/24 19:37 05/03/24 21:24 05/03/24 23:34 Temperature 99.5 F 99.5 F 97.3 F Pulse Rate 80 80 78 Respiratory Rate 18 18 16 Blood Pressure 110/60 110/60 100/57 L Pulse Oximetry 97 97 Oxygen Delivery Method Room Air Room Air 05/04/24 03:28 05/04/24 08:00 05/04/24 09:15 Temperature 97.5 F 97.4 F Pulse Rate 76 68 75 Respiratory Rate 16 16 Blood Pressure 122/74 115/67 121/81 Pulse Oximetry 98 99 Oxygen Delivery Method Room Air Room Air BMI result Body Mass Index 20.8 Labs 05/04/24 09:52 05/04/24 09:52 Labs: Laboratory Results - last 48 hr 05/02/24 05/02/24 05/02/24 19:42 22:18 23:28 WBC 14.2 H RBC 4.14 L Hgb 7.7 L Hct 25.7 L MCV 62.1 L MCH 18.6 L MCHC 30.0 L RDW 18.8 H Plt Count 266 MPV 9.1 L Immature Gran % (Auto) Cancelled Neut % (Auto) Cancelled Lymph % (Auto) Cancelled [place] % (Auto) Cancelled Eos % (Auto) Cancelled Baso % (Auto) Cancelled Lymph # (Auto) Cancelled [place] # (Auto) Cancelled Eos # (Auto) Cancelled Baso # (Auto) Cancelled Abs Immat Gran (auto) Cancelled Absolute Neuts (auto) Cancelled Absolute Nucleated RBC 0.000 Nucleated RBC % (auto) 0.0 Neutrophils % (Manual) 69 Band Neutrophils % 22 H Lymphocytes % (Manual) 8 L Monocytes % (Manual) 1 L Abs Neuts (Manual) 12.9 H Lymphocytes # (Manual) 1.1 L Monocytes # (Manual) 0.1 Toxic Vacuolation PRESENT Platelet Estimate NORMAL Plt Morphology Comment NORMAL RBC Morphology NOTED Hypochromasia Microcytosis 1+ (5-14) Ovalocytes 1+ (5-14) Carol Cells Sodium 132 L Potassium 4.5 Chloride 101 Carbon Dioxide 22 Anion Gap 14 BUN 22 H Creatinine 1.07 Estim Creat Clear Calc 67.5 Estimated GFR 59 Random Glucose 97 Lactic Acid 2.7 H* Lactic Acid F/U @ 2Hr 1.6 Calcium 8.1 L Magnesium 1.7 Total Bilirubin 0.5 AST 32 H ALT 14 Alkaline Phosphatase 95 Troponin I High Sens 3.1 Total Protein 8.1 H Albumin 3.4 L Procalcitonin Urine Color Yellow Urine Appearance Cloudy Urine pH 5.5 Ur Specific Vader 1.010 Urine Protein Trace Urine Glucose (UA) Negative Urine Ketones Negative Urine Blood Trace H Urine Nitrite Negative Ur Leukocyte Esterase Large (3+) H Urine RBC 3-5 H Urine WBC >50 H Ur Squamous Epith Cells 11-20 Urine Bacteria 1+ Hyaline Casts 3-5 Hep Bs Antigen Hep Bs Antibody Hep B Core Total Ab Hepatitis C Ab (EIA) HIV 1&2 Ab/P24 Ag 4thGn Influenza Type A (PCR) POSITIVE A Influenza Type B (PCR) NEGATIVE RSV RNA Qual (PCR) NEGATIVE SARS-CoV-2 RNA (RT-PCR) NEGATIVE Blood Type Antibody Screen Crossmatch 05/03/24 05/03/24 05/03/24 08:37 14:01 14:39 WBC 13.6 H RBC 3.63 L Hgb 6.8 L* Hct 23.3 L MCV 64.2 L MCH 18.7 L MCHC 29.2 L RDW 19.4 H Plt Count 190 D MPV 9.7 Immature Gran % (Auto) Cancelled Neut % (Auto) Cancelled Lymph % (Auto) Cancelled [place] % (Auto) Cancelled Eos % (Auto) Cancelled Baso % (Auto) Cancelled Lymph # (Auto) Cancelled [place] # (Auto) Cancelled Eos # (Auto) Cancelled Baso # (Auto) Cancelled Abs Immat Gran (auto) Cancelled Absolute Neuts (auto) Cancelled Absolute Nucleated RBC 0.020 H Nucleated RBC % (auto) 0.1 Neutrophils % (Manual) 81 H Band Neutrophils % 7 H Lymphocytes % (Manual) 10 L Monocytes % (Manual) 2 Abs Neuts (Manual) 12.0 H Lymphocytes # (Manual) 1.4 Monocytes # (Manual) 0.3 Toxic Vacuolation PRESENT Platelet Estimate NORMAL Plt Morphology Comment NORMAL RBC Morphology NOTED Hypochromasia 1+ (5-14) Microcytosis 1+ (5-14) Ovalocytes 1+ (5-14) [place] Cells 1+ (0-2) Sodium 136 Potassium 4.0 Chloride 111 H Carbon Dioxide 19 L Anion Gap 10 L BUN 20 H Creatinine 0.72 Estim Creat Clear Calc 100.4 Estimated GFR > 60 Random Glucose 76 Lactic Acid Lactic Acid F/U @ 2Hr Calcium 8.1 L Magnesium Total Bilirubin AST ALT Alkaline Phosphatase Troponin I High Sens Total Protein Albumin Procalcitonin 19.66 Urine Color Urine Appearance Urine pH Ur Specific [place] Urine Protein Urine Glucose (UA) Urine Ketones Urine Blood Urine Nitrite Ur Leukocyte Esterase Urine RBC Urine WBC Ur Squamous Epith Cells Urine Bacteria Hyaline Casts Hep Bs Antigen Negative Hep Bs Antibody NONREACTIVE Hep B Core Total Ab Nonreactive Hepatitis C Ab (EIA) Reactive H HIV 1&2 Ab/P24 Ag 4thGn Nonreactive Influenza Type A (PCR) Influenza Type B (PCR) RSV RNA Qual (PCR) SARS-CoV-2 RNA (RT-PCR) Blood Type O Positive Antibody Screen NEGATIVE Crossmatch See Detail Medications Medications Current Medications Benzonatate (Benzonatate 100 Mg Capsule) 100 mg PO TID PRN PRN Reason: Cough Calcium Carbonate (Calcium Carbonate 750 Mg Tab.Chew) 750 mg PO Q4H PRN PRN Reason: Heartburn Enoxaparin Sodium (Enoxaparin Sodium 40 Mg/0.4 Ml Syringe) 40 mg SUBCUT DAILY [facility] Last Admin: 05/04/24 09:14 Dose: Not Given Folic Acid (Folic Acid 1 Mg Tablet) 1 mg PO DAILY [facility] Stop: 05/06/24 08:59 Last Admin: 05/04/24 09:27 Dose: 1 mg Cefepime HCl (Maxipime) 2 gm in 50 mls @ 100 mls/hr IV Q8H [facility] Last Infusion: 05/04/24 03:12 Dose: Infused Doxycycline Hyclate 100 mg/ (Sodium Chloride) 250 mls @ 166.67 mls/hr IV Q12H [facility] Last Admin: 05/04/24 07:20 Dose: 166.67 mls/hr Magnesium Hydroxide (Milk Of Magnesia 30 Ml Oral.Susp) 30 ml PO DAILY PRN PRN Reason: Constipation Melatonin (Melatonin 3 Mg Tablet) 6 mg PO BEDTIME PRN PRN Reason: Insomnia Methadone HCl (Methadone Hcl 20 Mg/2 Ml Oral.Conc) 50 mg PO DAILY@0800 [facility] Last Admin: 05/04/24 07:40 Dose: 50 mg Multivitamins/Vitamin C (Multivitamin Tablet) 1 tab PO DAILY [facility] Stop: 05/06/24 08:59 Last Admin: 05/04/24 09:27 Dose: 1 tab Nicotine (Nicotine 21 Mg Patch.Td24) 21 mg TRANSDERMA DAILY [facility] Last Admin: 05/04/24 09:14 Dose: Not Given Oseltamivir Phosphate (Oseltamivir Phosphate 75 Mg Capsule) 75 mg PO BID [facility] Stop: 05/07/24 21:01 Last Admin: 05/04/24 09:27 Dose: 75 mg Pantoprazole Sodium (Pantoprazole Sodium 40 Mg/10 Ml Vial) 40 mg IVPUSH BID [facility] Last Admin: 05/03/24 20:15 Dose: 40 mg Pharmacy Consult (Consult Rx Etoh Phenob Im/Po) 1 each MISCELLANE ONCE PRN; Protocol PRN Reason: Consult order Phenobarbital (Phenobarbital 15 Mg Tablet) 45 mg PO BID@0700,1900 [facility] Stop: 05/05/24 07:01 Last Admin: 05/04/24 09:27 Dose: 45 mg Phenobarbital (Phenobarbital 15 Mg Tablet) 15 mg PO BID [facility] Stop: 05/07/24 09:01 Phenobarbital (Phenobarbital 15 Mg Tablet) 15 mg PO DAILY [facility] Stop: 05/09/24 09:01 Sodium Chloride (0.9 % Sodium Chloride Flush 3 Ml Syringe) 3 ml IVFLUSH QSHIFT [facility] Last Admin: 05/04/24 07:42 Dose: Not Given Thiamine HCl (Thiamine Hcl 100 Mg Tablet) 100 mg PO DAILY [facility] Stop: 05/06/24 08:59 Last Admin: 05/04/24 09:27 Dose: 100 mg Allergies Allergies Allergy/AdvReac Type Severity Reaction Status Date / Time acetaminophen [From TYLENOL] Allergy Mild ITCHY AND Verified 05/02/24 18:54 HIVES tioconazole Allergy Mild HIVES Verified 05/02/24 18:54 [From MONISTAT 1 (TIOCONAZOLE)] vancomycin Allergy Anaphylaxis Verified 05/02/24 18:54 Assessment & Plan Assessment & Plan (1) Opioid use disorder, severe, dependence: Status: Acute Code(s): F11.20 - Opioid dependence, uncomplicated Assessment and Plan: * methadone increase to 60mg in AM * PRN pain meds as needed for wound care * supervisor compressed yeast to submit referral to [facility] OTP (2) Alcohol use disorder, severe, dependence: Status: Acute Code(s): F10.20 - Alcohol dependence, uncomplicated Assessment and Plan: * phenobarb taper in place * thiamine and folate in place * supervisor compressed yeast to follow up with written resources including information on inpatient and outpatient treatment, RASHIDA, harm reduction, and recovery coaching. Total time managing care of this patient today ___35_ minutes.
[2024-05-04 10:33] LABS: MANUAL DIFF FLAG NO
[2024-05-04 10:37] LABS: Basophils Percent Auto 0.3 % (0-2); Eosinophils Percent Auto 0.1 % (0-4); Hematocrit 28.3 % (37.0-47.0); Hemoglobin 8.2 g/dl (12.0-16.0); Imm Gran Abs Auto 0.03 X10*3/uL (0.00-0.03); Imm Gran Pct Auto 0.4 % (0.0-0.4); Lymphocytes Absolute Auto 0.7 X10*3/uL (1.2-4.9); Lymphocytes Percent Auto 10.9 % (20-40); Mean Corpuscular Hemoglobin 19.1 pg (27.0-33.0); Mean Platelet Volume 10.3 fL (9.4-12.3); Monocytes Absolute Auto 0.3 X10*3/uL (0.1-1.2); Monocytes Percent Auto 4.6 % (2-11); Neutrophils Absolute Auto 5.6 x10*3/uL (2.0-8.3); Neutrophils Percent Auto 83.7 % (45-73); Platelet Count 253 X10*3/uL (160-400); Red Blood Count 4.29 X10*6/uL (4.20-5.50); Red Cell Distribution Width 22.3 % (11.0-16.0); White Blood Count 6.7 X10*3/uL (4.8-10.8)
[2024-05-04 10:59] LABS: Anion Gap 6 (12-20); Blood Urea Nitrogen 12 mg/dL (9-16); Calcium 7.9 mg/dL (8.4-10.2); Carbon Dioxide 23 mmol/L (22-29); Chloride 109 mmol/L (96-108); Creatinine Clr Calc Pharmacy 107.9; Estimated Glomerular Filt Rate > 60; Glucose Random 84 mg/dL (60-115); Potassium 3.7 mmol/L (3.3-5.1); Sodium 134 mmol/L (135-145)
--- NOTE | 2024-05-04 11:07 | P.PNIM_ITS ---
Subjective Subjective Date of Service: 05/04/24 Interval History: c/o dry cough, shortness of breath afebrile Review of Systems Review of Systems: Yes all other systems are reviewed and are negative Physical Exam 2 Vital Signs: Vital Signs: Last Vital Signs Temp 97.4 F 05/04/24 08:00 Pulse 75 05/04/24 09:15 Resp 16 05/04/24 08:00 BP 121/81 05/04/24 09:15 Pulse Ox 99 05/04/24 08:00 O2 Del Method Room Air 05/04/24 08:00 BMI result Body Mass Index 20.8 Gen: NAD HEENT: sclera anicteric, moist mucus membranes Neck: supple Lungs: clear to auscultation bilaterally Heart: regular rate and rhythm, no murmurs Abd: soft, non-tender, non-distended Ext: no edema Skin: warm/well-perfused, large L sequeira wound Neuro: alert and oriented x3, no focal findings Psych: appropriate affect Objective Data Active Medications Benzonatate (Benzonatate 100 Mg Capsule) 100 mg PO TID PRN PRN Reason: Cough Calcium Carbonate (Calcium Carbonate 750 Mg Tab.Chew) 750 mg PO Q4H PRN PRN Reason: Heartburn Enoxaparin Sodium (Enoxaparin Sodium 40 Mg/0.4 Ml Syringe) 40 mg SUBCUT DAILY [facility] Last Admin: 05/04/24 09:14 Dose: Not Given Documented By: CLARKE Non-Admin Reason: Patient Refused Folic Acid (Folic Acid 1 Mg Tablet) 1 mg PO DAILY [facility] Stop: 05/06/24 08:59 Last Admin: 05/04/24 09:27 Dose: 1 mg Documented By: CLARKE Cefepime HCl (Maxipime) 2 gm in 50 mls @ 100 mls/hr IV Q8H [facility] Last Infusion: 05/04/24 03:12 Dose: Infused Documented By: ALEXA Doxycycline Hyclate 100 mg/ (Sodium Chloride) 250 mls @ 166.67 mls/hr IV Q12H [facility] Last Admin: 05/04/24 07:20 Dose: 166.67 mls/hr Documented By: CLARKE Magnesium Hydroxide (Milk Of Magnesia 30 Ml Oral.Susp) 30 ml PO DAILY PRN PRN Reason: Constipation Melatonin (Melatonin 3 Mg Tablet) 6 mg PO BEDTIME PRN PRN Reason: Insomnia Methadone HCl (Methadone Hcl 20 Mg/2 Ml Oral.Conc) 50 mg PO DAILY@0800 [facility] Last Admin: 05/04/24 07:40 Dose: 50 mg Documented By: CLARKE Co-signed By: KENZIE Multivitamins/Vitamin C (Multivitamin Tablet) 1 tab PO DAILY [facility] Stop: 05/06/24 08:59 Last Admin: 05/04/24 09:27 Dose: 1 tab Documented By: CLARKE Nicotine (Nicotine 21 Mg Patch.Td24) 21 mg TRANSDERMA DAILY [facility] Last Admin: 05/04/24 09:14 Dose: Not Given Documented By: CLARKE Non-Admin Reason: Patient Refused Oseltamivir Phosphate (Oseltamivir Phosphate 75 Mg Capsule) 75 mg PO BID [facility] Stop: 05/07/24 21:01 Last Admin: 05/04/24 09:27 Dose: 75 mg Documented By: CLARKE Pantoprazole Sodium (Pantoprazole Sodium 40 Mg/10 Ml Vial) 40 mg IVPUSH BID [facility] Last Admin: 05/03/24 20:15 Dose: 40 mg Documented By: ALEXA Pharmacy Consult (Consult Rx Etoh Phenob Im/Po) 1 each MISCELLANE ONCE PRN; Protocol PRN Reason: Consult order Phenobarbital (Phenobarbital 15 Mg Tablet) 45 mg PO BID@0700,1900 [facility] Stop: 05/05/24 07:01 Last Admin: 05/04/24 09:27 Dose: 45 mg Documented By: CLARKE Phenobarbital (Phenobarbital 15 Mg Tablet) 15 mg PO BID [facility] Stop: 05/07/24 09:01 Phenobarbital (Phenobarbital 15 Mg Tablet) 15 mg PO DAILY [facility] Stop: 05/09/24 09:01 Sodium Chloride (0.9 % Sodium Chloride Flush 3 Ml Syringe) [facility] Admin: 05/04/24 07:42 Dose: Not Given Documented By: CLARKE Non-Admin Reason: Previously Administered Thiamine HCl (Thiamine Hcl 100 Mg Tablet) 100 mg PO DAILY [facility] Stop: 05/06/24 08:59 Last Admin: 05/04/24 09:27 Dose: 100 mg Documented By: CLARKE Labs 05/04/24 09:52 05/04/24 09:52 Labs: Laboratory Results - last 24 hr 05/03/24 05/03/24 05/04/24 14:01 14:39 09:52 MCV 66.0 L MCH 19.1 L MCHC 29.0 L RDW 22.3 H Plt Count 253 D MPV 10.3 Immature Gran % (Auto) 0.4 Neut % (Auto) 83.7 H Lymph % (Auto) 10.9 L [place] % (Auto) 4.6 Eos % (Auto) 0.1 Baso % (Auto) 0.3 Lymph # (Auto) 0.7 L [place] # (Auto) 0.3 Eos # (Auto) 0.0 Baso # (Auto) 0.0 Abs Immat Gran (auto) 0.03 Absolute Neuts (auto) 5.6 Absolute Nucleated RBC 0.000 Nucleated RBC % (auto) 0.0 Anion Gap 10 L 6 L Estim Creat Clear Calc 100.4 107.9 Estimated GFR > 60 > 60 Random Glucose 76 84 Calcium 8.1 L 7.9 L Procalcitonin 19.66 Hep Bs Antigen Negative Hep Bs Antibody NONREACTIVE Hep B Core Total Ab Nonreactive Hepatitis C Ab (EIA) Reactive H HIV 1&2 Ab/P24 Ag 4thGn Nonreactive Blood Type O Positive Antibody Screen NEGATIVE Crossmatch See Detail Microbiology Microbiology Results: Microbiology 05/02/24 19:42 Blood Culture - Preliminary Blood - Venous No growth after 24 hours. 05/02/24 19:42 Blood Culture - Preliminary Blood - Venous No growth after 24 hours. Assessment and Plan (1) Leg wound, left: Status: Acute Plan d2 for 33yo F with hx MRSA tricuspid valve endocarditis, injection drug use, AUD with hx withdrawal seizures, untreated HCV, and chronic osteomyelitis of LLE presenting with fatigue and dyspnea x2d, signed out AMA from here and also [facility] recently sepsis due to pneumonia, influenza, recent UTI, and chronic osteomyelitis - 05/02- cefepime + doxycycline, trend PCT, follow BCx - 04/23 UCx with E. coli R to ampicillin + TMP/SMX, I to ciprofloxacin; should be covered by cefepime - chronic osteomyelitis; ID + wound care consultations pending - oseltamivir 05/03-05/07/24 iron deficiency anemia - transfused 1u pRBCs 05/03 with appropriate response in H+H hypoNa, mild JANES, mild - resolved with IV fluid resuscitation AUD with hx withdrawal seizures - continue phenobarbital taper, Addiction Medicine consulted, folic acid + multivitamin + thiamine opioid use disorder - Addiction Medicine consulted, continue methadone tobacco abuse - nicotine patch dispo - eventual home In my clinical judgment, the patient requires continued hospitalization for the following reasons: IV ABX, specialty consultation Total time managing care of this patient today: 45 minutes. Quality Stroke Does the patient have a stroke diagnosis?: No VTE Prior VTE?: No VTE Risk Level:: Medical - moderate - high VTE Device Contraindication: Treatment Not Indicated VTE Drug Contraindication: N/A - Med Ordered
[2024-05-04] MEDS: Pantoprazole Sodium 40 MG/10 ML VIAL IVPUSH ×2 (11:31→19:46)
[2024-05-04 12:00] VITALS: BP 104/58; PULSE 73; RESP 16; TEMP 36.6; O2SAT 97
--- NOTE | 2024-05-04 13:07 | HO.WOUND ---
Wound Consult: Initial 33yr old?female admitted to [facility] on 05/03/24 - See progress notes and H&P for detailed history.? Wound consult placed for Chronic Left Leg wound.? Patient agreeable to assessment and photo documentation.? Patient reports she has not sought treatment in a while due to her substance use. She reports she does clean the wound daily and she reports she obtains her dressig supplies from [facility]. She reports she used to treat in outpt wound clinic but has not in some time. She is agreeable to follow up with outpt wound clinic at time of d/c. Of note the patient reports she does inject directly into the wound bed - we discussed the negative effects of continuing to use this site for injection - she states understanding. Left Leg Left lower leg Etiology: Chronic Ulceration Measurements: 17cm x 9cm x 0.4cm Wound Bed: Full thickness tissue loss, marbled wound bed with pale pink tissue and yellow adherent slough Drainage / Odor: None noted at this time - patient reports there is significant drainage and odor at times Edges: ? epibole Sri wound: Hypo and Hyperpigmentation noted , mild swelling noted No Induration, Fluctuance or Warmth noted, +pp noted denies neuropathy Pain: pain reported Goals of Treatment: ? Iodosorb applied recommend outpt wound clinic follow up The patient notes the wound has been in place for greater than 2 years I suspect there is Bio film to the wound bed - Iodosorb to treat biofilm and progress wound healing Recommendations: 1. Provide adequate and supplemental nutrition.? 2. When applicable maintain blood glucose levels per Providers order. 3. Left Lower Leg - Elevate Left Leg on pillows be sure to float heels.? Cleanse with saline, pat dry. ?Apply Iodosorb / Iodoflex to wound bed cover with gauze and tape. ?Change every other day.?? Iodoflex left at bedside. Note the Iodoflex will be applied brown and over the course of time as the Iodine is absorbed into the wound bed the color will change to yellow / cream signifying time to replace.?? At time of discharge patient should switch to Durafiber to the wound bed and change every other day as well. Recommend follow up out patient Wound Clinic at [address] [place] [id number] and to call for an appointment at time of discharge. [phone].? Re-consult wound care Nurse for wound deterioration or wound changes.
[2024-05-04 13:56] LABS: OBS Int Ctl Valid YES; OBS1 NEGATIVE (NEGATIVE)
[2024-05-04 15:23] VITALS: BP 109/63; PULSE 71; RESP 18; TEMP 36.6; O2SAT 99
--- NOTE | 2024-05-04 16:01 | P.CNID_ITS ---
History of Present Illness Data of Consult Service Date: 05/03/24 Requesting physician: Radha Alonso Primary Care Provider: None Physician HPI Reason for consult: RML pneumonia She presents with cough and temperature 102.9 for a day SHe has RML pneumonia. She has polysubstance use. She has flu positiivity, A. Review of Systems 2 Review of Systems: Yes all other systems are reviewed and are negative [facility] Past Medical History Medical History (Updated 05/04/24 @ 16:03 by Alize Robertson MD) Pneumonia Osteomyelitis Anxiety Endocarditis Opiate addiction Family History Family history: reviewed and not pertinent Surgical History Surgical History No pertinent past surgical history Social History Social History Household Members: None Household Members Other:: homeless Do you presently have visiting nurse or other home services: No Alcohol intake: current Alcohol intake frequency: 3 or more drinks per day Alcohol type: hard liquor Patient Tobacco Use Status: Current everyday Tobacco user Tobacco use type: Cigarette Cigarette Packs Per Day: 1 Cigarettes Per Day: 20.0 Second Hand Smoke Exposure: No Substance Use Type: Crack/Cocaine and Heroin Advance Directives Date on File: 09/04/22 service: No Meds Allergies Allergy/AdvReac Type Severity Reaction Status Date / Time acetaminophen [From TYLENOL] Allergy Mild ITCHY AND Verified 05/02/24 18:54 HIVES tioconazole Allergy Mild HIVES Verified 05/02/24 18:54 [From MONISTAT 1 (TIOCONAZOLE)] vancomycin Allergy Anaphylaxis Verified 05/02/24 18:54 Active Medications: Current Medications Benzonatate (Benzonatate 100 Mg Capsule) 100 mg PO TID PRN PRN Reason: Cough Calcium Carbonate (Calcium Carbonate 750 Mg Tab.Chew) 750 mg PO Q4H PRN PRN Reason: Heartburn Enoxaparin Sodium (Enoxaparin Sodium 40 Mg/0.4 Ml Syringe) 40 mg SUBCUT DAILY COUNT INCLUDES THE [facility] Last Admin: 05/04/24 09:14 Dose: Not Given Folic Acid (Folic Acid 1 Mg Tablet) 1 mg PO DAILY SHIVA Stop: 05/06/24 08:59 Last Admin: 05/04/24 09:27 Dose: 1 mg Cefepime HCl (Maxipime) 2 gm in 50 mls @ 100 mls/hr IV Q8H COUNT INCLUDES THE [facility] Last Infusion: 05/04/24 12:53 Dose: Infused Doxycycline Hyclate 100 mg/ (Sodium Chloride) 250 mls @ 166.67 mls/hr IV Q12H COUNT INCLUDES THE [facility] Last Infusion: 05/04/24 11:36 Dose: Infused Magnesium Hydroxide (Milk Of Magnesia 30 Ml Oral.Susp) 30 ml PO DAILY PRN PRN Reason: Constipation Melatonin (Melatonin 3 Mg Tablet) 6 mg PO BEDTIME PRN PRN Reason: Insomnia Methadone HCl (Methadone Hcl 20 Mg/2 Ml Oral.Conc) 60 mg PO DAILY@0800 COUNT INCLUDES THE [facility] Multivitamins/Vitamin C (Multivitamin Tablet) 1 tab PO DAILY COUNT INCLUDES THE [facility] Stop: 05/06/24 08:59 Last Admin: 05/04/24 09:27 Dose: 1 tab Nicotine (Nicotine 21 Mg Patch.Td24) 21 mg TRANSDERMA DAILY COUNT INCLUDES THE [facility] Last Admin: 05/04/24 09:14 Dose: Not Given Oseltamivir Phosphate (Oseltamivir Phosphate 75 Mg Capsule) 75 mg PO BID COUNT INCLUDES THE [facility] Stop: 05/07/24 21:01 Last Admin: 05/04/24 09:27 Dose: 75 mg Pantoprazole Sodium (Pantoprazole Sodium 40 Mg/10 Ml Vial) 40 mg IVPUSH BID COUNT INCLUDES THE [facility] Last Admin: 05/04/24 11:31 Dose: 40 mg Pharmacy Consult (Consult Rx Etoh Phenob Im/Po) 1 each MISCELLANE ONCE PRN; Protocol PRN Reason: Consult order Phenobarbital (Phenobarbital 15 Mg Tablet) 45 mg PO BID@0700,1900 COUNT INCLUDES THE [facility] Stop: 05/05/24 07:01 Last Admin: 05/04/24 09:27 Dose: 45 mg Phenobarbital (Phenobarbital 15 Mg Tablet) 15 mg PO BID COUNT INCLUDES THE [facility] Stop: 05/07/24 09:01 Phenobarbital (Phenobarbital 15 Mg Tablet) 15 mg PO DAILY COUNT INCLUDES THE [facility] Stop: 05/09/24 09:01 Sodium Chloride (0.9 % Sodium Chloride Flush 3 Ml Syringe) 3 ml IVFLUSH QSHIFT COUNT INCLUDES THE [facility] Last Admin: 05/04/24 07:42 Dose: Not Given Thiamine HCl (Thiamine Hcl 100 Mg Tablet) 100 mg PO DAILY COUNT INCLUDES THE [facility] Stop: 05/06/24 08:59 Last Admin: 05/04/24 09:27 Dose: 100 mg Home Medications ?Medication ?Instructions ?Recorded ?Confirmed ?Last Taken ?Type No Known Home Meds 05/03/24 05/03/24 Unknown History Physical Exam 2 Vital Signs: Vital Signs: Last Vital Signs Temp 97.9 F 05/04/24 15:23 Pulse 71 05/04/24 15:23 Resp 18 05/04/24 15:23 BP 109/63 05/04/24 15:23 Pulse Ox 99 05/04/24 15:23 O2 Del Method Room Air 05/04/24 15:23 BMI result Body Mass Index 20.8 Const: General: cooperative HEENT: Head: Yes normal to inspection Face and sinus: Yes normal facial exam Mouth: Normal oral and palatal mucosa present Teeth and gingiva: d entition normal Eyes: General: appearance normal, both eyes and all related structures P upils: Equal, round and reactive pupils present Resp: Effort & Inspection: normal respiratory effort Cardio: Rate: regular rate Rhythm: regular rhythm GI: Palpation (GI): Soft to palpation and nontender : General: Yes no CVA tenderness Back/Spine/Pelvis: Back: no CVA tenderness Skin: General skin exam: no rashes or lesions noted Neuro: General: moves all extremities Cranial nerves: Yes Equal, round and reactive pupils present Extrem: General: Yes normal to inspection Psych: Appearance: grossly normal Results Labs 05/04/24 09:52 05/04/24 09:52 Labs: Short CBC 05/04/24 Range/Units 09:52 WBC 6.7 (4.8-10.8) X10*3/uL Hgb 8.2 L D (12.0-16.0) g/dl Hct 28.3 L D (37.0-47.0) % Plt Count 253 D (160-400) X10*3/uL BMP 05/04/24 09:52 Sodium 134 L Potassium 3.7 Chloride 109 H Carbon Dioxide 23 BUN 12 Creatinine 0.67 Calcium 7.9 L Microbiology Microbiology Results: Microbiology 05/02/24 Unknown Urine clean catch - Clean Catch Midstream Urine Culture - Final 05/02/24 19:42 Blood - Venous Blood Culture - Preliminary No growth after 24 hours. 05/02/24 19:42 Blood - Venous Blood Culture - Preliminary No growth after 24 hours. Assessment and Plan (1) Alcohol use disorder, severe, dependence: Status: Acute (2) Opioid use disorder, severe, dependence: Status: Acute (3) Pneumonia: Status: Acute Plan She has CAP and can use Ceftriaxone and Doxycycline. I dont suspect Pseuomonas in this noninstitutionalized young person. HIV is negative Antibiotics IV as long until taking po reliably and not toxic and then Po Ceftin and Doxycycline total 7-10 days.
[2024-05-04] MEDS: Ketorolac Tromethamine 15 MG/ML VIAL IVPUSH (17:43)
[2024-05-04 19:49] VITALS: BP 142/87; PULSE 71; RESP 18; TEMP 36.8; O2SAT 100
[2024-05-04] MEDS: 0.9 % Sodium Chloride Flush 3 ML SYRINGE IVFLUSH (19:52)
[2024-05-04] MEDS: Benzonatate 100 MG CAPSULE PO (20:02)
--- NOTE | 2024-05-04 20:47 | PM.EVENT ---
Event Note Date of Service: 05/04/24 Event Note: patient requesting leave against medical advice. She was able to express understanding of her diagnoses in the risks of doing so including . Time Spent With Patient Time: Total time managing care of this patient today ____ minutes.
--- NOTE | 2024-05-04 21:30 | PC.NURSE ---
Pt requesting to leave AMA at this time, Dr. Walker made aware, and talked with the patient. Pt still refused to stay with all encouragement to stay and get care. Pt left unaccompanied, with a friend picking her up at ED entrance. Pt reporting that her belongings were taken upon arrival, although upon discharge this RN acknowledged a backpack, phones chargers, jacket/boots and cellphone with patient at the time. MAGDA Walker escorted, pt to ED security, to get additional belongings.
--- NOTE | 2024-05-05 14:43 | P.DS_ITS ---
DS: Providers Provider Date of Service: 05/04/24 Date of admission: 05/03/24 01:39 Date of discharge: 05/04/24 Primary care physician: None Physician Consults: 05/03/24 01:48 Addiction Medicine Routine Consulting Provider: Addiction Covering Reason for consultation: eoth, IVDU, heroin and cocoaine Has provider been notified: No 05/03/24 02:49 Consult to Wound Care Routine Reason for consultation: LLE chronic wound 05/03/24 08:43 Consult to Infectious Diseases Routine Consulting Provider: [facility] Reason for consultation: aspiration pneumonia, UTI, chronic osteomyelitis, flu DS: Diagnosis Discharge Diagnosis (1) Alcohol use disorder, severe, dependence: Status: Acute (2) Opioid use disorder, severe, dependence: Status: Acute (3) Pneumonia: Status: Acute (4) Polysubstance abuse: Status: Acute (5) JANES (acute kidney injury): Status: Acute (6) Urinary tract infection: Status: Acute (7) Sepsis: Status: Acute (8) Chronic osteomyelitis: Status: Acute (9) Flu: Status: Acute (10) Leg wound, left: Status: Acute (11) Iron deficiency anemia: Status: Acute (12) Left against medical advice: Status: Acute DS: Summary Hospital Course Hospital Course: From the history and physical by the admitting hospitalist, BELINDA Woo, 05/03/24: Patient is a 33-year-old female with a past medical history significant for alcohol abuse with history of alcohol withdrawal seizures, 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 She is a very difficult historian and has a hard time staying awake for the history. She complains of a dry cough and fever but denies any abdominal symptoms including pain, diarrhea, nausea vomiting or constipation. She has chronic osteomyelitis and reports that she has had some increased pain but no drainage or erythema. Recently when she was here on 04/23/2024 she was supposed to be admitted but left AMA. She had presented to [facility] 2 weeks prior to then where she was treated for potential withdrawal and chronic osteomyelitis. She was evaluated by ID who suggested treating with Augmentin and doxycycline as well as General surgery suggested AKA for definitive treatment as patient injects in her open wound. She lived 2 days after starting her treatment AMA. She has a history of leaving multiple times during treatment and has never completed a full course of antibiotics for her chronic osteomyelitis. She also does have some urinary symptoms secondary to her urinary tract infection which was recently diagnosed in the ED however she left AMA and was not treated for this. 33yo F with hx MRSA tricuspid valve endocarditis, injection drug use, AUD with hx withdrawal seizures, untreated HCV, and chronic osteomyelitis of LLE presenting with fatigue and dyspnea x2d, signed out AMA from here and also [facility] [place]. Hospital course by problem: sepsis due to pneumonia, influenza, recent UTI, and chronic osteomyelitis - 05/02- cefepime + doxycycline, trend PCT, follow BCx - 04/23 UCx with E. coli R to ampicillin + TMP/SMX, I to ciprofloxacin; should be covered by cefepime - chronic osteomyelitis; ID + wound care consultations pending - oseltamivir 05/03-05/07/24 iron deficiency anemia - transfused 1u pRBCs 05/03 with appropriate response in H+H hypoNa, mild JANES, mild - resolved with IV fluid resuscitation AUD with hx withdrawal seizures - continue phenobarbital taper, Addiction Medicine consulted, folic acid + multivitamin + thiamine opioid use disorder - Addiction Medicine consulted, continue methadone tobacco abuse - nicotine patch Unfortunately, the patient suddenly decided to sign out AMA on the night of 04/08 11/29, despite counseling from the covering MD on the possibility of disability and from inadequate treatment of her acute medical conditions. Time Attestation Discharge Coordination Time (in mins): 35 Quality: Safe Use of Opioids Does Pt have an Active Cancer Diagnosis on the Problem List?: No Quality: Stroke Does the patient have a stroke diagnosis?: No Physical Exam Vital Signs: Vital Signs: Last Vital Signs Temp 98.2 F 05/04/24 19:49 Pulse 71 05/04/24 19:49 Resp 18 05/04/24 19:49 BP 142/87 H 05/04/24 19:49 Pulse Ox 100 05/04/24 19:49 O2 Del Method Room Air 05/04/24 19:49 BMI result Body Mass Index 20.8 Gen: NAD HEENT: sclera anicteric, moist mucus membranes Neck: supple Lungs: clear to auscultation bilaterally Heart: regular rate and rhythm, no murmurs Abd: soft, non-tender, non-distended Ext: no edema Skin: warm/well-perfused, large L sequeira wound Neuro: alert and oriented x3, no focal findings Psych: appropriate affect DS: Data Data Completed and Pending Completed studies during hospitalization [Text1]: Laboratory Results WBC 6.7 X10*3/uL (4.8-10.8) 05/04/24 09:52 RBC 4.29 X10*6/uL (4.20-5.50) 05/04/24 09:52 Hgb 8.2 g/dl (12.0-16.0) L D 05/04/24 09:52 Hct 28.3 % (37.0-47.0) L D 05/04/24 09:52 MCV 66.0 fL (80.0-98.0) L 05/04/24 09:52 MCH 19.1 pg (27.0-33.0) L 05/04/24 09:52 MCHC 29.0 g/dl (31.0-35.0) L 05/04/24 09:52 RDW 22.3 % (11.0-16.0) H 05/04/24 09:52 Plt Count 253 X10*3/uL (160-400) D 05/04/24 09:52 MPV 10.3 fL (9.4-12.3) 05/04/24 09:52 Immature Gran % (Auto) 0.4 % (0.0-0.4) 05/04/24 09:52 Neut % (Auto) 83.7 % (45-73) H 05/04/24 09:52 Lymph % (Auto) 10.9 % (20-40) L 05/04/24 09:52 [place] % (Auto) 4.6 % (2-11) 05/04/24 09:52 Eos % (Auto) 0.1 % (0-4) 05/04/24 09:52 Baso % (Auto) 0.3 % (0-2) 05/04/24 09:52 Lymph # (Auto) 0.7 X10*3/uL (1.2-4.9) L 05/04/24 09:52 [place] # (Auto) 0.3 X10*3/uL (0.1-1.2) 05/04/24 09:52 Eos # (Auto) 0.0 X10*3/uL (0.0-0.4) 05/04/24 09:52 Baso # (Auto) 0.0 X10*3/uL (0.0-0.2) 05/04/24 09:52 Abs Immat Gran (auto) 0.03 X10*3/uL (0.00-0.03) 05/04/24 09:52 Absolute Neuts (auto) 5.6 x10*3/uL (2.0-8.3) 05/04/24 09:52 Absolute Nucleated RBC 0.000 X10*3/uL (0.0-0.012) 05/04/24 09:52 Nucleated RBC % (auto) 0.0 /100WBC (0.0-0.2) 05/04/24 09:52 Neutrophils % (Manual) 81 % (45-73) H 05/03/24 08:37 Band Neutrophils % 7 % (3-5) H 05/03/24 08:37 Lymphocytes % (Manual) 10 % (20-40) L 05/03/24 08:37 Monocytes % (Manual) 2 % (2-11) 05/03/24 08:37 Abs Neuts (Manual) 12.0 X10*3/uL (2.0-8.3) H 05/03/24 08:37 Lymphocytes # (Manual) 1.4 X10*3/uL (1.2-4.9) 05/03/24 08:37 Monocytes # (Manual) 0.3 X10*3/uL (0.1-1.2) 05/03/24 08:37 Toxic Vacuolation PRESENT 05/03/24 08:37 Platelet Estimate NORMAL (NORMAL) 05/03/24 08:37 Plt Morphology Comment NORMAL 05/03/24 08:37 RBC Morphology NOTED 05/03/24 08:37 Hypochromasia 1+ (5-14) /OIF 05/03/24 08:37 Microcytosis 1+ (5-14) /OIF 05/03/24 08:37 Ovalocytes 1+ (5-14) /OIF 05/03/24 08:37 [place] Cells 1+ (0-2) /OIF 05/03/24 08:37 Sodium 134 mmol/L (135-145) L 05/04/24 09:52 Potassium 3.7 mmol/L (3.3-5.1) 05/04/24 09:52 Chloride 109 mmol/L (96-108) H 05/04/24 09:52 Carbon Dioxide 23 mmol/L (22-29) 05/04/24 09:52 Anion Gap 6 (12-20) L 05/04/24 09:52 BUN 12 mg/dL (9-16) 05/04/24 09:52 Creatinine 0.67 mg/dL (0.5-1.4) 05/04/24 09:52 Estim Creat Clear Calc 107.9 05/04/24 09:52 Estimated GFR > 60 05/04/24 09:52 Random Glucose 84 mg/dL (60-115) 05/04/24 09:52 Lactic Acid 2.7 mmol/L (0.5-2.0) H* 05/02/24 19:42 Lactic Acid F/U @ 2Hr 1.6 mmol/L (0.5-2.0) 05/02/24 22:18 Calcium 7.9 mg/dL (8.4-10.2) L 05/04/24 09:52 Magnesium 1.7 mg/dL (1.6-2.6) 05/02/24 19:42 Total Bilirubin 0.5 mg/dL (0.0-1.0) 05/02/24 19:42 AST 32 U/L (5-31) H 05/02/24 19:42 ALT 14 U/L (0-31) 05/02/24 19:42 Alkaline Phosphatase 95 U/L (39-117) 05/02/24 19:42 Troponin I High Sens 3.1 ng/L (<3.5-17.0) 05/02/24 19:42 Total Protein 8.1 g/dL (6.5-8.0) H 05/02/24 19:42 Albumin 3.4 g/dL (3.5-5.0) L 05/02/24 19:42 Procalcitonin 19.66 ng/mL 05/03/24 14:01 Urine Color Yellow 05/02/24 23:28 Urine Appearance Cloudy 05/02/24 23:28 Urine pH 5.5 (5.0-9.0) 05/02/24 23:28 Ur Specific [place] 1.010 (1.005-1.025) 05/02/24 23:28 Urine Protein Trace mg/dL (Neg-Trace) 05/02/24 23:28 Urine Glucose (UA) Negative mg/dL (Negative) 05/02/24 23: Urine Ketones Negative mg/dL (Negative) 05/02/24 23:28 Urine Blood Trace (Negative) H 05/02/24 23:28 Urine Nitrite Negative (Negative) 05/02/24 23:28 Ur Leukocyte Esterase Large (3+) (Negative) H 05/02/24 23: Urine RBC 3-5 /HPF (0-2) H 05/02/24 23:28 Urine WBC >50 /HPF (0-5) H 05/02/24 23:28 Ur Squamous Epith Cells 11-20 /HPF (0-2) 05/02/24 23:28 Urine Bacteria 1+ (None Seen) 05/02/24 23: Hyaline Casts 3-5 /LPF (0-2) 05/02/24 23:28 Stool Occult Blood NEGATIVE (NEGATIVE) 05/04/24 13:18 Hep Bs Antigen Negative (Negative) 05/03/24 14:01 Hep Bs Antibody NONREACTIVE (Nonreactive) 05/03/24 14:01 Hep B Core Total Ab Nonreactive (Nonreactive) 05/03/24 14:01 Hepatitis C Ab (EIA) Reactive (Nonreactive) H 05/03/24 14:01 HIV 1&2 Ab/P24 Ag 4thGn Nonreactive (Nonreactive) 05/03/24 14:01 Influenza Type A (PCR) POSITIVE (Negative) A 05/02/24 19:42 Influenza Type B (PCR) NEGATIVE (Negative) 05/02/24 19:42 RSV RNA Qual (PCR) NEGATIVE (Negative) 05/02/24 19:42 SARS-CoV-2 RNA (RT-PCR) NEGATIVE (Negative) 05/02/24 19:42 Blood Type O Positive 05/03/24 14:39 Antibody Screen NEGATIVE 05/03/24 14:39 Crossmatch See Detail 05/03/24 14:39 Labs on day of discharge: Preliminary micro results at discharge 05/02/24 19:42 Blood Culture - Preliminary Blood - Venous No growth after 48 hours. 05/02/24 19:42 Blood Culture - Preliminary Blood - Venous No growth after 48 hours. Discharge Plan Discharge Anticipated Discharge Date/Time: 05/04/24 20:47 Patient Disposition: Left Against Medical Advice Discharge Diagnosis: flu, pna Referrals: Physician,None [Primary Care Provider] - 1 Week Discharge Medications: No Action No Known Home Meds Discharge Orders: Discharge Order (Routine); Ordered 05/04/24 Ordered By: Augie Walker Print Language: Kittitian Activity Restrictions/Additional Instructions: Topical Wound Care Recommenations: Left Lower Leg - Elevate Left Leg on pillows be sure to float heels.? Cleanse with saline, pat dry. ?Apply Iodosorb / Iodoflex to wound bed cover with gauze and tape. ?Change every other day.?? Iodoflex left at bedside. Note the Iodoflex will be applied brown and over the course of time as the Iodine is absorbed into the wound bed the color will change to yellow / cream signifying time to replace.?? At time of discharge patient should switch to Durafiber to the wound bed and change every other day as well. Recommend follow up out patient Wound Clinic at [address] [place] [id number] and to call for an appointment at time of discharge. [phone].? Care Plan Goals: goals not met due to patient signing out AMA Health Concerns: sepsis due to pneumonia, influenza, recent UTI, and chronic osteomyelitis iron deficiency anemia hypoNa, mild JANES, mild AUD with hx withdrawal seizures opioid use disorder tobacco abuse left against medical advice Plan of Treatment: return to the hospital as soon as possible Assessment: See Discharge Summary. Discharge Date/Time: 05/04/24 21:25
[2024-05-05 19:38] LABS: HCV Log PCR <1.18 NOT DETECTED Log IU/mL (NOT DETECTED); HepC Viral Load <15 NOT DETECTED IU/mL (NOT DETECTED); Strep Pneumo Ag urine Not Detected (Not Detected)
[2024-05-06 04:24] LABS: Legionella Ag Urine Not Detected (Not Detected)
== END 2024-05-04 21:25 | disposition left against medical advice (07) | DRG 720 ==
LOC: HO.ED 20:10 → HO.EDOVER 05-03 01:48 → HO.S3 05-03 15:13
PROVIDERS: Physician Assistant; Physician Assistant Medical; Admitting Provider Physician Assistant; Emergency Provider Emergency Medicine Emergency Medical Services; Visit Provider Family Medicine
DX: A41.9 Sepsis, unspecified organism (principal); J69.0 Pneumonitis due to inhalation of food and vomit; N17.9 Acute kidney failure, unspecified; E87.1 Hypo-osmolality and hyponatremia; D50.9 Iron deficiency anemia, unspecified; F10.20 Alcohol dependence, uncomplicated; M86.672 Other chronic osteomyelitis, left ankle and foot; F11.20 Opioid dependence, uncomplicated; F17.210 Nicotine dependence, cigarettes, uncomplicated; J10.1 Influenza due to other identified influenza virus with other respiratory manifestations; Z20.822 Contact with and (suspected) exposure to COVID-19; S81.802A Unspecified open wound, left lower leg, initial encounter; X58.XXXA Exposure to other specified factors, initial encounter; Z71.6 Tobacco abuse counseling; F19.10 Other psychoactive substance abuse, uncomplicated; Z86.14 Personal history of Methicillin resistant Staphylococcus aureus infection; E86.0 Dehydration; N39.0 Urinary tract infection, site not specified
CPT/HCPCS: 0241U; 36415; 71045; 80048; 80053; 81001; 82272; 83605; 83735; 84145; 84484; 85007; 85025; 85027; 86704; 86706; 86803; 86850; 86900; 86901; 86923; 87040; 87086; 87340; 87389; 87449; 87522; 87899; 93005; 99285; J0456; J0692; J0696; J0736; J1885; J2405; J2470; J2560; J3411; P9016; S9485

== ENCOUNTER → 2024-05-02 18:53 | Outpatient (BNV) | payer OTHER, SELFPAY | PROVIDERS: Admitting Provider Physician Assistant; Emergency Provider Emergency Medicine Emergency Medical Services; Visit Provider Internal Medicine | DX: R07.9 Chest pain, unspecified (principal) | CPT/HCPCS: 93010 ==

== ENCOUNTER → 2024-05-02 19:36 | Outpatient (BNV) | payer OTHER, SELFPAY | PROVIDERS: Emergency Provider Emergency Medicine Emergency Medical Services; Visit Provider Radiology Diagnostic Radiology | DX: R06.02 Shortness of breath (principal) | CPT/HCPCS: 71045 ==

== ENCOUNTER → 2024-05-03 01:39 | Outpatient (BNV) | payer MEDICAID, SELFPAY | PROVIDERS: Admitting Provider Physician Assistant; Emergency Provider Emergency Medicine Emergency Medical Services; Visit Provider Nurse Practitioner Psychiatric/Mental Health | DX: F11.20 Opioid dependence, uncomplicated (principal); F10.20 Alcohol dependence, uncomplicated | CPT/HCPCS: 99232 ==

== ENCOUNTER → 2024-05-03 01:39 | Outpatient (BNV) | payer OTHER, SELFPAY | PROVIDERS: Admitting Provider Physician Assistant; Emergency Provider Emergency Medicine Emergency Medical Services; Visit Provider Physician Assistant | DX: F10.20 Alcohol dependence, uncomplicated (principal); F11.20 Opioid dependence, uncomplicated; J18.9 Pneumonia, unspecified organism; F19.10 Other psychoactive substance abuse, uncomplicated; N17.9 Acute kidney failure, unspecified; N39.0 Urinary tract infection, site not specified; A41.9 Sepsis, unspecified organism; M86.60 Other chronic osteomyelitis, unspecified site; J11.1 Influenza due to unidentified influenza virus with other respiratory manifestations; S81.802A Unspecified open wound, left lower leg, initial encounter; D50.9 Iron deficiency anemia, unspecified; Z53.29 Procedure and treatment not carried out because of patient's decision for other reasons | CPT/HCPCS: 99239 ==

== ENCOUNTER → 2024-05-03 01:39 | Outpatient (BNV) | payer MEDICAID, SELFPAY | PROVIDERS: Admitting Provider Physician Assistant; Emergency Provider Emergency Medicine Emergency Medical Services; Visit Provider Internal Medicine | DX: F10.20 Alcohol dependence, uncomplicated (principal); F11.20 Opioid dependence, uncomplicated; J18.9 Pneumonia, unspecified organism | CPT/HCPCS: 99222 ==

== ENCOUNTER 2024-09-18 18:09 | Emergency (ER) | payer OTHER, SELFPAY ==
[2024-09-18 18:13] VITALS: BP 138/94; PULSE 94; RESP 18; TEMP 37.8; O2SAT 100; BMI 21.6
--- NOTE | 2024-09-18 18:13 | ED_ITS ---
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 Patient states that 3 days ago she accidentally stuck her left hand in a bag at she was poked by a dirty needle. She states that she has had increased redness, pain, and swelling to her left hand. She denies any known fevers or chills. She does report decreased sensation to her fingers and associated numbness and tingling. She reports decreased range of motion of her fingers and wrist. She states that she applied a topical ointment to her hand just prior to arrival which she believes caused the inflammation to worsened. She denies any chest pain, shortness of breath, nausea, or vomiting. She does report some abdominal cramping, she states that she took a at home test which was positive. She is unsure how far along she is with this . No other complaints or concerns at this time. MD complaint: right hand pain, redness, swelling Onset (ago): day(s) Radiation: non-radiation Severity: moderate Quality: aching Pain Consistency: constant Relieving factors: none Exacerbating factors: none Associated symptoms: denies other symptoms Treatments prior to arrival: none Related Data Home Medications ?Medication ?Instructions ?Recorded ?Confirmed No Known Home Meds 05/03/24 05/03/24 Allergies Allergy/AdvReac Type Severity Reaction Status Date / Time acetaminophen [From TYLENOL] Allergy Mild ITCHY AND Verified 09/18/24 18:15 HIVES tioconazole Allergy Mild HIVES Verified 09/18/24 18:15 [From MONISTAT 1 (TIOCONAZOLE)] vancomycin Allergy Anaphylaxis Verified 09/18/24 18:15 Review of Systems 2 Review of Systems: Yes all other systems are reviewed and are negative Constitutional: Constitutional: Reports as per [facility] Past Medical History Medical History (Updated 09/18/24 @ 19:06 by BELINDA Talavera) Left against medical advice Pneumonia Osteomyelitis Anxiety Endocarditis Opiate addiction Surgical History No pertinent past surgical history Social History Social History Household Members: None Household Members Other:: homeless Do you presently have visiting nurse or other home services: No Unable to assess alcohol history related to: Refusing to respond Alcohol intake: current Alcohol intake frequency: 3 or more drinks per day Alcohol type: hard liquor Patient Tobacco Use Status: Current everyday Tobacco user Tobacco use type: Cigarette Cigarette Packs Per Day: 1 Cigarettes Per Day: 20.0 Second Hand Smoke Exposure: No Use of substances other than those prescribed or required for medical reasons: Refusing to respond Substance Use Type: Crack/Cocaine and Heroin Advance Directives: Yes Advance Directives on File: Yes Advance Directives Date on File: 09/04/22 service: No Physical Exam ED Vital Signs: Vital Signs - 24 hr 09/18/24 18:13 09/18/24 19:10 Temperature 100.0 F 100.0 F Pulse Rate 94 94 Respiratory Rate 18 18 Blood Pressure 138/94 H 138/94 H Pulse Oximetry 100 100 Oxygen Delivery Method Room Air Room Air BMI result Body Mass Index 21.6 Const General: cooperative, comfortable and no acute distress Orientation/consciousness: patient oriented x3 Limitations: no limitations [facility] Head: Yes normal to inspection, Yes normocephalic and Yes atraumatic Ears: hearing grossly normal bilaterally General nose exam: Normal external nose present Face and sinus: Yes normal facial exam Mouth: Normal oral and palatal mucosa present, oropharynx normal and moist mucous membranes Throat: Yes posterior oropharynx normal Eyes General: appearance normal, both eyes and all related structures Eyelids: Yes eyelids normal Conjunctivae: conjunctivae normal Sclerae: sclerae normal Pupils: Equal, round and reactive pupils present EOM: EOMs intact bilaterally Neck Neck: Yes normal visual inspection, Yes full ROM and Yes no lymphadenopathy Lymphatic: no lymphadenopathy noted Chest Chest palpation & inspection: normal inspection of the chest Resp Effort & Inspection: normal respiratory effort and able to speak in complete sentences Auscultation: clear to auscultation bilaterally, no crackles, no rales, no rhonchi and no wheezes Cardio Rate: regular rate Rhythm: regular rhythm Heart sounds: S1 normal heart sound present and S2 normal heart sound present GI Inspection: Yes normal to inspection Skin General skin exam: no rashes or lesions noted Trauma: no lacerations or abrasions Wounds: no wounds Neuro General: patient oriented x3 and moves all extremities Cranial nerves: Yes Equal, round and reactive pupils present Extrem Other: left hand with significant edema, erythema circumferentially throughout the entire hand, decreased range of motion of all digits, very limited ROM of the wrist. Strong radial pulse. Capillary refill less than 2 seconds. Difficulty with supination and pronation. General: Yes normal to inspection Left upper extremity: normal to inspection Right lower extremity: normal to inspection Left lower extremity: normal to inspection Course Course Course Narrative: This is a rapid medical exam performed by Rebekah Silva NP: Additional HPI, ROS, PE not included below will be deferred to primary provider. Patient is a 34-year-old right hand dominant female with history of polysubstance use, alcohol use disorder, anemia, osteomyelitis presenting with left hand pain and swelling. States was accidentally stuck with an old needle while cleaning out of her bags. 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 on arrival, blood pressure mildly elevated at 130 8/94, oxygen saturation 100% on room air, temperature a 100?, pulse 94. Patient has significant erythema, edema, and warmth that is very concerning for significant infection. I discussed at length that it would be best for patient to have blood work and x-ray as she initially refused. She is agreeable for this however she reported that she needed to leave as soon as possible to sheepskin pickler her belongings as she knows that she will likely be admitted To the hospital. I stressed that she should not do this as there is a high likelihood of worsening infection, and possible loss of function of hand/ amputation, or severe sepsis. She states that she will be back and a 1/2 hour in his agreeable for lab work, and IV antibiotics at that time. She states that she had a positive at home test, which is why she initially refused the x-ray. Patient left the emergency room prior to receiving AMA paperwork. Differential Diagnosis Differential Diagnoses: The differential diagnosis associated with the presentation includes Cellulitis, osteomyelitis, septic joint Admission/Observation Consideration of admission/observation: Escalation of care including admission/observation considered patient likely needing hospital admission for IV antibiotics, and further workup however patient left AMA Discharge Plan Discharge Clinical Impression: Cellulitis Patient Disposition: Left Against Medical Advice Prescriptions: No Action No Known Home Meds Stand Alone Forms: Against Medical Advice Interventions: ED Discharge Assessment Last Done: 09/18/24 19:10 Discharge Date/Time: 09/18/24 19:11 Print Language: [place] Citizen
--- NOTE | 2024-09-18 18:25 | PC.NURSE ---
Notified by neuroradiologist patient stating she believes she is , declining hand xray at this time. Will defer to provider once patient has been picked up for plan of care regarding need of xray.
--- NOTE | 2024-09-18 18:31 | PC.NURSE ---
This RN went in to patient's room to draw lab work/start IV. Patient refusing to wear hospital noman, refusing this RN to even look for an IV, refusing lab work. Stated I've had endocarditis twice in the past and they have had to put a fernandez line in in order for me to get labwork/iv meds. Informed patient that they need to at least remove her sweatshirt so staff can see her arms for a possible IV placement, even with ultrasound. Patient requesting PO Benadryl so she can just get out of here . gelatin dynamite packing operator Patricia made aware. No provider has picked up patient yet. Informed patient they can discuss plan of care with provider once they come in to speak with her.
--- NOTE | 2024-09-18 19:05 | PC.NURSE ---
Pt. comes to nurses station to speak with staff Renay RIVERA, Paige TREVINO and this securities underwriter- pt states she has to leave and does not want to stay at this time d/t needing to go home to get some stuff and come right back in a half hour . No one else is able to go get these items for her. Patient also not willing to wait to sign AMA form stating I'm not going to wait a half hour to sign a piece of paper. Informed patient we cannot force her to stay, patient able to go if she is not willing to wait for AMA paperwork. Provider Paige stressed importance of returning to ED to receive care. patient states they will return.
[2024-09-18 19:10] VITALS: BP 138/94; PULSE 94; RESP 18; TEMP 37.8; O2SAT 100
== END 2024-09-18 19:11 | disposition left against medical advice (07) ==
PROVIDERS: Emergency Provider Internal Medicine
DX: L03.114 Cellulitis of left upper limb (principal); Z77.21 Contact with and (suspected) exposure to potentially hazardous body fluids; Z53.29 Procedure and treatment not carried out because of patient's decision for other reasons; F19.10 Other psychoactive substance abuse, uncomplicated; F10.10 Alcohol abuse, uncomplicated; Y90.9 Presence of alcohol in blood, level not specified
CPT/HCPCS: 99283

== ENCOUNTER 2024-09-19 00:45 | Emergency (ER) | payer OTHER, SELFPAY ==
[2024-09-19 00:48] VITALS: BP 136/87; PULSE 72; RESP 18; TEMP 36.7; O2SAT 100; BMI 21.5
[2024-09-19 01:03] VITALS: BP 135/83; PULSE 70; RESP 16; TEMP 36.5; O2SAT 100
[2024-09-19 03:17] LABS: MANUAL DIFF FLAG NO
[2024-09-19 03:18] LABS: Basophils Percent Auto 0.3 % (0-2); Eosinophils Absolute Auto 0.1 X10*3/uL (0.0-0.4); Eosinophils Percent Auto 0.9 % (0-4); Hemoglobin 8.1 g/dl (12.0-16.0); Imm Gran Abs Auto 0.04 X10*3/uL (0.00-0.03); Imm Gran Pct Auto 0.4 % (0.0-0.4); Lymphocytes Absolute Auto 1.8 X10*3/uL (1.2-4.9); Lymphocytes Percent Auto 19.5 % (20-40); Mean Corpuscular Hemoglobin 19.9 pg (27.0-33.0); Mean Corpuscular Volume 66.3 fL (80.0-98.0); Monocytes Absolute Auto 0.9 X10*3/uL (0.1-1.2); Monocytes Percent Auto 9.7 % (2-11); Neutrophils Absolute Auto 6.5 x10*3/uL (2.0-8.3); Neutrophils Percent Auto 69.2 % (45-73); Platelet Count 316 X10*3/uL (160-400); Red Blood Count 4.07 X10*6/uL (4.20-5.50); Red Cell Distribution Width 15.3 % (11.0-16.0); White Blood Count 9.4 X10*3/uL (4.8-10.8)
[2024-09-19] MEDS: 0.9 % Sodium Chloride 1,000 ML 999 ML IV ×2 (03:20→04:23)
[2024-09-19 03:21] VITALS: BP 135/104; PULSE 79; RESP 12; O2SAT 100
[2024-09-19 03:50] LABS: Alanine Aminotransferase 11 U/L (0-31); Albumin Level 3.6 g/dL (3.5-5.0); Alkaline Phosphatase 98 U/L (39-117); Anion Gap 12 (12-20); Aspartate Amino Transferase 21 U/L (5-31); Bilirubin Total 0.3 mg/dL (0.0-1.0); Blood Urea Nitrogen 13 mg/dL (9-16); Carbon Dioxide 29 mmol/L (22-29); Chloride 100 mmol/L (96-108); Creatinine Clr Calc Pharmacy 138.5; Estimated Glomerular Filt Rate > 60; Ethanol < 10 mg/dL; Glucose Random 73 mg/dL (60-115); HCG Quantitative 8102 mIU/mL; Lipase 12 U/L (8-78); Potassium 3.5 mmol/L (3.3-5.1); Sodium 137 mmol/L (135-145); Total Protein 7.5 g/dL (6.5-8.0)
--- NOTE | 2024-09-19 04:02 | ED.GENADULT ---
HPI - General Adult General Chief complaint: Skin/Abscess/Foreign Body Stated complaint: swollen hand Time Seen by Provider: 09/19/24 02:05 Source: patient, RN notes reviewed and old records reviewed Mode of arrival: ambulatory Limitations: no limitations History of Present Illness ED Provider: Nancy HPI narrative: 34-year-old female with a past medical history significant for opiate use disorder, chronic osteomyelitis, hand pain and swelling. The patient reports it has been red and swollen for 2 days. She states that she accidentally stuck her hand in her bag and stuck the palmar surface of her hand with a dirty needle. She denies any fevers or chills but complains of pain. She states that she is not able to make a fist Denies any other complaints She does note that she had an outpatient positive test She does not know when her last menstrual cycle was Denies any abdominal pain, vaginal bleeding or discharge Related Data Home Medications ?Medication ?Instructions ?Recorded ?Confirmed No Known Home Meds 05/03/24 05/03/24 Allergies Allergy/AdvReac Type Severity Reaction Status Date / Time acetaminophen [From TYLENOL] Allergy Mild ITCHY AND Verified 09/19/24 00:50 HIVES tioconazole Allergy Mild HIVES Verified 09/19/24 00:50 [From MONISTAT 1 (TIOCONAZOLE)] vancomycin Allergy Anaphylaxis Verified 09/19/24 00:50 Review of Systems Constitutional: Constitutional: Denies body ache(s), Denies chills and Denies fever(s) Eyes: Eyes: Denies blurry vision ENT: Denies vertigo and Denies dizziness Cardiovascular: Cardiovascular: Denies chest pain and Denies dyspnea Respiratory: Respiratory: Denies cough and Denies dyspnea Gastrointestinal: Gastrointestinal: Denies abdominal pain, Denies nausea and Denies vomiting Musculoskeletal: Musculoskeletal: Reports arthralgias, Reports joint swelling, Reports limited range of motion, Reports radiating pain into limb and Reports stiffness Integumentary/Breasts: Skin/Breast: Reports erythema and Reports wounds Neurologic: Denies vertigo and Denies dizziness Psychiatric: Psychiatric: Denies anxiety PMFSH Past Medical History Medical History (Updated 09/19/24 @ 04:16 by Ranjit Cruz) Left against medical advice Pneumonia Osteomyelitis Anxiety Endocarditis Opiate addiction Surgical History No pertinent past surgical history Social History Social History Household Members: None Household Members Other:: homeless Do you presently have visiting nurse or other home services: No Unable to assess alcohol history related to: Refusing to respond Alcohol intake: current Alcohol intake frequency: 3 or more drinks per day Alcohol type: hard liquor Patient Tobacco Use Status: Current everyday Tobacco user Tobacco use type: Cigarette Cigarette Packs Per Day: 1 Cigarettes Per Day: 20.0 Smoked in Last 30 Days: Yes Second Hand Smoke Exposure: No Use of substances other than those prescribed or required for medical reasons: Yes Substance Use Type: Crack/Cocaine and Heroin Substance Use Frequency: Daily Last Used Substance: Just Prior to Admission Advance Directives: Yes Advance Directives on File: Yes Advance Directives Date on File: 09/04/22 Patient : Yes (3 days ago positive test) service: No Physical Exam ED Vital Signs: Vital Signs - 24 hr 09/19/24 00:48 09/19/24 01:03 09/19/24 03:21 Temperature 98.1 F 97.7 F Pulse Rate 72 70 79 Respiratory Rate 18 16 12 Blood Pressure 136/87 135/83 135/104 H Pulse Oximetry 100 100 100 Oxygen Delivery Method Room Air Room Air Room Air 09/19/24 04:44 Temperature Pulse Rate 87 Respiratory Rate 14 Blood Pressure 147/99 H Pulse Oximetry 97 Oxygen Delivery Method Room Air BMI result Body Mass Index 21.5 Const General: alert Nutritional Appearance: well nourished Orientation/consciousness: patient oriented x3 HENMT Head: Yes normocephalic and Yes atraumatic Eyes Eyelids: Yes eyelids normal Conjunctivae: conjunctivae normal Sclerae: sclerae normal Corneas: corneas normal Pupils: Equal, round and reactive pupils present EOM: EOMs intact bilaterally Neck Neck: Yes full ROM Resp Effort & Inspection: normal respiratory effort, able to speak in complete sentences and not labored Cardio Rate: regular rate Rhythm: regular rhythm GI Inspection: No distended Palpation (GI): Soft to palpation, not firm, nontender, no guarding and not rigid Skin General skin exam: elasticity normal Neuro General: patient oriented x3 Cranial nerves: Yes Equal, round and reactive pupils present and Yes Bilaterally intact EOM present Cognition (Neuro): normal cognition Extrem Other: Erythema to the left hand involving both the palmar and dorsal surfaces, this is not circumferential. There is a pinpoint puncture wound in the palmar surface. The patient has decreased range of motion with flexion of all digits of the left hand. There is no significant streaking erythema proximal to the wrist. The entire left hand is exquisitely tender to palpation. Distal sensation and capillary refill remains intact. Course Reevaluation(s) Reevaluation #1: Discussed with [facility] transfer line, Rocio who passed me through to the OB resident. The patient could be consulted on if she was accepted in transfer to [facility], however the OBGYN service at [facility] will not accept transfer as there are no active -related concerns and the patient is nonviable. The transfer will page out to the hospitalist but did not deformity that she does not believe there are any available beds at this time for acute care. Time: 04:34 Reevaluation #2: Patient was accepted to [facility] under the care of Dr. Hinkle, , however there was no bed available and the transfer line is unable to tell me when a bed is available. I discussed with the patient, she would like to seek sooner care. I called [facility] transfer line and the patient was accepted to [facility] under the care of Dr. Mercado in [facility] at [address] I informed the patient that she was accepted to [facility] and she states she is okay with this. Time: 05:10 Medications Administered Discontinued Medications Generic Name Dose Route Start Last Admin Trade Name Freq PRN Reason Stop Dose Admin Ceftriaxone Sodium 1 gm 09/19/24 03:56 09/19/24 04:23 Ceftriaxone Sodium 1 Gm Vial IVPUSH 09/19/24 03:57 1 gm ONCE ONE Administration Sodium Chloride 1,000 mls @ 999 mls/hr 09/19/24 02:30 09/19/24 04:29 Ns IV 09/19/24 03:30 Infused .Q1H1M SHIVA Infusion Sodium Chloride 1,000 mls @ 999 mls/hr 09/19/24 04:00 09/19/24 04:23 Ns IV 09/19/24 05:00 999 mls/hr .Q1H1M SHIVA Administration Clindamycin Phosphate 600 mg in 50 mls @ 100 mls/hr 09/19/24 04:22 09/19/24 04:41 Cleocin IV 09/19/24 04:51 100 mls/hr ONCE ONE Administration Morphine Sulfate 2 mg 09/19/24 04:28 09/19/24 05:02 Morphine Sulfate 2 Mg/Ml Cartridge IVPUSH 09/19/24 04:29 2 mg ONCE ONE Administration Protocol Medical Decision Making Medical Decision Making [facility] Narrative: 34-year-old female with a past medical history significant for polysubstance abuse presents for evaluation of left hand pain and swelling, she has a clear cellulitis with possible abscess of the left hand, likely due to IV drug abuse. Cultures were ordered, labs are reviewed, the patient does not meet sepsis criteria. She does have an hCG of 8102. The patient has anaphylaxis to vancomycin, given that she has an obvious cellulitis and IV drug abuse with history of MRSA infection in she will need MRSA coverage, clindamycin was ordered. I also ordered ceftriaxone for broader coverage we will treat with IV fluids. I discussed with our hospitalist, Dr. Mojica we will reports patients can not be admitted to this facility as we have no OBGYN coverage. We will discuss this [facility] for transfer Differential Diagnosis Differential Diagnoses: The differential diagnosis associated with the presentation includes Cellulitis Abscess Tenosynovitis Admission/Observation Consideration of admission/observation: Escalation of care including admission/observation considered Consult Healthcare Provider Management of the patient was discussed with: Hospitalist (Dr Mojica) Lab Data [facility] Lab Attestation statement: I reviewed the patient's lab results. No leukocytosis. The patient does have a chronic anemia with a hemoglobin of 8 point warranting consistent with her recent baseline. Chemistries are significant for an hCG of 8102, but otherwise unremarkable 09/19/24 03:11 09/19/24 03:11 Labs: Lab Results 09/19/24 09/19/24 Range/Units 03:11 04:44 WBC 9.4 (4.8-10.8) X10*3/uL RBC 4.07 L (4.20-5.50) X10*6/uL Hgb 8.1 L (12.0-16.0) g/dl Hct 27.0 L (37.0-47.0) % MCV 66.3 L (80.0-98.0) fL MCH 19.9 L (27.0-33.0) pg MCHC 30.0 L (31.0-35.0) g/dl RDW 15.3 (11.0-16.0) % Plt Count 316 (160-400) X10*3/uL MPV 9.0 L (9.4-12.3) fL Immature Gran % (Auto) 0.4 (0.0-0.4) % Neut % (Auto) 69.2 (45-73) % Lymph % (Auto) 19.5 L (20-40) % Kimball % (Auto) 9.7 (2-11) % Eos % (Auto) 0.9 (0-4) % Baso % (Auto) 0.3 (0-2) % Lymph # (Auto) 1.8 (1.2-4.9) X10*3/uL Kimball # (Auto) 0.9 (0.1-1.2) X10*3/uL Eos # (Auto) 0.1 (0.0-0.4) X10*3/uL Baso # (Auto) 0.0 (0.0-0.2) X10*3/uL Abs Immat Gran (auto) 0.04 H (0.00-0.03) X10*3/uL Absolute Neuts (auto) 6.5 (2.0-8.3) x10*3/uL Absolute Nucleated RBC 0.000 (0.0-0.012) X10*3/uL Nucleated RBC % (auto) 0.0 (0.0-0.2) /100WBC Sodium 137 (135-145) mmol/L Potassium 3.5 (3.3-5.1) mmol/L Chloride 100 (96-108) mmol/L Carbon Dioxide 29 (22-29) mmol/L Anion Gap 12 (12-20) BUN 13 (9-16) mg/dL Creatinine 0.52 (0.5-1.4) mg/dL Estim Creat Clear Calc 138.5 Estimated GFR > 60 Random Glucose 73 (60-115) mg/dL Lactic Acid 1.0 (0.5-2.0) mmol/L Calcium 9.0 D (8.4-10.2) mg/dL Total Bilirubin 0.3 (0.0-1.0) mg/dL AST 21 (5-31) U/L ALT 11 (0-31) U/L Alkaline Phosphatase 98 (39-117) U/L Total Creatine Kinase 27 (26-140) U/L Total Protein 7.5 (6.5-8.0) g/dL Albumin 3.6 (3.5-5.0) g/dL Lipase 12 (8-78) U/L Beta HCG, Quant 8102 mIU/mL Urine Color Yellow Urine Appearance Cloudy Urine pH 7.5 (5.0-9.0) Ur Specific [place] 1.015 (1.005-1.025) Urine Protein 30 (1+) H (Neg-Trace) mg/dL Urine Glucose (UA) Negative (Negative) mg/dL Urine Ketones Negative (Negative) mg/dL Urine Blood Trace H (Negative) Urine Nitrite Positive H (Negative) Ur Leukocyte Esterase Moderate (2+) H (Negative) Urine RBC 6-10 H (0-2) /HPF Urine WBC 6-10 H (0-5) /HPF Ur Squamous Epith Cells 11-20 (0-2) /HPF Urine Bacteria 4+ (None Seen) Hyaline Casts 0-2 (0-2) /LPF Urine Opiates Screen POSITIVE H (Not Detect) Ur Buprenorphine Scrn Not Detected (Not Detect) ng/mL Ur Oxycodone Screen Not Detected (Not Detect) ng/mL Urine Methadone Screen Positive H (Not Detect) ng/mL Urine Fentanyl Screen POSITIVE H (Not Detect) Ur Barbiturates Screen Not Detected (Not Detect) Ur Phencyclidine Scrn Not Detected (Not Detect) Ur Amphetamines Screen Not Detected (Not Detect) U Benzodiazepines Scrn Not Detected (Not Detect) Urine Cocaine Screen POSITIVE H (Not Detect) U Marijuana (THC) Screen Not Detected (Not Detect) Ethyl Alcohol < 10 mg/dL Discharge Plan Discharge Clinical Impression: , Drug abuse, IV, Cellulitis of hand Patient Disposition: er [facility] Transfer Details: [facility] Prescriptions: No Action No Known Home Meds Print Language: Upper Sorbian
[2024-09-19] MEDS: cefTRIAXone sodium 1 GM VIAL IVPUSH (04:23)
[2024-09-19] MEDS: Clindamycin Phosphate/D5W 600 MG/50 ML PIGGYBACK 100 MG IV (04:41)
[2024-09-19 04:44] VITALS: BP 147/99; PULSE 87; RESP 14; O2SAT 97
[2024-09-19 04:54] LABS: Appearance Urine Cloudy; Color Urine Yellow; Glucose Urine UA Negative (Negative); Leukocyte Esterase Urine Moderate (2+) (Negative); Nitrite Urine Positive (Negative); PH 7.5 (5.0-9.0); Specific Gravity - Urine 1.015 (1.005-1.025); UMIC TRIGGER UACC YES; Urine Blood Trace (Negative); Urine Ketones Negative (Negative); Urine Protein 30 (1+) mg/dL (Neg-Trace)
[2024-09-19 04:58] LABS: Bacteria Urine 4+ (None Seen); Hyaline Casts Urine 0-2 /LPF (0-2); UACC Culture Trigger YES
[2024-09-19 05:01] LABS: Amphetamine Screen Urine Not Detected (Not Detect); Barbiturates, Urine Not Detected (Not Detect); Benzodiazepines Screen Urine Not Detected (Not Detect); Buprenorphine Scr Not Detected (Not Detect); Cannabinoid Screen Urine Not Detected (Not Detect); Cocaine Screen Urine POSITIVE (Not Detect); Fentanyl, urine POSITIVE (Not Detect); Methadone Screen, Urine Positive (Not Detect); Opiate Screen Urine POSITIVE (Not Detect); Oxycodone Screen Urine Not Detected (Not Detect); Phencyclidine Screen Urine Not Detected (Not Detect)
[2024-09-19] MEDS: Morphine Sulfate 2 MG/ML CARTRIDGE IVPUSH (05:02)
--- NOTE | 2024-09-19 05:29 | PC.NURSE ---
RN to RN report given Nicole at this time all questions answered and ambulance ETA [id number]
== END 2024-09-19 07:00 | disposition short-term general hospital (02) ==
PROVIDERS: Physician Assistant; Emergency Provider Emergency Medicine
DX: O99.321 Drug use complicating pregnancy, first trimester (principal); L03.113 Cellulitis of right upper limb; Z3A.01 Less than 8 weeks gestation of pregnancy; M79.642 Pain in left hand; D50.9 Iron deficiency anemia, unspecified; F19.10 Other psychoactive substance abuse, uncomplicated; F10.20 Alcohol dependence, uncomplicated; Y90.0 Blood alcohol level of less than 20 mg/100 ml; F11.20 Opioid dependence, uncomplicated; F17.210 Nicotine dependence, cigarettes, uncomplicated
CPT/HCPCS: 36415; 80053; 80307; 81001; 82550; 83605; 83690; 84702; 85025; 87040; 87086; 87088; 87186; 96361; 96374; 96375; 99284; 99285; J0696; J0736; J2270

== ENCOUNTER 2024-11-02 00:03 | Emergency (ER) | payer OTHER, SELFPAY ==
[2024-11-02] VITALS (7 sets, daily range): BP systolic 95–115; BP diastolic 52–64; PULSE 68–88; RESP 15–18; TEMP 36.4–36.8; O2SAT 98; BMI 21.8
--- NOTE | ~2024-11-02 | US_ITS ---
CLINICAL HISTORY: retained products bleeding anemic US pelvis transabdominal and transvaginal with Doppler Comparison: None provided Findings: Transabdominal scanning performed for overall anatomy. Transvaginal scanning performed for additional detail. The uterus appears normal in size. Measurements were not obtained. There is heterogeneous hypervascular region in the endometrium near the fundus roughly measuring 3.6 x 1.5 x 2.3 cm although the margins are ill-defined. Right ovary measures 3.4 x 1.6 x 1.7 cm. There is no right adnexal mass or fluid collection. There is normal color Doppler and arterial/venous spectral tracings within the right ovary. Left ovary measures 2.5 x 2.3 x 2.2 cm. There is no left adnexal mass or fluid collection. There is normal color Doppler and arterial/venous spectral tracings within the left ovary. There is no free fluid in the pelvis. IMPRESSION: Heterogeneous hypervascular region in the endometrium. Retained products of conception are not excluded. This document has been electronically signed by: Denzel Horn MD on 11/02/2024 04:14:24
[2024-11-02 00:46] LABS: Hematocrit 22.6 % (37.0-47.0); Imm Gran Abs Auto 0.07 X10*3/uL (0.00-0.03); Imm Gran Pct Auto 0.6 % (0.0-0.4); Lymphocytes Absolute Auto 1.3 X10*3/uL (1.2-4.9); MANUAL DIFF FLAG NO; Mean Corpuscular HGB Conc 29.6 g/dl (31.0-35.0); Mean Corpuscular Hemoglobin 19.2 pg (27.0-33.0); NRBC Abs Auto 0.000 X10*3/uL (0.0-0.012); NRBC Pct Auto 0.0 /100WBC (0.0-0.2); Platelet Count 341 X10*3/uL (160-400); Red Blood Count 3.49 X10*6/uL (4.20-5.50); White Blood Count 12.0 X10*3/uL (4.8-10.8)
[2024-11-02 00:49] LABS: Mean Corpuscular Volume 64.8 fL (80.0-98.0)
[2024-11-02 00:50] LABS: Hemoglobin 6.7 g/dl (12.0-16.0)
[2024-11-02 01:05] LABS: Alanine Aminotransferase 15 U/L (0-31); Albumin Level 3.2 g/dL (3.5-5.0); Alkaline Phosphatase 103 U/L (39-117); Anion Gap 12 (12-20); Aspartate Amino Transferase 38 U/L (5-31); Blood Urea Nitrogen 15 mg/dL (9-16); Calcium 8.1 mg/dL (8.4-10.2); Carbon Dioxide 22 mmol/L (22-29); Chloride 107 mmol/L (96-108); Creatinine Clr Calc Pharmacy 118.0; Estimated Glomerular Filt Rate > 60; Potassium 3.1 mmol/L (3.3-5.1); Sodium 138 mmol/L (135-145); Total Protein 7.2 g/dL (6.5-8.0)
--- NOTE | 2024-11-02 02:23 | PC.NURSE ---
pt a&ox4, respirations even and unlabored. pt reports she has possibly had a misscarraige and has been bleeding x1 week. pt denies abd pain,dizziness and cramping. lg fallon at bedside, placed US guided iv 20g left ac. 22g placed in right wrist. This rn at bedside with provider preforming a pelvic exam, pt tolerated well. nsr on tele
--- NOTE | 2024-11-02 03:05 | PC.NURSE ---
blood transfusion started at this time, pt lung sounds clear, vss.
--- NOTE | 2024-11-02 03:16 | PC.NURSE ---
15 minute initial infusion complete, pt offers no complaints, vss.
--- NOTE | 2024-11-02 03:52 | PC.NURSE ---
this RN at bedside with US tech preforming US
--- NOTE | 2024-11-02 03:52 | ED.GENADULT ---
HPI - General Adult General Chief complaint: Vaginal Bleeding Stated complaint: Gen Med Time Seen by Provider: 11/02/24 01:31 Source: patient Limitations: other (Intoxication) History of Present Illness ED Provider: Ragini Treadwell PA-C HPI narrative: 34-year-old A1 female with a history of polysubstance abuse, IV drug abuse, presents with vaginal bleeding x1 week. Patient is concerned she had a miscarriage approximately a week ago, she has had continual vaginal bleeding. History limited as the patient admits to using heroin prior to arrival. Related Data Home Medications ?Medication ?Instructions ?Recorded ?Confirmed No Known Home Meds 05/03/24 05/03/24 Allergies Allergy/AdvReac Type Severity Reaction Status Date / Time acetaminophen (From TYLENOL) Allergy Mild ITCHY AND Verified 11/02/24 00:12 HIVES tioconazole (From MONISTAT 1 Allergy Mild HIVES Verified 11/02/24 00:12 (TIOCONAZOLE)) quetiapine (From Seroquel) Allergy Hives Verified 11/02/24 00:12 vancomycin Allergy Anaphylaxis Verified 11/02/24 00:12 Review of Systems Review of Systems: Unable to obtain secondary to intoxication Yes all other systems are reviewed and are negative PMFSH Past Medical History Medical History (Updated 11/03/24 @ 00:01 by Danny Dubon) Left against medical advice Pneumonia Osteomyelitis Anxiety Endocarditis Opiate addiction Surgical History No pertinent past surgical history Social History Social History Household Members: None Household Members Other:: homeless Do you presently have visiting nurse or other home services: No Unable to assess alcohol history related to: Refusing to respond Alcohol intake: never Patient Tobacco Use Status: Current everyday Tobacco user Tobacco use type: Cigarette Cigarette Packs Per Day: 1 Cigarettes Per Day: 20.0 Second Hand Smoke Exposure: No Substance Use Type: Crack/Cocaine and Heroin Advance Directives Date on File: 09/04/22 service: No Physical Exam ED Vital Signs: Vital Signs - 24 hr 11/02/24 00:07 11/02/24 03:00 11/02/24 03:15 Temperature 98.3 F 97.5 F 97.6 F Pulse Rate 88 73 78 Respiratory Rate 18 17 18 Blood Pressure 115/59 L 98/52 L 95/55 L Pulse Oximetry 98 Oxygen Delivery Method Room Air 11/02/24 04:09 Temperature Pulse Rate 68 Respiratory Rate 15 Blood Pressure 96/58 L Pulse Oximetry 98 Oxygen Delivery Method Room Air BMI result Body Mass Index 21.8 Const Other: Somnolent, easily woken with verbal stimuli, appears older than stated age Orientation/consciousness: patient oriented x3 Eyes Other: Pinpoint pupils Resp Effort & Inspection: normal respiratory effort Cardio Other: Normal peripheral perfusion Other: Overall normal external genitalia, the os is closed, trace pink/brown fluid noted, no active bleeding from the os Skin Other: Warm dry no rash Neuro General: patient oriented x3, gait normal, no focal motor deficits and CN's II-XI intact bilaterally Psych Other: Uncooperative Course Reevaluation(s) Reevaluation #1: [facility]... Speaking with Dr. 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 here at [facility] Time: 04:42 Reevaluation #2: I discontinue the gentamicin, we are in able to obtain it at this hour, and the patient is being transferred Time: 04:45 Medications Administered Discontinued Medications Generic Name Dose Route Start Last Admin Trade Name Freq PRN Reason Stop Dose Admin Ampicillin Sodium 2 gm/ Sodium 100 mls @ 200 mls/hr 11/02/24 04:00 11/02/24 04:58 Chloride IV 11/02/24 04:29 Infused ONCE ONE Infusion Clindamycin Phosphate 900 mg in 50 mls @ 50 mls/hr 11/02/24 03:58 11/02/24 05:13 Cleocin IV 11/02/24 04:57 Infused ONCE ONE Infusion Potassium Chloride 40 meq 11/02/24 04:03 11/02/24 04:25 Potassium Chloride Er 20 Meq Tab.Er.Prt PO 11/02/24 04:04 Not Given ONCE ONE Procedures Procedure Narrative Procedure Narrative: Ultrasound-guided IV 20 gauge 1.16 in IV placed in left upper extremity. Adequate blood return, flushes well, secured with Tegaderm Medical Decision Making Medical Decision Making MDM Narrative: 34-year-old A1 female with a history of polysubstance abuse, IV drug abuse, presents with vaginal bleeding x1 week. Patient is concerned she had a miscarriage approximately a week ago, she has had continual vaginal bleeding. History limited as the patient admits to using heroin prior to arrival. Problem: Polysubstance abuse History: Per patient I have considered the following differential diagnoses: Threatened , incomplete , ectopic, endometritis, retained products of conception Plan: The patient is critically anemic, she requires blood transfusion, on my exam, I do not see active bleeding, I do see pink brown discharge, she likely has retained products, based on my exam, could also have endometritis. We will add on blood cultures, lactic and ampicillin, clindamycin and gentamicin. She will be having a transvaginal ultrasound. The patient was alert and able to sign consent for her blood transfusion. I have independently reviewed the following tests: Labs: Leukocytosis with left shift, critically anemic at 6.7 and 22.6, potassium low at 3.1, quant 345, it was 8102 on 09/19 Transvaginal ultrasound:Findings: Transabdominal scanning performed for overall anatomy. Transvaginal scanning performed for additional detail. The uterus appears normal in size. Measurements were not obtained. There is heterogeneous hypervascular region in the endometrium near the fundus roughly measuring 3.6 x 1.5 x 2.3 cm although the margins are ill-defined. Right ovary measures 3.4 x 1.6 x 1.7 cm. There is no right adnexal mass or fluid collection. There is normal color Doppler and arterial/venous spectral tracings within the right ovary. Left ovary measures 2.5 x 2.3 x 2.2 cm. There is no left adnexal mass or fluid collection. There is normal color Doppler and arterial/venous spectral tracings within the left ovary. There is no free fluid in the pelvis. IMPRESSION: Heterogeneous hypervascular region in the endometrium. Retained products of conception are not excluded. Lab Data 11/02/24 00:32 11/02/24 00:32 Labs: Lab Results 11/02/24 11/02/24 11/02/24 Range/Units 00:32 01:54 04:11 WBC 12.0 H (4.8-10.8) X10*3/uL RBC 3.49 L (4.20-5.50) X10*6/uL Hgb 6.7 L* (12.0-16.0) g/dl Hct 22.6 L (37.0-47.0) % MCV 64.8 L (80.0-98.0) fL MCH 19.2 L (27.0-33.0) pg MCHC 29.6 L (31.0-35.0) g/dl RDW 19.4 H (11.0-16.0) % Plt Count 341 (160-400) X10*3/uL MPV 9.2 L (9.4-12.3) fL Immature Gran % (Auto) 0.6 H (0.0-0.4) % Neut % (Auto) 83.4 H (45-73) % Lymph % (Auto) 11.2 L (20-40) % [facility] % (Auto) 4.5 (2-11) % Eos % (Auto) 0.1 (0-4) % Baso % (Auto) 0.2 (0-2) % Lymph # (Auto) 1.3 (1.2-4.9) X10*3/uL [facility] # (Auto) 0.5 (0.1-1.2) X10*3/uL Eos # (Auto) 0.0 (0.0-0.4) X10*3/uL Baso # (Auto) 0.0 (0.0-0.2) X10*3/uL Abs Immat Gran (auto) 0.07 H (0.00-0.03) X10*3/uL Absolute Neuts (auto) 10.0 H (2.0-8.3) x10*3/uL Absolute Nucleated RBC 0.000 (0.0-0.012) X10*3/uL Nucleated RBC % (auto) 0.0 (0.0-0.2) /100WBC Smear Path Review SEE NOTE Sodium 138 (135-145) mmol/L Potassium 3.1 L (3.3-5.1) mmol/L Chloride 107 (96-108) mmol/L Carbon Dioxide 22 (22-29) mmol/L Anion Gap 12 (12-20) BUN 15 (9-16) mg/dL Creatinine 0.61 (0.5-1.4) mg/dL Estim Creat Clear Calc 118.0 Estimated GFR > 60 Random Glucose 142 H (60-115) mg/dL Lactic Acid 1.6 (0.5-2.0) mmol/L Calcium 8.1 L D (8.4-10.2) mg/dL Total Bilirubin 0.3 (0.0-1.0) mg/dL Direct Bilirubin 0.2 (0.0-0.5) mg/dL AST 38 H (5-31) U/L ALT 15 (0-31) U/L Alkaline Phosphatase 103 (39-117) U/L Total Protein 7.2 (6.5-8.0) g/dL Albumin 3.2 L (3.5-5.0) g/dL Beta HCG, Quant 345 mIU/mL Blood Type O Positive Antibody Screen NEGATIVE Crossmatch See Detail Attestation Attending Attestation: I personally evaluated this patient with the GABRIELA and performed a substantive portion of the visit including all aspects of the medical decision making. ?Reviewed and agree with documented PA assessment and plan. Patient will be transferred to [facility] for D&C for retained products, blood transfusion and RN INTENSIVE CARE UNIT consult.? Patient remains hemodynamically stable, resting and comfortable. Critical Care Time Critical Care Time Critical Care Time: Yes Total Critical Care Time: 30 Attestation: I Ragini Treadwell PA-C have personally performed 30 minutes of critical care time not including lines and procedures; critically anemic, transfer to outside facility Discharge Plan Discharge Clinical Impression: Incomplete , Vaginal bleeding, Anemia Patient Disposition: Xfer Acute Care Hospital Transfer Details: to [facility], need for RN INTENSIVE CARE UNIT coverage Prescriptions: No Action No Known Home Meds Interventions: Acute Care Transfer Worksheet (ED) Last Done: 11/02/24 05:14 Discharge Date/Time: 11/02/24 05:21 Print Language: [place]
--- NOTE | 2024-11-02 05:06 | PC.NURSE ---
report given to Vielka RAYO at [facility]
--- NOTE | 2024-11-02 05:12 | PC.NURSE ---
pt discharged to [facility] to [facility]. pt d/c with unit of blood and antiobitics at this time
== END 2024-11-02 05:21 | disposition short-term general hospital (02) ==
PROVIDERS: Physician Assistant Medical; Emergency Provider Emergency Medicine
DX: O03.4 Incomplete spontaneous abortion without complication (principal); N93.9 Abnormal uterine and vaginal bleeding, unspecified; D64.9 Anemia, unspecified; F19.10 Other psychoactive substance abuse, uncomplicated; F11.20 Opioid dependence, uncomplicated; F17.210 Nicotine dependence, cigarettes, uncomplicated; Z59.00 Homelessness unspecified
CPT/HCPCS: 36410; 36415; 36430; 76801; 76817; 80048; 80076; 83605; 84702; 85025; 86850; 86900; 86901; 86923; 87040; 96365; 96375; 99285; 99291; J0290; J0736; P9016

== ENCOUNTER → 2024-11-02 01:30 | Outpatient (BNV) | payer OTHER, SELFPAY | PROVIDERS: Emergency Provider Emergency Medicine; Visit Provider Radiology Diagnostic Radiology | DX: N93.8 Other specified abnormal uterine and vaginal bleeding (principal) | CPT/HCPCS: 76801; 76817 ==